=== PATIENT | male | born 2000 | race Two or more races ===

== ENCOUNTER 2024-09-14 17:53 | Emergency (ER) | payer SELFPAY ==
[2024-09-14 18:00] VITALS: BP 152/88; PULSE 99; TEMP 36.9; O2SAT 97; BMI 22.2
[2024-09-14] MEDS: LIDOCAINE HCL 1% 200 MG/20 ML MDV 15 ML INJ (18:18)
--- NOTE | 2024-09-14 18:33 | ED_ITS ---
HPI HPI - General Adult General Chief complaint: Skin/Abscess/Foreign Body Stated complaint: LUMP Time Seen by Provider: 09/14/24 18:01 Source: patient Mode of arrival: walk-in Limitations: no limitations History of Present Illness HPI narrative: 24-year-old male presents here with a chief complaint of a thrombosed external hemorrhoid. He states has had it for approximately 1 week he described it as a bump and difficulty and pain with bowel movements. Patient denies a known history of hemorrhoids. Small thrombosed hemorrhoid noted. No abscess appreciated Related Data Home Medications ?Medication ?Instructions ?Recorded ?Confirmed insulin aspart U-100 100 unit/mL 1 sliding scale dose subcut DAILY 09/14/24 09/14/24 (3 mL) subcutaneous pen Previous Rx's ?Medication ?Instructions ?Recorded docusate sodium 100 mg capsule 100 mg PO DAILY #20 caps 09/14/24 (Colace) hydrocortisone 1 %-pramoxine 1 % 1 applic MT DAILY PRN itching #10 09/14/24 rectal foam (Proctofoam HC) grams Allergies Allergy/AdvReac Type Severity Reaction Status Date / Time No Known Drug Allergies Allergy Verified 09/14/24 18:00 Opioid HPI Opioid Management Most Recent Opioid Data: Last Pain Scale 8 09/14/24 18:19 09/14/24 Review of Systems ROS Narrative All Systems are negative except as noted/marked.All systems reviewed and otherwise negative PFSH PFSH Social History Little interest or pleasure in doing things: not at all Feeling down, depressed, or hopeless: not at all Exam Narrative Exam Narrative: All Systems are negative except as noted/marked.All systems reviewed and otherwise negative Nurses note and vital signs reviewed and patient is not hypoxic. General: The patient appears well and in no apparent distress. Patient is resting comfortably on cart. Skin: Warm, dry, no pallor noted. There is no rash noted. Head: Normocephalic, atraumatic Cardiovascular: Regular Rate and Rhythm Respiratory: Patient is in no distress, no accessory muscle use, lungs are clear to auscultation, no wheezing, rales or rhonchi Back: non-tender, no CVA tenderness bilaterally to percussion. GI: Normal bowel sounds, no tenderness to palpation, no masses appreciated. No rebound, guarding, or rigidity noted. gu: small thrombosed hemorrhoid Musculoskeletal: The patient has no evidence of calf tenderness, no pitting edema, symmetrical pulses noted bilaterally Neurological: A&O x4, normal speech Psychiatric: Cooperative Constitutional Vital Signs, click to edit/add: Last Vital Signs Temp 98.4 F 09/14/24 18:00 Pulse 99 H 09/14/24 18:00 Resp 20 09/14/24 18:00 BP 152/88 H 09/14/24 18:00 Pulse Ox 97 09/14/24 18:00 O2 Del Method Room Air 09/14/24 18:00 Course Vital Signs Vital signs: Vital Signs Temperature 98.4 F 09/14/24 18:00 Pulse Rate 99 H 09/14/24 18:00 Respiratory Rate 20 09/14/24 18:00 Blood Pressure 152/88 H 09/14/24 18:00 Pulse Oximetry 97 09/14/24 18:00 Oxygen Delivery Method Room Air 09/14/24 18:00 Temperature 98.4 F 09/14/24 18:00 Pulse Rate 99 H 09/14/24 18:00 Respiratory Rate 20 09/14/24 18:00 Blood Pressure 152/88 H 09/14/24 18:00 Pulse Oximetry 97 09/14/24 18:00 Oxygen Delivery Method Room Air 09/14/24 18:00 Medical Decision Making MDM Narrative Medical decision making narrative: Patient presented here with a chief complaint of a rectal bump. On examination patient has a small external hemorrhoid. The area was anesthetized 1% lidocaine solution Betadine was used to clean the area. Small incision made with 11 blade. Small clot was expressed from the hemorrhoid. Patient will be discharged home with prescription of Proctofoam and Colace. Patient told to do sitz bath's. He had a history of previous hemorrhoid. Patient tolerated procedure well. Follow-up with his primary care physician. No questions at discharge. Differential Diagnosis Differential Diagnosis: hemoorhoid Medical Records Medical records reviewed: Yes I reviewed the patient's medical records Lab Data Lab results reviewed: Yes I reviewed the patient's lab results Discharge Plan Discharge Chief Complaint: Skin/Abscess/Foreign Body Clinical Impression: Thrombosed external hemorrhoid Patient Disposition: Home, Self-Care Time of Disposition Decision: 18:31 Condition: Good Prescriptions / Home Meds: New docusate sodium [Colace] 100 mg capsule 100 mg PO DAILY Qty: 20 0RF Proctofoam HC 1-1 % foam 1 applic MT DAILY PRN (Reason: itching) Qty: 10 0RF No Action insulin aspart U-100 100 unit/mL (3 mL) insulin pen 1 sliding scale dose SUBCUT DAILY Print Language: Israeli Instructions: Hemorrhoids (ED) Referrals: [facility] [Primary Care Provider] - 1 week
== END 2024-09-14 18:42 | disposition home or self-care (01) ==
PROVIDERS: Emergency Provider Emergency Medicine
DX: K64.5 Perianal venous thrombosis (principal)
CPT/HCPCS: 46083; 99282

== ENCOUNTER 2025-01-22 04:16 | Inpatient (IN) | payer SELFPAY ==
[2025-01-22] VITALS (15 sets, daily range): BP systolic 117–138; BP diastolic 74–89; PULSE 75–92; TEMP 36.4–36.7; O2SAT 97–100; BMI 20.8
--- NOTE | 2025-01-22 04:26 | ECG_ITS ---
[facility] Test Date: 2025-01-22 Pat Name: CLIVE HUDSON Department: Room: - Gender: Male Preparation Department Supervisor: : [id number] Requested By: [id number] Order Number: [id number] Reading MD: BARRIE SWARTZ M.D. Measurements Intervals Berkey Rate: 79 P: 76 DE: 128 QRS: 78 QRSD: 104 T: 42 QT: 376 QTc: 411 Interpretive Statements 1100 Sinus rhythm 5234 Left ventricular hypertrophy with repolarization abnormality 9150 abnormal ECG Compared to ECG 12/07/2021 00:17:39 Left ventricular hypertrophy now present Early repolarization now present ST (T wave) deviation no longer present Possible ischemia no longer present Electronically Signed On 01-23-2025 6:43:33 EDT by BARRIE SWARTZ M.D.
--- OUTSIDE RECORDS SUMMARY | 2025-01-22 04:28 | XMS_ITS | Encounter Summary ---
Author Organization [facility] Address [facility] [id number] [address] [place] [address] Care Team Providers Care Gritting Machine Operator Name Role Phone Services, [facility] Primary Care Provider Encounter Details Date Type Department Care Team (Late st Contact Info) Description 12/07/2021 Orders Only [facility] [place] [address] Transcribe, Orders Support User Pain (Primary Dx) Social History Tobacco Use Types Packs/Day Years Used Date Smoking Tobacco: Never Assessed Overall Financial Resource Strain (CARDIA) Answe r Date Recorded How hard is it for you to pa y for the very basics like food, housing, medical care, and heating? Not hard at all 04/05/2021 PHQ-2 Answer Date Recorded Total Score 0 11/29/2021 PRAPARE - Transportation Answer Date Re corded In the past 12 months, has l ack of transportation kept you from medical appointments or from getting medications? No 10/2020 In the past 12 months, has l ack of transportation kept you from meetings, work, or from getting things needed for daily living? No 04/05/2021 Childcare Answer Date Recorded Do problems getting child ca re make it difficult for you to work or study? No 04/05/2021 Employment Answer Date Recorded Do you need help finding a [employer] career center and/or a training program? No 04/05/2021 Purpose - Life Answer Date Recorded I have a purpose and direction in my life. Stron gly Agree 04/05/2021 Sex and Gender Information Value Date Recorded Sex Assigned at Male 06/05/2022 3:47 AM EST Legal Sex Male 11:57 AM EDT Gender Identity Male 06/05/2022 3:47 AM EST Sexual Orientation Straight 06/05/2022 3: 47 AM EST COVID-19 Exposure Response Date Recorded In the last 10 days, have yo u been in contact with someone who was confirmed or suspected to have Coronavirus/COVID-19? No / Unsure 12/07/2021 5:43 AM EDT documented as of this encounter Plan of Treatment Not on file documented as of this encounter Results * CT brain without contrast (12/07/2021 12:35 AM EDT) us Scanning Provider External IMG CT ORDERABLES Fin al Result documented in this encounter Visit Diagnoses Diagnosis Pain- Primary Generalized pain documented in this encounter Additional Health Concerns Infection Onset Date Last Indicated Resolved Time COVID-19 Rule-Out 07/21/2022 07/21/2022 07/21/2022 9:47 PM EST COVID-19 Rule-Out 05/30/2023 05/30/2023 05/30/2023 10:37 AM EST Assessment Noted Time PHQ-9 Depression Total Score: 0 11/30/19 9:50 AM EDT documented as of this encounter Care Teams Gritting Machine Operator Relationship Specialty Start Date End Date Services, [facility] [address] [place] PCP - General Family Medicine 03/23/24 documented as of this encounter
--- OUTSIDE RECORDS SUMMARY | 2025-01-22 04:28 | XMS_ITS | Encounter Summary ---
Author Organization [email or web address] Address [facility] [id number] [address] [place] [address] Care Team Providers Care Commercial Loan Closer Name Role Phone Services, Primary Care Provider Encounter Details Date Type Department Care Team (Late st Contact Info) Description 06/06/2022 Documentation [facility] [address] [place] [phone] Tay De La Rosa MD [address] [place] [address] [address] [place] [address] Social History Tobacco Use Types Packs/Day Years Used Date Smoking Tobacco: Never Smokeless Tobacco: Never Alcohol Use Standard Drinks/Week Comments No 0 (1 standard drink = 0.6 oz pur e alcohol) Overall Financial Resource Strain (CARDIA) Answe r [...] Recorded Do you need help finding a [employer] career center and/or a training program? No [...] Exposure Response Date Recorded In the last month, have you been in contact with someone who was confirmed or suspected to have Coronavirus / COVID-19? No / Unsure 06/05/2022 3:50 AM EST documented as of this encounter Plan of Treatment Not on file documented as of this encounter Visit Diagnoses Not on filedocumented in this encounter Additional Health Concerns Infection Onset Date Last Indicated Resolved Time COVID-19 Rule-Out 07/21/2022 07/21/2022 07/21/2022 9:47 PM EST COVID-19 Rule-Out 05/30/2023 05/30/2023 05/30/2023 10:37 AM EST Assessment Noted Time PHQ-9 Depression Total Score: 0 11/30/19 9:50 AM EDT documented as of this encounter Care Teams Commercial Loan Closer Relationship Specialty Start Date End Date Services, [facility] [address] [place] PCP - General Family Medicine 03/23/24 documented as of this encounter
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
--- OUTSIDE RECORDS SUMMARY | 2025-01-22 04:29 | XMS_ITS | CCD ---
Author Organization [facility] Informat ion Partnership [facility] Care Team Providers Care Philosophy Instructor Name Role Phone Jinny Sheets Primary Care Provider AL WARD V Admitting Unavailable AL WARD V Attending Unavailable COREY MONTOYA Referring Unavailable JINNY SHEETS Primary Care Unavailable LUCIA FORTE Consulting Unavailable [facility], DR DIAZ Primary Care Unavailable REJI, DR ARTURO Burgos Consulting Unavailable REJI, DR ARTURO Burgos Attending Unavailable REJI, DR ARTURO Burgos Admitting Unavailable Anuj De La Garza Consulting Unavailable AMI SABA Attending Unavailable [facility] Primary Care Unava ilable AMI SABA Attending Unavailable SERVICES, [facility] Primary Care Unava ilable SERVICES, [facility] Care Unava ilable ELLIOT FELIX Attending Unavailable SERVICES, [facility] Care Unava ilable ELIZABETH SHORT Attending Unavailable OBELIZABETH LANTIGUA Attending Unavailable OBELIZABETH LANTIGUA Referring Unavailable SERVICES, [facility] Care Unava ilable ELIZABETH SHORT Attending Unavailable ELIZABETH SHORT Referring Unavailable SERVICES, [facility] Care Unava ilable SERVICES, [facility] Primary Care Unava ilable THIAGO BELLO Attending Unavailable SERVICES, [facility] Unava ilable VINCENZO FRANCO Attending Unavailable VINCENZO FRANCO Admitting Unavailable Medications Current Medications Medication Drug Class(es) Dates Sig (Normalized) Sig (Original) busPIRone hydrochloride 5 mg oral tablet (1 source) Start: 04-07-2019 take 1 tablet by mouth three times daily busPIRone (BUSPAR) 5 MG tablet Take 1 tablet by mouth 3 times daily 90 tablet 0 04/07/2019 Active Start: 04-07-2019 take 1 tablet by alexandrea th three times daily busPIRone (BUSPAR) 5 MG tablet Take 1 tablet by mouth 3 times daily 90 tablet 0 04/07/2019 Active 3 ml insulin glargine 100 unt/ml pen injector (1 source) Insulin Analog Start: 07-09-2014 inject 40 [IU] by subcutaneous injection once daily, then inject 100 [IU] by subcutaneous injection insulin glargine (LANTUS SOLOSTAR) 100 UNIT/ML injection pen TAKE DIRECTED, UP TO 40 UNITS SUBCUTANEOUSLY NIGHTLY 5 Pen 11 07/09/2014 Active insulin lispro 100 unt/ml injectable solution (1 source) Insulin Analog Start: 12-14-2012 HUMALOG 100 UNIT/ML injection Indications: Type I (juvenile type) diabetes mellitus without mention of complication, not stated as uncontrolled USE DIRECTED, UP TO 45 UNITS DAILY 60 mL 11 12/14/2012 Active traZODone hydrochloride 50 mg oral tablet (1 source) Serotonin Reuptake Inhibitor Start: 04-07-2019 take 1 tablet by mouth once daily as needed for sleep traZODone (DESYREL) 50 MG tablet Take 1 tablet by mouth nightly as needed for Sleep 30 tablet 0 04/07/2019 Active Start: 04-07-2019 take 1 tablet by alexandrea th once daily as needed for sleep traZODone (DESYREL) 50 MG tablet Take 1 tablet by mouth nightly as needed for Sleep 30 tablet 0 04/07/2019 Active vortioxetine 10 mg oral tablet (1 source) Start: 04-08-2019 take 1 tablet by mouth once daily VORTIoxetine (TRINTELLIX) 10 MG TABS tablet Take 1 tablet by mouth daily 30 tablet 0 04/08/2019 Active Start: 04-08-2019 take 1 tablet by alexandrea th once daily VORTIoxetine (TRINTELLIX) 10 MG TABS tablet Take 1 tablet by mouth daily 30 tablet 0 04/08/2019 Active Completed/Discontinued Medications Medication Drug Class(es) Dates Sig (Normalized) Sig (Original) cyclobenzaprine hydrochloride 5 mg oral tablet (1 source) Muscle Relaxant Start: 7 End: 9 take 1 tablet by mouth three times daily as needed for muscle spasms and pain cyclobenzaprine (FLEXERIL) 5 MG tablet Indications: Costochondritis Take 1 tablet by mouth 3 times daily as needed for Muscle spasms (and chest wall pain) 30 tablet 0 10/19/2016 04/07/2019 Discontinued (Stop Taking at Discharge) etodolac 400 mg oral tablet (1 source) Nonsteroidal Anti-inflammatory Drug Start: 6 End: 9 take 1 tablet by mouth twice daily etodolac (LODINE) 400 MG tablet Indications: Acute bilateral thoracic back pain , Acute bilateral low back pain without sciatica Take 1 tablet by mouth 2 times daily 60 tablet 3 05/15/2016 04/07/2019 Discontinued (Stop Taking at Discharge) glucagon (rdna) 1 mg injection (1 source) Antihypoglycemic Agent Start: 5 End: 9 glucagon (GLUCAGON EMERGENCY) 1 MG injection Indications: Type 1 diabetes mellitus (HCC) As directed for extreme hypoglycemia 1 kit 2 07/09/2014 04/07/2019 Discontinued (Stop Taking at Discharge) Problems Active Problems Problem Classification Problem Date Documented Date Episodic/Chronic Abdominal pain (1 source) Abdominal pain Onset: 03-13-2024 Episodic Diabetes mellitus with complications (3 sources) Type 1 diabetes mellitus uncontrolled; Translations: [Type 1 diabetes mellitus with hyperglycemia] Onset: 05-15-2016 04-04-2019 Chronic Diabetes mellitus without complication (2 sources) Type 1 diabetes mellitus; Translations: [Type 1 diabetes mellitus without complications] Onset: 10-19-2010 Resolved: 05-15-2016 05-15-2016 Chronic Diabetes mellitus without complication (1 source) Hyperglycemia, unspecified; Translations: [Hyperglycemia, unspecified] Onset: 03-13-2024 Episodic Epilepsy; convulsions (1 source) Epilepsy, unspecified, not intractable, with status epilepticus; Translations: [EPILEPSY UNS NOT INTRACT W/STAT EPI] Onset: 12-08-2021 Chronic Epilepsy; convulsions (3 sources) Unspecified convulsions; Translations: [UNSPECIFIED CONVULSIONS] Onset: 12-07-2021 Episodic Mood disorders (2 sources) Depressive disorder; Translations: [Depression] Onset: 08-10-2011 Resolved: 04-07-2019 08-10-2011 Chronic Noninfectious gastroenteritis (1 source) Noninfective gastroenteritis and colitis, unspecified; Translations: [Noninfective gastroenteritis and colitis, unspecified] Onset: 03-13-2024 Episodic Other aftercare (1 source) [facility] (current) use of insulin; Translations: [HALFWAY CURRENT USE OF INSULIN] Onset: 12-08-2021 Episodic Personality disorders (1 source) Personality disorder; Translations: [Personality disorder] Onset: 08-10-2011 08-10-2011 Chronic Unclassified (1 source) CONTACT W/AND (SUSP) EXPOS COVID-19; Translations: [CONTACT W/AND (SUSP) EXPOS COVID-19] Onset: 12-08-2021 Unclassified (1 source) High Blood Sugar - Symptomatic Onset: 03-23-2024 Unclassified (1 source) High Blood Sugar - No Symptoms Onset: 07-05-2023 Unclassified (1 source) high blood sugar Onset: 07-05-2023 Past or Other Problems Problem Classification Problem Date Documented Da te Episodic/Chronic Suicide and intentional self-inflicted injury (1 source) Suicidal thoughts; Translations: [Suicidal ideations] Onset: 04-22-2014 04-22-2014 Episodic Results Test Name Value Interpretation Reference Range Facility Glucose Glucometer (BldC) [M ass/Vol]on 03-24-2024 Glucose [Mass/Vol] 283 mg/dL High 65-99 [facility] Beta hydroxybutyrate [Moles/ Vol]on 03-23-2024 BetaHydroxybutyrate 1.02 mmol/L High 0.02-0.27 [facility] Comment on above: Performed By: #### C YANIRA, 6873-4, 3040-3, CBCA ####[facility] ([id number])[address] [place] [address] 01040 CBC AND AUTO DIFFon 03-23-20 24 ABSOLUTE BASOPHIL 0.1 X10E9/L Normal 0.0-0.2 [facility] Comment on above: Performed By: #### C YANIRA, 6873-4, 3040-3, CBCA ####[facility] ([id number])[address] [place] [address] 52973 ABSOLUTE NEUTROPHIL 3.3 X10E9/L Normal 1.5-6.6 [facility] Comment on above: Performed By: #### C YANIRA, 6873-4, 3039-3, CBCA ####[facility] ([id number])[address] [place] [address] 76126 Basophils/100 WBC (Bld) 1.3 % Normal [facility] Comment on above: Performed By: #### C YANIRA, 734, 3039-3, CBCA ####[facility] ([id number])[address] [place] [address] 79607 Eosinophils (Bld) [#/Vol] 0.3 10*3/uL Normal 0.0-0.4 [facility] Comment on above: Performed By: #### C YANIRA, 73, 3, CBCA ####[facility] ([id number])[address] [place] [address] 09769 Eosinophils/100 WBC (Bld) 4.3 % Normal [facility] Comment on above: Performed By: #### C YANIRA, 73, 3, CBCA ####[facility] ([id number])[address] [place] [address] 41828 Erythrocyte distribution width (RBC) [Ratio] 13.1 % Normal 11.5-15.0 [facility] Comment on above: Performed By: #### Codey DOYLE, 734, 3, CBCA ####[facility] ([id number])[address] [place] [address] 02311 Hematocrit (Bld) [Volume fraction] 39.2 % Normal 39-49 [facility] Comment on above: Performed By: #### C YANIRA, 734, 3039-3, CBCA ####[facility] ([id number])[address] [place] [address] 77704 Hemoglobin (Bld) [Mass/Vol] 13.2 g/dL Normal 13.0-17.0 [facility] Comment on above: Performed By: #### Codey DOYLE, 6873-4, 3039-3, CBCA ####[facility] ([id number])[address] [place] [address] 37311 Lymphocytes (Bld) [#/Vol] 2.8 10*3/uL Normal 1.0-3.5 [facility] Comment on above: Performed By: #### Codey DOYLE, 734, 3, CBCA ####[facility] ([id number])[address] [place] [address] 42072 Lymphocytes/100 WBC (Bld) 39.6 % Normal [facility] Comment on above: Performed By: #### Codey DOYLE, 734, 3, CBCA ####[facility] ([id number])[address] [place] [address] 89289 MCH (RBC) [Entitic mass] 31.5 pg Normal 27-34 [facility] Comment on above: Performed By: #### Codey DOYLE, 734, 3, CBCA ####[facility] ([id number])[address] [place] [address] 54640 MCHC (RBC) [Mass/Vol] 33.6 g/dL Normal 32-36 [facility] Comment on above: Performed By: #### Codey DOYLE, 734, 3039-3, CBCA ####[facility] ([id number])[address] [place] [address] 06927 MCV (RBC) [Entitic vol] 94 fL Normal 80-100 [facility] Comment on above: Performed By: #### Codey DOYLE, 73-4, 0-3, CBCA ####[facility] ([id number])[address] [place] [address] 97768 Monocytes (Bld) [#/Vol] 0.5 10*3/uL Normal 0-0.9 [facility] Comment on above: Performed By: #### C YANIRA, 6873-4, 3039-3, CBCA ####[facility] ([id number])[address] [place] [address] 37550 Monocytes/100 WBC (Bld) 7.8 % Normal [facility] Comment on above: Performed By: #### Codey DOYLE, 73-4, 3, CBCA ####[facility] ([id number])[address] [place] [address] 25804 Neutrophils/100 WBC (Bld) 47.0 % Normal [facility] Comment on above: Performed By: #### C YANIRA, 73, 3, CBCA ####[facility] ([id number])[address] [place] [address] [place] [address] Platelet mean volume (Bld) [Entitic vol] 7.6 fL Normal 7-12 [facility] Comment on above: Performed By: #### Codey DOYLE, 73, 3039-08, CBCA ####[facility] ([id number])[address] [place] [address] 64447 Platelets (Bld) [#/Vol] 305 10*3/uL Normal 150-450 [facility] Comment on above: Performed By: #### Codey DOYLE, 73, 3, CBCA ####[facility] ([id number])[address] [place] [address] 87655 RBC COUNT 4.18 X10E12/L Normal 4.10-5.70 [facility] Comment on above: Performed By: #### C YANIRA, 73-4, 3039-3, CBCA ####[facility] ([id number])[address] [place] [address] [place] [address] WBC (Bld) [#/Vol] 7.0 10*3/uL Normal 4.0-11.0 [facility] Comment on above: Performed By: #### C YANIRA, 6873-4, 3040-3, CBCA ####[facility] ([id number])[address] [place] [address] 40692 COMPREHENSIVE METABOLIC PANE Mark 03-23-2024 Albumin [Mass/Vol] 3.7 g/dL Normal 3.2-5.3 [facility] Comment on above: Performed By: #### Codey DYOLE, 73-4, 0-3, CBCA ####[facility] ([id number])[address] [place] [address] 13734 ALP [Catalytic activity/Vol] 91 U/L Normal 39-130 [facility] Comment on above: Performed By: #### Codey DOYLE, 73-4, 0-3, CBCA ####[facility] ([id number])[address] [place] [address] 74284 ALT [Catalytic activity/Vol] 17 U/L Normal 0-40 [facility] Comment on above: Performed By: #### Codey DOYLE, 6873-4, 3040-3, CBCA ####[facility] ([id number])[address] [place] [address] 59830 Anion gap [Moles/Vol] 10 mmol/L Normal 5-15 [facility] Comment on above: Performed By: #### Codey DOYLE, 6873-4, 3040-3, CBCA ####[facility] ([id number])[address] [place] [address] 20784 AST [Catalytic activity/Vol] 18 U/L Normal 0-41 [facility] Comment on above: Performed By: #### C YANIRA, 6873-4, 3040-3, CBCA ####[facility] ([id number])[address] [place] [address] 18065 Bilirubin [Mass/Vol] 0.5 mg/dL Normal 0.3-1.2 [facility] Comment on above: Performed By: #### C YANIRA, 73-4, 3039-3, CBCA ####[facility] ([id number])[address] [place] [address] 71992 Calcium [Mass/Vol] 8.9 mg/dL Normal 8.5-10.5 [facility] Comment on above: Performed By: #### C YANIRA, 73-4, 3039-3, CBCA ####[facility] ([id number])[address] [place] [address] 77031 Chloride [Moles/Vol] 96 mmol/L Low 98-109 [facility] Comment on above: Performed By: #### Codey DOYLE, 734, 3, CBCA ####[facility] ([id number])[address] [place] [address] 04852 CO2 [Moles/Vol] 25 mmol/L Normal 22-32 [facility] Comment on above: Performed By: #### Codey DOYLE, 4, 3, CBCA ####[facility] ([id number])[address] [place] [address] 38809 Creatinine [Mass/Vol] 1.06 mg/dL Normal 0.70-1.20 [facility] Comment on above: Result Comment: METH OD TRACEABLE TO IDMS STANDARD Performed By: #### C YANIRA, 73-4, 3039-3, CBCA ####[facility] ([id number])[address] [place] [address] 26066 eGFR (CKD-EPI) NON-RACE DEPENDENT >90 Normal >59 [facility] Comment on above: Result Comment: Reported eGFR is based on the CKD-EPI 2020 equation that does not use a race coefficient. Performed By: #### Codey DOYLE, 73-4, 0-3, CBCA ####[facility] ([id number])[address] [place] [address] 08323 Glucose [Mass/Vol] 671 mg/dL Critically high 65-99 [facility] Comment on above: Performed By: #### Codey DOYLE, 73-4, 0-3, CBCA ####[facility] ([id number])[address] [place] [address] 09492 Potassium [Moles/Vol] 4.4 mmol/L Normal 3.5-5.0 [facility] Comment on above: Performed By: #### Codey DOYLE, 73-4, 0-3, CBCA ####[facility] ([id number])[address] [place] [address] 29131 Protein [Mass/Vol] 7.3 g/dL Normal 6.0-8.0 [facility] Comment on above: Performed By: #### Codey DOYLE, 73-4, 3039-3, CBCA ####[facility] ([id number])[address] [place] [address] 12173 Sodium [Moles/Vol] 131 mmol/L Low 134-146 [facility] Comment on above: Performed By: #### Codey DOYLE, 73-4, 3039-3, CBCA ####[facility] ([id number])[address] [place] [address] 68803 Urea nitrogen [Mass/Vol] 15 mg/dL Normal 5-23 [facility] Comment on above: Performed By: #### Codey DOYLE, 73-4, 0-3, CBCA ####[facility] ([id number])[address] [place] [address] 54729 Glucose Glucometer (BldC) [M ass/Vol]on 03-23-2024 Glucose [Mass/Vol] 495 mg/dL Critically high 65-99 [facility] BEDSIDE GLUCOSE LAB >500 Critically high 65-99 [facility] Comment on above: Result Comment: SEE LAB RESULTS FOR CONFIRMATION LIPASEon 03-23-2024 Lipase [Catalytic activity/Vol] 19 U/L Normal 17-40 [facility] Comment on above: Performed By: #### C MP, 6873-4, 3040-3, CBCA ####[facility] ([id number])[address] [place] [address] 04077 VENOUS BLOOD GASon ROMAN'S TEST Normal [facility] Comment on above: Performed By: #### V BG ####[facility] ([id number])[address] [place] [address] 93782 Base excess Calc (Bld) [Moles/Vol] 0.0 mmol/L Normal 0.0-2.0 [facility] Comment on above: Performed By: #### V BG ####[facility] ([id number])[address] [place] [address] 81453 Body temperature 98.6 [degF] Normal 37.0 [facility] Comment on above: Performed By: #### V BG ####[facility] ([id number])[address] [place] [address] 20264 HCO3 (Bld) [Moles/Vol] 25.6 mmol/L High 20.0-24.0 P [facility] Comment on above: Performed By: #### V BG ####[facility] ([id number])[address] [place] [address] 63559 INSP. O2 CONC. 21 % Normal [facility] Comment on above: Performed By: #### V BG ####[facility] ([id number])[address] [place] [address] 36060 Oxygen saturation in Blood 74.0 % Low >80.0 [facility] Comment on above: Performed By: #### V BG ####[facility] ([id number])[address] [place] [address] 08160 OXYGEN SOURCE [facility] Comment on above: Performed By: #### V BG ####[facility] ([id number])[address] [place] [address] 17805 PCO2, VENOUS 43.5 MMHG Normal 35-50 [facility] Comment on above: Performed By: #### V BG ####[facility] ([id number])[address] [place] [address] 20299 PH, VENOUS 7.378 Normal 7.320-7.420 [facility] Comment on above: Performed By: #### V BG ####[facility] ([id number])[address] [place] [address] 45181 PO2, VENOUS 40 MMHG Normal 30-50 [facility] Comment on above: Performed By: #### V BG ####[facility] ([id number])[address] [place] [address] 43884 SAMPLE SITE N/A Normal [facility] Comment on above: Performed By: #### V BG ####[facility] ([id number])[address] [place] [address] 90649 SAMPLE TYPE VENOUS Normal [facility] Comment on above: Performed By: #### V BG ####[facility] ([id number])[address] [place] [address] 16236 CBC AND AUTO DIFFon 03-13-20 24 ABSOLUTE BASOPHIL 0.0 X10E9/L Normal 0.0-0.2 [facility] Comment on above: Performed By: #### N UM #### [facility] ([id number]) [address] [place] [address] 89518 ABSOLUTE NEUTROPHIL 6.6 X10E9/L Normal 1.5-6.6 [facility] Comment on above: Performed By: #### N UM #### [facility] ([id number]) [address] [place] [address] 74091 Basophils/100 WBC (Bld) 0.4 % Normal [facility] Comment on above: Performed By: #### N UM #### [facility] ([id number]) [address] [place] [address] 09071 Eosinophils (Bld) [#/Vol] 0.1 10*3/uL Normal 0.0-0.4 [facility] Comment on above: Performed By: #### N UM #### [facility] ([id number]) [address] [place] [address] 98796 Eosinophils/100 WBC (Bld) 1.0 % Normal [facility] Comment on above: Performed By: #### N UM #### [facility] ([id number]) [address] [place] [address] 90480 Erythrocyte distribution width (RBC) [Ratio] 12.9 % Normal 11.5-15.0 [facility] Comment on above: Performed By: #### N UM #### [facility] ([id number]) [address] [place] [address] 40385 Hematocrit (Bld) [Volume fraction] 46.0 % Normal 39-49 [facility] Comment on above: Performed By: #### N UM #### [facility] ([id number]) [address] [place] [address] 08717 Hemoglobin (Bld) [Mass/Vol] 15.8 g/dL Normal 13.0-17.0 [facility] Comment on above: Performed By: #### N UM #### [facility] ([id number]) [address] [place] [address] 36808 Lymphocytes (Bld) [#/Vol] 1.3 10*3/uL Normal 1.0-3.5 [facility] Comment on above: Performed By: #### N UM #### [facility] ([id number]) [address] [place] [address] 96798 Lymphocytes/100 WBC (Bld) 14.6 % Normal [facility] Comment on above: Performed By: #### N UM #### [facility] ([id number]) [address] [place] [address] 51820 MCH (RBC) [Entitic mass] 31.8 pg Normal 27-34 [facility] Comment on above: Performed By: #### N UM #### [facility] ([id number]) [address] [place] [address] 97958 MCHC (RBC) [Mass/Vol] 34.3 g/dL Normal 32-36 [facility] Comment on above: Performed By: #### N UM #### [facility] ([id number]) [address] [place] [address] 71189 MCV (RBC) [Entitic vol] 93 fL Normal 80-100 [facility] Comment on above: Performed By: #### N UM #### [facility] ([id number]) [address] [place] [address] 45016 Monocytes (Bld) [#/Vol] 0.7 10*3/uL Normal 0-0.9 [facility] Comment on above: Performed By: #### N UM #### [facility] ([id number]) [address] [place] [address] 82961 Monocytes/100 WBC (Bld) 8.4 % Normal [facility] Comment on above: Performed By: #### N UM #### [facility] ([id number]) [address] [place] [address] 62917 Neutrophils/100 WBC (Bld) 75.6 % Normal [facility] Comment on above: Performed By: #### N UM #### [facility] ([id number]) [address] [place] [address] 88541 Platelet mean volume (Bld) [Entitic vol] 8.3 fL Normal 7-12 [facility] Comment on above: Performed By: #### N UM #### [facility] ([id number]) [address] [place] [address] 28717 Platelets (Bld) [#/Vol] 382 10*3/uL Normal 150-450 [facility] Comment on above: Performed By: #### N UM #### [facility] ([id number]) [address] [place] [address] 46613 RBC COUNT 4.97 X10E12/L Normal 4.10-5.70 [facility] Comment on above: Performed By: #### N UM #### [facility] ([id number]) [address] [place] [address] 55620 WBC (Bld) [#/Vol] 8.8 10*3/uL Normal 4.0-11.0 [facility] Comment on above: Performed By: #### N UM #### [facility] ([id number]) [address] [place] [address] 65965 COMPREHENSIVE METABOLIC PANE Mark 03-13-2024 Albumin [Mass/Vol] 4.2 g/dL Normal 3.2-5.3 [facility] Comment on above: Performed By: #### N UM #### [facility] ([id number]) [address] [place] [address] 15573 ALP [Catalytic activity/Vol] 59 U/L Normal 39-130 [facility] Comment on above: Performed By: #### N UM #### [facility] ([id number]) [address] [place] [address] 49623 ALT [Catalytic activity/Vol] 18 U/L Normal 0-40 [facility] Comment on above: Performed By: #### N UM #### [facility] ([id number]) [address] [place] [address] 52856 Anion gap [Moles/Vol] 7 mmol/L Normal 5-15 [facility] Comment on above: Performed By: #### N UM #### [facility] ([id number]) [address] [place] [address] 65062 AST [Catalytic activity/Vol] 17 U/L Normal 0-41 [facility] Comment on above: Performed By: #### N UM #### [facility] ([id number]) [address] [place] [address] 59166 Bilirubin [Mass/Vol] 1.2 mg/dL Normal 0.3-1.2 [facility] Comment on above: Performed By: #### N UM #### [facility] ([id number]) [address] [place] [address] 70979 Calcium [Mass/Vol] 9.3 mg/dL Normal 8.5-10.5 [facility] Comment on above: Performed By: #### N UM #### [facility] ([id number]) [address] [place] [address] 97843 Chloride [Moles/Vol] 105 mmol/L Normal 98-109 [facility] Comment on above: Performed By: #### N UM #### [facility] ([id number]) [address] [place] [address] 47861 CO2 [Moles/Vol] 24 mmol/L Normal 22-32 [facility] Comment on above: Performed By: #### N UM #### [facility] ([id number]) [address] [place] [address] 53426 Creatinine [Mass/Vol] 0.88 mg/dL Normal 0.70-1.20 [facility] Comment on above: Result Comment: METH OD TRACEABLE TO IDMS STANDARD Performed By: #### N UM #### [facility] ([id number]) [address] [place] [address] 66236 eGFR (CKD-EPI) NON-RACE DEPENDENT >90 Normal >59 [facility] Comment on above: Result Comment: Reported eGFR is based on the CKD-EPI 2020 equation that does not use a race coefficient. Performed By: #### N UM #### [facility] ([id number]) [address] [place] [address] 41358 Glucose [Mass/Vol] 286 mg/dL High 65-99 [facility] Comment on above: Performed By: #### N UM #### [facility] ([id number]) [address] [place] [address] 44566 Potassium [Moles/Vol] 4.0 mmol/L Normal 3.5-5.0 [facility] Comment on above: Performed By: #### N UM #### [facility] ([id number]) [address] [place] [address] 45272 Protein [Mass/Vol] 8.4 g/dL High 6.0-8.0 [facility] Comment on above: Performed By: #### N UM #### [facility] ([id number]) [address] [place] [address] 80915 Sodium [Moles/Vol] 136 mmol/L Normal 134-146 [facility] Comment on above: Performed By: #### N UM #### [facility] ([id number]) [address] [place] [address] 21838 Urea nitrogen [Mass/Vol] 12 mg/dL Normal 5-23 [facility] Comment on above: Performed By: #### N UM #### [facility] ([id number]) [address] [place] [address] ABDOMEN AND PELVIS W CONT on 03-13-2024 CT ABDOMEN AND PELVIS W CONT CT ABDOMEN AND PELVIS W CONT CLINICAL INFORMATION: Epigastric pain TECHNIQUE: CT ABDOMEN AND PELVIS W CONT CT images of the abdomen and pelvis are obtained. Intravenous contrast was administered. Bowel is nondistended without evidence of obstruction. No colonic wall thickening appreciated. Kidneys enhance homogeneously. Images the lung bases show left lower lobe subpleural opacity, unchanged no hepatic or splenic abnormality seen. Gallbladder nondistended without CT evidence of gallstones. Pancreas is unremarkable. Portal and mesenteric vessels appear to enhance normally. Osseous structures are intact. No free intraperitoneal fluid. IMPRESSION: No acute abdominal findings. All CT scans at this facility use dose modulation, iterative reconstruction, and/or weight based dosing when appropriate to reduce radiation dose to as low as reasonably achievable. 6 Finalized by Armando Cooley MD on 03/13/2024 9:26 AM Normal [facility] LIPASEon 03-13-2024 Lipase [Catalytic activity/Vol] 16 U/L Low 17-40 [facility] Comment on above: Performed By: #### N UM #### [facility] ([id number]) [address] [place] [address] 00449 Troponin I.cardiac High sens itivity method [Mass/Vol]on 03-13-2024 1 HOUR TROP I, HIGH SENSITIVITY <2 Normal <21 [facility] Comment on above: Performed By: #### 8 9579-7 ####[facility] ([id number])[address] [place] [address] 48310 TROPONIN I, HIGH SENSITIVITY <2 Normal <21 [facility] Comment on above: Performed By: #### N UM #### [facility] ([id number]) [address] [place] [address] 34039 URN MACROSCOPIC NURon 2023 BILIRUBIN SYDNEY Negative Normal NEG [facility] Comment on above: Performed By: #### N UM ####[facility] ([id number])[address] [place] [address], [place] [address] BLOOD/HGB SYDNEY Negative Normal NEG [facility] Comment on above: Performed By: #### N UM ####[facility] ([id number])[address] [place] [address], [place] [address] GLUCOSE SYDNEY >=1000 Abnormal NEG [facility] Comment on above: Performed By: #### N UM ####[facility] ([id number])[address] [place] [address], [place] [address] KETONES SYDNEY 40 mg/dL Abnormal NEG [facility] Comment on above: Performed By: #### N UM ####[facility] ([id number])[address] [place] [address], [place] [address] LEUKOCYTE ESTERASE SYDNEY Negative Normal NEG [facility] Comment on above: Performed By: #### N UM ####[facility] ([id number])[address] [place] [address], [place] [address] NITRITE SYDNEY Negative Normal NEG [facility] Comment on above: Performed By: #### N UM ####[facility] ([id number])[address] [place] [address], [place] [address] PH SYDNEY 6.0 Normal 5.0-8.5 [facility] Comment on above: Performed By: #### N UM ####[facility] ([id number])[address] [place] [address], [place] [address] PROTEIN SYDNEY Negative Normal NEG [facility] Comment on above: Performed By: #### N UM ####[facility] ([id number])[address] [place] [address], [place] [address] SPECIFIC GRAVITY SYDNEY 1.020 Normal 1.003-1.035 [facility] Comment on above: Performed By: #### N UM ####[facility] ([id number])[address] [place] [address] 28493 UROBILINOGEN SYDNEY 0.2 eu/dL Normal <1.1 [facility] Comment on above: Performed By: #### N UM ####[facility] ([id number])[address] [place] [address] 88319 VENOUS BLOOD GASon 4 ROMAN'S TEST Normal [facility] Comment on above: Performed By: #### N UM #### [facility] ([id number]) [address] [place] [address] 24188 BASE,DEFICIT 1.0 MMOL/L Normal 0.0-2.0 [facility] Comment on above: Performed By: #### N UM #### [facility] ([id number]) [address] [place] [address] 55257 Body temperature 98.6 [degF] Normal 37.0 [facility] Comment on above: Performed By: #### N UM #### [facility] ([id number]) [address] [place] [address] 27416 HCO3 (Bld) [Moles/Vol] 24.4 mmol/L High 20.0-24.0 [facility] Comment on above: Performed By: #### N UM #### [facility] ([id number]) [address] [place] [address] 94850 Oxygen saturation in Blood 93.0 % Normal >80.0 [facility] Comment on above: Performed By: #### N UM #### [facility] ([id number]) [address] [place] [address] 05911 OXYGEN SOURCE RoomAir Normal [facility] Comment on above: Performed By: #### N UM #### [facility] ([id number]) [address] [place] [address] 44145 PCO2, VENOUS 40.6 MMHG Normal 35-50 [facility] Comment on above: Performed By: #### N UM #### [facility] ([id number]) [address] [place] [address] 24615 PH, VENOUS 7.386 Normal 7.320-7.420 [facility] Comment on above: Performed By: #### N UM #### [facility] ([id number]) [address] [place] [address] 24910 PO2, VENOUS 70 MMHG High 30-50 [facility] Comment on above: Performed By: #### N UM #### [facility] ([id number]) [address] [place] [address] 59856 SAMPLE SITE N/A Normal [facility] Comment on above: Performed By: #### N UM #### [facility] ([id number]) [address] [place] [address] 15105 SAMPLE TYPE VENOUS Normal [facility] Comment on above: Performed By: #### N UM #### [facility] ([id number]) [address] [place] [address] 99481 XR CHEST 1 VWon 03-13-2024 XR CHEST 1 VW XR CHEST 1 VW Portable chest: HISTORY: Epigastric abdominal pain and cough. Single view of the chest was obtained. Lungs are clear. There is no vascular congestion or effusion. No pneumothorax seen. Osseous structures appear intact. IMPRESSION: No acute findings. 6 Finalized by Armando Cooley MD on 03/13/2024 9:24 AM Normal [facility] CBC AND AUTO DIFFon 08-03-19 ABSOLUTE BASOPHIL 0.0 X10E9/L Normal 0.0-0.2 [facility] Comment on above: Performed By: #### C BCA, CMP, 24446-4 ####[facility] ([id number])[address] [place] [address] 13415 ABSOLUTE NEUTROPHIL 3.1 X10E9/L Normal 1.5-6.6 [facility] Comment on above: Performed By: #### C CARLOS CANNON, ####[facility] ([id number])[address] [place] [address] 69379 Basophils/100 WBC (Bld) 0.4 % Normal [facility] Comment on above: Performed By: #### Codey CANNON CMP, ####[facility] ([id number])[address] [place] [address] 01871 Eosinophils (Bld) [#/Vol] 0.1 10*3/uL Normal 0.0-0.4 [facility] Comment on above: Performed By: #### Codey CANNON CMP, ####[facility] ([id number])[address] [place] [address] 15948 Eosinophils/100 WBC (Bld) 1.3 % Normal [facility] Comment on above: Performed By: #### Codey CANNON [facility], 73169-7 ####[facility] ([id number])[address] [place] [address] 37799 Erythrocyte distribution width (RBC) [Ratio] 14.3 % Normal 11.5-15.0 [facility] Comment on above: Performed By: #### Codey CANNON CMP, ####[facility] ([id number])[address] [place] [address] 58374 Hematocrit (Bld) [Volume fraction] 33.1 % Low 39-49 [facility] Comment on above: Performed By: #### Codey CANNON CMP, ####[facility] ([id number])[address] [place] [address] 36112 Hemoglobin (Bld) [Mass/Vol] 11.6 g/dL Low 13.0-17.0 [facility] Comment on above: Performed By: #### C KASSANDRA CMP, ####[facility] ([id number])[address] [place] [address] 59277 Lymphocytes (Bld) [#/Vol] 3.0 10*3/uL Normal 1.0-3.5 [facility] Comment on above: Performed By: #### Codey CANNON CMP, ####[facility] ([id number])[address] [place] [address] 07796 Lymphocytes/100 WBC (Bld) 44.9 % Normal [facility] Comment on above: Performed By: #### Codey CANNON CMP, ####[facility] ([id number])[address] [place] [address] 40164 MCH (RBC) [Entitic mass] 31.7 pg Normal 27-34 [facility] Comment on above: Performed By: #### Codey CANNON CMP, ####[facility] ([id number])[address] [place] [address] 66443 MCHC (RBC) [Mass/Vol] 35.0 g/dL Normal 32-36 [facility] Comment on above: Performed By: #### Codey CANNON CMP, ####[facility] ([id number])[address] [place] [address] 12179 MCV (RBC) [Entitic vol] 90 fL Normal 80-100 [facility] Comment on above: Performed By: #### Codey CANNON, CMP, ####[facility] ([id number])[address] [place] [address] 65283 Monocytes (Bld) [#/Vol] 0.5 10*3/uL Normal 0-0.9 [facility] Comment on above: Performed By: #### Codey CANNON CMP, ####[facility] ([id number])[address] [place] [address] 09559 Monocytes/100 WBC (Bld) 7.1 % Normal [facility] Comment on above: Performed By: #### C KASSANDRA, CMP, 05518-0 ####[facility] ([id number])[address] [place] [address] 56482 Neutrophils/100 WBC (Bld) 46.3 % Normal [facility] Comment on above: Performed By: #### C KASSANDRA, CMP, 42937-3 ####[facility] ([id number])[address] [place] [address] 88711 Platelet mean volume (Bld) [Entitic vol] 7.3 fL Normal 7-12 [facility] Comment on above: Performed By: #### Codey CANNON, CMP, 64241-2 ####[facility] ([id number])[address] [place] [address] 51297 Platelets (Bld) [#/Vol] 243 10*3/uL Normal 150-450 [facility] Comment on above: Performed By: #### Codey CANNON, CMP, 16666-4 ####[facility] ([id number])[address] [place] [address] 61376 RBC COUNT 3.66 X10E12/L Low 4.10-5.70 [facility] Comment on above: Performed By: #### C BCA, CMP, ####[facility] ([id number])[address] [place] [address] 43031 WBC (Bld) [#/Vol] 6.8 10*3/uL Normal 4.0-11.0 [facility] Comment on above: Performed By: #### C KASSANDRA, CMP, 92595-8 ####[facility] ([id number])[address] [place] [address] 82167 COMPREHENSIVE METABOLIC PANE Mark 08-03-2023 Albumin [Mass/Vol] 2.6 g/dL Low 3.2-5.3 [facility] Comment on above: Performed By: #### C KASSANDRA, CMP, ####[facility] ([id number])[address] [place] [address], [place] [address] ALP [Catalytic activity/Vol] 51 U/L Normal 39-130 [facility] Comment on above: Performed By: #### C BCA, CMP, ####[facility] ([id number])[address] [place] [address] [place] [address] ALT [Catalytic activity/Vol] 42 U/L High 0-40 [facility] Comment on above: Performed By: #### C BCA, CMP, ####[facility] ([id number])[address] [place] [address] [place] [address] AST [Catalytic activity/Vol] 66 U/L High 0-41 [facility] Comment on above: Performed By: #### C BCA, CMP, ####[facility] ([id number])[address] [place] [address] [place] [address] Bilirubin [Mass/Vol] 0.7 mg/dL Normal 0.3-1.2 [facility] Comment on above: Performed By: #### C BCA, CMP, ####[facility] ([id number])[address] [place] [address] [place] [address] Calcium [Mass/Vol] 7.9 mg/dL Low 8.5-10.5 [facility] Comment on above: Performed By: #### C BCA, CMP, ####[facility] ([id number])[address] [place] [address] [place] [address] Chloride [Moles/Vol] 110 mmol/L High 98-109 [facility] Comment on above: Performed By: #### C KASSANDRA [facility], ####[facility] ([id number])[address] [place] [address] 63679 Creatinine [Mass/Vol] 0.56 mg/dL Low 0.70-1.20 [facility] Comment on above: Result Comment: METH OD TRACEABLE TO IDMS STANDARD Performed By: #### C KASSANDRA [facility], ####[facility] ([id number])[address] [place] [address] 43015 eGFR (CKD-EPI) NON-RACE DEPENDENT >90 Normal >59 [facility] Comment on above: Result Comment: Reported eGFR is based on the CKD-EPI 2020 equation that does not use a race coefficient. Performed By: #### C CARLOS CANNON, ####[facility] ([id number])[address] [place] [address] 61998 Glucose [Mass/Vol] 133 mg/dL High 65-99 [facility] Comment on above: Performed By: #### C KASSANDRA [facility], ####[facility] ([id number])[address] [place] [address] 78235 Potassium [Moles/Vol] 3.4 mmol/L Low 3.5-5.0 [facility] Comment on above: Performed By: #### C KASSANDRA [facility], ####[facility] ([id number])[address] [place] [address] 78481 Protein [Mass/Vol] 5.5 g/dL Low 6.0-8.0 [facility] Comment on above: Performed By: #### C KASSANDRA [facility], ####[facility] ([id number])[address] [place] [address] 79564 Sodium [Moles/Vol] 136 mmol/L Normal 134-146 [facility] Comment on above: Performed By: #### C CARLOS CANNON, 20728-3 ####[facility] ([id number])[address] [place] [address] [place] [address] Urea nitrogen [Mass/Vol] 10 mg/dL Normal 5-23 [facility] Comment on above: Performed By: #### C CARLOS CANNON, 77668-8 ####[facility] ([id number])[address] [place] [address] [place] [address] ELECTROLYTESon 08-03-2023 Chloride [Moles/Vol] 109 mmol/L Normal 98-109 [facility] Comment on above: Performed By: #### N UM #### [facility] ([id number]) [address] [place] [address] 02804 Potassium [Moles/Vol] 3.6 mmol/L Normal 3.5-5.0 [facility] Comment on above: Performed By: #### N UM #### [facility] ([id number]) [address] [place] [address] 01459 Sodium [Moles/Vol] 135 mmol/L Normal 134-146 [facility] Comment on above: Performed By: #### N UM #### [facility] ([id number]) [address] [place] [address] [place] [address] Anion gap [Moles/Vol] 5 mmol/L Normal 5-15 [facility] Comment on above: Performed By: #### N UM #### [facility] ([id number]) [address] [place] [address] [place] [address] Performed By: #### C KASSANDRA CMP, 57476-2 ####[facility] ([id number])[address] [place] [address] [place] [address] CO2 [Moles/Vol] 21 mmol/L Low 22-32 [facility] Comment on above: Performed By: #### N UM #### [facility] ([id number]) [address] [place] [address] 05550 Performed By: #### Codey CANNON CMP, 57953-2 ####[facility] ([id number])[address] [place] [address] 26304 Glucose Glucometer (BldC) [M ass/Vol]on 08-03-2023 Glucose [Mass/Vol] 337 mg/dL High 65-99 [facility] Glucose [Mass/Vol] 226 mg/dL High 65-99 [facility] Glucose [Mass/Vol] 134 mg/dL High 65-99 [facility] Glucose [Mass/Vol] 118 mg/dL High 65-99 [facility] Glucose [Mass/Vol] 127 mg/dL High 65-99 [facility] Glucose [Mass/Vol] 138 mg/dL High 65-99 [facility] Glucose [Mass/Vol] 192 mg/dL High 65-99 [facility] Glucose [Mass/Vol] 214 mg/dL High 65-99 [facility] MAGNESIUMon 08-03-2023 Magnesium [Mass/Vol] 1.6 mg/dL Low 1.8-2.6 [facility] Comment on above: Performed By: #### Codey CANNON [facility], 18665-5 ####[facility] ([id number])[address] [place] [address] 50718 CBC AND AUTO DIFFon 08-02-19 24 ABSOLUTE BASOPHIL 0.2 X10E9/L Normal 0.0-0.2 [facility] Comment on above: Performed By: #### B YANIRA, , 2777-1, CBCA, 6873-4 #### [facility] ([id number]) [address] [place] [address] 46449 ABSOLUTE NEUTROPHIL 6.5 X10E9/L Normal 1.5-6.6 [facility] Comment on above: Performed By: #### Pura DOYLE, , 2776-07, CBCA, 6873-4 #### [facility] ([id number]) [address] [place] [address] 83555 Basophils/100 WBC (Bld) 1.5 % Normal [facility] Comment on above: Performed By: #### B YANIRA, , 2776-07, CBCA, 6873-4 #### [facility] ([id number]) [address] [place] [address] 21390 Eosinophils (Bld) [#/Vol] 0.1 10*3/uL Normal 0.0-0.4 [facility] Comment on above: Performed By: #### B YANIRA, , 2776-07, CBCA, 6873-4 #### [facility] ([id number]) [address] [place] [address] 16930 Eosinophils/100 WBC (Bld) 0.7 % Normal [facility] Comment on above: Performed By: #### B YANIRA, , 2776-07, CBCA, 6873-4 #### [facility] ([id number]) [address] [place] [id number] Erythrocyte distribution width (RBC) [Ratio] 14.2 % Normal 11.5-15.0 [facility] Comment on above: Performed By: #### B YANIRA, , 2776-07, CBCA, 6873-4 #### [facility] ([id number]) [address] [place] [address] [id number] Hematocrit (Bld) [Volume fraction] 37.9 % Low 39-49 [facility] Comment on above: Performed By: #### B YANIRA, , 2776-07, CBCA, 6873-4 #### [facility] ([id number]) [address] [place] [address] 93057 Hemoglobin (Bld) [Mass/Vol] 12.7 g/dL Low 13.0-17.0 [facility] Comment on above: Performed By: #### Pura DOYLE, , 2776-07, CBCA, 6873-4 #### [facility] ([id number]) [address] [place] [address] 50127 Lymphocytes (Bld) [#/Vol] 3.2 10*3/uL Normal 1.0-3.5 [facility] Comment on above: Performed By: #### B YANIRA, , 2776-07, CBCA, 6873-4 #### [facility] ([id number]) [address] [place] [address] Lymphocytes/100 WBC (Bld) 30.1 % Normal [facility] Comment on above: Performed By: #### Pura DOYLE, , 2776-07, CBCA, 6873-4 #### [facility] ([id number]) [address] [place] [address] 51594 MCH (RBC) [Entitic mass] 30.6 pg Normal 27-34 [facility] Comment on above: Performed By: #### Pura DOYLE, , 2776-07, CBCA, 6873-4 #### [facility] ([id number]) [address] [place] [address] 78883 MCHC (RBC) [Mass/Vol] 33.6 g/dL Normal 32-36 [facility] Comment on above: Performed By: #### Pura DOYLE, , 2776-07, CBCA, 6873-4 #### [facility] ([id number]) [address] [place] [address] 28669 MCV (RBC) [Entitic vol] 91 fL Normal 80-100 [facility] Comment on above: Performed By: #### Pura DOYLE, , 2776-07, CBCA, 6873-4 #### [facility] ([id number]) [address] [place] [address] 16261 Monocytes (Bld) [#/Vol] 0.8 10*3/uL Normal 0-0.9 [facility] Comment on above: Performed By: #### B YANIRA, , 2776-, CBCA, 6873-4 #### [facility] ([id number]) [address] [place] [address] 37635 Monocytes/100 WBC (Bld) 7.4 % Normal [facility] Comment on above: Performed By: #### B YANIRA, , 2776-07, CBCA, 6873-4 #### [facility] ([id number]) [address] [place] [address] 37799 Neutrophils/100 WBC (Bld) 60.3 % Normal [facility] Comment on above: Performed By: #### B YANIRA, , 2776-07, CBCA, 6873-4 #### [facility] ([id number]) [address] [place] [address] 99038 Platelet mean volume (Bld) [Entitic vol] 7.3 fL Normal 7-12 [facility] Comment on above: Performed By: #### uPra DOYLE, , 2776-07, CBCA, 6873-4 #### [facility] ([id number]) [address] [place] [address] 54111 Platelets (Bld) [#/Vol] 317 10*3/uL Normal 150-450 [facility] Comment on above: Performed By: #### B YANIRA, , 2776-07, CBCA, 6873-4 #### [facility] ([id number]) [address] [place] [address] 63020 RBC COUNT 4.16 X10E12/L Normal 4.10-5.70 [facility] Comment on above: Performed By: #### B YANIRA, 30866-4, 2776-, CBCA, 6873-4 #### [facility] ([id number]) [address] [place] [address] 78008 WBC (Bld) [#/Vol] 10.7 10*3/uL Normal 4.0-11.0 [facility] Comment on above: Performed By: #### B YANIRA, 80534-0, 2776-, CBCA, 6873-4 #### [facility] ([id number]) [address] [place] [address] 03781 COMPREHENSIVE METABOLIC PANE Mark 08-02-2023 Albumin [Mass/Vol] 3.0 g/dL Low 3.2-5.3 [facility] Comment on above: Performed By: #### B YANIRA, , 2776-07, CBCA, 6873-4 #### [facility] ([id number]) [address] [place] [address] 10646 ALP [Catalytic activity/Vol] 52 U/L Normal 39-130 [facility] Comment on above: Performed By: #### B YANIRA, , 2776-, CBCA, 6873-4 #### [facility] ([id number]) [address] [place] [address] 43430 ALT [Catalytic activity/Vol] 31 U/L Normal 0-40 [facility] Comment on above: Performed By: #### B YANIRA, 02267-1, 2776-, CBCA, 6873-4 #### [facility] ([id number]) [address] [place] [address] 97830 Anion gap [Moles/Vol] 8 mmol/L Normal 5-15 [facility] Comment on above: Performed By: #### B YANIRA, 58938-0, 2776-, CBCA, 6873-4 #### [facility] ([id number]) [address] [place] [address] 95180 AST [Catalytic activity/Vol] 17 U/L Normal 0-41 [facility] Comment on above: Performed By: #### B YANIRA, , 2776-07, CBCA, 6873-4 #### [facility] ([id number]) [address] [place] [address] 66241 Bilirubin [Mass/Vol] 0.9 mg/dL Normal 0.3-1.2 [facility] Comment on above: Performed By: #### B YANIRA, , 2776-07, CBCA, 6873-4 #### [facility] ([id number]) [address] [place] [address] 63982 Calcium [Mass/Vol] 8.0 mg/dL Low 8.5-10.5 [facility] Comment on above: Performed By: #### B YANIRA, , 2776-07, CBCA, 6873-4 #### [facility] ([id number]) [address] [place] [address] 10390 Chloride [Moles/Vol] 115 mmol/L High 98-109 [facility] Comment on above: Performed By: #### B YANIRA, , 2776-07, CBCA, 6873-4 #### [facility] ([id number]) [address] [place] [address] 06902 CO2 [Moles/Vol] 16 mmol/L Low 22-32 [facility] Comment on above: Performed By: #### B YANIRA, , 2776-07, CBCA, 6873-4 #### [facility] ([id number]) [address] [place] [address] 72921 Creatinine [Mass/Vol] 0.88 mg/dL Normal 0.70-1.20 [facility] Comment on above: Result Comment: METH OD TRACEABLE TO IDMS STANDARD Performed By: #### B YANIRA, , 2776-07, CBCA, 6873-4 #### [facility] ([id number]) [address] [place] [address] 99258 eGFR (CKD-EPI) NON-RACE DEPENDENT >90 Normal >59 [facility] Comment on above: Result Comment: Reported eGFR is based on the CKD-EPI 2020 equation that does not use a race coefficient. Performed By: #### B YANIRA, , 2776-07, CBCA, 6873-4 #### [facility] ([id number]) [address] [place] [address] 70882 Glucose [Mass/Vol] 146 mg/dL High 65-99 [facility] Comment on above: Performed By: #### B YANIRA, , 2776-07, CBCA, 6873-4 #### [facility] ([id number]) [address] [place] [address] 12469 Potassium [Moles/Vol] 3.5 mmol/L Normal 3.5-5.0 [facility] Comment on above: Performed By: #### B YANIRA, , 2776-07, CBCA, 6873-4 #### [facility] ([id number]) [address] [place] [address] 74580 Protein [Mass/Vol] 6.3 g/dL Normal 6.0-8.0 [facility] Comment on above: Performed By: #### B YANIRA, , 2776-07, CBCA, 6873-4 #### [facility] ([id number]) [address] [place] [address] 09336 Sodium [Moles/Vol] 139 mmol/L Normal 134-146 [facility] Comment on above: Performed By: #### B YANIRA, , 2776-07, CBCA, 6873-4 #### [facility] ([id number]) [address] [place] [address] [place] [address] Urea nitrogen [Mass/Vol] 17 mg/dL Normal 5-23 [facility] Comment on above: Performed By: #### [place], 636[address]-5, 2777-1, CBCA, 6873-4 #### [facility] ([id number]) [address] [place] [address] [place] [address] ELECTROLYTESon 08-02-2023 Anion gap [Moles/Vol] 6 mmol/L Normal 5-15 [facility] Comment on above: Performed By: #### E LEC ####[facility] ([id number])[address] [place] [address] 92135 Chloride [Moles/Vol] 109 mmol/L Normal 98-109 [facility] Comment on above: Performed By: #### E LEC ####[facility] ([id number])[address] [place] [address] [place] [address] CO2 [Moles/Vol] 18 mmol/L Low 22-32 [facility] Comment on above: Performed By: #### E LEC ####[facility] ([id number])[address] [place] [address] [place] [address] Potassium [Moles/Vol] 3.8 mmol/L Normal 3.5-5.0 [facility] Comment on above: Performed By: #### E LEC ####[facility] ([id number])[address] [place] [address], [place] [address] Sodium [Moles/Vol] 133 mmol/L Low 134-146 [facility] Comment on above: Performed By: #### E LEC ####[facility] ([id number])[address] [place] [address] [place] [address] Anion gap [Moles/Vol] 7 mmol/L Normal 5-15 [facility] Comment on above: Performed By: #### V BG #### [facility] ([id number]) [address] [place] [address], [place] [address] Chloride [Moles/Vol] 110 mmol/L High 98-109 [facility] Comment on above: Performed By: #### V BG #### [facility] ([id number]) [address] [place] [address] [place] [address] CO2 [Moles/Vol] 18 mmol/L Low 22-32 [facility] Comment on above: Performed By: #### V BG #### [facility] ([id number]) [address] [place] [address] 42925 Potassium [Moles/Vol] 3.5 mmol/L Normal 3.5-5.0 [facility] Comment on above: Performed By: #### V BG #### [facility] ([id number]) [address] [place] [address] 43561 Sodium [Moles/Vol] 135 mmol/L Normal 134-146 [facility] Comment on above: Performed By: #### V BG #### [facility] ([id number]) [address] [place] [address] 79679 Anion gap [Moles/Vol] 4 mmol/L Low 5-15 [facility] Comment on above: Performed By: #### V BG #### [facility] ([id number]) [address] [place] [address] [place] [address] Chloride [Moles/Vol] 114 mmol/L High 98-109 [facility] Comment on above: Performed By: #### V BG #### [facility] ([id number]) [address] [place] [address] [place] [address] CO2 [Moles/Vol] 16 mmol/L Low 22-32 [facility] Comment on above: Performed By: #### V BG #### [facility] ([id number]) [address] [place] [address], [place] [address] Potassium [Moles/Vol] 3.4 mmol/L Low 3.5-5.0 [facility] Comment on above: Performed By: #### V BG #### [facility] ([id number]) [address] [place] [address], [place] [address] Sodium [Moles/Vol] 134 mmol/L Normal 134-146 [facility] Comment on above: Performed By: #### V BG #### [facility] ([id number]) [address] [place] [address], [place] [address] Anion gap [Moles/Vol] 5 mmol/L Normal 5-15 [facility] Comment on above: Performed By: #### V BG #### [facility] ([id number]) [address] [place] [address], [place] [address] Chloride [Moles/Vol] 113 mmol/L High 98-109 [facility] Comment on above: Performed By: #### V BG #### [facility] ([id number]) [address] [place] [address], [place] [address] CO2 [Moles/Vol] 15 mmol/L Low 22-32 [facility] Comment on above: Performed By: #### V BG #### [facility] ([id number]) [address] [place] [address], [place] [address] Potassium [Moles/Vol] 3.3 mmol/L Low 3.5-5.0 [facility] Comment on above: Performed By: #### V BG #### [facility] ([id number]) [address] [place] [address], [place] [address] Sodium [Moles/Vol] 133 mmol/L Low 134-146 [facility] Comment on above: Performed By: #### V BG #### [facility] ([id number]) [address] [place] [address], [place] [address] Anion gap [Moles/Vol] 4 mmol/L Low 5-15 [facility] Comment on above: Performed By: #### B YANIRA, , 2776-07, CBCA, 6873-4 #### [facility] ([id number]) [address] [place] [address], [place] [address] Chloride [Moles/Vol] 117 mmol/L High 98-109 [facility] Comment on above: Performed By: #### B YANIRA, , 2776-07, CBCA, 6873-4 #### [facility] ([id number]) [address] [place] [address], [place] [address] CO2 [Moles/Vol] 16 mmol/L Low 22-32 [facility] Comment on above: Performed By: #### Pura DOYLE, , 2776-07, CBCA, 6873-4 #### [facility] ([id number]) [address] [place] [address], [place] [address] Potassium [Moles/Vol] 3.4 mmol/L Low 3.5-5.0 [facility] Comment on above: Performed By: #### Pura DOYLE, , 2776-07, CBCA, 6873-4 #### [facility] ([id number]) [address] [place] [address], [place] [address] Sodium [Moles/Vol] 137 mmol/L Normal 134-146 [facility] Comment on above: Performed By: #### B YANIRA, , 2776-07, CBCA, 6873-4 #### [facility] ([id number]) [address] [place] [address], [place] [address] Anion gap [Moles/Vol] 7 mmol/L Normal 5-15 [facility] Comment on above: Performed By: #### B YANIRA, , 2777-1, CBCA, 6873-4 #### [facility] ([id number]) [address] [place] [address] 39073 Chloride [Moles/Vol] 113 mmol/L High 98-109 [facility] Comment on above: Performed By: #### Pura DOYLE, , 2776-07, CBCA, 6873-4 #### [facility] ([id number]) [address] [place] [address] 10232 CO2 [Moles/Vol] 16 mmol/L Low 22-32 [facility] Comment on above: Performed By: #### Pura DOYLE, , 2776-07, CBCA, 6873-4 #### [facility] ([id number]) [address] [place] [address] 41529 Potassium [Moles/Vol] 3.4 mmol/L Low 3.5-5.0 [facility] Comment on above: Performed By: #### Pura DOYLE, , 2776-07, CBCA, 6873-4 #### [facility] ([id number]) [address] [place] [address] 47888 Sodium [Moles/Vol] 136 mmol/L Normal 134-146 [facility] Comment on above: Performed By: #### Pura DOYLE, , 2776-07, CBCA, 6873-4 #### [facility] ([id number]) [address] [place] [address] 25048 Glucose Glucometer (BldC) [M ass/Vol]on 08-02-2023 Glucose [Mass/Vol] 170 mg/dL High 65-99 [facility] Glucose [Mass/Vol] 83 mg/dL Normal 65-99 [facility] Glucose [Mass/Vol] 104 mg/dL High 65-99 [facility] Glucose [Mass/Vol] 157 mg/dL High 65-99 [facility] Glucose [Mass/Vol] 173 mg/dL High 65-99 [facility] Glucose [Mass/Vol] 215 mg/dL High 65-99 [facility] Glucose [Mass/Vol] 117 mg/dL High 65-99 [facility] Glucose [Mass/Vol] 262 mg/dL High 65-99 [facility] Glucose [Mass/Vol] 222 mg/dL High 65-99 [facility] Glucose [Mass/Vol] 248 mg/dL High 65-99 [facility] Glucose [Mass/Vol] 209 mg/dL High 65-99 [facility] Glucose [Mass/Vol] 141 mg/dL High 65-99 [facility] Glucose [Mass/Vol] 129 mg/dL High 65-99 [facility] Glucose [Mass/Vol] 153 mg/dL High 65-99 [facility] Glucose [Mass/Vol] 132 mg/dL High 65-99 [facility] Glucose [Mass/Vol] 106 mg/dL High 65-99 [facility] Glucose [Mass/Vol] 127 mg/dL High 65-99 [facility] Glucose [Mass/Vol] 163 mg/dL High 65-99 [facility] Glucose [Mass/Vol] 133 mg/dL High 65-99 [facility] Glucose [Mass/Vol] 105 mg/dL High 65-99 [facility] MAGNESIUMon 08-02-2023 Magnesium [Mass/Vol] 1.9 mg/dL Normal 1.8-2.6 [facility] Comment on above: Performed By: #### Pura DOYLE, , 2776-07, CBCA, 6873-4 #### [facility] ([id number]) [address] [place] [address], [place] [address] Beta hydroxybutyrate [Moles/ Vol]on 08-01-2023 BetaHydroxybutyrate 12.62 mmol/L High 0.02-0.27 [facility] Comment on above: Performed By: #### Pura DOYLE, 91290-4, 2776-07, CBCA, 6873-4 #### [facility] ([id number]) [address] [place] [address] 99352 CBC AND AUTO DIFFon 08-01-19 24 Band form neutrophils/100 WBC (Bld) 3.0 % Normal [facility] Comment on above: Performed By: #### B YANIRA, , 2776-07, CBCA, 6873-4 #### [facility] ([id number]) [address] [place] [address] 79115 Erythrocyte distribution width (RBC) [Ratio] 14.6 % Normal 11.5-15.0 [facility] Comment on above: Performed By: #### B YANIRA, , 2776-07, CBCA, 6873-4 #### [facility] ([id number]) [address] [place] [address] 48874 Hematocrit (Bld) [Volume fraction] 49.6 % High 39-49 [facility] Comment on above: Performed By: #### Pura DOYLE, , 2776-07, CBCA, 6873-4 #### [facility] ([id number]) [address] [place] [address] 76480 Hemoglobin (Bld) [Mass/Vol] 15.9 g/dL Normal 13.0-17.0 [facility] Comment on above: Performed By: #### Pura DOYLE, , 2776-07, CBCA, 6873-4 #### [facility] ([id number]) [address] [place] [address] 34417 LYMPHOCYTE, ATYPICAL 4.0 % Normal [facility] Comment on above: Performed By: #### B YANIRA, , 2776-07, CBCA, 6873-4 #### [facility] ([id number]) [address] [place] [address] 26950 Lymphocytes (Bld) [#/Vol] 4.6 10*3/uL High 1.0-3.5 [facility] Comment on above: Performed By: #### Pura DOYLE, , 2776-07, CBCA, 6873-4 #### [facility] ([id number]) [address] [place] [address] 51744 Lymphocytes/100 WBC (Bld) 27.7 % Normal [facility] Comment on above: Performed By: #### Pura DOYLE, , 2776-07, CBCA, 6873-4 #### [facility] ([id number]) [address] [place] [address] 45405 MCH (RBC) [Entitic mass] 30.4 pg Normal 27-34 [facility] Comment on above: Performed By: #### Pura DOYLE, , 2776-07, CBCA, 6873-4 #### [facility] ([id number]) [address] [place] [address] 50639 MCHC (RBC) [Mass/Vol] 32.1 g/dL Normal 32-36 [facility] Comment on above: Performed By: #### Pura DOYLE, , 2776-07, CBCA, 6873-4 #### [facility] ([id number]) [address] [place] [address] 76975 MCV (RBC) [Entitic vol] 95 fL Normal 80-100 [facility] Comment on above: Performed By: #### Pura DOYLE, , 2776-07, CBCA, 6873-4 #### [facility] ([id number]) [address] [place] [address] 35601 Monocytes (Bld) [#/Vol] 0.7 10*3/uL Normal 0-0.9 [facility] Comment on above: Performed By: #### Pura DOYLE, , 2776-07, CBCA, 6873-4 #### [facility] ([id number]) [address] [place] [address] 80958 Monocytes/100 WBC (Bld) 5.0 % Normal [facility] Comment on above: Performed By: #### B YANIRA, , 2776-07, CBCA, 6873-4 #### [facility] ([id number]) [address] [place] [address] 79653 Neutrophils (Bld) [#/Vol] 9.2 10*3/uL High 1.5-6.6 [facility] Comment on above: Performed By: #### B YANIRA, , 2776-07, CBCA, 6873-4 #### [facility] ([id number]) [address] [place] [address] 98327 Platelet mean volume (Bld) [Entitic vol] 7.6 fL Normal 7-12 [facility] Comment on above: Performed By: #### B YANIRA, , 2776-07, CBCA, 6873-4 #### [facility] ([id number]) [address] [place] [address] 49219 Platelets (Bld) [#/Vol] 434 10*3/uL Normal 150-450 [facility] Comment on above: Performed By: #### B YANIRA, , 2776-07, CBCA, 6873-4 #### [facility] ([id number]) [address] [place] [address] 96579 RBC COUNT 5.24 X10E12/L Normal 4.10-5.70 [facility] Comment on above: Performed By: #### B YANIRA, , 2776-07, CBCA, 6873-4 #### [facility] ([id number]) [address] [place] [address] 75509 SEG NEUTROPHIL 60.3 % Normal [facility] Comment on above: Performed By: #### B YANIRA, , 2776-07, CBCA, 6873-4 #### [facility] ([id number]) [address] [place] [address] 21242 WBC (Bld) [#/Vol] 14.6 10*3/uL High 4.0-11.0 [facility] Comment on above: Performed By: #### B YANIRA, , 2776-07, CBCA, 6873-4 #### [facility] ([id number]) [address] [place] [address] 87051 COMPREHENSIVE METABOLIC PANE Mark 08-01-2023 Albumin [Mass/Vol] 4.4 g/dL Normal 3.2-5.3 [facility] Comment on above: Performed By: #### Pura DOYLE, , 2776-07, CBCA, 6873-4 #### [facility] ([id number]) [address] [place] [address] 76356 ALP [Catalytic activity/Vol] 114 U/L Normal 39-130 [facility] Comment on above: Performed By: #### Pura DOYLE, , 2776-07, CBCA, 6873-4 #### [facility] ([id number]) [address] [place] [address] 24793 ALT [Catalytic activity/Vol] 51 U/L High 0-40 [facility] Comment on above: Performed By: #### Pura DOYLE, , 2776-07, CBCA, 6873-4 #### [facility] ([id number]) [address] [place] [address] 57243 Anion gap [Moles/Vol] 28 mmol/L High 5-15 [facility] Comment on above: Performed By: #### B YANIRA, 94408-6, 2776-, CBCA, 6873-4 #### [facility] ([id number]) [address] [place] [address] [place] [address] AST [Catalytic activity/Vol] 29 U/L Normal 0-41 [facility] Comment on above: Performed By: #### B YANIRA, , 2776-07, CBCA, 6873-4 #### [facility] ([id number]) [address] [place] [address] 32496 Bilirubin [Mass/Vol] 1.3 mg/dL High 0.3-1.2 [facility] Comment on above: Performed By: #### B YANIRA, , 2776-07, CBCA, 6873-4 #### [facility] ([id number]) [address] [place] [address] 72342 Calcium [Mass/Vol] 10.1 mg/dL Normal 8.5-10.5 [facility] Comment on above: Performed By: #### Pura DOYLE, , 2776-07, CBCA, 6873-4 #### [facility] ([id number]) [address] [place] [address] 78322 Chloride [Moles/Vol] 96 mmol/L Low 98-109 [facility] Comment on above: Performed By: #### Pura DOYLE, , 2776-07, CBCA, 6873-4 #### [facility] ([id number]) [address] [place] [address] 41618 CO2 [Moles/Vol] 6 mmol/L Critically low 22-32 [facility] Comment on above: Performed By: #### Pura DOYLE, , 2776-07, CBCA, 6873-4 #### [facility] ([id number]) [address] [place] [address] 17982 Creatinine [Mass/Vol] 1.50 mg/dL High 0.70-1.20 [facility] Comment on above: Result Comment: METH OD TRACEABLE TO IDMS STANDARD Performed By: #### B YANIRA, , 2776-07, ADAM, 6873-4 #### [facility] ([id number]) [address] [place] [address] 64095 GFR/1.73 sq M.predicted among non-blacks MDRD (S/P/Bld) [Vol rate/Area] 67 mL/min/{1.73_m2} Normal >59 [facility] Comment on above: Result Comment: Reported eGFR is based on the CKD-EPI 2020 equation that does not use a race coefficient. Performed By: #### B YANIRA, , 2776-07, ADAM, 6873-4 #### [facility] ([id number]) [address] [place] [address] 18088 Glucose [Mass/Vol] 679 mg/dL Critically high 65-99 [facility] Comment on above: Performed By: #### B YANIRA, , 2776-07, ADAM, 6873-4 #### [facility] ([id number]) [address] [place] [address] 08884 Potassium [Moles/Vol] 5.5 mmol/L High 3.5-5.0 [facility] Comment on above: Performed By: #### B YANIRA, , 2776-07, ADAM, 6873-4 #### [facility] ([id number]) [address] [place] [address] 47273 Protein [Mass/Vol] 9.2 g/dL High 6.0-8.0 [facility] Comment on above: Performed By: #### B YANIRA, , 2776-07, CBCDread, 6873-4 #### [facility] ([id number]) [address] [place] [address] 38806 Sodium [Moles/Vol] 130 mmol/L Low 134-146 [facility] Comment on above: Performed By: #### B YANIRA, , 2776-07, CBCA, 6873-4 #### [facility] ([id number]) [address] [place] [address] [place] [address] Urea nitrogen [Mass/Vol] 30 mg/dL High 5-23 [facility] Comment on above: Performed By: #### Pura DOYLE, , 2776-07, CBCA, 6873-4 #### [facility] ([id number]) [address] [place] [address] [place] [address] ELECTROLYTESon 08-01-2023 Anion gap [Moles/Vol] 14 mmol/L Normal 5-15 [facility] Comment on above: Performed By: #### B YANIRA, , 2776-07, CBCA, 6873-4 #### [facility] ([id number]) [address] [place] [address] 28625 Chloride [Moles/Vol] 108 mmol/L Normal 98-109 [facility] Comment on above: Performed By: #### Pura DOYLE, , 2776-07, CBCA, 6873-4 #### [facility] ([id number]) [address] [place] [address] [place] [address] CO2 [Moles/Vol] 10 mmol/L Low 22-32 [facility] Comment on above: Performed By: #### Pura DOYLE, , 2776-07, CBCA, 6873-4 #### [facility] ([id number]) [address] [place] [address], [place] [address] Potassium [Moles/Vol] 5.0 mmol/L Normal 3.5-5.0 [facility] Comment on above: Performed By: #### Pura DOYLE, , 2776-07, CBCA, 6873-4 #### [facility] ([id number]) [address] [place] [address], [place] [address] Sodium [Moles/Vol] 132 mmol/L Low 134-146 [facility] Comment on above: Performed By: #### B YANIRA, , 2776-07, CBCA, 6873-4 #### [facility] ([id number]) [address] [place] [address] 04483 Anion gap [Moles/Vol] 17 mmol/L High 5-15 [facility] Comment on above: Performed By: #### B YANIRA, , 2776-07, CBCA, 6873-4 #### [facility] ([id number]) [address] [place] [address] 13578 Chloride [Moles/Vol] 107 mmol/L Normal 98-109 [facility] Comment on above: Performed By: #### B YANIRA, , 2776-07, CBCA, 6873-4 #### [facility] ([id number]) [address] [place] [address] 35646 CO2 [Moles/Vol] 8 mmol/L Critically low 22-32 [facility] Comment on above: Performed By: #### B YANIRA, , 2776-07, CBCA, 6873-4 #### [facility] ([id number]) [address] [place] [address] 34202 Potassium [Moles/Vol] 5.3 mmol/L High 3.5-5.0 [facility] Comment on above: Performed By: #### B YANIRA, , 2776-07, CBCA, 6873-4 #### [facility] ([id number]) [address] [place] [address] [place] [address] Sodium [Moles/Vol] 132 mmol/L Low 134-146 [facility] Comment on above: Performed By: #### B YANIRA, , 2776-07, CBCA, 6873-4 #### [facility] ([id number]) [address] [place] [address], [place] [address] Anion gap [Moles/Vol] 21 mmol/L High 5-15 [facility] Comment on above: Performed By: #### B YANIRA, , 2776-07, CBCA, 6873-4 #### [facility] ([id number]) [address] [place] [address], [place] [address] Chloride [Moles/Vol] 104 mmol/L Normal 98-109 [facility] Comment on above: Performed By: #### B YANIRA, , 2776-07, CBCA, 6873-4 #### [facility] ([id number]) [address] [place] [address], [place] [address] CO2 [Moles/Vol] 7 mmol/L Critically low 22-32 [facility] Comment on above: Performed By: #### B YANIRA, , 2776-07, CBCA, 6873-4 #### [facility] ([id number]) [address] [place] [address] 96198 Potassium [Moles/Vol] 5.5 mmol/L High 3.5-5.0 [facility] Comment on above: Performed By: #### B YANIRA, , 2776-07, CBCA, 6873-4 #### [facility] ([id number]) [address] [place] [address] [place] [address] Sodium [Moles/Vol] 132 mmol/L Low 134-146 [facility] Comment on above: Performed By: #### B YANIRA, , 2776-07, CBCA, 6873-4 #### [facility] ([id number]) [address] [place] [address] [place] [address] Anion gap [Moles/Vol] 24 mmol/L High 5-15 [facility] Comment on above: Performed By: #### B YANIRA, , 2776-07, CBCA, 6873-4 #### [facility] ([id number]) [address] [place] [address] 79423 Chloride [Moles/Vol] 103 mmol/L Normal 98-109 [facility] Comment on above: Performed By: #### Pura DOYLE, , 2776-07, CBCA, 6873-4 #### [facility] ([id number]) [address] [place] [address] 35318 CO2 [Moles/Vol] 6 mmol/L Critically low 22-32 [facility] Comment on above: Performed By: #### Pura DOYLE, , 2776-07, CBCA, 6873-4 #### [facility] ([id number]) [address] [place] [address] 88898 Potassium [Moles/Vol] 6.0 mmol/L High 3.5-5.0 [facility] Comment on above: Performed By: #### Pura DOYLE, , 2776-07, CBCA, 6873-4 #### [facility] ([id number]) [address] [place] [address] 06528 Sodium [Moles/Vol] 133 mmol/L Low 134-146 [facility] Comment on above: Performed By: #### Pura DOYLE, , 2776-07, CBCA, 6873-4 #### [facility] ([id number]) [address] [place] [address] 40848 Glucose Glucometer (dC) [M ass/Vol]on 08-01-2023 Glucose [Mass/Vol] 175 mg/dL High 65-99 [facility] Glucose [Mass/Vol] 189 mg/dL High 65-99 [facility] Glucose [Mass/Vol] 229 mg/dL High 65-99 [facility] Glucose [Mass/Vol] 225 mg/dL High 65-99 [facility] Glucose [Mass/Vol] 284 mg/dL High 65-99 [facility] Glucose [Mass/Vol] 258 mg/dL High 65-99 [facility] Glucose [Mass/Vol] 233 mg/dL High 65-99 [facility] Glucose [Mass/Vol] 243 mg/dL High 65-99 [facility] Glucose [Mass/Vol] 401 mg/dL Critically high 65-99 [facility] Glucose [Mass/Vol] 297 mg/dL High 65-99 [facility] Glucose [Mass/Vol] 306 mg/dL High 65-99 [facility] Glucose [Mass/Vol] 461 mg/dL Critically high 65-99 [facility] Glucose [Mass/Vol] 490 mg/dL Critically high 65-99 [facility] BEDSIDE GLUCOSE LAB >500 Critically high 65-99 [facility] Comment on above: Result Comment: SEE LAB RESULTS FOR CONFIRMATION LIPASEon 08-01-2023 Lipase [Catalytic activity/Vol] 20 U/L Normal 17-40 [facility] Comment on above: Performed By: #### B YANIRA, , 2776-07, CBCA, 6873-4 #### [facility] ([id number]) [address] [place] [address] 51208 MAGNESIUMon 08-01-2023 Magnesium [Mass/Vol] 2.7 mg/dL High 1.8-2.6 [facility] Comment on above: Performed By: #### B YANIRA, , 2776-07, CBCA, 6873-4 #### [facility] ([id number]) [address] [place] [address] 08687 URINE CULTUREon 08-01-2023 Bacteria identified Cx Nom (U) CULTURE RESULTS NO GROWTH AT <1000 CFU/mL Normal [facility] Comment on above: Performed By: #### B YANIRA, , 2776-, CBCA, 6873-4 #### [facility] ([id number]) [address] [place] [address] 71618 URN MACROSCOPIC NURon 2023 BILIRUBIN SYDNEY Negative Normal NEG [facility] Comment on above: Performed By: #### B YANIRA, , 2776-, CBCA, 6873-4 #### [facility] ([id number]) [address] [place] [address] 93187 BLOOD/HGB SYDNEY Trace Abnormal NEG [facility] Comment on above: Performed By: #### B YANIRA, , 2776-07, CBCA, 6873-4 #### [facility] ([id number]) [address] [place] [address] 13122 GLUCOSE SYDNEY 500 mg/dL Abnormal NEG [facility] Comment on above: Performed By: #### Pura DOYLE, , 2776-07, CBCA, 6873-4 #### [facility] ([id number]) [address] [place] [address] 79890 KETONES SYDNEY >=160 Abnormal NEG [facility] Comment on above: Performed By: #### Pura DOYLE, , 2776-07, CBCA, 6873-4 #### [facility] ([id number]) [address] [place] [address] 09930 LEUKOCYTE ESTERASE SYDNEY Negative Normal NEG [facility] Comment on above: Performed By: #### B YANIRA, , 2776-07, CBCA, 6873-4 #### [facility] ([id number]) [address] [place] [address] 13059 NITRITE SYDNEY Negative Normal NEG [facility] Comment on above: Performed By: #### B YANIRA, , 2776-, CBCA, 6873-4 #### [facility] ([id number]) [address] [place] [address] 11354 PH SYDNEY 5.0 Normal 5.0-8.5 [facility] Comment on above: Performed By: #### B YANIRA, , 2776-07, CBCA, 6873-4 #### [facility] ([id number]) [address] [place] [address] 32732 PROTEIN SYDNEY 30 mg/dL Abnormal NEG [facility] Comment on above: Performed By: #### B YANIRA, , 2776-07, CBCA, 6873-4 #### [facility] ([id number]) [address] [place] [address] 89092 SPECIFIC GRAVITY SYDNEY 1.025 Normal 1.003-1.035 [facility] Comment on above: Performed By: #### B YANIRA, , 2776-07, CBCA, 6873-4 #### [facility] ([id number]) [address] [place] [address] 94385 UROBILINOGEN SYDNEY 0.2 eu/dL Normal <1.1 [facility] Comment on above: Performed By: #### B YANIRA, , 2776-07, CBCA, 6873-4 #### [facility] ([id number]) [address] [place] [address] 49425 VENOUS BLOOD GASon 4 ROMAN'S TEST Normal [facility] Comment on above: Performed By: #### B YANIRA, , 2776-07, CBCA, 6873-4 #### [facility] ([id number]) [address] [place] [address] 09806 BASE,DEFICIT 23.0 MMOL/L High 0.0-2.0 [facility] Comment on above: Performed By: #### B YANIRA, , 2776-07, CBCA, 6873-4 #### [facility] ([id number]) [address] [place] [address] 43481 Body temperature 98.6 [degF] Normal 37.0 [facility] Comment on above: Performed By: #### B YANIRA, , 2776-07, CBCA, 6873-4 #### [facility] ([id number]) [address] [place] [address] 58507 HCO3 (Bld) [Moles/Vol] 5.7 mmol/L Low 20.0-24.0 [facility] Comment on above: Performed By: #### Pura DOYLE, , 2776-07, CBCA, 6873-4 #### [facility] ([id number]) [address] [place] [address] 11687 INSP. O2 CONC. 21 % [facility] Comment on above: Performed By: #### Pura DOYLE, , 2776-07, CBCA, 6873-4 #### [facility] ([id number]) [address] [place] [address] 29749 Oxygen saturation in Blood 69.0 % Low >80.0 [facility] Comment on above: Performed By: #### Pura DOYLE, , 2776-07, CBCA, 6873-4 #### [facility] ([id number]) [address] [place] [address] 79521 OXYGEN SOURCE [employer] [facility] Comment on above: Performed By: #### Pura DOYLE, , 2776-07, CBCA, 6873-4 #### [facility] ([id number]) [address] [place] [address] 39223 PCO2, VENOUS 20.9 MMHG Low 35-50 [facility] Comment on above: Performed By: #### Pura DOYLE, , 2776-07, CBCA, 6873-4 #### [facility] ([id number]) [address] [place] [address] 08018 PH, VENOUS 7.046 Low 7.320-7.420 [facility] Comment on above: Performed By: #### B YANIRA, 52948-0, 2776-, CBCA, 6873-4 #### [facility] ([id number]) [address] [place] [address] 92099 PO2, VENOUS 50 MMHG Normal 30-50 [facility] Comment on above: Performed By: #### B YANIRA, 15984-9, 2776-, CBCA, 6873-4 #### [facility] ([id number]) [address] [place] [address] 08704 SAMPLE SITE N/A Normal [facility] Comment on above: Performed By: #### Pura DOYLE, 49208-1, 2776-, CBCA, 6873-4 #### [facility] ([id number]) [address] [place] [address] 97162 SAMPLE TYPE VENOUS Normal [facility] Comment on above: Performed By: #### B YANIRA, 36236-3, 2776-, CBCA, 6873-4 #### [facility] ([id number]) [address] [place] [address] 60933 CBC AND AUTO DIFFon 07-06-19 Erythrocyte distribution width (RBC) [Ratio] 14.3 % Normal 11.5-15.0 [facility] Comment on above: Performed By: #### B YANIRA, 26621-4, 2776-, CBCA, 6873-4 #### [facility] ([id number]) [address] [place] [address] 42758 Hematocrit (Bld) [Volume fraction] 43.2 % Normal 39-49 [facility] Comment on above: Performed By: #### Pura DOYLE, 25238-2, 2776-, CBCA, 6873-4 #### [facility] ([id number]) [address] [place] [address] 60244 Hemoglobin (Bld) [Mass/Vol] 14.5 g/dL Normal 13.0-17.0 [facility] Comment on above: Performed By: #### B YANIRA, , 2776-07, CBCA, 6873-4 #### [facility] ([id number]) [address] [place] [address] 48646 Lymphocytes (Bld) [#/Vol] 5.0 10*3/uL High 1.0-3.5 [facility] Comment on above: Performed By: #### B YANIRA, , 2776-07, CBCA, 6873-4 #### [facility] ([id number]) [address] [place] [address] 08700 Lymphocytes/100 WBC (Bld) 45.0 % Normal [facility] Comment on above: Performed By: #### B YANIRA, , 2776-07, CBCA, 6873-4 #### [facility] ([id number]) [address] [place] [address] 72646 MCH (RBC) [Entitic mass] 30.6 pg Normal 27-34 [facility] Comment on above: Performed By: #### Pura DOYLE, , 2776-07, CBCA, 6873-4 #### [facility] ([id number]) [address] [place] [address] 47979 MCHC (RBC) [Mass/Vol] 33.6 g/dL Normal 32-36 [facility] Comment on above: Performed By: #### B YANIRA, , 2776-07, CBCA, 6873-4 #### [facility] ([id number]) [address] [place] [address] 01335 MCV (RBC) [Entitic vol] 91 fL Normal 80-100 [facility] Comment on above: Performed By: #### B YANIRA, 10457-4, 2776-07, CBCA, 6873-4 #### [facility] ([id number]) [address] [place] [address] 57051 Monocytes (Bld) [#/Vol] 0.2 10*3/uL Normal 0-0.9 [facility] Comment on above: Performed By: #### Pura DOYLE, , 2776-07, CBCA, 6873-4 #### [facility] ([id number]) [address] [place] [address] 08904 Monocytes/100 WBC (Bld) 2.0 % Normal [facility] Comment on above: Performed By: #### Pura DOYLE, , 2776-07, CBCA, 6873-4 #### [facility] ([id number]) [address] [place] [address] 42233 Neutrophils (Bld) [#/Vol] 6.0 10*3/uL Normal 1.5-6.6 [facility] Comment on above: Performed By: #### Pura DOYLE, , 2776-07, CBCA, 6873-4 #### [facility] ([id number]) [address] [place] [address] 58270 Platelet mean volume (Bld) [Entitic vol] 7.2 fL Normal 7-12 [facility] Comment on above: Performed By: #### B YANIRA, 94933-6, 2776-07, CBCA, 6873-4 #### [facility] ([id number]) [address] [place] [address] 25941 Platelets (Bld) [#/Vol] 432 10*3/uL Normal 150-450 [facility] Comment on above: Performed By: #### Pura DOYLE, , 2776-07, CBCA, 6873-4 #### [facility] ([id number]) [address] [place] [address] 34873 RBC COUNT 4.74 X10E12/L Normal 4.10-5.70 [facility] Comment on above: Performed By: #### B YANIRA, , 2776-07, CBCA, 6873-4 #### [facility] ([id number]) [address] [place] [address] 89062 SEG NEUTROPHIL 53.0 % Normal [facility] Comment on above: Performed By: #### B YANIRA, , 2776-07, CBCA, 6873-4 #### [facility] ([id number]) [address] [place] [address] 38998 WBC (Bld) [#/Vol] 11.2 10*3/uL High 4.0-11.0 [facility] Comment on above: Performed By: #### B YANIRA, , 2776-07, CBCA, 6873-4 #### [facility] ([id number]) [address] [place] [address] 65959 COMPREHENSIVE METABOLIC PANE Mark 07-06-2023 Albumin [Mass/Vol] 3.3 g/dL Normal 3.2-5.3 [facility] Comment on above: Performed By: #### B YANIRA, , 2776-07, CBCA, 6873-4 #### [facility] ([id number]) [address] [place] [address] 25714 ALP [Catalytic activity/Vol] 111 U/L Normal 39-130 [facility] Comment on above: Performed By: #### B YANIRA, , 2776-07, CBCA, 6873-4 #### [facility] ([id number]) [address] [place] [address] 77931 ALT [Catalytic activity/Vol] 31 U/L Normal 0-40 [facility] Comment on above: Performed By: #### B YANIRA, , 2776-07, CBCA, 6873-4 #### [facility] ([id number]) [address] [place] [address] 00903 Anion gap [Moles/Vol] 10 mmol/L Normal 5-15 [facility] Comment on above: Performed By: #### B YANIRA, , 2776-07, CBCA, 6873-4 #### [facility] ([id number]) [address] [place] [address] 69306 AST [Catalytic activity/Vol] 19 U/L Normal 0-41 [facility] Comment on above: Performed By: #### B YANIRA, , 2776-07, CBCA, 6873-4 #### [facility] ([id number]) [address] [place] [address] 27101 Bilirubin [Mass/Vol] 1.0 mg/dL Normal 0.3-1.2 [facility] Comment on above: Performed By: #### Pura DOYLE, , 2776-07, CBCA, 6873-4 #### [facility] ([id number]) [address] [place] [address] 57292 Calcium [Mass/Vol] 8.4 mg/dL Low 8.5-10.5 [facility] Comment on above: Performed By: #### Pura DOYLE, , 2776-07, CBCA, 6873-4 #### [facility] ([id number]) [address] [place] [address] 73305 Chloride [Moles/Vol] 111 mmol/L High 98-109 [facility] Comment on above: Performed By: #### Pura DOYLE, , 2776-07, CBCA, 6873-4 #### [facility] ([id number]) [address] [place] [address] 73211 CO2 [Moles/Vol] 11 mmol/L Low 22-32 [facility] Comment on above: Performed By: #### B YANIRA, , 2776-07, CBCA, 6873-4 #### [facility] ([id number]) [address] [place] [address] 06311 Creatinine [Mass/Vol] 0.87 mg/dL Normal 0.70-1.20 [facility] Comment on above: Result Comment: METH OD TRACEABLE TO IDMS STANDARD Performed By: #### B YANIRA, , 2776-07, CBCA, 6873-4 #### [facility] ([id number]) [address] [place] [address] 72735 eGFR (CKD-EPI) NON-RACE DEPENDENT >90 Normal >59 [facility] Comment on above: Result Comment: Reported eGFR is based on the CKD-EPI 2020 equation that does not use a race coefficient. Performed By: #### B YANIRA, , 2776-07, CBCA, 6873-4 #### [facility] ([id number]) [address] [place] [address] 33973 Glucose [Mass/Vol] 233 mg/dL High 65-99 [facility] Comment on above: Performed By: #### Pura DOYLE, , 2776-07, CBCA, 6873-4 #### [facility] ([id number]) [address] [place] [address] 86285 Potassium [Moles/Vol] 4.6 mmol/L Normal 3.5-5.0 [facility] Comment on above: Performed By: #### B YANIRA, , 2776-07, CBCA, 6873-4 #### [facility] ([id number]) [address] [place] [address] 77619 Protein [Mass/Vol] 7.4 g/dL Normal 6.0-8.0 [facility] Comment on above: Performed By: #### B YANIRA, , 2776-07, CBCA, 6873-4 #### [facility] ([id number]) [address] [place] [address] 12740 Sodium [Moles/Vol] 132 mmol/L Low 134-146 [facility] Comment on above: Performed By: #### B YANIRA, , 2776-07, CBCA, 6873-4 #### [facility] ([id number]) [address] [place] [address] 46702 Urea nitrogen [Mass/Vol] 15 mg/dL Normal 5-23 [facility] Comment on above: Performed By: #### Pura DOYLE, , 2776-07, CBCA, 6873-4 #### [facility] ([id number]) [address] [place] [address] 79066 Glucose Glucometer (BldC) [M ass/Vol]on 07-06-2023 Glucose [Mass/Vol] 187 mg/dL High 65-99 [facility] Glucose [Mass/Vol] 175 mg/dL High 65-99 [facility] Glucose [Mass/Vol] 213 mg/dL High 65-99 [facility] Glucose [Mass/Vol] 226 mg/dL High 65-99 [facility] Glucose [Mass/Vol] 313 mg/dL High 65-99 [facility] Glucose [Mass/Vol] 386 mg/dL High 65-99 [facility] POTASSIUMon 07-06-2023 Potassium [Moles/Vol] 4.6 mmol/L Normal 3.5-5.0 [facility] Comment on above: Performed By: #### B YANIRA, , 2776-07, CBCA, 6873-4 #### [facility] ([id number]) [address] [place] [address]184 URN MACROSCOPIC NURon 2023 BILIRUBIN SYDNEY Negative Normal NEG [facility] Comment on above: Performed By: #### N UM #### [facility] ([id number]) [address] [place] [address] 15532 BLOOD/HGB SYDNEY Negative Normal NEG [facility] Comment on above: Performed By: #### N UM #### [facility] ([id number]) [address] [place] [address] 67811 GLUCOSE SYDNEY 500 mg/dL Abnormal NEG [facility] Comment on above: Performed By: #### N UM #### [facility] ([id number]) [address] [place] [address]1578 KETONES SYDNEY >=160 Abnormal NEG [facility] Comment on above: Performed By: #### N UM #### [facility] ([id number]) [address] [place], [place] [address] 61083 LEUKOCYTE ESTERASE SYDNEY Negative Normal NEG Pr [facility] Comment on above: Performed By: #### N UM #### [facility] ([id number]) [address] [place] [address] 45578 NITRITE SYDNEY Negative Normal NEG [facility] Comment on above: Performed By: #### N UM #### [facility] ([id number]) [address] [place] [address] 46992 PH SYDNEY 5.0 Normal 5.0-8.5 [facility] Comment on above: Performed By: #### N UM #### [facility] ([id number]) [address] [place] [address] 56205 PROTEIN SYDNEY Negative Normal NEG [facility] Comment on above: Performed By: #### N UM #### [facility] ([id number]) [address] [place] [address] 14785 SPECIFIC GRAVITY SYDNEY 1.010 Normal 1.003-1.035 [facility] Comment on above: Performed By: #### N UM #### [facility] ([id number]) [address] [place] [address] 53830 UROBILINOGEN SYDNEY 0.2 eu/dL Normal <1.1 [facility] Comment on above: Performed By: #### N UM #### [facility] ([id number]) [address] [place] [address] 58790 BASIC METABOLIC PANLon 07-05 Anion gap [Moles/Vol] 20 mmol/L High 5-15 [facility] Comment on above: Performed By: #### B YANIRA, , 2776-07, CBCA, 6873-4 #### [facility] ([id number]) [address] [place] [address] 29465 Calcium [Mass/Vol] 9.6 mg/dL Normal 8.5-10.5 [facility] Comment on above: Performed By: #### B YANIRA, , 2776-07, CBCA, 6873-4 #### [facility] ([id number]) [address] [place] [address] 50375 Chloride [Moles/Vol] 97 mmol/L Low 98-109 [facility] Comment on above: Performed By: #### B YANIRA, , 2776-07, CBCA, 6873-4 #### [facility] ([id number]) [address] [place] [address] 28639 CO2 [Moles/Vol] 12 mmol/L Low 22-32 [facility] Comment on above: Performed By: #### B YANIRA, , 2776-07, CBCA, 6873-4 #### [facility] ([id number]) [address] [place] [address] 04726 Creatinine [Mass/Vol] 1.37 mg/dL High 0.70-1.20 [facility] Comment on above: Result Comment: METH OD TRACEABLE TO IDMS STANDARD Performed By: #### B YANIRA, , 2776-07, ADAM, 6873-4 #### [facility] ([id number]) [address] [place] [address] 16047 GFR/1.73 sq M.predicted among non-blacks MDRD (S/P/Bld) [Vol rate/Area] 74 mL/min/{1.73_m2} Normal >59 [facility] Comment on above: Result Comment: Reported eGFR is based on the CKD-EPI 2020 equation that does not use a race coefficient. Performed By: #### B YANIRA, , 2776-07, ADAM, 6873-4 #### [facility] ([id number]) [address] [place] [address] 85755 Glucose [Mass/Vol] 714 mg/dL Critically high 65-99 [facility] Comment on above: Performed By: #### B YANIRA, , 2776-07, ADAM, 6873-4 #### [facility] ([id number]) [address] [place] [address] 70840 Potassium [Moles/Vol] 5.4 mmol/L High 3.5-5.0 [facility] Comment on above: Performed By: #### B YANIRA, , 2776-07, ADAM, 6873-4 #### [facility] ([id number]) [address] [place] [address] 77994 Sodium [Moles/Vol] 129 mmol/L Low 134-146 [facility] Comment on above: Performed By: #### B YANIRA, , 2776-07, ADAM, 6873-4 #### [facility] ([id number]) [address] [place] [address] 81254 Urea nitrogen [Mass/Vol] 22 mg/dL Normal 5-23 [facility] Comment on above: Performed By: #### B YANIRA, , 2776-07, CBCA, 6873-4 #### [facility] ([id number]) [address] [place] [address] 06293 Beta hydroxybutyrate [Moles/ Vol]on 07-05-2023 BetaHydroxybutyrate 8.80 mmol/L High 0.02-0.27 [facility] Comment on above: Performed By: #### B YANIRA, , 2776-07, CBCA, 6873-4 #### [facility] ([id number]) [address] [place] [address] 04347 CBC AND AUTO DIFFon 07-05-19 24 ABSOLUTE BASOPHIL 0.1 X10E9/L Normal 0.0-0.2 [facility] Comment on above: Performed By: #### B YANIRA, , 2776-07, CBCA, 6873-4 #### [facility] ([id number]) [address] [place] [address] 07151 ABSOLUTE NEUTROPHIL 6.0 X10E9/L Normal 1.5-6.6 [facility] Comment on above: Performed By: #### B YANIRA, , 2776-07, CBCA, 6873-4 #### [facility] ([id number]) [address] [place] [address] 25234 Basophils/100 WBC (Bld) 0.8 % Normal [facility] Comment on above: Performed By: #### B YANIRA, , 2776-07, CBCA, 6873-4 #### [facility] ([id number]) [address] [place] [address] 01369 Eosinophils (Bld) [#/Vol] 0.0 10*3/uL Normal 0.0-0.4 [facility] Comment on above: Performed By: #### B YANIRA, , 2776-07, CBCA, 6873-4 #### [facility] ([id number]) [address] [place] [address] 53180 Eosinophils/100 WBC (Bld) 0.2 % Normal [facility] Comment on above: Performed By: #### B YANIRA, , 2776-07, CBCA, 6873-4 #### [facility] ([id number]) [address] [place] [address] 72008 Erythrocyte distribution width (RBC) [Ratio] 14.6 % Normal 11.5-15.0 [facility] Comment on above: Performed By: #### Pura DOYLE, , 2776-07, CBCA, 6873-4 #### [facility] ([id number]) [address] [place] [address] 04657 Hematocrit (Bld) [Volume fraction] 49.3 % High 39-49 [facility] Comment on above: Performed By: #### B YANIRA, , 2776-07, CBCA, 6873-4 #### [facility] ([id number]) [address] [place] [address] 66511 Hemoglobin (Bld) [Mass/Vol] 16.0 g/dL Normal 13.0-17.0 [facility] Comment on above: Performed By: #### B YANIRA, , 2776-07, CBCA, 6873-4 #### [facility] ([id number]) [address] [place] [address] 52077 Lymphocytes (Bld) [#/Vol] 3.3 10*3/uL Normal 1.0-3.5 [facility] Comment on above: Performed By: #### B YANIRA, , 2776-07, CBCA, 6873-4 #### [facility] ([id number]) [address] [place] [address] 60542 Lymphocytes/100 WBC (Bld) 34.1 % Normal [facility] Comment on above: Performed By: #### Pura DOYLE, , 2776-07, CBCA, 6872-4 #### [facility] ([id number]) [address] [place] [address] 96189 MCH (RBC) [Entitic mass] 30.8 pg Normal 27-34 [facility] Comment on above: Performed By: #### Pura DOYLE, , 2776-07, CBCA, 6872-4 #### [facility] ([id number]) [address] [place] [address] 05071 MCHC (RBC) [Mass/Vol] 32.5 g/dL Normal 32-36 [facility] Comment on above: Performed By: #### Puar DOYLE, , 2776-07, CBCA, 6872- #### [facility] ([id number]) [address] [place] [address] 28171 MCV (RBC) [Entitic vol] 95 fL Normal 80-100 [facility] Comment on above: Performed By: #### Pura DOYLE, , 2776-07, CBCA, 73-4 #### [facility] ([id number]) [address] [place] [address] 42964 Monocytes (Bld) [#/Vol] 0.3 10*3/uL Normal 0-0.9 [facility] Comment on above: Performed By: #### Pura DOYLE, , 2776-07, CBCA, 73- #### [facility] ([id number]) [address] [place] [address] 10861 Monocytes/100 WBC (Bld) 3.6 % Normal [facility] Comment on above: Performed By: #### Pura DOYLE, , 2776-07, CBCA, 6872- #### [facility] ([id number]) [address] [place] [address] 07155 Neutrophils/100 WBC (Bld) 61.3 % Normal [facility] Comment on above: Performed By: #### B YANIRA, , 2776-07, CBCA, 6873-4 #### [facility] ([id number]) [address] [place] [address] 06587 Platelet mean volume (Bld) [Entitic vol] 8.0 fL Normal 7-12 [facility] Comment on above: Performed By: #### Pura DOYLE, , 2776-07, CBCA, 6873-4 #### [facility] ([id number]) [address] [place] [address] 87378 Platelets (Bld) [#/Vol] 446 10*3/uL Normal 150-450 [facility] Comment on above: Performed By: #### Pura DOYLE, , 2776-07, CBCA, 6873-4 #### [facility] ([id number]) [address] [place] [address] 88632 RBC COUNT 5.21 X10E12/L Normal 4.10-5.70 [facility] Comment on above: Performed By: #### Pura DOYLE, , 2776-07, CBCA, 6873-4 #### [facility] ([id number]) [address] [place] [address] 72823 WBC (Bld) [#/Vol] 9.7 10*3/uL Normal 4.0-11.0 [facility] Comment on above: Performed By: #### Pura DOYLE, , 2776-07, CBCA, 6873-4 #### [facility] ([id number]) [address] [place] [address] 00665 Glucose Glucometer (BldC) [M ass/Vol]on 07-05-2023 BEDSIDE GLUCOSE LAB >500 Critically high 65-99 [facility] Comment on above: Result Comment: SEE LAB RESULTS FOR CONFIRMATION MAGNESIUMon 07-05-2023 Magnesium [Mass/Vol] 2.5 mg/dL Normal 1.8-2.6 [facility] Comment on above: Performed By: #### B YANIRA, 89163-7, 2777-1, CBCA, 6873-4 #### [facility] ([id number]) [address] [place] [address] 70075 PHOSPHORUSon 07-05-2023 Phosphate [Mass/Vol] 5.0 mg/dL High 2.4-4.9 [facility] Comment on above: Performed By: #### B YANIRA, 92813-7, 2777-1, CBCA, 6873-4 #### [facility] ([id number]) [address] [place] [address] 29298 VENOUS BLOOD GASon 4 ROMAN'S TEST Normal [facility] Comment on above: Performed By: #### V BG #### [facility] ([id number]) [address] [place] [address] 71935 BASE,DEFICIT 19.0 MMOL/L High 0.0-2.0 [facility] Comment on above: Performed By: #### V BG #### [facility] ([id number]) [address] [place] [address] [place] [address] Body temperature 98.6 [degF] Normal 37.0 [facility] Comment on above: Performed By: #### V BG #### [facility] ([id number]) [address] [place] [address] 00102 HCO3 (Bld) [Moles/Vol] 9.3 mmol/L Low 20.0-24.0 [facility] Comment on above: Performed By: #### V BG #### [facility] ([id number]) [address] [place] [address] [place] [address] INSP. O2 CONC. 21 % Normal [facility] Comment on above: Performed By: #### V BG #### [facility] ([id number]) [address] [place] [address], [place] [address] Oxygen saturation in Blood 64.0 % Low >80.0 [facility] Comment on above: Performed By: #### V BG #### [facility] ([id number]) [address] [place] [address] [place] [address] OXYGEN SOURCE [employer]Air Normal [facility] Comment on above: Performed By: #### V BG #### [facility] ([id number]) [address] [place] [address] [place] [address] PCO2, VENOUS 28.3 MMHG Low 35-50 [facility] Comment on above: Performed By: #### V BG #### [facility] ([id number]) [address] [place] [address] [place] [address] PH, VENOUS 7.126 Low 7.320-7.420 [facility] Comment on above: Performed By: #### V BG #### [facility] ([id number]) [address] [place] [address] [place] [address] PO2, VENOUS 43 MMHG Normal 30-50 [facility] Comment on above: Performed By: #### V BG #### [facility] ([id number]) [address] [place] [address], [place] [address] SAMPLE SITE N/A Normal [facility] Comment on above: Performed By: #### V BG #### [facility] ([id number]) [address] [place] [address] [place] [address] SAMPLE TYPE VENOUS Normal [facility] Comment on above: Performed By: #### V BG #### [facility] ([id number]) [address] [place] [address], [place] [address] CT HEAD WO CONon 12-12-2021 CT HEAD WO CON Begin Addendum #1 First sentence of impression #1 should read: 1. No acute intracranial abnormality. Original Report INDICATION: 21 years old; Male. Seizure. Postsurgical drowsiness. TECHNIQUE: CT Head (ax/cor/sag reformats). Ionizing radiation dose reduced via iterative reconstruction/FBP blend and body size kV/mA adjustment. Comparison: None FINDINGS: POSTOPERATIVE CHANGES: None. BRAIN PARENCHYMA: No hemorrhage, mass or acute infarct. Normal millan/white differentiation. VENTRICLES/EXTRA-AX IAL SPACES: Normal for patient's age. SINUSES/MASTOIDS: Visualized sinuses are clear. Mastoid air cells are clear. MSK: No skull fractures. OTHER: No hyperdense intraluminal thrombus is seen. IMPRESSION: 1. No acute intracranial abdomen body. No hemorrhage or mass effect. Further evaluation with seizure protocol MRI would be recommended. Normal [facility] ACETAMINOPHENon 12-07-2021 Acetaminophen [Mass/Vol] ug/mL Critically low 10.0-30 .0 [facility] Comment on above: Performed By: #### A CET #### [facility] [address] [place] [address] Dr. Miguel Ferrara CBC AUTO DIFFon 12-07-2021 BASO # 0.1 103/ul Normal 0.0-0.1 [facility] Comment on above: Performed By: #### C BC #### [facility] [address] [place] [address] Dr. Miguel Ferrara Basophils/100 WBC (Bld) 0.8 % Normal 0.2-2.0 [facility] Comment on above: Performed By: #### C BC #### [facility] [address] [place] [address] Dr. Miguel Ferrara EO # 0.1 103/ul Normal 0.0-0.7 [facility] Comment on above: Performed By: #### C BC #### [facility] [address] [place] [address] Dr. Miguel Ferrara Eosinophils/100 WBC (Bld) 1.2 % Normal 0.9-7.0 [facility] Comment on above: Performed By: #### C BC #### [facility] [address] [place] [address] Dr. Miguel Ferrara Erythrocyte distribution width (RBC) [Ratio] 12.8 % Normal 11.0-15.0 [facility] Comment on above: Performed By: #### C BC #### [facility] [address] [place] [address] Dr. Miguel Ferrara Hematocrit (Bld) [Volume fraction] 39.8 % Critically low 42.0-54.0 [facility] Comment on above: Performed By: #### C BC #### [facility] [address] [place] [address] Dr. Miguel Ferrara Hemoglobin (Bld) [Mass/Vol] 13.2 g/dL Critically low 14.0-18.0 [facility] Comment on above: Performed By: #### C BC #### [facility] [address] [place] [address] Dr. Miguel Ferrara IG # 0.02 10e3/ul Normal 0.00-0.03 [facility] Comment on above: Performed By: #### C BC #### [facility] [address] [place] [address] Dr. Miguel Ferrara IG % 0.3 % Normal 0.0-0.5 [facility] Comment on above: Performed By: #### C BC #### [facility] [address] [place] [address] Dr. Miguel Ferrara LYMPH # 2.9 103/ul Normal 1.2-3.8 [facility] Comment on above: Performed By: #### C BC #### [facility] [address] [place] [address] Dr. Miguel Ferrara Lymphocytes/100 WBC (Bld) 39.0 % Normal 20.5-60.0 [facility] Comment on above: Performed By: #### C BC #### [facility] [address] [place] [address] Dr. Miguel Ferrara MANUAL DIFF REQ NO Normal [facility] Comment on above: Performed By: #### C BC #### [facility] [address] [address] [address] Miguel Ferrara MCH (RBC) [Entitic mass] 31.1 pg Normal 25.9-34.0 [facility] Comment on above: Performed By: #### C BC #### [facility] [address] [place] [address] Dr. Miguel Ferrara MCHC (RBC) [Mass/Vol] 33.2 g/dL Normal 29.9-35.2 [facility] Comment on above: Performed By: #### C BC #### [facility] [address] [place] [address] Dr. Miguel Ferrara MCV (RBC) [Entitic vol] 93.6 fL Normal 80.0-94.0 [facility] Comment on above: Performed By: #### C BC #### [facility] [address] [place] [address] Dr. Miguel Ferrara MONO # 0.6 103/ul Normal 0.3-0.8 [facility] Comment on above: Performed By: #### C BC #### [facility] [address] [place] [address] Dr. Miguel Ferrara Monocytes/100 WBC (Bld) 8.4 % Normal 1.7-12.0 [facility] Comment on above: Performed By: #### C BC #### [facility] [address] [place] [address] Dr. Miguel Ferrara NEUT # 3.7 103/ul Normal 1.4-6.5 [facility] Comment on above: Performed By: #### C BC #### [facility] [address] [place] [address] Dr. Miguel Ferrara Neutrophils/100 WBC (Bld) 50.3 % Normal 43.0-75.0 [facility] Comment on above: Performed By: #### C BC #### [facility] [address] [place] [address] Dr. Miguel Ferrara Platelet mean volume (Bld) [Entitic vol] 8.6 fL Critically low 9.5-13.5 [facility] Comment on above: Performed By: #### C BC #### [facility] [address] [address] [address] Miguel Ferrara PLT 358 103/ul Normal 150-450 [facility] Comment on above: Performed By: #### C BC #### [facility] [address] [address] [address] Miguel Ferrara RBC 4.25 106/ul Critically low 4.70-6.10 [facility] Comment on above: Performed By: #### C BC #### [facility] [address] [address] [address] Miguel Ferrara WBC 7.3 103/ul Normal 4.0-11.0 [facility] Comment on above: Performed By: #### C BC #### [facility] [address] [place] [address] Dr. Miguel Ferrara Covid-19 PCR (CVDTBH)on SARS-CoV-2 (COVID-19) RNA NESSA+probe Ql (Unsp spec) Not detected Normal NOT DETECTED [facility] Comment on above: Result Comment: When diagnostic testing is negative, the possibility of a false negative should be considered in the context of a patient's recent exposures and the presence of clinical signs and symptoms consistent with SARS-CoV-2. This test is not yet approved or cleared by the [place] FDA. When there are no FDA-approved or cleared tests available, and other criteria are met, FDA can make tests available under an emergency access mechanism called an Emergency Use Authorization (EUA). The EUA for this test is supported by the [employer] of Health and Human Service's declaration that circumstances exist to justify the emergency use of in vitro diagnostics for the detection and/or diagnosis of the virus that causes COVID-19. This EUA will remain in effect for the duration of the COVID-19 declaration justifying emergency of IVDs, unless it is terminated or revoked by the FDA (after which the test may no longer be used). Performed By: #### C VDTBH #### [facility] [address] [place] [address] Dr. Miguel Ferrara ETHANOL (BLD ALC)on 12-08-19 22 ALC NOTE NOTE: 80 mg/dl is the legal limit for a blood alcohol level Normal [facility] Comment on above: Performed By: #### E TH #### [facility] [address] [place] [address] Dr. Miguel Ferrara Ethanol [Mass/Vol] mg/dL Normal [facility] Comment on above: Performed By: #### E TH #### [facility] [address] [place] [address] Dr. Miguel Ferrara POINT OF CARE GLUCOSEon 06 Glucose [Mass/Vol] 311 mg/dL Critically high 74-106 [facility] Comment on above: Performed By: #### P OCGLUC #### [facility] [address] [place] [address] Dr. Miguel Ferrara PROF 14(COMP METB)on 022 Albumin [Mass/Vol] 3.5 g/dL Normal 3.4-5.0 [facility] Comment on above: Performed By: #### C MP #### [facility] [address] [place] [address] Dr. Miguel Ferrara Albumin/Globulin [Mass ratio] 0.9 {ratio} Normal [facility] Comment on above: Performed By: #### C MP #### [facility] [address] [place] [address] Dr. Miguel Ferrara ALP [Catalytic activity/Vol] 82 U/L Normal 46-116 [facility] Comment on above: Performed By: #### C MP #### [facility] [address] [place] [address] Dr. Miguel Ferrara ALT [Catalytic activity/Vol] 24 U/L Normal 16-63 [facility] Comment on above: Performed By: #### C MP #### [facility] [address] [place] [address] Dr. Miguel Ferrara Anion gap [Moles/Vol] 11.2 mmol/L Normal [facility] Comment on above: Performed By: #### C MP #### [facility] [address] [place] [address] Dr. Miguel Ferrara AST [Catalytic activity/Vol] 17 U/L Normal 15-37 [facility] Comment on above: Performed By: #### C MP #### [facility] [address] [address] [address] Miguel Ferrara Bilirubin [Mass/Vol] 0.6 mg/dL Normal 0.2-1.0 [facility] Comment on above: Performed By: #### C MP #### [facility] [address] [address] [address] Miguel Ferrara Calcium [Mass/Vol] 8.9 mg/dL Normal 8.5-10.1 [facility] Comment on above: Performed By: #### C MP #### [facility] [address] [place] [address] Dr. Miguel Ferrara Chloride [Moles/Vol] 100 mmol/L Normal 98-107 [facility] Comment on above: Performed By: #### C MP #### [facility] [address] [address] [address] Miguel Ferrara CO2 [Moles/Vol] 28.4 mmol/L Normal 21.0-32.0 [facility] Comment on above: Performed By: #### C MP #### [facility] [address] [place] [address] Dr. Miguel Ferrara Creatinine [Mass/Vol] 1.30 mg/dL Normal 0.70-1.30 [facility] [facility] Comment on above: Performed By: #### C MP #### [facility] [address] [place] [address] Dr. Miguel Ferrara EGFR-AF PALAUAN >60 Normal >=60 [facility] Comment on above: Performed By: #### C MP #### [facility] [address] [place] [address] Dr. Miguel Ferrara EGFR-NON AF PALAUAN >60 Normal >=60 [facility] Comment on above: Performed By: #### C MP #### [facility] [address] [place] [address] Dr. Miguel Ferrara Globulin (S) [Mass/Vol] 4.0 g/dL Normal T [facility] Comment on above: Performed By: #### C MP #### [facility] [address] [address] [address] Miguel Ferrara Glucose [Mass/Vol] 339 mg/dL Critically high 74-106 [facility] Comment on above: Performed By: #### C MP #### [facility] [address] [address] [address] Miguel Ferrara Potassium [Moles/Vol] 3.6 mmol/L Normal 3.5-5.1 [facility] Comment on above: Performed By: #### C MP #### [facility] [address] [address] [address] Miguel Ferrara Protein [Mass/Vol] 7.5 g/dL Normal 6.4-8.2 [facility] Comment on above: Performed By: #### C MP #### [facility] [address] [address] [address] Miguel Ferrara Sodium [Moles/Vol] 136 mmol/L Normal 136-145 [facility] Comment on above: Performed By: #### C MP #### [facility] [address] [address] [address] Miguel Ferrara Urea nitrogen [Mass/Vol] 15.0 mg/dL Normal 7.0-18.0 [facility] Comment on above: Performed By: #### C MP #### [facility] [address] [address] [address] Miguel Ferrara Urea nitrogen/Creatinine [Mass ratio] 11.5 mg/mg Normal [facility] Comment on above: Performed By: #### C MP #### [facility] [address] [address] [address] Miguel Ferrara SALICYLATEon 12-07-2021 SALICYLATE <2.8 Normal <=19.9 [facility] Comment on above: Performed By: #### S ALYC #### [facility] [address] [address] [address] Miguel Ferrara FREE T4on 03-23-2020 Free T4 [Mass/Vol] 0.73 ng/dL Normal 0.61-1.60 [facility] Comment on above: Result Comment: Perf ormed at [facility] [address] [facility] [address] [facility] [address] [place] [address] CLIA No. [id number] CAP Accreditation No. [id number] Wet Finisher: Jacob Coribn M.D. Performed By: #### 1 6203, 01875, 222 #### [facility] Unless Otherwise Noted [address] [address] / COLA #4724/CLIA # [id number] LIPID PANEL WITH REFLEX TO D IRECT LDLon 03-23-2020 Cholesterol [Mass/Vol] 168 mg/dL Normal 150-200 [facility] Comment on above: Performed By: #### 1 2393, 25156, 222 #### [facility] Unless Otherwise Noted [address] [address] / COLA #8024/CLIA # [id number] Cholesterol in LDL/Cholesterol in HDL [Mass ratio] 1.4 Normal <3.5 [facility] Comment on above: Performed By: #### 1 3303, 53779, 222 #### [facility] Unless Otherwise Noted [address] [address] / COLA #1224/CLIA # [id number] Cholesterol.total/Choles terol in HDL [Mass ratio] 2.8 {ratio} Normal 1.0-5.0 [facility] Comment on above: Result Comment: Test performed at [facility] [address] [facility] [place] [address] CLIA Number [id number] -------- Performed By: #### 1 0842, 74459, 222 #### [facility] Unless Otherwise Noted [address] [address] / COLA #4724/CLIA # [id number] HDL-CHOL 59 mg/dL Normal >39 [facility] Comment on above: Result Comment: HDL <40 mg/dL - High Risk HDL > or = 40mg/dL- Desirable HDL >60 mg/dL - Negative Risk Performed By: #### 1 3153, 11804, 222 #### [facility] Unless Otherwise Noted [address] [address] / COLA #8088/CLIA # [id number] LDL-CHOL, CALCULATED 81 mg/dL Normal <130 [facility] Comment on above: Result Comment: LDL <100 mg/dL - Desirable LDL >160 mg/dL - High Risk Performed By: #### 1 1928, 89582, 222 #### [facility] Unless Otherwise Noted [address] [facility] [address] [place] [address] / COLA #3331/CLIA # [id number] Triglyceride [Mass/Vol] 141 mg/dL Normal 27-150 [facility] Diabetes [facility] Comment on above: Performed By: #### 1 9283, 50804, 222 #### [facility] Unless Otherwise Noted [address] [facility] [address] [place] [address] / COLA #4724/CLIA # [id number] VLDL-CHOL, CALCULATED 28 mg/dL Normal 0-30 [facility] Comment on above: Performed By: #### 1 6203, 52915, 222 #### [facility] Unless Otherwise Noted [address] [facility] [address] [place] [address] / COLA #4724/CLIA # [id number] TSHon 03-23-2020 TSH Qn 1.51 uIU/mL Normal 0.49-4.67 [facility] Comment on above: Result Comment: Perf ormed at [facility] [address] [facility] [address] Performed By: #### 1 6993, 55812, 222 #### [facility] Unless Otherwise Noted [address] [facility] [address] [place] [address] / COLA #4724/CLIA # [id number] POC Glucose Fingerstickon Glucose [Mass/Vol] 192 mg/dL High 75 - 110 mg/dL [place] Interpretation and review of laboratory results Abnormal [place] CBC auto differentialon Basophils (Bld) [#/Vol] 0.00 10*3/uL [place] Basophils/100 WBC (Bld) 1 % 0 - 2 % [place] Differential Type NOT REPORTED [place] Eosinophils (Bld) [#/Vol] 0.10 10*3/uL [place] Eosinophils/100 WBC (Bld) 3 % 0 - 4 % [place] Erythrocyte distribution width (RBC) [Ratio] 13.8 % 11.5 - 14.9 % [place] Hematocrit (Bld) [Volume fraction] 42.9 % 41 - 53 % [place] Hemoglobin (Bld) [Mass/Vol] 14.5 g/dL 13.5 - 17.5 g/dL [place] Lymphocytes (Bld) [#/Vol] 1.80 10*3/uL [place] Lymphocytes/100 WBC (Bld) 38 % 25 - 45 % [place] MCH (RBC) [Entitic mass] 32.1 pg 25 - 35 pg [place] MCHC (RBC) [Mass/Vol] 33.9 g/dL 31 - 37 g/dL [place] MCV (RBC) [Entitic vol] 94.6 fL 78 - 102 fL [place] Monocytes (Bld) [#/Vol] 0.30 10*3/uL [place] Monocytes/100 WBC (Bld) 7 % 2 - 8 % [place] Platelet mean volume (Bld) [Entitic vol] 7.0 fL 6 - 12 fL [place] Platelets (Bld) [#/Vol] NOT REPORTED [place] Platelets (Bld) [#/Vol] 292 10*3/uL [place] RBC (Bld) [#/Vol] 4.54 10*6/uL 4.5 - 5.9 m/uL [place] RBC morphology finding Nom (Bld) NOT REPORTED [place] Segmented neutrophils/100 WBC (Bld) 51 % 34 - 64 % [place] Segs Absolute 2.50 [place] WBC (Bld) [#/Vol] NOT REPORTED per 100 WBC [place] WBC (Bld) [#/Vol] 4.8 10*3/uL [place] WBC Morphology NOT REPORTED [place] CBC with Diffon 04-04-2019 Abs. Basophil 0.00 k/uL Normal 0.0-0.[address] [facility] Comment on above: Performed By: #### C DP, CMPX, FT4, LIPR, TSH #### [facility] [address] [place] [address] Gaggerman: French Martínez DO #### GLYHGB #### [address] [address] Gaggerman: Archie Erickson MD Abs.Neutrophil (Seg) 2.50 k/uL Normal 1.3-9.1 [facility] Comment on above: Performed By: #### C DP, CMPX, FT4, LIPR, TSH #### [facility] [address] [place] [address] Gaggerman: French Martínez DO #### GLYHGB #### [address] [address] Gaggerman: Archie Erickson MD Basophils/100 WBC (Bld) 1 % Normal 0-2 [facility] Comment on above: Performed By: #### C DP, CMPX, FT4, LIPR, TSH #### [facility] [place] [address] Gaggerman: French Martínez DO #### GLYHGB #### [address] [address] Gaggerman: Archie Erickson MD Eosinophils (Bld) [#/Vol] 0.10 10*3/uL Normal 0.0-0.[address] [facility] Comment on above: Performed By: #### C DP, CMPX, FT4, LIPR, TSH #### [facility] [address] [place] [address] Gaggerman: French Martínez DO #### GLYHGB #### [address] [address] Gaggerman: Archie Erickson MD Eosinophils/100 WBC (Bld) 3 % Normal 0-[address] [facility] Comment on above: Performed By: #### C DP, CMPX, FT4, LIPR, TSH #### [facility] [place] [address] Gaggerman: French Martínez DO #### GLYHGB #### [address] [address] Gaggerman: Archie Erickson MD Erythrocyte distribution width (RBC) [Ratio] 13.8 % Normal 11.5-14.[address] [facility] Comment on above: Performed By: #### C DP, CMPX, FT4, LIPR, TSH #### [facility] [address] [place] [address] Gaggerman: French Martínez DO #### GLYHGB #### [address] [address] Gaggerman: Archie Erickson MD Hematocrit (Bld) [Volume fraction] 42.9 % Normal 41-[address] [facility] Comment on above: Performed By: #### C DP, CMPX, FT4, LIPR, TSH #### [facility] [address] [place] [address] Gaggerman: French Martínez DO #### GLYHGB #### [address] [address] Gaggerman: Archie Erickson MD Hemoglobin (Bld) [Mass/Vol] 14.5 g/dL Normal 13.5-17.[address] [facility] Comment on above: Performed By: #### C DP, CMPX, FT4, LIPR, TSH #### [facility] [address] [place] [address] Gaggerman: French Martínez DO #### GLYHGB #### [address] [address] Gaggerman: Archie Erickson MD Lymphocytes (Bld) [#/Vol] 1.80 10*3/uL Normal 1.2-5.[address] [facility] Comment on above: Performed By: #### C DP, CMPX, FT4, LIPR, TSH #### [facility] [address] [place] [address] Gaggerman: French Martínez DO #### GLYHGB #### [address] [address] Gaggerman: Archie Erickson MD Lymphocytes/100 WBC (Bld) 38 % Normal 25-[address] [facility] Comment on above: Performed By: #### C DP, CMPX, FT4, LIPR, TSH #### [facility] [address] [place] [address] Gaggerman: French Martínez DO #### GLYHGB #### [address] [address] Gaggerman: Archie Erickson MD MCH (RBC) [Entitic mass] 32.1 pg Normal 25-[address] [facility] Comment on above: Performed By: #### C DP, CMPX, FT4, LIPR, TSH #### [facility] [place] [address] Gaggerman: French Martínez DO #### GLYHGB #### [address] [address] Gaggerman: Archie Erickson MD MCHC (RBC) [Mass/Vol] 33.9 g/dL Normal 31-37 [facility] Comment on above: Performed By: #### C DP, CMPX, FT4, LIPR, TSH #### [facility] [place] [address] Gaggerman: French Martínez DO #### GLYHGB #### [address] [address] Gaggerman: Archie Erickson MD MCV (RBC) [Entitic vol] 94.6 fL Normal 78-102 M [facility] Comment on above: Performed By: #### C DP, CMPX, FT4, LIPR, TSH #### [facility] [address] [place] [address] Gaggerman: French Martínez DO #### GLYHGB #### [address] [address] Gaggerman: Archie Erickson MD Monocytes (Bld) [#/Vol] 0.30 10*3/uL Normal 0.1-1.[address] [facility] Comment on above: Performed By: #### C DP, CMPX, FT4, LIPR, TSH #### [facility] [address] [place] [address] Gaggerman: French Martínez DO #### GLYHGB #### [address] [address] Gaggerman: Archie Erickson MD Monocytes/100 WBC (Bld) 7 % Normal 2-8 M [facility] Comment on above: Performed By: #### C DP, CMPX, FT4, LIPR, TSH #### [facility] [address] [place] [address] Gaggerman: French Martíenz DO #### GLYHGB #### [address] [address] Gaggerman: Archie Erickson MD Neutrophil (Seg) 51 % Normal 34-64 [facility] Comment on above: Performed By: #### C DP, CMPX, FT4, LIPR, TSH #### [facility] [address] [place] [address] Gaggerman: French Martínez DO #### GLYHGB #### [address] [address] Gaggerman: Archie Erickson MD Platelet mean volume (Bld) [Entitic vol] 7.0 fL Normal 6.0-12.[address] [facility] Comment on above: Performed By: #### C DP, CMPX, FT4, LIPR, TSH #### [facility] [address] [place] [address] Gaggerman: French Martínez DO #### GLYHGB #### [address] [address] Gaggerman: Archie Erickson MD Platelets (Bld) [#/Vol] 292 10*3/uL Normal 150-[address] [facility] Comment on above: Performed By: #### C DP, CMPX, FT4, LIPR, TSH #### [facility] [place] [address] Gaggerman: French Martínez DO #### GLYHGB #### [address] [address] Gaggerman: Archie Erickson MD RBC (Bld) [#/Vol] 4.54 10*6/uL Normal 4.5-5.[address] [facility] Comment on above: Performed By: #### C DP, CMPX, FT4, LIPR, TSH #### [facility] [address] [place] [address] Gaggerman: French Martínez DO #### GLYHGB #### [address] [address] Gaggerman: Archie Erickson MD WBC (Bld) [#/Vol] 4.8 10*3/uL Normal 4.5-13.[address] [facility] Comment on above: Performed By: #### C DP, CMPX, FT4, LIPR, TSH #### [facility] [address] [place] [address] Gaggerman: French Martínez DO #### GLYHGB #### [address] [address] Gaggerman: Archie Erickson MD Abs.Imm.Granulocyte NOT REPORTED Normal 0.00-0.30 [facility] Comment on above: Performed By: #### C DP, CMPX, FT4, LIPR, TSH #### [facility] [address] [place] [address] Gaggerman: French Martínez DO #### GLYHGB #### [address] [address] Gaggerman: Archie Erickson MD Auto Diff Performed NOT REPORTED Normal [facility] Comment on above: Performed By: #### C DP, CMPX, FT4, LIPR, TSH #### [facility] [address] [place] [address] Gaggerman: French Martínez DO #### GLYHGB #### [address] [address] Gaggerman: Archie Erickson MD Immature granulocytes (Bld) [#/Vol] NOT REPORTED Normal [address] [facility] Comment on above: Performed By: #### C DP, CMPX, FT4, LIPR, TSH #### [facility] [address] [place] [address] Gaggerman: French Martínez DO #### GLYHGB #### [address] [address] Gaggerman: Archie Erickson MD NRBC Automated NOT REPORTED Normal [facility] Comment on above: Performed By: #### C DP, CMPX, FT4, LIPR, TSH #### [facility] [address] [place] [address] Gaggerman: French Martínez DO #### GLYHGB #### [address] [address] Gaggerman: Archie Erickson MD Platelets (Bld) [#/Vol] NOT REPORTED Normal [facility] Comment on above: Performed By: #### C DP, CMPX, FT4, LIPR, TSH #### [facility] [address] [place] [address] Gaggerman: French Martínez DO #### GLYHGB #### [address] [address] Gaggerman: Archie Erickson MD RBC morphology finding Nom (Bld) NOT REPORTED Normal [facility] Comment on above: Performed By: #### C DP, CMPX, FT4, LIPR, TSH #### [facility] [address] [place] [address] Gaggerman: French Martínez DO #### GLYHGB #### [address] [address] Gaggerman: Archie Erickson MD WBC Morphology NOT REPORTED Normal [facility] Comment on above: Performed By: #### C DP, CMPX, FT4, LIPR, TSH #### [facility] [address] [place] [address] Gaggerman: French Martínez DO #### GLYHGB #### [address] [address] Gaggerman: Archie Erickson MD Comp Metabolic Pr/rfx MGon 1 (cont.) Normal [facility] Comment on above: Result Comment: Aver age GFR for <20 years old not available. Chronic Kidney Disease: <60 mL/min/1.73sq m Kidney failure: <15 mL/min/1.73sq m eGFR calculated using average adult body mass. Additional eGFR calculator available at: http://www.LifeBook/multiple_crcl_2012.htm Performed By: #### C DP, CMPX, FT4, LIPR, TSH #### [facility] [address] [place] [address] Gaggerman: French Martínez DO #### GLYHGB #### [address] [address] Gaggerman: Archie Erickson MD Albumin [Mass/Vol] 3.6 g/dL Normal 3.5-5.[address] [facility] Comment on above: Performed By: #### C DP, CMPX, FT4, LIPR, TSH #### [facility] [place] [address] Gaggerman: French Martínez DO #### GLYHGB #### [address] [address] Gaggerman: Archie Erickson MD Alkaline Phos 72 U/L Normal 40-[address] [facility] Comment on above: Performed By: #### C DP, CMPX, FT4, LIPR, TSH #### [facility] [place] [address] Gaggerman: French Martínez DO #### GLYHGB #### [address] [address] Gaggerman: Archie Erickson MD ALT [Catalytic activity/Vol] 18 U/L Normal 5-[address] [facility] Comment on above: Performed By: #### C DP, CMPX, FT4, LIPR, TSH #### [facility] [address] [place] [address] Gaggerman: French Martínez DO #### GLYHGB #### [address] [address] Gaggerman: Archie Erickson MD Anion gap [Moles/Vol] 12 mmol/L Normal 9-17 [facility] Comment on above: Performed By: #### C DP, CMPX, FT4, LIPR, TSH #### [facility] [address] [place] [address] Gaggerman: French Martínez DO #### GLYHGB #### [address] [address] Gaggerman: Archie Erickson MD AST [Catalytic activity/Vol] 19 U/L Normal <[address] [facility] Comment on above: Performed By: #### C DP, CMPX, FT4, LIPR, TSH #### [facility] [address] [place] [address] Gaggerman: French Martínez DO #### GLYHGB #### [address] [address] Gaggerman: Archie Erickson MD Bilirubin Ql (U) 0.64 mg/dL Normal 0.3-1.2 [facility] Comment on above: Performed By: #### C DP, CMPX, FT4, LIPR, TSH #### [facility] [address] [place] [address] Gaggerman: French Martínez DO #### GLYHGB #### [address] [address] Gaggerman: Archie Erickson MD Calcium [Mass/Vol] 9.0 mg/dL Normal 8.6-10.[address] [facility] Comment on above: Performed By: #### C DP, CMPX, FT4, LIPR, TSH #### [facility] [address] [place] [address] Gaggerman: French Martínez DO #### GLYHGB #### [address] [address] Gaggerman: Archie Erickson MD Chloride [Moles/Vol] 101 mmol/L Normal 98-107 [facility] Comment on above: Performed By: #### C DP, CMPX, FT4, LIPR, TSH #### [facility] [address] [place] [address] Gaggerman: French Martínez DO #### GLYHGB #### [address] [address] Gaggerman: Archie Erickson MD CO2 [Moles/Vol] 23 mmol/L Normal 20-[address] [facility] Comment on above: Performed By: #### C DP, CMPX, FT4, LIPR, TSH #### [facility] [address] [place] [address] Gaggerman: French Martínez DO #### GLYHGB #### [address] [address] Gaggerman: Archie Erickson MD Creatinine [Mass/Vol] 0.80 mg/dL Normal 0.70-1.20 [facility] Comment on above: Performed By: #### C DP, CMPX, FT4, LIPR, TSH #### [facility] [address] [place] [address] Gaggerman: French Martínez DO #### GLYHGB #### [address] [address] Gaggerman: Archie Erickson MD GFR,non Amer Pediatric GFR requires additional information. Refer to NKDEP website for Normal >[address] [facility] Comment on above: Result Comment: calc ulator. Performed By: #### C DP, CMPX, FT4, LIPR, TSH #### [facility] [address] [place] [address] Gaggerman: French Martínez DO #### GLYHGB #### [address] [address] Gaggerman: Archie Erickson MD Glucose [Mass/Vol] 367 mg/dL High 70-[address] [facility] Comment on above: Performed By: #### C DP, CMPX, FT4, LIPR, TSH #### [facility] [address] [place] [address] Gaggerman: French Martínez DO #### GLYHGB #### [address] [address] Gaggerman: Archie Erickson MD Potassium [Moles/Vol] 4.3 mmol/L Normal 3.7-5.3 [facility] Comment on above: Performed By: #### C DP, CMPX, FT4, LIPR, TSH #### [facility] [address] [place] [address] Gaggerman: French Martínez DO #### GLYHGB #### [address] [address] Gaggerman: Archie Erickson MD Protein [Mass/Vol] 6.7 g/dL Normal 6.4-8.[address] [facility] Comment on above: Performed By: #### C DP, CMPX, FT4, LIPR, TSH #### [facility] [address] [place] [address] Gaggerman: French Martínez DO #### GLYHGB #### [address] [address] Gaggerman: Archie Erickson MD Sodium [Moles/Vol] 136 mmol/L Normal 135-[address] [facility] Comment on above: Performed By: #### C DP, CMPX, FT4, LIPR, TSH #### [facility] [address] [place] [address] Gaggerman: French Martínez DO #### GLYHGB #### [address] [address] Gaggerman: Archie Erickson MD Urea nitrogen [Mass/Vol] 12 mg/dL Normal 6-[address] [facility] Comment on above: Performed By: #### C DP, CMPX, FT4, LIPR, TSH #### [facility] [address] [place] [address] Gaggerman: French Martínez DO #### GLYHGB #### [address] [address] Gaggerman: Archie Erickson MD Albumin/Globulin [Mass ratio] NOT REPORTED Normal 1.0-2.[address] [facility] Comment on above: Performed By: #### C DP, CMPX, FT4, LIPR, TSH #### [facility] [address] [place] [address] Gaggerman: French Martínez DO #### GLYHGB #### [address] [address] Gaggerman: Archie Erickson MD BUN/CRE Ratio NOT REPORTED Normal 9-[address] [facility] Comment on above: Performed By: #### C DP, CMPX, FT4, LIPR, TSH #### [facility] [address] [place] [address] Gaggerman: French Martínez DO #### GLYHGB #### [facility] [address] [place] [address] Gaggerman: Archie Erickson MD GFR, Amer NOT REPORTED Normal >[address] [facility] Comment on above: Performed By: #### C DP, CMPX, FT4, LIPR, TSH #### [facility] [address] [place] [address] Gaggerman: French Martínez DO #### GLYHGB #### [id number] [place], [place] [id number] Gaggerman: Archie Erickson MD Staging: NOT REPORTED Normal [facility] Comment on above: Performed By: #### C DP, CMPX, FT4, LIPR, TSH #### [facility] [address] [place] [address] Gaggerman: French Martínez DO #### GLYHGB #### [id number] [place] [address] Gaggerman: Archie Erickson MD Comprehensive Metabolic Pane l w/ Reflex to MGon 04-04-2019 Albumin [Mass/Vol] 3.6 g/dL 3.5 - 5.2 g/dL [place] Albumin/Globulin [Mass ratio] NOT REPORTED [place] ALP [Catalytic activity/Vol] 72 U/L 40 - 129 U/L [place] ALT [Catalytic activity/Vol] 18 U/L 5 - 41 U/L [place] Anion gap [Moles/Vol] 12 mmol/L 9 - 17 mmol/L [place] AST [Catalytic activity/Vol] 19 U/L <40 [place] Bilirubin Ql (U) 0.64 mg/dL 0.3 - 1.2 mg/dL [place] Bun/Cre Ratio NOT REPORTED [facility] [place] Calcium [Mass/Vol] 9.0 mg/dL 8.6 - 10. 4 mg/dL [place] Chloride [Moles/Vol] 101 mmol/L 98 - 10 7 mmol/L [place] CO2 [Moles/Vol] 23 mmol/L 20 - 31 mmol/L [place] Creatinine [Mass/Vol] 0.8 mg/dL 0.7 - 1.2 mg/dL [place] GFR NOT REPORTED >60 mL/min [place] GFR Non- Pediatric GFR requires additional information. Refer to NKDEP website for calculator. >60 mL/min [place] GFR/1.73 sq M predicted among non-blacks MDRD (S/P/Bld) [Vol rate/Area] NOT REPORTED [place] GFR/1.73 sq M predicted among non-blacks MDRD (S/P/Bld) [Vol rate/Area] [place] Comment on above: Average GFR for <20 years old not available. Chronic Kidney Disease: <60 mL/min/1.73sq m Kidney failure: <15 mL/min/1.73sq m eGFR calculated using average adult body mass. Additional eGFR calculator available at: http://www.LifeBook/multiple_crcl_2011.htm Glucose [Mass/Vol] 367 mg/dL High 70 - 99 mg/dL [place], [place] Potassium [Moles/Vol] 4.3 mmol/L 3.7 - 5.3 mmol/L [place] Protein [Mass/Vol] 6.7 g/dL 6.4 - 8.3 g/dL [place] Sodium [Moles/Vol] 136 mmol/L 135 - 144 mmol/L [place] Urea nitrogen [Mass/Vol] 12 mg/dL 6 - 20 mg/d L [place] Hemoglobin A1Con 04-04-2019 HbA1c (Bld) [Mass fraction] 11.6 % High 4.0-6.[address] [facility] Comment on above: Performed By: #### C DP, CMPX, FT4, LIPR, TSH #### [facility] [address] [place] [address] Gaggerman: French Martínez DO #### GLYHGB #### [address] [id number] Gaggerman: Archie Erickson MD HbA1c (Bld) [Mass fraction] 286 mg/dL Normal [facility] Comment on above: Result Comment: The ADA and AACC recommend providing the estimated average glucose result to permit better patient understanding of their HBA1c result. Performed By: #### C DP, CMPX, FT4, LIPR, TSH #### [facility] [address] [place] [address] Gaggerman: French Martínez DO #### GLYHGB #### [address] [address] Gaggerman: Archie Erickson MD Hemoglobin A1con 04-04-2019 Glucose [Mass/Vol] 286 mg/dL [place] Comment on above: The ADA and AACC rec ommend providing the estimated average glucose result to permit better patient understanding of their HBA1c result. HbA1c (Bld) [Mass fraction] 11.6 % High 4 - 6 % [place] Interpretation and review of laboratory results Abnormal [place] Lipid Profileon 04-04-2019 Cholesterol [Mass/Vol] 178 mg/dL Normal <200 [facility] Comment on above: Result Comment: Cholesterol Guidelines: <200 Desirable 200-240 Borderline >240 Undesirable Performed By: #### C DP, CMPX, FT4, LIPR, TSH #### [facility] [address] [place] [address] Gaggerman: French Martínez DO #### GLYHGB #### [id number] [place] [address] Gaggerman: Archie Erickson MD Cholesterol in HDL [Mass/Vol] 42 mg/dL Normal >[address] [facility] Comment on above: Result Comment: HDL Guidelines: <40 Undesirable 40-59 Borderline >59 Desirable Performed By: #### C DP, CMPX, FT4, LIPR, TSH #### [facility] [address] [place] [address] Gaggerman: French Martínez DO #### GLYHGB #### [address] [address] Gaggerman: Archie Erickson MD Cholesterol in LDL [Mass/Vol] 85 mg/dL Normal 0-[address] [facility] Comment on above: Result Comment: LDL Guidelines: <100 Desirable 100-129 Near to/above Desirable 130-159 Borderline >159 Undesirable Direct (measured) LDL and calculated LDL are not interchangeable tests. Performed By: #### C DP, CMPX, FT4, LIPR, TSH #### [facility] [address] [place] [address] Gaggerman: French Martínez DO #### GLYHGB #### [address] [address] Gaggerman: Archie Erickson MD Cholesterol.total/Choles terol in HDL [Mass ratio] 4.2 {ratio} Normal <[address] [facility] Comment on above: Performed By: #### C DP, CMPX, FT4, LIPR, TSH #### [facility] [address] [place] [address] Gaggerman: French Martínez DO #### GLYHGB #### [address] [address] Gaggerman: Archie Erickson MD Triglyceride [Mass/Vol] 254 mg/dL High <150 [facility] Comment on above: Result Comment: Triglyceride Guidelines: <150 Desirable 150-199 Borderline 200-499 High >499 Very high Based on AHA Guidelines for fasting triglyceride, April 2012. Performed By: #### C DP, CMPX, FT4, LIPR, TSH #### [facility] [address] [facility] [place] [address] Gaggerman: French Martínez DO #### GLYHGB #### [facility] [address] [place] [address] Gaggerman: Archie Erickson MD Cholesterol in VLDL [Mass/Vol] NOT REPORTED Normal 1-[address] [facility] Comment on above: Performed By: #### C DP, CMPX, FT4, LIPR, TSH #### [facility] [address] [place] [address] Gaggerman: French Martínez DO #### GLYHGB #### [facility] [address] [place] [address] Gaggerman: Archie Erickson MD Lipid panel - fastingon Cholesterol [Mass/Vol] 178 mg/dL <200 [place] Comment on above: Cholesterol Guidelines: <200 Desirable 200-240 Borderline >240 Undesirable Cholesterol in HDL [Mass/Vol] 42 mg/dL >40 [place] Comment on above: HDL Guidelines: <40 Undesirable 40-59 Borderline >59 Desirable Cholesterol in LDL [Mass/Vol] 85 mg/dL 0 - 130 mg/dL [place] Comment on above: LDL Guidelines: <100 Desirable 100-129 Near to/above Desirable 130-159 Borderline >159 Undesirable Direct (measured) LDL and calculated LDL are not interchangeable tests. Cholesterol in VLDL [Mass/Vol] NOT REPORTED High 1 - 30 mg/dL [place] Cholesterol.total/Choles terol in HDL [Mass ratio] 4.2 {ratio} <5 [place] Triglyceride [Mass/Vol] 254 mg/dL High <150 M [place], [place] Comment on above: Triglyceride Guidelines: <150 Desirable 150-199 Borderline 200-499 High >499 Very high Based on AHA Guidelines for fasting triglyceride, April 2012. Otheron 04-04-2019 Interpretation and review of laboratory results Abnormal [place] Immature granulocytes (Bld) [#/Vol] NOT REPORTED 0 % [place] T4, freeon 04-04-2019 Thyroxine, Free 1.00 ng/dL 0.93 - 1.7 ng/dL [place] TSH without Reflexon 019 TSH Qn 0.99 m[IU]/L [place], [place] Thyroid Stim. Horm.on 2018 TSH Qn 0.99 m[IU]/L Normal 0.30-5.[address] [facility] Comment on above: Performed By: #### C DP, CMPX, FT4, LIPR, TSH #### [facility] [address] [place] [address] Gaggerman: French Martínez DO #### GLYHGB #### [facility] [address] [place] [address] [id number] Gaggerman: Archie Erickson MD Thyroxine, Freeon 04-04-2019 Thyroxine, Free 1.00 ng/dL Normal 0.93-1.[address] [facility] Comment on above: Performed By: #### C DP, CMPX, FT4, LIPR, TSH #### [facility] [address] [place] [address] Gaggerman: French Martínez DO #### GLYHGB #### [address] [id number] Gaggerman: Archie Erickson MD Vital Signs Date Time Vital Sign Value Performing Clinician Guillermina robles 04-07-2019 07:30-0400 Body Temperature 97.59 [degF] [facility], [place] 04-07-2019 07:30-0400 BP Diastolic 88 mm[Hg] [place] 04-07-2019 07:30-0400 BP Systolic 135 mm[facility]Hg[facility] [place] 04-07-2019 07:30-0400 Pulse (Heart Rate) 61 /min Jinny Sheets [facility], [place] 04-07-2019 07:30-0400 Pulse Oximetry 100 % Jinny Sheets [facility] , [place] 04-07-2019 07:30-0400 Respiratory Rate 14 /min [facility] 04-03-2019 21:30-0400 BMI (Body Mass Index) 20.92 kg/m2 [facility], [place] 04-03-2019 21:30-0400 Body weight 68.04 kg [facility] , [place] 04-03-2019 21:30-0400 Height 180.3 cm [facility] , [place] Encounters Encounter Date Encounter Type Care Provider Facility Start: 03-23-2024 End: 03-24-2024 Emergency department patient visit [facility] Start: 03-13-2024 End: 03-14-2024 [facility] Start: 03-13-2024 End: 03-13-2024 Emergency department patient visit [facility] Start: 11-20-2023 End: 11-20-[address] [facility] Start: 10-09-2023 End: 10-09-[address] [facility] Start: 08-01-2023 End: 08-03-2023 Evaluation and management of inpatient [facility] Start: 07-05-2023 End: 07-06-2023 Evaluation and management of inpatient [facility] Start: 12-07-2021 End: 12-07-[address] DOCTOR FONTENOT Facility: Start: 04-03-2019 End: 04-07-2019 Evaluation and management of inpatient [facility] Start: 04-03-2019 Patient encounter procedure Jinny DELUNA Admitting Comment on above: N/A Procedures Date Procedure Procedure Detail Performing Clinician Start: 10-09-2023 Follow-up visit Follow-up AMI WALTERS Start: 04-07-2019 Gluc bld gluc mntr d ev cleared fda spec home use AL INDURTI Start: 04-07-2019 DISCHARGE PATIENT SREEK ANTH INDURTI Start: 04-07-2019 Gluc bld gluc mntr d ev cleared fda spec home use AL INDURTI Start: 04-07-2019 Glucose blood reagen t strip AL INDURTI Start: 04-07-2019 End: 04-07-2019 Glucose blood reagent strip Al Indurti Work Phone: Start: 04-07-2019 Gluc bld gluc mntr d ev cleared fda spec home use AL INDURTI Start: 04-06-2019 Glucose blood reagen t strip AL INDURTI Start: 04-06-2019 Gluc bld gluc mntr d ev cleared fda spec home use AL INDURTI Start: 04-06-2019 Glucose blood reagen t strip Al Indurti Work Phone: Start: 04-06-2019 Glucose blood reagen t strip AL INDURTI Start: 04-06-2019 Glucose blood reagen t strip Al Indurti Work Phone: Start: 04-06-2019 Gluc bld gluc mntr d ev cleared fda spec home use AL INDURTI Start: 04-06-2019 Glucose blood reagen t strip AL INDURTI Start: 04-06-2019 Glucose blood reagen t strip Al Indurti Work Phone: Start: 04-06-2019 Gluc bld gluc mntr d ev cleared fda spec home use AL INDURTI Start: 04-06-2019 Glucose blood reagen t strip AL INDURTI Start: 04-06-2019 Glucose blood reagen t strip Al Indurti Work Phone: Start: 04-06-2019 Gluc bld gluc mntr d ev cleared fda spec home use AL INDURTI Start: 04-05-2019 Glucose blood reagen t strip AL INDURTI Start: 04-05-2019 Gluc bld gluc mntr d ev cleared fda spec home use AL INDURTI Start: 04-05-2019 Glucose blood reagen t strip Al Indurti Work Phone: Start: 04-05-2019 Glucose blood reagen t strip AL INDURTI Start: 04-05-2019 Glucose blood reagen t strip Al Indurti Work Phone: Start: 04-05-2019 Gluc bld gluc mntr d ev cleared fda spec home use AL INDURTI Start: 04-05-2019 Glucose blood reagen t strip AL INDURTI Start: 04-05-2019 Glucose blood reagen t strip Al Indurti Work Phone: Start: 04-05-2019 Gluc bld gluc mntr d ev cleared fda spec home use AL INDURTI Start: 04-05-2019 Glucose blood reagen t strip AL INDURTI Start: 04-05-2019 Glucose blood reagen t strip Al Indurti Work Phone: Start: 04-05-2019 Gluc bld gluc mntr d ev cleared fda spec home use AL INDURTI Start: 04-05-2019 Glucose blood reagen t strip AL INDURTI Start: 04-04-2019 Glucose blood reagen t strip Al Indurti Work Phone: Start: 04-04-2019 Gluc bld gluc mntr d ev cleared fda spec home use AL INDURTI Start: 04-04-2019 Glucose blood reagen t strip AL INDURTI Start: 04-04-2019 Glucose blood reagen t strip Al Indurti Work Phone: Start: 04-04-2019 Gluc bld gluc mntr d ev cleared fda spec home use AL INDURTI Start: 04-04-2019 Glucose blood reagen t strip AL INDURTI Start: 04-04-2019 Glucose blood reagen t strip Al Indurti Work Phone: Start: 04-04-2019 Glucose blood reagen t strip AL INDURTI Start: 04-04-2019 Assay of free thyroxine AL INDURTI Start: 04-04-2019 Assay of thyroid stimulating hormone tsh AL INDURTI Start: 04-04-2019 Blood count complete auto&auto difrntl wbc AL INDURTI Start: 04-04-2019 Hemoglobin glycosyla leigh ann a1c AL INDURTI Start: 04-04-2019 Lipid panel AL INDURTI Start: 04-04-2019 Glucose blood reagen t strip Al Indurti Work Phone: Start: 04-04-2019 Assay of free thyroxine Kati Siddiqui Work Phone: Start: 04-04-2019 Assay of thyroid stimulating hormone tsh Kati R Siddiqui Work Phone: Start: 04-04-2019 Blood count complete auto&auto difrntl wbc Kati Siddiqui Work Phone: Start: 04-04-2019 Hemoglobin glycosyla leigh ann a1c Kati Loretta Siddiqui Work Phone: Start: 04-04-2019 Lipid panel Kati Loretta Arthur ight Work Phone: Start: 04-04-2019 IP CONSULT TO POSTAL SUPERVISOR AL MEDICINE AL INDURTI Start: 04-04-2019 DIET GENERAL AL INDURTI Start: 04-04-2019 Drug screen class list a AL INDURTI Start: 04-04-2019 FULL CODE LA INDURTI Start: 04-04-2019 IP CONSULT TO HOSPITALIST AL INDURTI Start: 04-04-2019 MONITOR AL INDURTI Start: 04-04-2019 PATIENT STATUS (DIRECT) AL INDURTI Start: 04-04-2019 TOBACCO CESSATION EDUCATION AL INDURTI Start: 04-04-2019 VITAL SIGNS AL INDURTI Plan of Treatment Date Care Activity Detail Author Start: 01-30-2024 DTaP/Tdap/Td vaccine (7 - Td) DTaP/Tdap/Td vaccine (7 - Td) [place] Start: 04-04-2020 Lipid screen Lipid [place] Start: 07-05-2019 A1C test (Diabetic or Prediabetic) A1C test (Diabetic or Prediabetic) [place] Start: 03-02-2019 Influenza vaccination Flu vaccine (#1) [place] Start: 2018 Diabetic microalbuminuria test Diabetic microalbuminuria test [place] Start: 05-15-2017 [object Object] Diabetic foot exam [place] Start: 2016 Meningococcal (ACWY) Vaccine (2 - 2-dose series) Meningococcal (ACWY) Vaccine (2 - 2-dose series) [place] Start: 2015 HIV screen HIV screen [place] Start: 08-01-2014 HPV vaccine (3 - Male 2-dose series) HPV vaccine (3 - Male 2-dose series) [place] Start: 2010 Diabetic retinal exam Diabetic retinal exam [place] Immunizations Immunization Date Immunization Notes Care Provider Eda bragg 04-30-2014 human papilloma viru s vaccine, quadrivalent [place], [place] 01-29-2014 human papilloma viru s vaccine, quadrivalent [place] 01-29-2014 meningococcal polysaccharide (groups A, C, Y and W-135) diphtheria toxoid conjugate vaccine (MCV4P) [place] 01-29-2014 tetanus toxoid, redu margo diphtheria toxoid, and acellular pertussis vaccine, adsorbed [place] 01-29-2014 meningococcal vaccin e of unknown formulation and unknown serogroups [place] 12-21-2009 hepatitis A vaccine, unspecified formulation [place], [place] 04-13-2008 hepatitis A vaccine, unspecified formulation [place] 04-13-2008 varicella virus vaccine [place] 02-20-2006 diphtheria, tetanus toxoids and acellular pertussis vaccine [place] 02-20-2006 measles, mumps and r ubella virus vaccine [place] 02-20-2006 poliovirus vaccine, inactivated [place] 12-11-2001 diphtheria, tetanus toxoids and acellular pertussis vaccine [facility], [place] 12-11-2001 haemophilus influenz ae type b vaccine, PRP-OMP conjugate [facility], [place] 12-11-2001 measles, mumps and r ubella virus vaccine [facility], [place] 12-11-2001 varicella virus vaccine [facility], [place] 01-10-2001 diphtheria, tetanus toxoids and acellular pertussis vaccine [facility], [place] 01-10-2001 haemophilus influenz ae type b vaccine, PRP-OMP conjugate [facility], [place] 01-10-2001 hepatitis B vaccine, unspecified formulation [facility] , [place] 01-10-2001 poliovirus vaccine, inactivated [facility], [place] 2000 diphtheria, tetanus toxoids and acellular pertussis vaccine [facility], [place] 2000 haemophilus influenz ae type b vaccine, PRP-OMP conjugate [facility], [place] 2000 poliovirus vaccine, inactivated [facility], [place] 2000 diphtheria, tetanus toxoids and acellular pertussis vaccine [facility], [place] 2000 haemophilus influenz ae type b vaccine, PRP-OMP conjugate [facility], [place] 2000 hepatitis B vaccine, unspecified formulation [facility] , [place] 2000 poliovirus vaccine, inactivated [facility], [place] 2000 hepatitis B vaccine, unspecified formulation [facility] , [place] Payers Date Payer Category Payer Unknown [id number] 2019 Unknown [id number] 2016 Unknown [facility] xxxxxxxxxxxx 2016-Present [phone] [place] [address] xxxxxxxxxxxx [id number] 2000 Unknown [id number] 2000 Unknown [id number] 2000 Unknown [id number] 2000 Unknown [id number] 2000 Unknown [id number] 1999 Medicaid 1959 Unknown [id number] Social History Date Type Detail Facility Start: 04-05-2019 Tobacco smoking status NHIS Never sm [place]ker [place] Start: 04-05-2019 Alcohol intake No [place] Sex Assigned At Not on file [place] Medical Equipment Procedure Code Equipment Code Equipment Origin al Text Equipment Identifier Dates Test daily prn f or ketones [id number] Start: 07-09-2014 For blood glucos e testing 6-8 x/day [id number] Start: 07-09-2014 Disp: #200 For 4 -5 inejctions/day [id number] Start: 09-02-2014 Use tid [id number] Start: 07-09-2014 Family History No Family History Records Found Medical History Relation Name Comments Bipolar Disorder Father Schizophrenia Father Heart Attack Mother Heart Disease Mother Diabetes Paternal Grandmother Relation Name Status Comments Father Mother Paternal Grandmother Advance Directives No Advanced Directives Records FoundDocuments on File Type Date Recorded Patient Clean Room Technician Expl anation Advance Directives and Living Will Power of Asbestos Remover Latest Code Status on File Code Status Date Activated Date Inactivated Comments Full Code 04/03/2019 10:14 PM Summary Purpose Additional Source Comments (unrecognized sect ion and content) No Status Records FoundNo Status Records FoundNo Status Records FoundNo Status Records FoundNo Status Records Found INFORMATION SOURCE (unrecogn ized section and content) DATE CREATED AUTHOR 04/07/2019 [facility] DATE CREATED AUTHOR AUTHOR'S ORGANIZ ATION [facility] DATE CREATED AUTHOR AUTHOR'S ORGANIZ ATION 12/11/2021 [facility] DATE CREATED AUTHOR AUTHOR'S ORGANIZ ATION [facility] DATE CREATED AUTHOR AUTHOR'S ORGANIZ ATION 03/25/2024 [facility] FOR RECORDS PERTAINING TO PATIENTS WHO ARE OR HAVE BEEN ENROLLED IN A CHEMICAL DEPENDENCY/SUBSTANCEABUSE PROGRAM, SOME INFORMATION MAY BE OMITTED. This clinical summary was aggregated from multiple sources. Caution should be exercised in using it in the provision of clinical care. This summary normalizes information from multiple sources, and as a consequence, information in this document may materially change the coding, format and clinical context of patient data. In addition, data may be omitted in some cases. CLINICAL DECISIONS SHOULD BE BASED ON THE PRIMARY CLINICAL RECORDS. [facility] Only-apartments [facility]. provides no warranty or guarantee of the accuracy or completeness of information in this document.
--- OUTSIDE RECORDS SUMMARY | 2025-01-22 04:29 | XMS_ITS | Encounter Summary ---
Author Organization [id number] [address] [place] [address] Care Team Providers Care Cake Inspector Name Role Phone Services, [facility] Primary Care Provider Reason for Visit * Reason Comments Med Refill Encounter Details Date Type Department Care Team (Late st Contact Info) Description 09/23/2023 Refill [facility] [address] [facility] [address] [place] [phone] Mohini Villalobos APRN-ALBARO [address] [place] [address] Social History Tobacco Use Types Packs/Day Years Used Date Smoking Tobacco: Never Smokeless Tobacco: Never Alcohol Use Standard Drinks/Week Comments No 0 (1 standard drink = 0.6 oz pur e alcohol) [facility] Utilities Answer Date Recorded In the past 12 months has e electric, gas, oil, or water company [...] Recorded Do you need help finding a [facility] career center and/or a training program? No 04/05/2021 Hunger Screening Answer Date Recorded Within the past 12 months we worried whether our food would run out before we got money to buy more. Never True 08/03/2023 Within the past 12 months th e food we bought just didn't last and we didn't have money to get more. Never True 08/03/2023 Purpose - Life Answer Date Recorded I have a purpose and direction in my life. Stron gly Agree 04/05/2021 Sex and Gender Information Value Date Recorded Sex Assigned at Male 06/05/2022 3:47 AM EST Legal Sex Male 11:57 AM EDT Gender Identity Male 06/05/2022 3:47 AM EST Sexual Orientation Straight 06/05/2022 3: 47 AM EST documented as of this encounter Plan of Treatment Not on file documented as of this encounter Goals Goal Patient Goal Type Associated Problems Recent Progress Patient-Stated? Author home General Yes Yomaira [place] LSW Note: Evaluation of progress towards goal: eating, feeling better documented as of this encounter Visit Diagnoses Not on filedocumented in this encounter Additional Health Concerns Assessment Noted Time PHQ-9 Depression Total Score: 0 11/30/19 22 9:50 AM EDT documented as of this encounter Care Teams Cake Inspector Relationship Specialty Start Date End Date Services, [facility] [address], [place] PCP - General Family Medicine 03/23/24 documented as of this encounter
--- OUTSIDE RECORDS SUMMARY | 2025-01-22 04:29 | XMS_ITS | Patient Health Record ---
Author Organization [facility] v[facility] Address [address] [place], [place] [id number] Care Team Providers Care Musical String Maker Name Role Phone Dimitry Castillo Unavailable [phone] Allergies No Known Allergies Reason For Referral No Information Medications Medication SIG (Take, Route, Frequency, Duration) Notes Start Date End Date Status Ketoconazole 2 % APPLY TWICE WEEKLY F OR 8 WEEKS for 30 Active Naproxen 500 MG 1 tablet with food o r milk as needed Orally every 12 hrs for 30 days 05/11/2022 Active NovoLOG FlexPen 100 UNIT/ML INJECT 1 UNI T PER 10 GRAMS CHO+ 1U PER 50MG/DL>150. UP TO 100UNITS Subcutaneous for 30 Days Active Cyclobenzaprine HCl 10 MG 1 tablet as ne eded Orally Twice a day for 15 days 05/11/2022 Active Social History Tobacco Use: Social History Observation Description Date Details (start date - stop date) Never Smoker NA - NA Tobacco Use/Smoking Question Answer Notes Tobacco use: nonsmoker Problems Problem Type SNOMED Code ICD Code Onset Dates Problem Status W/U Status Risk Notes Problem Exercises teaching, guidance, and counseling (707361539) Exercise counseling (Z71.82) Active confirmed Description:COU N SELING, EXERCISE Problem Depression screening (886336432) Screening for depression (Z13.31) Active confirmed Description:Dep r ession screen Problem Gastroesophageal reflux disease (653463890) GERD (gastroesopha geal reflux disease) (530.81) (530.81) Active confirmed Comment:Diet modifications d/w Mother : limited pop, caffeine, sandra, spice intake Restrict eating right before bedtime Trial of Prilosec x 1 month f/u in 1 month for shots and GERD, Problem 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 Sahu; d/t poorly controlled type I diabetes and frequent DKA; feel too dangerous to tx with systemic steroids -Will treat with high potency steroid for 10 days b.i.d.; discussed safe usage; wash hands thoroughly after application and avoid use on face and groin; pt and father understood -Will start on cetirizine for itchings; can also u calamine lotion, pt verified understanding -F/u in 2 weeks, Problem Scoliosis NEC (737.39) (737.39) Active confirmed Comment:XRAY ordered will call with results, Problem Acute pharyngitis (337050361) Pharyngeal inflammation (J02.9) Active confirmed Comment:RSS in clinic negative. Sores in mouth and throat pain : most likely viral /herpengina. Patient also has left AOM. Since he is type 1 Diabetic, his mother is very concerned about him getting sick and ending up in the ER. Prescription of Amox given, but d/w to try symptomatic treatment first : honey/steam inhalation/gargl es for sore throat. Oragel/ maalox for ulcers. Ensure he is eating/drinking well. Check BG and ketones frequently. If symptoms do not improve with these, then can start Amox. Worsening s/s d/w Mother : take him to ER,Description:P haryngitis Problem Well child visit (085260650) MALE ADOLESCENT WELL VISIT (V20.2) (V20.2) Active confirmed Comment:Here for WCC. Was seen yesterday for pharyngitis, now has a fever. Vaccines not given today. Has a Hx of allergies : Mom requesting Zyrtec Has been complaining of b/l hip/knee pain x few months, and has mild scoliosis : Mom is very worried about it. Refer to Ortho for further evaluation/manag ement. Age approp guidance and counseling per AAP Sees Dr. Hyatt for DM 1., Problem Dietary management surveillance (884063013) DIETARY SURVEILLANCE/ COUNSELING (V65.3) (V65.3) Active confirmed Problem History and physical examination, administrative (07815007) Sports physical (V70.3) (V70.3) Active confirmed Comment:normal exam except positive scoliosis screen ,will clear for sports if cleared by peds vacuum repairer , Dr. Hyatt , see form. anticipatory guidance provided per AAP guidelines for age. needs shots today, addy Tdap , offered , Mom would like to reschedule later this month, noted on form, Mom[biological aunt] verbalized understanding, Problem Normal body mass index (17893590) BMI (body mass index), pediatric, 5% to less than 85% for age (Z68.52) Active confirmed Description:BMI , PEDIATRIC, 5TH TO < 85TH PERCENTILE Problem Seborrheic dermatitis of scalp (200100005) Seborrheic dermatitis of scalp (L21.9) Active confirmed Comment:-pt has mild redness and some flaking in scalp -sounds like it is worse at other times -will call it seborrheic dermatitis -ketoconazole shampoo twice weekly -f/u as needed if not getting better, Problem Scoliosis (653917261) Scoliosis (M41.9) Active confirmed Comment:Per Ortho request : Scoliosis Xrays to be performed prior to visit in October. Order will be faxed over to [facility] Problem Exercise-induced asthma (83530949) Exercise-yojana margo asthma (J45.990) Active confirmed Problem Electrocardiogram abnormal (573086280) EKG, abnormal (R94.31) Active confirmed Comment:Has uncontrolled type 1 DM : regular f/u with Endocrinology Will repeat EKG and order ECHO today will call mother once results are received., Problem Acute pharyngitis (410792621) Acute pharyngitis (J02.9) 2009 Active confirmed Problem Acute tonsillitis (82332343) Acute infective tonsillitis (J03.90) 2009 Active confirmed Story:ASSESSMENT : resolving,Descri ption:Acute tonsillitis Problem Well child visit (663379826) Routine infant or child health check (V20.2) (V20.2) Active confirmed Comment:vision and Hb normal, Problem Outbursts of anger (331888105) Outbursts of anger (R45.4) Active confirmed Comment:-pt reports that he has had issues with anger in the past -will have outbursts of anger and have led to domestic violence charges -he is currently following with [facility] counseling - one on one and group sessions -he also recently got a dog that has been helpful to calm him down when getting angry -he asks for a note stating emotional support animal - will write at this time -f/u with me as needed, Plan Of Treatment No Information Insurance Providers Payer Name Payer Address Payer Phone Subscriber Number Group Number Insured Name Patient Relationship to Insured Coverage Start Date Coverage End Date [place] [facility] [address] [place] [address] [id number] Primo Chadwick Self - patient is the insured 8 [employer] [facility] [address] [address] [place] [address] [id number] Primo Chadwick Self - patient is the insured 3 3 Medicaid [employer] after [place] [address] [place] [address] [id number] Primo Chadwick Self - patient is the insured 8 D[employer]icaid C[employer] after [employer] [address] [place], [place] [id number] Primo Chadwick Self - patient is the insured 3 3 [employer] [facility] [address] [place] [address] [phone] [id number] Primo Chadwick Self - patient is the insured 8 Medical (General) History Medical History History ICD Code Attention Deficit Hyperactivity Disorder Diabetes Mellitus, Type I Surgical History Surgery Date(Month/Year) No previous surgeries, ProblemStatus: Flo brambila,
--- NOTE | 2025-01-22 04:32 | ED_ITS ---
HPI HPI - General Adult General Chief complaint: Nausea/Vomiting/Diarrhea Stated complaint: HIGH BLOOD SUGAR Time Seen by Provider: 01/22/25 04:25 Source: patient Mode of arrival: walk-in Limitations: no limitations History of Present Illness HPI narrative: This 24-year-old male with a history of type 1 diabetes since the age of 8 who has been working out of town and ran out of his Minimally invasive devices insulin yesterday presents for evaluation of hyperglycemia with nausea, fatigue and dry heaves. He states he is short of breath. He does not have any chest pain. He has not had a fever. The patient states that he works doing [employer] and has been in [place] working. He took the rest of his short acting insulin yesterday but it was not a full dose. He has not eating for the past several days. He does have polyuria and polydipsia and states that every time he tries to drink something it hurts his stomach. He does have a history of pancreatitis. He denies alcohol or tobacco use. Related Data Home Medications ?Medication ?Instructions ?Recorded ?Confirmed insulin aspart U-100 100 unit/mL 1 sliding scale dose subcut DAILY 09/14/24 09/14/24 (3 mL) subcutaneous pen Previous Rx's ?Medication ?Instructions ?Recorded docusate sodium 100 mg capsule 100 mg PO DAILY #20 cap s 09/14/24 (Colace) hydrocortisone 1 %-pramoxine 1 % 1 applic [place] DAILY PRN itching #10 09/14/24 rectal foam (Proctofoam HC) grams Allergies Allergy/AdvReac Type Severity Reaction Status Date / Time No Known Drug Allergies Allergy Verified 01/22/25 04:25 Opioid HPI Opioid Management Most Recent Opioid Data: Last Pain Scale 8 09/14/24, 18:19 Review of Systems ROS Status of ROS 10 or more systems reviewed and unremark able except as noted in history and below PFSH PFSH Social History Little interest or pleasure in doing things: not at all Feeling down, depressed, or hopeless: not at all Exam Narrative Exam Narrative: Vital signs and Nursing Notes reviewed: Patient is afebrile. Pulse is elevated to 92, blood pressure is stable at 122/83, he is not hypoxic with pulse ox of 98% on room air General: Awake, alert, oriented, thin, uncomfortable appearing adult male, no respiratory distress, no active vomiting HEENT: Normocephalic atraumatic, mucous membranes are pink and dry, no swelling of the tongue, uvula or pharyngeal soft tissues Neck: Supple, no meningeal signs, no anterior or posterior cervical lymphadenopathy Chest: Lungs are clear to auscultation with good air entry, there is no wheezing rhonchi or rales appreciated no accessory muscle use, patient is speaking in complete sentences-no chest wall tenderness to palpation CVS: Regular rate and rhythm S1-S2, no murmurs rubs or gallops, pulses are brisk and equal bilaterally ABD: Soft, flat, nondistended, nontender, no rebound guarding or rigidity, bowel sounds are normal, no pulsatile masses appreciated Extremities: Moving all extremities, no lower extremity tenderness or swelling noted, negative Homans' sign, pulses are brisk and equal bilaterally Skin: Normal in appearance without rash,pallor, petechiae or purpura Neuro: No focal deficits; speech is clear, there is no facial droop, he is ambulatory with a steady gait Constitutional Vital Signs, click to edit/add: Last Vital Signs Temp 97.6 F 01/22/25 04:20 Pulse 92 H 01/22/25 04:20 Resp 18 01/22/25 04:20 BP 122/83 01/22/25 04:20 Pulse Ox 98 01/22/25 04:20 O2 Del Method Room Air 01/22/25 04:20 Course Vital Signs Vital signs: Vital Signs Temperature 97.6 F 01/22/25 04:20 Pulse Rate 92 H 01/22/25 04:20 Respiratory Rate 18 01/22/25 04:20 Blood Pressure 122/83 01/22/25 04:20 Pulse Oximetry 98 01/22/25 04:20 Oxygen Delivery Method Room Air 01/22/25 04:20 Temperature 97.6 F 01/22/25 04:20 Pulse Rate 92 H 01/22/25 04:20 Respiratory Rate 18 01/22/25 04:20 Blood Pressure 122/83 01/22/25 04:20 Pulse Oximetry 98 01/22/25 04:20 Oxygen Delivery Method Room Air 01/22/25 04:20 Medical Decision Making MDM Narrative Medical decision making narrative: This 24-year-old male with a history of type 1 diabetes since the age of 8 who recently ran out of his insulin while working in [facility] and drove back home with hyperglycemia presents for evaluation. He feels that he is in DKA. Accu-Chek done upon arrival was greater than 600. He states he has been nauseated with polyuria and polydipsia. He states anytime he tries to drink something he feels it coming up. He has not actually been vomiting but it has been burning in his stomach. He denies any chest pain or shortness of breath. He denies any alcohol or tobacco use. An EKG was done upon arrival which is a sinus rhythm at 79 bpm with LVH. An IV was placed and he was medicated with a liter of normal saline, insulin drip was started at 4 units/h. He was additionally given Pepcid and Zofran. He was placed on the school bus monitor upon arrival. Routine labs are reviewed. He has a normal white count of 9.9 and concentrated hemoglobin of 16.4. Lactic acid is elevated at 2.6. Venous pH is 7.256 with a PCO2 of 24.5. His sodium is 128, when corrected for the hyperglycemia it is 138-143. BUN and creatinine are elevated at 22 and 1.51. Anion gap is elevated at 33. CO2 on the chemistry panel was 11.6 and chloride is 88. He has a normal troponin. Liver function tests are normal with a lipase of 13. He will require close monitoring for DKA. The case was discussed with the hospitalist and he is excepted for admission to the stepdown unit. Lab Data Lab results reviewed: Yes I reviewed the patient's lab results Labs: Lab Results 01/22/25 Range/Units 04:27 WBC 9.9 (4.0-11.0) 10^3/uL RBC 5.28 (4.70-6.10) 10^6/uL Hgb 16.4 (14.0-18.0) g/dL Hct 46.7 (42.0-54.0) % MCV 88.4 (80.0-94.0) fL MCH 31.1 (25.9-34.0) pg MCHC 35.1 (29.9-35.2) g/dL RDW 12.3 (11.0-15.0) % Plt Count 429 (150-450) 10^3/uL MPV 9.3 L (9.5-13.5) fL Neut % (Auto) 64.5 (43.0-75.0) % Lymph % (Auto) 27.9 (20.5-60.0) % [place] % (Auto) 6.2 (1.7-12.0) % Eos % (Auto) 0.3 L (0.9-7.0) % Baso % (Auto) 0.6 (0.2-2.0) % Neut # (Auto) 6.4 (1.4-6.5) 10^3/uL Lymph # (Auto) 2.8 (1.2-3.8) 10^3/uL [place] # (Auto) 0.6 (0.3-0.8) 10^3/uL Eos # (Auto) 0.0 (0.0-0.7) 10^3/uL Baso # (Auto) 0.1 (0.0-0.1) 10^3/uL Abs Immat Gran (auto) 0.05 H (0.00-0.03) 10^3/uL Imm/Tot Granulo (auto) 0.5 (0.0-0.5) % VBG pH 7.256 L (7.330-7.430) VBG pCO2 24.5 L (40.0-52.0) mmHg Sodium 128 L (136-145) mmol/L Potassium 5.1 (3.5-5.1) mmol/L Chloride 88 L (98-107) mmol/L Carbon Dioxide 11.6 L (21.0-32.0) mmol/L Anion Gap 33.5 BUN 22.0 H (7.0-18.0) mg/dL Creatinine 1.51 H (0.70-1.30) mg/dL Est GFR ( Amer) >60 (>=60 mL/min/1.73m^2) Est GFR (Non-Af Amer) 57 L (>=60 mL/min/1.73m^2) BUN/Creatinine Ratio 14.6 Glucose 741 H* (74-106) mg/dL Lactate 2.6 H* (0.4-2.0) mmol/L Calcium 10.4 H (8.5-10.1) mg/dL Total Bilirubin 0.9 (0.2-1.0) mg/dL AST 10 L (15-37) U/L ALT 24 (16-63) U/L Alkaline Phosphatase 121 H (46-116) U/L Troponin I High Sens 4.0 (4.0-76.1) pg/mL Total Protein 9.1 H (6.4-8.2) g/dL Albumin 4.1 (3.4-5.0) g/dL Globulin 5.0 g/dL Albumin/Globulin Ratio 0.8 Lipase 13.0 L (16.0-77.0) U/L Acetone, Qual Small A (NEGATIVE) ECG Data Attestation: I personally reviewed and interpreted this ECG as follows: (Sinus rhythm at 79 bpm, LVH with repolarization abnormality, normal axis, no acute ST segment elevation or T wave inversion) Critical Care Time Critical Care Time Critical Care Time: Yes Total Critical Care Time: 35 Attestation: Due to this patient's presentation with history of type 1 diabetes and hyperglycemia consistent with DKA and the high probability of sudden and clinically significant deterioration in his condition he required the highest level of my preparedness to intervene urgently. I provided critical care time including documentation time medication orders and management reevaluation vital sign assessment, ordering and interpretation of lab test, admission orders, echo critical care time is 35 minutes including time which I was engaged in work directly related to his care and did not include time spent treating other patient simultaneously. Discharge Plan Discharge Chief Complaint: Nausea/Vomiting/Diarrhea Clinical Impression: DKA (diabetic ketoacidosis) Patient Disposition: Admitted As Inpatient Time of Disposition Decision: 05:38 Condition: Serious
[2025-01-22 04:34] LABS: Hematocrit 46.7 % (42.0-54.0); Hemoglobin 16.4 g/dL (14.0-18.0); Immature Granulocytes Abs Auto 0.05 10^3/uL (0.00-0.03); Immature Granulocytes Pct Auto 0.5 % (0.0-0.5); Lymphocytes Absolute Auto 2.8 10^3/uL (1.2-3.8); Mean Corpuscular HGB Conc 35.1 g/dL (29.9-35.2); Mean Corpuscular Hemoglobin 31.1 pg (25.9-34.0); Mean Corpuscular Volume 88.4 fL (80.0-94.0); Platelet Count 429 10^3/uL (150-450); Red Blood Count 5.28 10^6/uL (4.70-6.10); White Blood Count 9.9 10^3/uL (4.0-11.0)
[2025-01-22 04:35] LABS: PCO2 VBG 24.5 mmHg (40.0-52.0); pH VBG 7.256 (7.330-7.430)
[2025-01-22] MEDS: 0.9 % SODIUM CHLORIDE 1,000 ML 1000 ML IV (04:35)
[2025-01-22] MEDS: INSULIN REGULAR IN 0.9 % NACL 100 UNIT/100 ML PLAST..BAG IV (05:00)
[2025-01-22 05:01] LABS: Alanine Aminotransferase 24 U/L (16-63); Albumin Globulin Ratio 0.8; Albumin Level 4.1 g/dL (3.4-5.0); Alkaline Phosphatase 121 U/L (46-116); Anion Gap 33.5; Aspartate Amino Transferase 10 U/L (15-37); Blood Urea Nitrogen 22.0 mg/dL (7.0-18.0); Calcium 10.4 mg/dL (8.5-10.1); Carbon Dioxide 11.6 mmol/L (21.0-32.0); Chloride 88 mmol/L (98-107); Estimated GFR (African America >60 (>=60 mL/min/1.73m^2); Estimated GFR (Non-African Ame 57 (>=60 mL/min/1.73m^2); Globulin 5.0 g/dL; Potassium 5.1 mmol/L (3.5-5.1); Sodium 128 mmol/L (136-145); Total Protein 9.1 g/dL (6.4-8.2)
[2025-01-22 05:02] LABS: Glucose 741 mg/dL (74-106); Lactate/Lactic Acid 2.6 mmol/L (0.4-2.0)
[2025-01-22 05:03] LABS: Lipase 13.0 U/L (16.0-77.0)
[2025-01-22] MEDS: FAMOTIDINE/PF 20 MG/2 ML VIAL IV (05:31)
--- OUTSIDE RECORDS SUMMARY | 2025-01-22 05:52 | XMS_ITS | CCD ---
Author Organization [facility] Informat ion Partnership [facility] Care Team Providers Care Entry Level Manufacturing Engineer Name Role Phone Jinny Sheets Primary Care Provider AL WARD V Admitting Unavailable AL WARD V Attending Unavailable COREY MONTOYA Referring Unavailable JINNY SHEETS Primary Care Unavailable LUCIA FORTE Consulting Unavailable [facility], DR DIAZ Primary Care Unavailable REJI, DR ARTURO Burgos Consulting Unavailable REJI, DR ARTURO Burgos Attending Unavailable REJI, DR ARTURO Burgos Admitting Unavailable Anuj De La Garza Consulting Unavailable AMI SABA Attending Unavailable SERVICES, [facility] Primary Care Unava ilable AMI SABA Attending Unavailable SERVICES, [facility] Primary Care Unava ilable SERVICES, [facility] Care Unava ilable ELLIOT FELIX Attending Unavailable SERVICES, [facility] Care Unava ilable ELIZABETH SHORT Attending Unavailable OBELIZABETH LANTIGUA Attending Unavailable OBELIZABETH LANTIGUA Referring Unavailable SERVICES, [facility] Care Unava ilable ELIZABETH SHORT Attending Unavailable ELIZABETH SHORT Referring Unavailable SERVICES, [facility] Care Unava ilable SERVICES, [facility] Primary Care Unava ilable THIAGO BELLO Attending Unavailable SERVICES, [facility] Unava ilable VINCENZO FRANCO Attending Unavailable VINCENZO [...] Onset: 03-13-2024 Episodic Other aftercare (1 source) half-way (current) use of insulin; Translations: [RETIREMENT CURRENT USE OF INSULIN] Onset: 12-08-2021 Episodic [...] 03-24-2024 Glucose [Mass/Vol] 283 mg/dL High 65-99 [facility] Beta hydroxybutyrate [Moles/ Vol]on 03-23-2024 BetaHydroxybutyrate 1.02 mmol/L High 0.02-0.27 [facility] Comment on above: Performed By: #### C YANIRA, 6873-4, 3040-3, CBCA ####[facility] ([id number])[address] [place] [address] 47802 CBC AND AUTO DIFFon 03-23-20 24 ABSOLUTE BASOPHIL 0.1 X10E9/L Normal 0.0-0.2 [facility] Comment on above: Performed By: #### C YANIRA, 6873-4, 3040-3, CBCA ####[facility] ([id number])[address] [place] [address] 96409 ABSOLUTE NEUTROPHIL 3.3 X10E9/L Normal 1.5-6.6 [facility] Comment on above: Performed By: #### C YANIRA, 6873-4, 3039-3, CBCA ####[facility] ([id number])[address] [place] [address] 51724 Basophils/100 WBC (Bld) 1.3 % Normal [facility] Comment on above: Performed By: #### C YANIRA, 734, 3039-3, CBCA ####[facility] ([id number])[address] [place] [address] 79136 Eosinophils (Bld) [#/Vol] 0.3 10*3/uL Normal 0.0-0.4 [facility] Comment on above: Performed By: #### C YANIRA, 73, 3, CBCA ####[facility] ([id number])[address] [place] [address] 74798 Eosinophils/100 WBC (Bld) 4.3 % Normal [facility] Comment on above: Performed By: #### C YANIRA, 73, 3, CBCA ####[facility] ([id number])[address] [place] [address] 05673 Erythrocyte distribution width (RBC) [Ratio] 13.1 % Normal 11.5-15.0 [facility] Comment on above: Performed By: #### Codey DOYLE, 734, 3, CBCA ####[facility] ([id number])[address] [place] [address] 00823 Hematocrit (Bld) [Volume fraction] 39.2 % Normal 39-49 [facility] Comment on above: Performed By: #### C YANIRA, 734, 3039-3, CBCA ####[facility] ([id number])[address] [place] [address] 62681 Hemoglobin (Bld) [Mass/Vol] 13.2 g/dL Normal 13.0-17.0 [facility] Comment on above: Performed By: #### Codey DOYLE, 6873-4, 3039-3, CBCA ####[facility] ([id number])[address] [place] [address] 59874 Lymphocytes (Bld) [#/Vol] 2.8 10*3/uL Normal 1.0-3.5 [facility] Comment on above: Performed By: #### Codey DOYLE, 734, 3, CBCA ####[facility] ([id number])[address] [place] [address] 64428 Lymphocytes/100 WBC (Bld) 39.6 % Normal [facility] Comment on above: Performed By: #### Codey DOYLE, 734, 3, CBCA ####[facility] ([id number])[address] [place] [address] 28566 MCH (RBC) [Entitic mass] 31.5 pg Normal 27-34 [facility] Comment on above: Performed By: #### Codey DOYLE, 734, 3, CBCA ####[facility] ([id number])[address] [place] [address] 33751 MCHC (RBC) [Mass/Vol] 33.6 g/dL Normal 32-36 [facility] Comment on above: Performed By: #### Codey DOYLE, 734, 3039-3, CBCA ####[facility] ([id number])[address] [place] [address] 22317 MCV (RBC) [Entitic vol] 94 fL Normal 80-100 [facility] Comment on above: Performed By: #### Codey DOYLE, 73-4, 0-3, CBCA ####[facility] ([id number])[address] [place] [address] 18917 Monocytes (Bld) [#/Vol] 0.5 10*3/uL Normal 0-0.9 [facility] Comment on above: Performed By: #### C YANIRA, 6873-4, 3039-3, CBCA ####[facility] ([id number])[address] [place] [address] 42766 Monocytes/100 WBC (Bld) 7.8 % Normal [facility] Comment on above: Performed By: #### Codey DOYLE, 73-4, 3, CBCA ####[facility] ([id number])[address] [place] [address] 97570 Neutrophils/100 WBC (Bld) 47.0 % Normal [facility] Comment on above: Performed By: #### C YANIRA, 73, 3, CBCA ####[facility] ([id number])[address] [place] [address] [place] [address] Platelet mean volume (Bld) [Entitic vol] 7.6 fL Normal 7-12 [facility] Comment on above: Performed By: #### Codey DOYLE, 73, 3039-08, CBCA ####[facility] ([id number])[address] [place] [address] 03785 Platelets (Bld) [#/Vol] 305 10*3/uL Normal 150-450 [facility] Comment on above: Performed By: #### Codey DOYLE, 73, 3, CBCA ####[facility] ([id number])[address] [place] [address] 02709 RBC COUNT 4.18 X10E12/L Normal 4.10-5.70 [facility] Comment on above: Performed By: #### C YANIRA, 73-4, 3039-3, CBCA ####[facility] ([id number])[address] [place] [address] [place] [address] WBC (Bld) [#/Vol] 7.0 10*3/uL Normal 4.0-11.0 [facility] Comment on above: Performed By: #### C YANIRA, 6873-4, 3040-3, CBCA ####[facility] ([id number])[address] [place] [address] 46585 COMPREHENSIVE METABOLIC PANE Mark 03-23-2024 Albumin [Mass/Vol] 3.7 g/dL Normal 3.2-5.3 [facility] Comment on above: Performed By: #### Codey DOYLE, 73-4, 0-3, CBCA ####[facility] ([id number])[address] [place] [address] 08322 ALP [Catalytic activity/Vol] 91 U/L Normal 39-130 [facility] Comment on above: Performed By: #### Codey DOYLE, 73-4, 0-3, CBCA ####[facility] ([id number])[address] [place] [address] 70436 ALT [Catalytic activity/Vol] 17 U/L Normal 0-40 [facility] Comment on above: Performed By: #### Codey DOYLE, 6873-4, 3040-3, CBCA ####[facility] ([id number])[address] [place] [address] 67994 Anion gap [Moles/Vol] 10 mmol/L Normal 5-15 [facility] Comment on above: Performed By: #### Codey DOYLE, 6873-4, 3040-3, CBCA ####[facility] ([id number])[address] [place] [address] 44922 AST [Catalytic activity/Vol] 18 U/L Normal 0-41 [facility] Comment on above: Performed By: #### C YANIRA, 6873-4, 3040-3, CBCA ####[facility] ([id number])[address] [place] [address] 81914 Bilirubin [Mass/Vol] 0.5 mg/dL Normal 0.3-1.2 [facility] Comment on above: Performed By: #### C YANIRA, 73-4, 3039-3, CBCA ####[facility] ([id number])[address] [place] [address] 69097 Calcium [Mass/Vol] 8.9 mg/dL Normal 8.5-10.5 [facility] Comment on above: Performed By: #### C YANIRA, 73-4, 3039-3, CBCA ####[facility] ([id number])[address] [place] [address] 54586 Chloride [Moles/Vol] 96 mmol/L Low 98-109 [facility] Comment on above: Performed By: #### Codey DOYLE, 734, 3, CBCA ####[facility] ([id number])[address] [place] [address] 92632 CO2 [Moles/Vol] 25 mmol/L Normal 22-32 [facility] Comment on above: Performed By: #### Codey DOYLE, 4, 3, CBCA ####[facility] ([id number])[address] [place] [address] 52454 Creatinine [Mass/Vol] 1.06 mg/dL Normal 0.70-1.20 [facility] Comment on above: Result Comment: METH OD TRACEABLE TO IDMS STANDARD Performed By: #### C YANIRA, 73-4, 3039-3, CBCA ####[facility] ([id number])[address] [place] [address] 82984 eGFR (CKD-EPI) NON-RACE DEPENDENT >90 Normal >59 [facility] Comment on above: Result Comment: Reported eGFR is based on the CKD-EPI 2020 equation that does not use a race coefficient. Performed By: #### Codey DYOLE, 73-4, 0-3, CBCA ####[facility] ([id number])[address] [place] [address] 55545 Glucose [Mass/Vol] 671 mg/dL Critically high 65-99 [facility] Comment on above: Performed By: #### Codey DOYLE, 73-4, 0-3, CBCA ####[facility] ([id number])[address] [place] [address] 52862 Potassium [Moles/Vol] 4.4 mmol/L Normal 3.5-5.0 [facility] Comment on above: Performed By: #### Codey DOYLE, 73-4, 0-3, CBCA ####[facility] ([id number])[address] [place] [address] 78068 Protein [Mass/Vol] 7.3 g/dL Normal 6.0-8.0 [facility] Comment on above: Performed By: #### Codey DOYLE, 73-4, 3039-3, CBCA ####[facility] ([id number])[address] [place] [address] 00048 Sodium [Moles/Vol] 131 mmol/L Low 134-146 [facility] Comment on above: Performed By: #### Codey DOYLE, 73-4, 3039-3, CBCA ####[facility] ([id number])[address] [place] [address] 71933 Urea nitrogen [Mass/Vol] 15 mg/dL Normal 5-23 [facility] Comment on above: Performed By: #### Codey DOYLE, 73-4, 0-3, CBCA ####[facility] ([id number])[address] [place] [address] 24815 Glucose Glucometer (BldC) [M ass/Vol]on 03-23-2024 Glucose [Mass/Vol] 495 mg/dL Critically high 65-99 [facility] BEDSIDE GLUCOSE LAB >500 Critically high 65-99 [facility] Comment on above: Result Comment: SEE LAB RESULTS FOR CONFIRMATION LIPASEon 03-23-2024 Lipase [Catalytic activity/Vol] 19 U/L Normal 17-40 [facility] Comment on above: Performed By: #### C MP, 6873-4, 3040-3, CBCA ####[facility] ([id number])[address] [place] [address] 45858 VENOUS BLOOD GASon ROMAN'S TEST Normal [facility] Comment on above: Performed By: #### V BG ####[facility] ([id number])[address] [place] [address] 74109 Base excess Calc (Bld) [Moles/Vol] 0.0 mmol/L Normal 0.0-2.0 [facility] Comment on above: Performed By: #### V BG ####[facility] ([id number])[address] [place] [address] 46337 Body temperature 98.6 [degF] Normal 37.0 [facility] Comment on above: Performed By: #### V BG ####[facility] ([id number])[address] [place] [address] 19315 HCO3 (Bld) [Moles/Vol] 25.6 mmol/L High 20.0-24.0 [facility] Comment on above: Performed By: #### V BG ####[facility] ([id number])[address] [place] [address] 99275 INSP. O2 CONC. 21 % Normal [facility] Comment on above: Performed By: #### V BG ####[facility] ([id number])[address] [place] [address] 33955 Oxygen saturation in Blood 74.0 % Low >80.0 [facility] Comment on above: Performed By: #### V BG ####[facility] ([id number])[address] [place] [address] 98488 OXYGEN SOURCE [facility] Comment on above: Performed By: #### V BG ####[facility] ([id number])[address] [place] [address] 81753 PCO2, VENOUS 43.5 MMHG Normal 35-50 [facility] Comment on above: Performed By: #### V BG ####[facility] ([id number])[address] [place] [address] 68571 PH, VENOUS 7.378 Normal 7.320-7.420 [facility] Comment on above: Performed By: #### V BG ####[facility] ([id number])[address] [place] [address] 94452 PO2, VENOUS 40 MMHG Normal 30-50 [facility] Comment on above: Performed By: #### V BG ####[facility] ([id number])[address] [place] [address] 67308 SAMPLE SITE N/A Normal [facility] Comment on above: Performed By: #### V BG ####[facility] ([id number])[address] [place] [address] 47783 SAMPLE TYPE VENOUS Normal [facility] Comment on above: Performed By: #### V BG ####[facility] ([id number])[address] [place] [address] 87705 CBC AND AUTO DIFFon 03-13-20 24 ABSOLUTE BASOPHIL 0.0 X10E9/L Normal 0.0-0.2 [facility] Comment on above: Performed By: #### N UM #### [facility] ([id number]) [address] [place] [address] 30594 ABSOLUTE NEUTROPHIL 6.6 X10E9/L Normal 1.5-6.6 [facility] Comment on above: Performed By: #### N UM #### [facility] ([id number]) [address] [place] [address] 20042 Basophils/100 WBC (Bld) 0.4 % Normal [facility] Comment on above: Performed By: #### N UM #### [facility] ([id number]) [address] [place] [address] 42538 Eosinophils (Bld) [#/Vol] 0.1 10*3/uL Normal 0.0-0.4 [facility] Comment on above: Performed By: #### N UM #### [facility] ([id number]) [address] [place] [address] 36566 Eosinophils/100 WBC (Bld) 1.0 % Normal [facility] Comment on above: Performed By: #### N UM #### [facility] ([id number]) [address] [place] [address] 11492 Erythrocyte distribution width (RBC) [Ratio] 12.9 % Normal 11.5-15.0 [facility] Comment on above: Performed By: #### N UM #### [facility] ([id number]) [address] [place] [address] 63100 Hematocrit (Bld) [Volume fraction] 46.0 % Normal 39-49 [facility] Comment on above: Performed By: #### N UM #### [facility] ([id number]) [address] [place] [address] 05066 Hemoglobin (Bld) [Mass/Vol] 15.8 g/dL Normal 13.0-17.0 [facility] Comment on above: Performed By: #### N UM #### [facility] ([id number]) [address] [place] [address] 15929 Lymphocytes (Bld) [#/Vol] 1.3 10*3/uL Normal 1.0-3.5 [facility] Comment on above: Performed By: #### N UM #### [facility] ([id number]) [address] [place] [address] 30327 Lymphocytes/100 WBC (Bld) 14.6 % Normal [facility] Comment on above: Performed By: #### N UM #### [facility] ([id number]) [address] [place] [address] 32587 MCH (RBC) [Entitic mass] 31.8 pg Normal 27-34 [facility] Comment on above: Performed By: #### N UM #### [facility] ([id number]) [address] [place] [address] 55134 MCHC (RBC) [Mass/Vol] 34.3 g/dL Normal 32-36 [facility] Comment on above: Performed By: #### N UM #### [facility] ([id number]) [address] [place] [address] 73225 MCV (RBC) [Entitic vol] 93 fL Normal 80-100 [facility] Comment on above: Performed By: #### N UM #### [facility] ([id number]) [address] [place] [address] 27882 Monocytes (Bld) [#/Vol] 0.7 10*3/uL Normal 0-0.9 [facility] Comment on above: Performed By: #### N UM #### [facility] ([id number]) [address] [place] [address] 19416 Monocytes/100 WBC (Bld) 8.4 % Normal [facility] Comment on above: Performed By: #### N UM #### [facility] ([id number]) [address] [place] [address] 18818 Neutrophils/100 WBC (Bld) 75.6 % Normal [facility] Comment on above: Performed By: #### N UM #### [facility] ([id number]) [address] [place] [address] 84131 Platelet mean volume (Bld) [Entitic vol] 8.3 fL Normal 7-12 [facility] Comment on above: Performed By: #### N UM #### [facility] ([id number]) [address] [place] [address] 42235 Platelets (Bld) [#/Vol] 382 10*3/uL Normal 150-450 [facility] Comment on above: Performed By: #### N UM #### [facility] ([id number]) [address] [place] [address] 04725 RBC COUNT 4.97 X10E12/L Normal 4.10-5.70 [facility] Comment on above: Performed By: #### N UM #### [facility] ([id number]) [address] [place] [address] 04950 WBC (Bld) [#/Vol] 8.8 10*3/uL Normal 4.0-11.0 [facility] Comment on above: Performed By: #### N UM #### [facility] ([id number]) [address] [place] [address] 04803 COMPREHENSIVE METABOLIC PANE Mark 03-13-2024 Albumin [Mass/Vol] 4.2 g/dL Normal 3.2-5.3 [facility] Comment on above: Performed By: #### N UM #### [facility] ([id number]) [address] [place] [address] 86039 ALP [Catalytic activity/Vol] 59 U/L Normal 39-130 [facility] Comment on above: Performed By: #### N UM #### [facility] ([id number]) [address] [place] [address] 17774 ALT [Catalytic activity/Vol] 18 U/L Normal 0-40 [facility] Comment on above: Performed By: #### N UM #### [facility] ([id number]) [address] [place] [address] 95527 Anion gap [Moles/Vol] 7 mmol/L Normal 5-15 [facility] Comment on above: Performed By: #### N UM #### [facility] ([id number]) [address] [place] [address] 13063 AST [Catalytic activity/Vol] 17 U/L Normal 0-41 [facility] Comment on above: Performed By: #### N UM #### [facility] ([id number]) [address] [place] [address] 12227 Bilirubin [Mass/Vol] 1.2 mg/dL Normal 0.3-1.2 [facility] Comment on above: Performed By: #### N UM #### [facility] ([id number]) [address] [place] [address] 39231 Calcium [Mass/Vol] 9.3 mg/dL Normal 8.5-10.5 [facility] Comment on above: Performed By: #### N UM #### [facility] ([id number]) [address] [place] [address] 96509 Chloride [Moles/Vol] 105 mmol/L Normal 98-109 [facility] Comment on above: Performed By: #### N UM #### [facility] ([id number]) [address] [place] [address] 79990 CO2 [Moles/Vol] 24 mmol/L Normal 22-32 [facility] Comment on above: Performed By: #### N UM #### [facility] ([id number]) [address] [place] [address] 95913 Creatinine [Mass/Vol] 0.88 mg/dL Normal 0.70-1.20 [facility] Comment on above: Result Comment: METH OD TRACEABLE TO IDMS STANDARD Performed By: #### N UM #### [facility] ([id number]) [address] [place] [address] 11935 eGFR (CKD-EPI) NON-RACE DEPENDENT >90 Normal >59 [facility] Comment on above: Result Comment: Reported eGFR is based on the CKD-EPI 2020 equation that does not use a race coefficient. Performed By: #### N UM #### [facility] ([id number]) [address] [place] [address] 88057 Glucose [Mass/Vol] 286 mg/dL High 65-99 [facility] Comment on above: Performed By: #### N UM #### [facility] ([id number]) [address] [place] [address] 12120 Potassium [Moles/Vol] 4.0 mmol/L Normal 3.5-5.0 [facility] Comment on above: Performed By: #### N UM #### [facility] ([id number]) [address] [place] [address] 54759 Protein [Mass/Vol] 8.4 g/dL High 6.0-8.0 [facility] Comment on above: Performed By: #### N UM #### [facility] ([id number]) [address] [place] [address] 59342 Sodium [Moles/Vol] 136 mmol/L Normal 134-146 [facility] Comment on above: Performed By: #### N UM #### [facility] ([id number]) [address] [place] [address] 59818 Urea nitrogen [Mass/Vol] 12 mg/dL Normal 5-23 [facility] Comment on above: Performed By: #### N UM #### [facility] ([id number]) [address] [place] [address] ABDOMEN AND PELVIS W CONT on [...] Cooley MD on 03/13/2024 9:26 AM Normal [facility] LIPASEon 03-13-2024 Lipase [Catalytic activity/Vol] 16 U/L Low 17-40 [facility] Comment on above: Performed By: #### N UM #### [facility] ([id number]) [address] [place] [address] 38736 Troponin I.cardiac High sens itivity method [Mass/Vol]on 03-13-2024 1 HOUR TROP I, HIGH SENSITIVITY <2 Normal <21 [facility] Comment on above: Performed By: #### 8 9579-7 ####[facility] ([id number])[address] [place] [address] 12349 TROPONIN I, HIGH SENSITIVITY <2 Normal <21 [facility] Comment on above: Performed By: #### N UM #### [facility] ([id number]) [address] [place] [address] 32985 URN MACROSCOPIC NURon 2023 BILIRUBIN SYDNEY Negative Normal NEG [facility] Comment on above: Performed By: #### N UM ####[facility] ([id number])[address] [place] [address], [place] [address] BLOOD/HGB SYDNEY Negative Normal NEG [facility] Comment on above: Performed By: #### N UM ####[facility] ([id number])[address] [place] [address], [place] [address] GLUCOSE SYDNEY >=1000 Abnormal NEG [facility] Comment on above: Performed By: #### N UM ####[facility] ([id number])[address] [place] [address], [place] [address] KETONES SYDNEY 40 mg/dL Abnormal NEG [facility] Comment on above: Performed By: #### N UM ####[facility] ([id number])[address] [place] [address], [place] [address] LEUKOCYTE ESTERASE SYDNEY Negative Normal NEG [facility] Comment on above: Performed By: #### N UM ####[facility] ([id number])[address] [place] [address], [place] [address] NITRITE SYDNEY Negative Normal NEG [facility] Comment on above: Performed By: #### N UM ####[facility] ([id number])[address] [place] [address], [place] [address] PH SYDNEY 6.0 Normal 5.0-8.5 [facility] Comment on above: Performed By: #### N UM ####[facility] ([id number])[address] [place] [address], [place] [address] PROTEIN SYDNEY Negative Normal NEG [facility] Comment on above: Performed By: #### N UM ####[facility] ([id number])[address] [place] [address], [place] [address] SPECIFIC GRAVITY SYDNEY 1.020 Normal 1.003-1.035 [facility] [facility] Comment on above: Performed By: #### N UM ####[facility] ([id number])[address] [place] [address] 47990 UROBILINOGEN SYDNEY 0.2 eu/dL Normal <1.1 [facility] Comment on above: Performed By: #### N UM ####[facility] ([id number])[address] [place] [address] 42201 VENOUS BLOOD GASon 4 ROMAN'S TEST Normal [facility] Comment on above: Performed By: #### N UM #### [facility] ([id number]) [address] [place] [address] 24597 BASE,DEFICIT 1.0 MMOL/L Normal 0.0-2.0 [facility] Comment on above: Performed By: #### N UM #### [facility] ([id number]) [address] [place] [address] 63041 Body temperature 98.6 [degF] Normal 37.0 [facility] Comment on above: Performed By: #### N UM #### [facility] ([id number]) [address] [place] [address] 95923 HCO3 (Bld) [Moles/Vol] 24.4 mmol/L High 20.0-24.0 [facility] Comment on above: Performed By: #### N UM #### [facility] ([id number]) [address] [place] [address] 05332 Oxygen saturation in Blood 93.0 % Normal >80.0 [facility] Comment on above: Performed By: #### N UM #### [facility] ([id number]) [address] [place] [address] 10425 OXYGEN SOURCE RoomAir Normal [facility] Comment on above: Performed By: #### N UM #### [facility] ([id number]) [address] [place] [address] 02494 PCO2, VENOUS 40.6 MMHG Normal 35-50 [facility] Comment on above: Performed By: #### N UM #### [facility] ([id number]) [address] [place] [address] 22470 PH, VENOUS 7.386 Normal 7.320-7.420 [facility] Comment on above: Performed By: #### N UM #### [facility] ([id number]) [address] [place] [address] 86882 PO2, VENOUS 70 MMHG High 30-50 [facility] Comment on above: Performed By: #### N UM #### [facility] ([id number]) [address] [place] [address] 39436 SAMPLE SITE N/A Normal [facility] Comment on above: Performed By: #### N UM #### [facility] ([id number]) [address] [place] [address] 73403 SAMPLE TYPE VENOUS Normal [facility] Comment on above: Performed By: #### N UM #### [facility] ([id number]) [address] [place] [address] 65145 XR CHEST 1 VWon 03-13-2024 XR CHEST 1 VW XR CHEST 1 VW Portable chest: HISTORY: Epigastric abdominal pain and cough. Single view of the chest was obtained. Lungs are clear. There is no vascular congestion or effusion. No pneumothorax seen. Osseous structures appear intact. IMPRESSION: No acute findings. 6 Finalized by Armando Cooley MD on 03/13/2024 9:24 AM Normal [facility] CBC AND AUTO DIFFon 08-03-19 ABSOLUTE BASOPHIL 0.0 X10E9/L Normal 0.0-0.2 [facility] Comment on above: Performed By: #### C BCA, CMP, 79377-5 ####[facility] ([id number])[address] [place] [address] 56147 ABSOLUTE NEUTROPHIL 3.1 X10E9/L Normal 1.5-6.6 [facility] Comment on above: Performed By: #### C CARLOS CANNON, ####[facility] ([id number])[address] [place] [address] 48625 Basophils/100 WBC (Bld) 0.4 % Normal [facility] Comment on above: Performed By: #### Codey CANNON CMP, ####[facility] ([id number])[address] [place] [address] 83473 Eosinophils (Bld) [#/Vol] 0.1 10*3/uL Normal 0.0-0.4 [facility] Comment on above: Performed By: #### Codey CANNON CMP, ####[facility] ([id number])[address] [place] [address] 68844 Eosinophils/100 WBC (Bld) 1.3 % Normal [facility] Comment on above: Performed By: #### Codey CANNON [facility], 88293-0 ####[facility] ([id number])[address] [place] [address] 55454 Erythrocyte distribution width (RBC) [Ratio] 14.3 % Normal 11.5-15.0 [facility] Comment on above: Performed By: #### Codey CANNON CMP, ####[facility] ([id number])[address] [place] [address] 01931 Hematocrit (Bld) [Volume fraction] 33.1 % Low 39-49 [facility] Comment on above: Performed By: #### Codey CANNON CMP, ####[facility] ([id number])[address] [place] [address] 24693 Hemoglobin (Bld) [Mass/Vol] 11.6 g/dL Low 13.0-17.0 [facility] Comment on above: Performed By: #### C KASSANDRA CMP, ####[facility] ([id number])[address] [place] [address] 20874 Lymphocytes (Bld) [#/Vol] 3.0 10*3/uL Normal 1.0-3.5 [facility] Comment on above: Performed By: #### Codey CANNON CMP, ####[facility] ([id number])[address] [place] [address] 49006 Lymphocytes/100 WBC (Bld) 44.9 % Normal [facility] Comment on above: Performed By: #### Codey CANNON CMP, ####[facility] ([id number])[address] [place] [address] 31337 MCH (RBC) [Entitic mass] 31.7 pg Normal 27-34 [facility] Comment on above: Performed By: #### Codey CANNON CMP, ####[facility] ([id number])[address] [place] [address] 93030 MCHC (RBC) [Mass/Vol] 35.0 g/dL Normal 32-36 [facility] Comment on above: Performed By: #### Codey CANNON CMP, ####[facility] ([id number])[address] [place] [address] 42394 MCV (RBC) [Entitic vol] 90 fL Normal 80-100 [facility] Comment on above: Performed By: #### Codey CANNON, CMP, ####[facility] ([id number])[address] [place] [address] 54254 Monocytes (Bld) [#/Vol] 0.5 10*3/uL Normal 0-0.9 [facility] Comment on above: Performed By: #### Codey CANNON CMP, ####[facility] ([id number])[address] [place] [address] 02641 Monocytes/100 WBC (Bld) 7.1 % Normal [facility] Comment on above: Performed By: #### C KASSANDRA, CMP, 82594-2 ####[facility] ([id number])[address] [place] [address] 99082 Neutrophils/100 WBC (Bld) 46.3 % Normal [facility] Comment on above: Performed By: #### C KASSANDRA, CMP, 43180-3 ####[facility] ([id number])[address] [place] [address] 83393 Platelet mean volume (Bld) [Entitic vol] 7.3 fL Normal 7-12 [facility] Comment on above: Performed By: #### Codey CANNON, CMP, 28728-5 ####[facility] ([id number])[address] [place] [address] 06668 Platelets (Bld) [#/Vol] 243 10*3/uL Normal 150-450 [facility] Comment on above: Performed By: #### Codey CANNON, CMP, 56382-4 ####[facility] ([id number])[address] [place] [address] 81384 RBC COUNT 3.66 X10E12/L Low 4.10-5.70 [facility] Comment on above: Performed By: #### C BCA, CMP, ####[facility] ([id number])[address] [place] [address] 42996 WBC (Bld) [#/Vol] 6.8 10*3/uL Normal 4.0-11.0 [facility] Comment on above: Performed By: #### C KASSANDRA, CMP, 59878-1 ####[facility] ([id number])[address] [place] [address] 68434 COMPREHENSIVE METABOLIC PANE Mark 08-03-2023 Albumin [Mass/Vol] 2.6 g/dL Low 3.2-5.3 [facility] Comment on above: Performed By: #### C KASSANDRA, CMP, ####[facility] ([id number])[address] [place] [address], [place] [address] ALP [Catalytic activity/Vol] 51 U/L Normal 39-130 [facility] Comment on above: Performed By: #### C BCA, CMP, ####[facility] ([id number])[address] [place] [address] [place] [address] ALT [Catalytic activity/Vol] 42 U/L High 0-40 [facility] Comment on above: Performed By: #### C BCA, CMP, ####[facility] ([id number])[address] [place] [address] [place] [address] AST [Catalytic activity/Vol] 66 U/L High 0-41 [facility] Comment on above: Performed By: #### C BCA, CMP, ####[facility] ([id number])[address] [place] [address] [place] [address] Bilirubin [Mass/Vol] 0.7 mg/dL Normal 0.3-1.2 [facility] Comment on above: Performed By: #### C BCA, CMP, ####[facility] ([id number])[address] [place] [address] [place] [address] Calcium [Mass/Vol] 7.9 mg/dL Low 8.5-10.5 [facility] Comment on above: Performed By: #### C BCA, CMP, ####[facility] ([id number])[address] [place] [address] [place] [address] Chloride [Moles/Vol] 110 mmol/L High 98-109 [facility] Comment on above: Performed By: #### C KASSANDRA [facility], ####[facility] ([id number])[address] [place] [address] 45641 Creatinine [Mass/Vol] 0.56 mg/dL Low 0.70-1.20 [facility] Comment on above: Result Comment: METH OD TRACEABLE TO IDMS STANDARD Performed By: #### C KASSANDRA [facility], ####[facility] ([id number])[address] [place] [address] 03485 eGFR (CKD-EPI) NON-RACE DEPENDENT >90 Normal >59 [facility] Comment on above: Result Comment: Reported eGFR is based on the CKD-EPI 2020 equation that does not use a race coefficient. Performed By: #### C CARLOS CANNON, ####[facility] ([id number])[address] [place] [address] 84300 Glucose [Mass/Vol] 133 mg/dL High 65-99 [facility] Comment on above: Performed By: #### C KASSANDRA [facility], ####[facility] ([id number])[address] [place] [address] 73306 Potassium [Moles/Vol] 3.4 mmol/L Low 3.5-5.0 [facility] Comment on above: Performed By: #### C KASSANDRA [facility], ####[facility] ([id number])[address] [place] [address] 49520 Protein [Mass/Vol] 5.5 g/dL Low 6.0-8.0 [facility] Comment on above: Performed By: #### C KASSANDRA [facility], ####[facility] ([id number])[address] [place] [address] 42651 Sodium [Moles/Vol] 136 mmol/L Normal 134-146 [facility] Comment on above: Performed By: #### C CARLOS CANNON, 88262-2 ####[facility] ([id number])[address] [place] [address] [place] [address] Urea nitrogen [Mass/Vol] 10 mg/dL Normal 5-23 [facility] Comment on above: Performed By: #### C CARLOS CANNON, 35097-0 ####[facility] ([id number])[address] [place] [address] [place] [address] ELECTROLYTESon 08-03-2023 Chloride [Moles/Vol] 109 mmol/L Normal 98-109 [facility] Comment on above: Performed By: #### N UM #### [facility] ([id number]) [address] [place] [address] 26747 Potassium [Moles/Vol] 3.6 mmol/L Normal 3.5-5.0 [facility] Comment on above: Performed By: #### N UM #### [facility] ([id number]) [address] [place] [address] 68672 Sodium [Moles/Vol] 135 mmol/L Normal 134-146 [facility] Comment on above: Performed By: #### N UM #### [facility] ([id number]) [address] [place] [address] [place] [address] Anion gap [Moles/Vol] 5 mmol/L Normal 5-15 [facility] Comment on above: Performed By: #### N UM #### [facility] ([id number]) [address] [place] [address] [place] [address] Performed By: #### C KASSANDRA CMP, 91471-7 ####[facility] ([id number])[address] [place] [address] [place] [address] CO2 [Moles/Vol] 21 mmol/L Low 22-32 [facility] Comment on above: Performed By: #### N UM #### [facility] ([id number]) [address] [place] [address] 38784 Performed By: #### Codey CANNON CMP, 34835-6 ####[facility] ([id number])[address] [place] [address] 99795 Glucose Glucometer (BldC) [M ass/Vol]on 08-03-2023 Glucose [Mass/Vol] 337 mg/dL High 65-99 [facility] Glucose [Mass/Vol] 226 mg/dL High 65-99 [facility] Glucose [Mass/Vol] 134 mg/dL High 65-99 [facility] Glucose [Mass/Vol] 118 mg/dL High 65-99 [facility] Glucose [Mass/Vol] 127 mg/dL High 65-99 [facility] Glucose [Mass/Vol] 138 mg/dL High 65-99 [facility] Glucose [Mass/Vol] 192 mg/dL High 65-99 [facility] Glucose [Mass/Vol] 214 mg/dL High 65-99 [facility] MAGNESIUMon 08-03-2023 Magnesium [Mass/Vol] 1.6 mg/dL Low 1.8-2.6 [facility] Comment on above: Performed By: #### Codey CANNON [facility], 95459-5 ####[facility] ([id number])[address] [place] [address] 01649 CBC AND AUTO DIFFon 08-02-19 24 ABSOLUTE BASOPHIL 0.2 X10E9/L Normal 0.0-0.2 [facility] Comment on above: Performed By: #### B YANIRA, , 2777-1, CBCA, 6873-4 #### [facility] ([id number]) [address] [place] [address] 90987 ABSOLUTE NEUTROPHIL 6.5 X10E9/L Normal 1.5-6.6 [facility] Comment on above: Performed By: #### Pura DOYLE, , 2776-07, CBCA, 6873-4 #### [facility] ([id number]) [address] [place] [address] 26875 Basophils/100 WBC (Bld) 1.5 % Normal [facility] Comment on above: Performed By: #### B YANIRA, , 2776-07, CBCA, 6873-4 #### [facility] ([id number]) [address] [place] [address] 32053 Eosinophils (Bld) [#/Vol] 0.1 10*3/uL Normal 0.0-0.4 [facility] Comment on above: Performed By: #### B YANIRA, , 2776-07, CBCA, 6873-4 #### [facility] ([id number]) [address] [place] [address] 10270 Eosinophils/100 WBC (Bld) 0.7 % Normal [facility] Comment on above: Performed By: #### B YANIRA, , 2776-07, CBCA, 6873-4 #### [facility] ([id number]) [address] [place] [address] 31739 Erythrocyte distribution width (RBC) [Ratio] 14.2 % Normal 11.5-15.0 [facility] Comment on above: Performed By: #### B YANIRA, , 2776-07, CBCA, 6873-4 #### [facility] ([id number]) [address] [place] [address] 44474 Hematocrit (Bld) [Volume fraction] 37.9 % Low 39-49 [facility] Comment on above: Performed By: #### B YANIRA, , 2776-07, CBCA, 6873-4 #### [facility] ([id number]) [address] [place] [address] 03095 Hemoglobin (Bld) [Mass/Vol] 12.7 g/dL Low 13.0-17.0 [facility] Comment on above: Performed By: #### Pura DOYLE, , 2776-07, CBCA, 6873-4 #### [facility] ([id number]) [address] [place] [address] 52077 Lymphocytes (Bld) [#/Vol] 3.2 10*3/uL Normal 1.0-3.5 [facility] Comment on above: Performed By: #### B YANIRA, , 2776-07, CBCA, 6873-4 #### [facility] ([id number]) [address] [place] [address] 70530 Lymphocytes/100 WBC (Bld) 30.1 % Normal [facility] Comment on above: Performed By: #### Pura DOYLE, , 2776-07, CBCA, 6873-4 #### [facility] ([id number]) [address] [place] [address] 75737 MCH (RBC) [Entitic mass] 30.6 pg Normal 27-34 [facility] Comment on above: Performed By: #### Pura DOYLE, , 2776-07, CBCA, 6873-4 #### [facility] ([id number]) [address] [place] [address] 04632 MCHC (RBC) [Mass/Vol] 33.6 g/dL Normal 32-36 [facility] Comment on above: Performed By: #### Pura DOYLE, , 2776-07, CBCA, 6873-4 #### [facility] ([id number]) [address] [place] [address] 52696 MCV (RBC) [Entitic vol] 91 fL Normal 80-100 [facility] Comment on above: Performed By: #### Pura DOYLE, , 2776-07, CBCA, 6873-4 #### [facility] ([id number]) [address] [place] [address] 06643 Monocytes (Bld) [#/Vol] 0.8 10*3/uL Normal 0-0.9 [facility] Comment on above: Performed By: #### B YANIRA, , 2776-, CBCA, 6873-4 #### [facility] ([id number]) [address] [place] [address] 97024 Monocytes/100 WBC (Bld) 7.4 % Normal [facility] Comment on above: Performed By: #### B YANIRA, , 2776-07, CBCA, 6873-4 #### [facility] ([id number]) [address] [place] [address] 01110 Neutrophils/100 WBC (Bld) 60.3 % Normal [facility] Comment on above: Performed By: #### B YANIRA, , 2776-07, CBCA, 6873-4 #### [facility] ([id number]) [address] [place] [address] 87056 Platelet mean volume (Bld) [Entitic vol] 7.3 fL Normal 7-12 [facility] Comment on above: Performed By: #### Pura DOYLE, , 2776-07, CBCA, 6873-4 #### [facility] ([id number]) [address] [place] [address] 27999 Platelets (Bld) [#/Vol] 317 10*3/uL Normal 150-450 [facility] Comment on above: Performed By: #### B YANIRA, , 2776-07, CBCA, 6873-4 #### [facility] ([id number]) [address] [place] [address] 78022 RBC COUNT 4.16 X10E12/L Normal 4.10-5.70 [facility] Comment on above: Performed By: #### B YANIRA, 89707-0, 2776-, CBCA, 6873-4 #### [facility] ([id number]) [address] [place] [address] 83118 WBC (Bld) [#/Vol] 10.7 10*3/uL Normal 4.0-11.0 [facility] Comment on above: Performed By: #### B YANIRA, 05541-8, 2776-, CBCA, 6873-4 #### [facility] ([id number]) [address] [place] [address] 60232 COMPREHENSIVE METABOLIC PANE Mark 08-02-2023 Albumin [Mass/Vol] 3.0 g/dL Low 3.2-5.3 [facility] Comment on above: Performed By: #### B YANIRA, , 2776-07, CBCA, 6873-4 #### [facility] ([id number]) [address] [place] [address] 95527 ALP [Catalytic activity/Vol] 52 U/L Normal 39-130 [facility] Comment on above: Performed By: #### B YANIRA, , 2776-, CBCA, 6873-4 #### [facility] ([id number]) [address] [place] [address] 30928 ALT [Catalytic activity/Vol] 31 U/L Normal 0-40 [facility] Comment on above: Performed By: #### B YANIRA, 62049-1, 2776-, CBCA, 6873-4 #### [facility] ([id number]) [address] [place] [address] 62181 Anion gap [Moles/Vol] 8 mmol/L Normal 5-15 [facility] Comment on above: Performed By: #### B YANIRA, 25548-7, 2776-, CBCA, 6873-4 #### [facility] ([id number]) [address] [place] [address] 87273 AST [Catalytic activity/Vol] 17 U/L Normal 0-41 [facility] Comment on above: Performed By: #### B YANIRA, , 2776-07, CBCA, 6873-4 #### [facility] ([id number]) [address] [place] [address] 90024 Bilirubin [Mass/Vol] 0.9 mg/dL Normal 0.3-1.2 [facility] Comment on above: Performed By: #### B YANIRA, , 2776-07, CBCA, 6873-4 #### [facility] ([id number]) [address] [place] [address] 01182 Calcium [Mass/Vol] 8.0 mg/dL Low 8.5-10.5 [facility] Comment on above: Performed By: #### B YANIRA, , 2776-07, CBCA, 6873-4 #### [facility] ([id number]) [address] [place] [address] 66990 Chloride [Moles/Vol] 115 mmol/L High 98-109 [facility] Comment on above: Performed By: #### B YANIRA, , 2776-07, CBCA, 6873-4 #### [facility] ([id number]) [address] [place] [address] 83375 CO2 [Moles/Vol] 16 mmol/L Low 22-32 [facility] Comment on above: Performed By: #### B YANIRA, , 2776-07, CBCA, 6873-4 #### [facility] ([id number]) [address] [place] [address] 11306 Creatinine [Mass/Vol] 0.88 mg/dL Normal 0.70-1.20 [facility] Comment on above: Result Comment: METH OD TRACEABLE TO IDMS STANDARD Performed By: #### B YANIRA, , 2776-07, CBCA, 6873-4 #### [facility] ([id number]) [address] [place] [address] 28290 eGFR (CKD-EPI) NON-RACE DEPENDENT >90 Normal >59 [facility] Comment on above: Result Comment: Reported eGFR is based on the CKD-EPI 2020 equation that does not use a race coefficient. Performed By: #### B YANIRA, , 2776-07, CBCA, 6873-4 #### [facility] ([id number]) [address] [place] [address] 57310 Glucose [Mass/Vol] 146 mg/dL High 65-99 [facility] Comment on above: Performed By: #### B YANIRA, , 2776-07, CBCA, 6873-4 #### [facility] ([id number]) [address] [place] [address] 76050 Potassium [Moles/Vol] 3.5 mmol/L Normal 3.5-5.0 [facility] Comment on above: Performed By: #### B YANIRA, , 2776-07, CBCA, 6873-4 #### [facility] ([id number]) [address] [place] [address] 79113 Protein [Mass/Vol] 6.3 g/dL Normal 6.0-8.0 [facility] Comment on above: Performed By: #### B YANIRA, , 2776-07, CBCA, 6873-4 #### [facility] ([id number]) [address] [place] [address] 33697 Sodium [Moles/Vol] 139 mmol/L Normal 134-146 [facility] Comment on above: Performed By: #### B YANIRA, , 2776-07, CBCA, 6873-4 #### [facility] ([id number]) [address] [place] [address] [place] [address] Urea nitrogen [Mass/Vol] 17 mg/dL Normal 5-23 [facility] Comment on above: Performed By: #### [place], [address]-1, 2777-1, CBCA, 6873-4 #### [facility] ([id number]) [address] [place] [address] [place] [address] ELECTROLYTESon 08-02-2023 Anion gap [Moles/Vol] 6 mmol/L Normal 5-15 [facility] Comment on above: Performed By: #### E LEC ####[facility] ([id number])[address] [place] [address] 20810 Chloride [Moles/Vol] 109 mmol/L Normal 98-109 [facility] Comment on above: Performed By: #### E LEC ####[facility] ([id number])[address] [place] [address] [place] [address] CO2 [Moles/Vol] 18 mmol/L Low 22-32 [facility] Comment on above: Performed By: #### E LEC ####[facility] ([id number])[address] [place] [address] [place] [address] Potassium [Moles/Vol] 3.8 mmol/L Normal 3.5-5.0 [facility] Comment on above: Performed By: #### E LEC ####[facility] ([id number])[address] [place] [address], [place] [address] Sodium [Moles/Vol] 133 mmol/L Low 134-146 [facility] Comment on above: Performed By: #### E LEC ####[facility] ([id number])[address] [place] [address] [place] [address] Anion gap [Moles/Vol] 7 mmol/L Normal 5-15 [facility] Comment on above: Performed By: #### V BG #### [facility] ([id number]) [address] [place] [address], [place] [address] Chloride [Moles/Vol] 110 mmol/L High 98-109 [facility] Comment on above: Performed By: #### V BG #### [facility] ([id number]) [address] [place] [address] [place] [address] CO2 [Moles/Vol] 18 mmol/L Low 22-32 [facility] Comment on above: Performed By: #### V BG #### [facility] ([id number]) [address] [place] [address] Potassium [Moles/Vol] 3.5 mmol/L Normal 3.5-5.0 [facility] Comment on above: Performed By: #### V BG #### [facility] ([id number]) [address] [place] [address] Sodium [Moles/Vol] 135 mmol/L Normal 134-146 [facility] Comment on above: Performed By: #### V BG #### [facility] ([id number]) [address] [place] [address] Anion gap [Moles/Vol] 4 mmol/L Low 5-15 [facility] Comment on above: Performed By: #### V BG #### [facility] ([id number]) 26 [place] [address] [place] [address] Chloride [Moles/Vol] 114 mmol/L High 98-109 [facility] Comment on above: Performed By: #### V BG #### [facility] ([id number]) [address] [place] [address] [place] [address] CO2 [Moles/Vol] 16 mmol/L Low 22-32 [facility] Comment on above: Performed By: #### V BG #### [facility] ([id number]) [address] [place] [address], [place] [address] Potassium [Moles/Vol] 3.4 mmol/L Low 3.5-5.0 [facility] Comment on above: Performed By: #### V BG #### [facility] ([id number]) [address] [place] [address], [place] [address] Sodium [Moles/Vol] 134 mmol/L Normal 134-146 [facility] Comment on above: Performed By: #### V BG #### [facility] ([id number]) [address] [place] [address], [place] [address] Anion gap [Moles/Vol] 5 mmol/L Normal 5-15 [facility] Comment on above: Performed By: #### V BG #### [facility] ([id number]) [address] [place] [address], [place] [address] Chloride [Moles/Vol] 113 mmol/L High 98-109 [facility] Comment on above: Performed By: #### V BG #### [facility] ([id number]) [address] [place] [address], [place] [address] CO2 [Moles/Vol] 15 mmol/L Low 22-32 [facility] Comment on above: Performed By: #### V BG #### [facility] ([id number]) [address] [place] [address], [place] [address] Potassium [Moles/Vol] 3.3 mmol/L Low 3.5-5.0 [facility] Comment on above: Performed By: #### V BG #### [facility] ([id number]) [address] [place] [address], [place] [address] Sodium [Moles/Vol] 133 mmol/L Low 134-146 [facility] Comment on above: Performed By: #### V BG #### [facility] ([id number]) [address] [place] [address], [place] [address] Anion gap [Moles/Vol] 4 mmol/L Low 5-15 [facility] Comment on above: Performed By: #### B YANIRA, , 2776-07, CBCA, 6873-4 #### [facility] ([id number]) [address] [place] [address], [place] [address] Chloride [Moles/Vol] 117 mmol/L High 98-109 [facility] Comment on above: Performed By: #### B YANIRA, , 2776-07, CBCA, 6873-4 #### [facility] ([id number]) [address] [place] [address], [place] [address] CO2 [Moles/Vol] 16 mmol/L Low 22-32 [facility] Comment on above: Performed By: #### Pura DOYLE, , 2776-07, CBCA, 6873-4 #### [facility] ([id number]) [address] [place] [address], [place] [address] Potassium [Moles/Vol] 3.4 mmol/L Low 3.5-5.0 [facility] Comment on above: Performed By: #### Pura DOYLE, , 2776-07, CBCA, 6873-4 #### [facility] ([id number]) [address] [place] [address], [place] [address] Sodium [Moles/Vol] 137 mmol/L Normal 134-146 [facility] Comment on above: Performed By: #### B YANIRA, , 2776-07, CBCA, 6873-4 #### [facility] ([id number]) [address] [place] [address], [place] [address] Anion gap [Moles/Vol] 7 mmol/L Normal 5-15 [facility] Comment on above: Performed By: #### B YANIRA, , 2777-1, CBCA, 6873-4 #### [facility] ([id number]) [address] [place] [address] Chloride [Moles/Vol] 113 mmol/L High 98-109 [facility] Comment on above: Performed By: #### Pura DOYLE, , 2776-07, CBCA, 6873-4 #### [facility] ([id number]) [address] [place] [address] CO2 [Moles/Vol] 16 mmol/L Low 22-32 [facility] Comment on above: Performed By: #### Pura DOYLE, , 2776-07, CBCA, 6873-4 #### [facility] ([id number]) [address] [place] [address] Potassium [Moles/Vol] 3.4 mmol/L Low 3.5-5.0 [facility] Comment on above: Performed By: #### Pura DOYLE, , 2776-07, CBCA, 6873-4 #### [facility] ([id number]) [address] [place] [address] Sodium [Moles/Vol] 136 mmol/L Normal 134-146 [facility] Comment on above: Performed By: #### Pura DOYLE, , 2776-07, CBCA, 6873-4 #### [facility] ([id number]) [address] [place] [address] Glucose Glucometer (BldC) [M ass/Vol]on 08-02-2023 Glucose [Mass/Vol] 170 mg/dL High 65-99 [facility] Glucose [Mass/Vol] 83 mg/dL Normal 65-99 [facility] Glucose [Mass/Vol] 104 mg/dL High 65-99 [facility] Glucose [Mass/Vol] 157 mg/dL High 65-99 [facility] Glucose [Mass/Vol] 173 mg/dL High 65-99 [facility] Glucose [Mass/Vol] 215 mg/dL High 65-99 [facility] Glucose [Mass/Vol] 117 mg/dL High 65-99 [facility] Glucose [Mass/Vol] 262 mg/dL High 65-99 [facility] Glucose [Mass/Vol] 222 mg/dL High 65-99 [facility] Glucose [Mass/Vol] 248 mg/dL High 65-99 [facility] Glucose [Mass/Vol] 209 mg/dL High 65-99 [facility] Glucose [Mass/Vol] 141 mg/dL High 65-99 [facility] Glucose [Mass/Vol] 129 mg/dL High 65-99 [facility] Glucose [Mass/Vol] 153 mg/dL High 65-99 [facility] Glucose [Mass/Vol] 132 mg/dL High 65-99 [facility] Glucose [Mass/Vol] 106 mg/dL High 65-99 [facility] Glucose [Mass/Vol] 127 mg/dL High 65-99 [facility] Glucose [Mass/Vol] 163 mg/dL High 65-99 [facility] Glucose [Mass/Vol] 133 mg/dL High 65-99 [facility] Glucose [Mass/Vol] 105 mg/dL High 65-99 [facility] MAGNESIUMon 08-02-2023 Magnesium [Mass/Vol] 1.9 mg/dL Normal 1.8-2.6 [facility] Comment on above: Performed By: #### Pura DOYLE, , 2776-07, CBCA, 6873-4 #### [facility] ([id number]) [address] [place] [address], [place] [address] Beta hydroxybutyrate [Moles/ Vol]on 08-01-2023 BetaHydroxybutyrate 12.62 mmol/L High 0.02-0.27 [facility] Comment on above: Performed By: #### Pura DOYLE, 55221-0, 2776-07, CBCA, 6873-4 #### [facility] ([id number]) [address] [place] [address] CBC AND AUTO DIFFon 08-01-19 24 Band form neutrophils/100 WBC (Bld) 3.0 % Normal [facility] Comment on above: Performed By: #### B YANIRA, , 2776-07, CBCA, 6873-4 #### [facility] ([id number]) [address] [place] [address] Erythrocyte distribution width (RBC) [Ratio] 14.6 % Normal 11.5-15.0 [facility] Comment on above: Performed By: #### B YANIRA, , 2776-07, CBCA, 6873-4 #### [facility] ([id number]) [address] [place] [address] Hematocrit (Bld) [Volume fraction] 49.6 % High 39-49 [facility] Comment on above: Performed By: #### Pura DOYLE, , 2776-07, CBCA, 6873-4 #### [facility] ([id number]) [address] [place] [address] 20100 Hemoglobin (Bld) [Mass/Vol] 15.9 g/dL Normal 13.0-17.0 [facility] Comment on above: Performed By: #### Pura DOYLE, , 2776-07, CBCA, 6873-4 #### [facility] ([id number]) [address] [place] [address] LYMPHOCYTE, ATYPICAL 4.0 % Normal [facility] Comment on above: Performed By: #### B YANIRA, , 2776-07, CBCA, 6873-4 #### [facility] ([id number]) [address] [place] [address] Lymphocytes (Bld) [#/Vol] 4.6 10*3/uL High 1.0-3.5 [facility] Comment on above: Performed By: #### Pura DOYLE, , 2776-07, CBCA, 6873-4 #### [facility] ([id number]) [address] [place] [address] 23301 Lymphocytes/100 WBC (Bld) 27.7 % Normal [facility] Comment on above: Performed By: #### Pura DOYLE, , 2776-07, CBCA, 6873-4 #### [facility] ([id number]) [address] [place] [address] 03953 MCH (RBC) [Entitic mass] 30.4 pg Normal 27-34 [facility] Comment on above: Performed By: #### Pura DOYLE, , 2776-07, CBCA, 6873-4 #### [facility] ([id number]) [address] [place] [address] 44087 MCHC (RBC) [Mass/Vol] 32.1 g/dL Normal 32-36 [facility] Comment on above: Performed By: #### Pura DOYLE, , 2776-07, CBCA, 6873-4 #### [facility] ([id number]) [address] [place] [address] 46568 MCV (RBC) [Entitic vol] 95 fL Normal 80-100 [facility] Comment on above: Performed By: #### Pura DOYLE, , 2776-07, CBCA, 6873-4 #### [facility] ([id number]) [address] [place] [address] 80722 Monocytes (Bld) [#/Vol] 0.7 10*3/uL Normal 0-0.9 [facility] Comment on above: Performed By: #### Pura DOYLE, , 2776-07, CBCA, 6873-4 #### [facility] ([id number]) [address] [place] [address] 67452 Monocytes/100 WBC (Bld) 5.0 % Normal [facility] Comment on above: Performed By: #### B YANIRA, , 2776-07, CBCA, 6873-4 #### [facility] ([id number]) [address] [place] [address] 73388 Neutrophils (Bld) [#/Vol] 9.2 10*3/uL High 1.5-6.6 [facility] Comment on above: Performed By: #### B YANIRA, , 2776-07, CBCA, 6873-4 #### [facility] ([id number]) [address] [place] [address] 83107 Platelet mean volume (Bld) [Entitic vol] 7.6 fL Normal 7-12 [facility] Comment on above: Performed By: #### B YANIRA, , 2776-07, CBCA, 6873-4 #### [facility] ([id number]) [address] [place] [address] 73804 Platelets (Bld) [#/Vol] 434 10*3/uL Normal 150-450 [facility] Comment on above: Performed By: #### B YANIRA, , 2776-07, CBCA, 6873-4 #### [facility] ([id number]) [address] [place] [address] 13863 RBC COUNT 5.24 X10E12/L Normal 4.10-5.70 [facility] Comment on above: Performed By: #### B YANIRA, , 2776-07, CBCA, 6873-4 #### [facility] ([id number]) [address] [place] [address] 30239 SEG NEUTROPHIL 60.3 % Normal [facility] Comment on above: Performed By: #### B YANIRA, , 2776-07, CBCA, 6873-4 #### [facility] ([id number]) [address] [place] [address] 53152 WBC (Bld) [#/Vol] 14.6 10*3/uL High 4.0-11.0 [facility] Comment on above: Performed By: #### B YANIRA, , 2776-07, CBCA, 6873-4 #### [facility] ([id number]) [address] [place] [address]295 COMPREHENSIVE METABOLIC PANE Mark 08-01-2023 Albumin [Mass/Vol] 4.4 g/dL Normal 3.2-5.3 [facility] Comment on above: Performed By: #### Pura DOYLE, , 2776-07, CBCA, 6873-4 #### [facility] ([id number]) [address] [place] [address] 15944 ALP [Catalytic activity/Vol] 114 U/L Normal 39-130 [facility] Comment on above: Performed By: #### Pura DOYLE, , 2776-07, CBCA, 6873-4 #### [facility] ([id number]) [address] [place] [address] 78319 ALT [Catalytic activity/Vol] 51 U/L High 0-40 [facility] Comment on above: Performed By: #### Pura DOYLE, , 2776-07, CBCA, 6873-4 #### [facility] ([id number]) [address] [place] [address] 97660 Anion gap [Moles/Vol] 28 mmol/L High 5-15 [facility] Comment on above: Performed By: #### B YANIRA, 24118-6, 2776-, CBCA, 6873-4 #### [facility] ([id number]) [address] [place] [address] [place] [address] AST [Catalytic activity/Vol] 29 U/L Normal 0-41 [facility] Comment on above: Performed By: #### B YANIRA, , 2776-07, CBCA, 6873-4 #### [facility] ([id number]) [address] [place] [address] 23440 Bilirubin [Mass/Vol] 1.3 mg/dL High 0.3-1.2 [facility] Comment on above: Performed By: #### B YANIRA, , 2776-07, CBCA, 6873-4 #### [facility] ([id number]) [address] [place] [address] 93904 Calcium [Mass/Vol] 10.1 mg/dL Normal 8.5-10.5 [facility] Comment on above: Performed By: #### Pura DOYLE, , 2776-07, CBCA, 6873-4 #### [facility] ([id number]) [address] [place] [address] 60628 Chloride [Moles/Vol] 96 mmol/L Low 98-109 [facility] Comment on above: Performed By: #### Pura DOYLE, , 2776-07, CBCA, 6873-4 #### [facility] ([id number]) [address] [place] [address] 52174 CO2 [Moles/Vol] 6 mmol/L Critically low 22-32 [facility] Comment on above: Performed By: #### Pura DOYLE, , 2776-07, CBCA, 6873-4 #### [facility] ([id number]) [address] [place] [address] 65169 Creatinine [Mass/Vol] 1.50 mg/dL High 0.70-1.20 [facility] Comment on above: Result Comment: METH OD TRACEABLE TO IDMS STANDARD Performed By: #### B YANIRA, , 2776-07, ADAM, 6873-4 #### [facility] ([id number]) [address] [place] [address] 14562 GFR/1.73 sq M.predicted among non-blacks MDRD (S/P/Bld) [Vol rate/Area] 67 mL/min/{1.73_m2} Normal >59 [facility] Comment on above: Result Comment: Reported eGFR is based on the CKD-EPI 2020 equation that does not use a race coefficient. Performed By: #### B YANIRA, , 2776-07, ADAM, 6873-4 #### [facility] ([id number]) [address] [place] [address] 04244 Glucose [Mass/Vol] 679 mg/dL Critically high 65-99 [facility] Comment on above: Performed By: #### B YANIRA, , 2776-07, ADAM, 6873-4 #### [facility] ([id number]) [address] [place] [address] 94723 Potassium [Moles/Vol] 5.5 mmol/L High 3.5-5.0 [facility] Comment on above: Performed By: #### B YANIRA, , 2776-07, ADAM, 6873-4 #### [facility] ([id number]) [address] [place] [address] 94544 Protein [Mass/Vol] 9.2 g/dL High 6.0-8.0 [facility] Comment on above: Performed By: #### B YANIRA, , 2776-07, CBCDread, 6873-4 #### [facility] ([id number]) [address] [place] [address] 08460 Sodium [Moles/Vol] 130 mmol/L Low 134-146 [facility] Comment on above: Performed By: #### B YANIRA, , 2776-07, CBCA, 6873-4 #### [facility] ([id number]) [address] [place] [address] [place] [address] Urea nitrogen [Mass/Vol] 30 mg/dL High 5-23 [facility] Comment on above: Performed By: #### Pura DOYLE, , 2776-07, CBCA, 6873-4 #### [facility] ([id number]) [address] [place] [address] [place] [address] ELECTROLYTESon 08-01-2023 Anion gap [Moles/Vol] 14 mmol/L Normal 5-15 [facility] Comment on above: Performed By: #### B YANIRA, , 2776-07, CBCA, 6873-4 #### [facility] ([id number]) [address] [place] [address] 44052 Chloride [Moles/Vol] 108 mmol/L Normal 98-109 [facility] Comment on above: Performed By: #### Pura DOYLE, , 2776-07, CBCA, 6873-4 #### [facility] ([id number]) [address] [place] [address] [place] [address] CO2 [Moles/Vol] 10 mmol/L Low 22-32 [facility] Comment on above: Performed By: #### Pura DOYLE, , 2776-07, CBCA, 6873-4 #### [facility] ([id number]) [address] [place] [address], [place] [address] Potassium [Moles/Vol] 5.0 mmol/L Normal 3.5-5.0 [facility] Comment on above: Performed By: #### Pura DOYLE, , 2776-07, CBCA, 6873-4 #### [facility] ([id number]) [address] [place] [address], [place] [address] Sodium [Moles/Vol] 132 mmol/L Low 134-146 [facility] Comment on above: Performed By: #### B YANIRA, , 2776-07, CBCA, 6873-4 #### [facility] ([id number]) [address] [place] [address] 94204 Anion gap [Moles/Vol] 17 mmol/L High 5-15 [facility] Comment on above: Performed By: #### B YANIRA, , 2776-07, CBCA, 6873-4 #### [facility] ([id number]) [address] [place] [address] 56095 Chloride [Moles/Vol] 107 mmol/L Normal 98-109 [facility] Comment on above: Performed By: #### B YANIRA, , 2776-07, CBCA, 6873-4 #### [facility] ([id number]) [address] [place] [address] 90223 CO2 [Moles/Vol] 8 mmol/L Critically low 22-32 [facility] Comment on above: Performed By: #### B YANIRA, , 2776-07, CBCA, 6873-4 #### [facility] ([id number]) [address] [place] [address] 94675 Potassium [Moles/Vol] 5.3 mmol/L High 3.5-5.0 [facility] Comment on above: Performed By: #### B YANIRA, , 2776-07, CBCA, 6873-4 #### [facility] ([id number]) [address] [place] [address] [place] [address] Sodium [Moles/Vol] 132 mmol/L Low 134-146 [facility] Comment on above: Performed By: #### B YANIRA, , 2776-07, CBCA, 6873-4 #### [facility] ([id number]) [address] [place] [address], [place] [address] Anion gap [Moles/Vol] 21 mmol/L High 5-15 [facility] Comment on above: Performed By: #### B YANIRA, , 2776-07, CBCA, 6873-4 #### [facility] ([id number]) [address] [place] [address], [place] [address] Chloride [Moles/Vol] 104 mmol/L Normal 98-109 [facility] Comment on above: Performed By: #### B YANIRA, , 2776-07, CBCA, 6873-4 #### [facility] ([id number]) [address] [place] [address], [place] [address] CO2 [Moles/Vol] 7 mmol/L Critically low 22-32 [facility] Comment on above: Performed By: #### B YANIRA, , 2776-07, CBCA, 6873-4 #### [facility] ([id number]) [address] [place] [address] 03761 Potassium [Moles/Vol] 5.5 mmol/L High 3.5-5.0 [facility] Comment on above: Performed By: #### B YANIRA, , 2776-07, CBCA, 6873-4 #### [facility] ([id number]) [address] [place] [address] [place] [address] Sodium [Moles/Vol] 132 mmol/L Low 134-146 [facility] Comment on above: Performed By: #### B YANIRA, , 2776-07, CBCA, 6873-4 #### [facility] ([id number]) [address] [place] [address] [place] [address] Anion gap [Moles/Vol] 24 mmol/L High 5-15 [facility] Comment on above: Performed By: #### B YANIRA, , 2776-07, CBCA, 6873-4 #### [facility] ([id number]) [address] [place] [address] 59625 Chloride [Moles/Vol] 103 mmol/L Normal 98-109 [facility] Comment on above: Performed By: #### Pura DOYLE, , 2776-07, CBCA, 6873-4 #### [facility] ([id number]) [address] [place] [address] 89217 CO2 [Moles/Vol] 6 mmol/L Critically low 22-32 [facility] Comment on above: Performed By: #### Pura DOYLE, , 2776-07, CBCA, 6873-4 #### [facility] ([id number]) [address] [place] [address] 49119 Potassium [Moles/Vol] 6.0 mmol/L High 3.5-5.0 [facility] Comment on above: Performed By: #### Pura DOYLE, , 2776-07, CBCA, 6873-4 #### [facility] ([id number]) [address] [place] [address] 89428 Sodium [Moles/Vol] 133 mmol/L Low 134-146 [facility] Comment on above: Performed By: #### Pura DOYLE, , 2776-07, CBCA, 6873-4 #### [facility] ([id number]) [address] [place] [address] 71205 Glucose Glucometer (dC) [M ass/Vol]on 08-01-2023 Glucose [Mass/Vol] 175 mg/dL High 65-99 [facility] Glucose [Mass/Vol] 189 mg/dL High 65-99 [facility] Glucose [Mass/Vol] 229 mg/dL High 65-99 [facility] Glucose [Mass/Vol] 225 mg/dL High 65-99 [facility] Glucose [Mass/Vol] 284 mg/dL High 65-99 [facility] Glucose [Mass/Vol] 258 mg/dL High 65-99 [facility] Glucose [Mass/Vol] 233 mg/dL High 65-99 [facility] Glucose [Mass/Vol] 243 mg/dL High 65-99 [facility] Glucose [Mass/Vol] 401 mg/dL Critically high 65-99 [facility] Glucose [Mass/Vol] 297 mg/dL High 65-99 [facility] Glucose [Mass/Vol] 306 mg/dL High 65-99 [facility] Glucose [Mass/Vol] 461 mg/dL Critically high 65-99 [facility] Glucose [Mass/Vol] 490 mg/dL Critically high 65-99 [facility] BEDSIDE GLUCOSE LAB >500 Critically high 65-99 [facility] Comment on above: Result Comment: SEE LAB RESULTS FOR CONFIRMATION LIPASEon 08-01-2023 Lipase [Catalytic activity/Vol] 20 U/L Normal 17-40 [facility] Comment on above: Performed By: #### B YANIRA, , 2776-07, CBCA, 6873-4 #### [facility] ([id number]) [address] [place] [address] 19524 MAGNESIUMon 08-01-2023 Magnesium [Mass/Vol] 2.7 mg/dL High 1.8-2.6 [facility] Comment on above: Performed By: #### B YANIRA, , 2776-07, CBCA, 6873-4 #### [facility] ([id number]) [address] [place] [address] 68011 URINE CULTUREon 08-01-2023 Bacteria identified Cx Nom (U) CULTURE RESULTS NO GROWTH AT <1000 CFU/mL Normal [facility] Comment on above: Performed By: #### B YANIRA, , 2776-, CBCA, 6873-4 #### [facility] ([id number]) [address] [place] [address] 66135 URN MACROSCOPIC NURon 2023 BILIRUBIN SYDNEY Negative Normal NEG [facility] Comment on above: Performed By: #### B YANIRA, , 2776-, CBCA, 6873-4 #### [facility] ([id number]) [address] [place] [address] 89166 BLOOD/HGB SYDNEY Trace Abnormal NEG [facility] Comment on above: Performed By: #### B YANIRA, , 2776-07, CBCA, 6873-4 #### [facility] ([id number]) [address] [place] [address] 20625 GLUCOSE SYDNEY 500 mg/dL Abnormal NEG [facility] Comment on above: Performed By: #### Pura DOYLE, , 2776-07, CBCA, 6873-4 #### [facility] ([id number]) [address] [place] [address] 94518 KETONES SYDNEY >=160 Abnormal NEG [facility] Comment on above: Performed By: #### Pura DOYLE, , 2776-07, CBCA, 6873-4 #### [facility] ([id number]) [address] [place] [address] 94186 LEUKOCYTE ESTERASE SYDNEY Negative Normal NEG [facility] Comment on above: Performed By: #### B YANIRA, , 2776-07, CBCA, 6873-4 #### [facility] ([id number]) [address] [place] [address] 09048 NITRITE SYDNEY Negative Normal NEG [facility] Comment on above: Performed By: #### B YANIRA, , 2776-, CBCA, 6873-4 #### [facility] ([id number]) [address] [place] [address] 64889 PH SYDNEY 5.0 Normal 5.0-8.5 [facility] Comment on above: Performed By: #### B YANIRA, , 2776-07, CBCA, 6873-4 #### [facility] ([id number]) [address] [place] [address] [id number] PROTEIN SYDNEY 30 mg/dL Abnormal NEG [facility] Comment on above: Performed By: #### B YANIRA, , 2776-07, CBCA, 6873-4 #### [facility] ([id number]) [address] [place] [address] 71334 SPECIFIC GRAVITY SYDNEY 1.025 Normal 1.003-1.035 [facility] Comment on above: Performed By: #### B YANIRA, , 2776-07, CBCA, 6873-4 #### [facility] ([id number]) [address] [place] [address] 77426 UROBILINOGEN SYDNEY 0.2 eu/dL Normal <1.1 [facility] Comment on above: Performed By: #### B YANIRA, , 2776-07, CBCA, 6873-4 #### [facility] ([id number]) [address] [place] [address] 64483 VENOUS BLOOD GASon 4 ROMAN'S TEST Normal [facility] Comment on above: Performed By: #### B YANIRA, , 2776-07, CBCA, 6873-4 #### [facility] ([id number]) [address] [place] [address] 61172 BASE,DEFICIT 23.0 MMOL/L High 0.0-2.0 [facility] Comment on above: Performed By: #### B YANIRA, , 2776-07, CBCA, 6873-4 #### [facility] ([id number]) [address] [place] [address] 86919 Body temperature 98.6 [degF] Normal 37.0 [facility] Comment on above: Performed By: #### B YANIRA, , 2776-07, CBCA, 6873-4 #### [facility] ([id number]) [address] [place] [address] 01012 HCO3 (Bld) [Moles/Vol] 5.7 mmol/L Low 20.0-24.0 [facility] Comment on above: Performed By: #### Pura DOYLE, , 2776-07, CBCA, 6873-4 #### [facility] ([id number]) [address] [place] [address] 94629 INSP. O2 CONC. 21 % [facility] Comment on above: Performed By: #### Pura DOYLE, , 2776-07, CBCA, 6873-4 #### [facility] ([id number]) [address] [place] [address] 42970 Oxygen saturation in Blood 69.0 % Low >80.0 [facility] Comment on above: Performed By: #### Pura DOYLE, , 2776-07, CBCA, 6873-4 #### [facility] ([id number]) [address] [place] [address] 91986 OXYGEN SOURCE [employer]Air [facility] Comment on above: Performed By: #### Pura DOYLE, , 2776-07, CBCA, 6873-4 #### [facility] ([id number]) [address] [place] [address] 26393 PCO2, VENOUS 20.9 MMHG Low 35-50 [facility] Comment on above: Performed By: #### Pura DOYLE, , 2776-07, CBCA, 6873-4 #### [facility] ([id number]) [address] [place] [address] 71572 PH, VENOUS 7.046 Low 7.320-7.420 [facility] Comment on above: Performed By: #### B YANIRA, 51273-4, 2776-, CBCA, 6873-4 #### [facility] ([id number]) [address] [place] [address] 53293 PO2, VENOUS 50 MMHG Normal 30-50 [facility] Comment on above: Performed By: #### B YANIRA, 18527-3, 2776-, CBCA, 6873-4 #### [facility] ([id number]) [address] [place] [address] 29288 SAMPLE SITE N/A Normal [facility] Comment on above: Performed By: #### Pura DOYLE, 05211-8, 2776-, CBCA, 6873-4 #### [facility] ([id number]) [address] [place] [address] 87129 SAMPLE TYPE VENOUS Normal [facility] Comment on above: Performed By: #### B YANIRA, 45671-3, 2776-, CBCA, 6873-4 #### [facility] ([id number]) [address] [place] [address] 05763 CBC AND AUTO DIFFon 07-06-19 Erythrocyte distribution width (RBC) [Ratio] 14.3 % Normal 11.5-15.0 [facility] Comment on above: Performed By: #### B YANIRA, 46303-8, 2776-, CBCA, 6873-4 #### [facility] ([id number]) [address] [place] [address] 11465 Hematocrit (Bld) [Volume fraction] 43.2 % Normal 39-49 [facility] Comment on above: Performed By: #### Pura DOYLE, 14449-3, 2776-, CBCA, 6873-4 #### [facility] ([id number]) [address] [place] [address] 53608 Hemoglobin (Bld) [Mass/Vol] 14.5 g/dL Normal 13.0-17.0 [facility] Comment on above: Performed By: #### B YANIRA, , 2776-07, CBCA, 6873-4 #### [facility] ([id number]) [address] [place] [address] 34582 Lymphocytes (Bld) [#/Vol] 5.0 10*3/uL High 1.0-3.5 [facility] Comment on above: Performed By: #### B YANIRA, , 2776-07, CBCA, 6873-4 #### [facility] ([id number]) [address] [place] [address] 62544 Lymphocytes/100 WBC (Bld) 45.0 % Normal [facility] Comment on above: Performed By: #### B YANIRA, , 2776-07, CBCA, 6873-4 #### [facility] ([id number]) [address] [place] [address] 35209 MCH (RBC) [Entitic mass] 30.6 pg Normal 27-34 [facility] Comment on above: Performed By: #### Pura DOYLE, , 2776-07, CBCA, 6873-4 #### [facility] ([id number]) [address] [place] [address] 37120 MCHC (RBC) [Mass/Vol] 33.6 g/dL Normal 32-36 [facility] Comment on above: Performed By: #### B YANIRA, , 2776-07, CBCA, 6873-4 #### [facility] ([id number]) [address] [place] [address] 82664 MCV (RBC) [Entitic vol] 91 fL Normal 80-100 [facility] Comment on above: Performed By: #### B YANIRA, 84704-8, 2776-07, CBCA, 6873-4 #### [facility] ([id number]) [address] [place] [address] 06265 Monocytes (Bld) [#/Vol] 0.2 10*3/uL Normal 0-0.9 [facility] Comment on above: Performed By: #### Pura DOYLE, , 2776-07, CBCA, 6873-4 #### [facility] ([id number]) [address] [place] [address] 71990 Monocytes/100 WBC (Bld) 2.0 % Normal [facility] Comment on above: Performed By: #### Pura DOYLE, , 2776-07, CBCA, 6873-4 #### [facility] ([id number]) [address] [place] [address] 02503 Neutrophils (Bld) [#/Vol] 6.0 10*3/uL Normal 1.5-6.6 [facility] Comment on above: Performed By: #### Pura DOYLE, , 2776-07, CBCA, 6873-4 #### [facility] ([id number]) [address] [place] [address] 75928 Platelet mean volume (Bld) [Entitic vol] 7.2 fL Normal 7-12 [facility] Comment on above: Performed By: #### B YANIRA, 94957-2, 2776-07, CBCA, 6873-4 #### [facility] ([id number]) [address] [place] [address] 35907 Platelets (Bld) [#/Vol] 432 10*3/uL Normal 150-450 [facility] Comment on above: Performed By: #### Pura DOYLE, , 2776-07, CBCA, 6873-4 #### [facility] ([id number]) [address] [place] [address] 44990 RBC COUNT 4.74 X10E12/L Normal 4.10-5.70 [facility] Comment on above: Performed By: #### B YANIRA, , 2776-07, CBCA, 6873-4 #### [facility] ([id number]) [address] [place] [address] 83750 SEG NEUTROPHIL 53.0 % Normal [facility] Comment on above: Performed By: #### B YANIRA, , 2776-07, CBCA, 6873-4 #### [facility] ([id number]) [address] [place] [address] 68912 WBC (Bld) [#/Vol] 11.2 10*3/uL High 4.0-11.0 [facility] Comment on above: Performed By: #### B YANIRA, , 2776-07, CBCA, 6873-4 #### [facility] ([id number]) [address] [place] [address] 12469 COMPREHENSIVE METABOLIC PANE Mark 07-06-2023 Albumin [Mass/Vol] 3.3 g/dL Normal 3.2-5.3 [facility] Comment on above: Performed By: #### B YANIRA, , 2776-07, CBCA, 6873-4 #### [facility] ([id number]) [address] [place] [address] 70231 ALP [Catalytic activity/Vol] 111 U/L Normal 39-130 [facility] Comment on above: Performed By: #### B YANIRA, , 2776-07, CBCA, 6873-4 #### [facility] ([id number]) [address] [place] [address] 00996 ALT [Catalytic activity/Vol] 31 U/L Normal 0-40 [facility] Comment on above: Performed By: #### B YANIRA, , 2776-07, CBCA, 6873-4 #### [facility] ([id number]) [address] [place] [address] 71433 Anion gap [Moles/Vol] 10 mmol/L Normal 5-15 [facility] Comment on above: Performed By: #### B YANIRA, , 2776-07, CBCA, 6873-4 #### [facility] ([id number]) [address] [place] [address] 39214 AST [Catalytic activity/Vol] 19 U/L Normal 0-41 [facility] Comment on above: Performed By: #### B YANIRA, , 2776-07, CBCA, 6873-4 #### [facility] ([id number]) [address] [place] [address] 13766 Bilirubin [Mass/Vol] 1.0 mg/dL Normal 0.3-1.2 [facility] Comment on above: Performed By: #### Pura DOYLE, , 2776-07, CBCA, 6873-4 #### [facility] ([id number]) [address] [place] [address] 21045 Calcium [Mass/Vol] 8.4 mg/dL Low 8.5-10.5 [facility] Comment on above: Performed By: #### Pura DOYLE, , 2776-07, CBCA, 6873-4 #### [facility] ([id number]) [address] [place] [address] 86303 Chloride [Moles/Vol] 111 mmol/L High 98-109 [facility] Comment on above: Performed By: #### Pura DOYLE, , 2776-07, CBCA, 6873-4 #### [facility] ([id number]) [address] [place] [address] 24157 CO2 [Moles/Vol] 11 mmol/L Low 22-32 [facility] Comment on above: Performed By: #### B YANIRA, , 2776-07, CBCA, 6873-4 #### [facility] ([id number]) [address] [place] [address] 92594 Creatinine [Mass/Vol] 0.87 mg/dL Normal 0.70-1.20 [facility] Comment on above: Result Comment: METH OD TRACEABLE TO IDMS STANDARD Performed By: #### B YANIRA, , 2776-07, CBCA, 6873-4 #### [facility] ([id number]) [address] [place] [address] 56887 eGFR (CKD-EPI) NON-RACE DEPENDENT >90 Normal >59 [facility] Comment on above: Result Comment: Reported eGFR is based on the CKD-EPI 2020 equation that does not use a race coefficient. Performed By: #### B YANIRA, , 2776-07, CBCA, 6873-4 #### [facility] ([id number]) [address] [place] [address] 34486 Glucose [Mass/Vol] 233 mg/dL High 65-99 [facility] Comment on above: Performed By: #### Pura DOYLE, , 2776-07, CBCA, 6873-4 #### [facility] ([id number]) [address] [place] [address] 67754 Potassium [Moles/Vol] 4.6 mmol/L Normal 3.5-5.0 [facility] Comment on above: Performed By: #### B YANIRA, , 2776-07, CBCA, 6873-4 #### [facility] ([id number]) [address] [place] [address] 78386 Protein [Mass/Vol] 7.4 g/dL Normal 6.0-8.0 [facility] Comment on above: Performed By: #### B YANIRA, , 2776-07, CBCA, 6873-4 #### [facility] ([id number]) [address] [place] [address] 36561 Sodium [Moles/Vol] 132 mmol/L Low 134-146 [facility] Comment on above: Performed By: #### B YANIRA, , 2776-07, CBCA, 6873-4 #### [facility] ([id number]) [address] [place] [address] 59925 Urea nitrogen [Mass/Vol] 15 mg/dL Normal 5-23 [facility] Comment on above: Performed By: #### Pura DOYLE, , 2776-07, CBCA, 6873-4 #### [facility] ([id number]) [address] [place] [address] 68364 Glucose Glucometer (BldC) [M ass/Vol]on 07-06-2023 Glucose [Mass/Vol] 187 mg/dL High 65-99 [facility] Glucose [Mass/Vol] 175 mg/dL High 65-99 [facility] Glucose [Mass/Vol] 213 mg/dL High 65-99 [facility] Glucose [Mass/Vol] 226 mg/dL High 65-99 [facility] Glucose [Mass/Vol] 313 mg/dL High 65-99 [facility] Glucose [Mass/Vol] 386 mg/dL High 65-99 [facility] POTASSIUMon 07-06-2023 Potassium [Moles/Vol] 4.6 mmol/L Normal 3.5-5.0 [facility] Comment on above: Performed By: #### B YANIRA, , 2776-07, CBCA, 6873-4 #### [facility] ([id number]) [address] [place] [address] 09413 URN MACROSCOPIC NURon 2023 BILIRUBIN SYDNEY Negative Normal NEG [facility] Comment on above: Performed By: #### N UM #### [facility] ([id number]) [address] [place] [address] 96637 BLOOD/HGB SYDNEY Negative Normal NEG [facility] Comment on above: Performed By: #### N UM #### [facility] ([id number]) [address] [place] [address] 72917 GLUCOSE SYDNEY 500 mg/dL Abnormal NEG [facility] Comment on above: Performed By: #### N UM #### [facility] ([id number]) [address] [place] [address] 76875 KETONES SYDNEY >=160 Abnormal NEG [facility] Comment on above: Performed By: #### N UM #### [facility] ([id number]) [address] [place] [address] 20038 LEUKOCYTE ESTERASE SYDNEY Negative Normal NEG [facility] Comment on above: Performed By: #### N UM #### [facility] ([id number]) [address] [place] [address] 74662 NITRITE SYDNEY Negative Normal NEG [facility] Comment on above: Performed By: #### N UM #### [facility] ([id number]) [address] [place] [address] 67650 PH SYDNEY 5.0 Normal 5.0-8.5 [facility] Comment on above: Performed By: #### N UM #### [facility] ([id number]) [address] [place] [address] 78937 PROTEIN SYDNEY Negative Normal NEG [facility] Comment on above: Performed By: #### N UM #### [facility] ([id number]) [address] [place] [address] 81746 SPECIFIC GRAVITY SYDNEY 1.010 Normal 1.003-1.035 [facility] Comment on above: Performed By: #### N UM #### [facility] ([id number]) [address] [place] [address] 14142 UROBILINOGEN SYDNEY 0.2 eu/dL Normal <1.1 [facility] Comment on above: Performed By: #### N UM #### [facility] ([id number]) [address] [place] [address] 03288 BASIC METABOLIC PANLon 07-05 Anion gap [Moles/Vol] 20 mmol/L High 5-15 [facility] Comment on above: Performed By: #### B YANIRA, , 2776-07, CBCA, 6873-4 #### [facility] ([id number]) [address] [place] [address] 59290 Calcium [Mass/Vol] 9.6 mg/dL Normal 8.5-10.5 [facility] Comment on above: Performed By: #### B YANIRA, , 2776-07, CBCA, 6873-4 #### [facility] ([id number]) [address] [place] [address] 57147 Chloride [Moles/Vol] 97 mmol/L Low 98-109 [facility] Comment on above: Performed By: #### B YANIRA, , 2776-07, CBCA, 6873-4 #### [facility] ([id number]) [address] [place] [address] 26490 CO2 [Moles/Vol] 12 mmol/L Low 22-32 [facility] Comment on above: Performed By: #### B YANIRA, , 2776-07, CBCA, 6873-4 #### [facility] ([id number]) [address] [place] [address] 66879 Creatinine [Mass/Vol] 1.37 mg/dL High 0.70-1.20 [facility] Comment on above: Result Comment: METH OD TRACEABLE TO IDMS STANDARD Performed By: #### B YANIRA, , 2776-07, ADAM, 6873-4 #### [facility] ([id number]) [address] [place] [address] 94704 GFR/1.73 sq M.predicted among non-blacks MDRD (S/P/Bld) [Vol rate/Area] 74 mL/min/{1.73_m2} Normal >59 [facility] Comment on above: Result Comment: Reported eGFR is based on the CKD-EPI 2020 equation that does not use a race coefficient. Performed By: #### B YANIRA, , 2776-07, ADAM, 6873-4 #### [facility] ([id number]) [address] [place] [address] 18158 Glucose [Mass/Vol] 714 mg/dL Critically high 65-99 [facility] Comment on above: Performed By: #### B YANIRA, , 2776-07, ADAM, 6873-4 #### [facility] ([id number]) [address] [place] [address] 13005 Potassium [Moles/Vol] 5.4 mmol/L High 3.5-5.0 [facility] Comment on above: Performed By: #### B YANIRA, , 2776-07, ADAM, 6873-4 #### [facility] ([id number]) [address] [place] [address] 16598 Sodium [Moles/Vol] 129 mmol/L Low 134-146 [facility] Comment on above: Performed By: #### B YANIRA, , 2776-07, ADAM, 6873-4 #### [facility] ([id number]) [address] [place] [address] 30957 Urea nitrogen [Mass/Vol] 22 mg/dL Normal 5-23 [facility] Comment on above: Performed By: #### B YANIRA, , 2776-07, CBCA, 6873-4 #### [facility] ([id number]) [address] [place] [address] 32375 Beta hydroxybutyrate [Moles/ Vol]on 07-05-2023 BetaHydroxybutyrate 8.80 mmol/L High 0.02-0.27 [facility] Comment on above: Performed By: #### B YANIRA, , 2776-07, CBCA, 6873-4 #### [facility] ([id number]) [address] [place] [address] 82272 CBC AND AUTO DIFFon 07-05-19 24 ABSOLUTE BASOPHIL 0.1 X10E9/L Normal 0.0-0.2 [facility] Comment on above: Performed By: #### B YANIRA, , 2776-07, CBCA, 6873-4 #### [facility] ([id number]) [address] [place] [address] 06353 ABSOLUTE NEUTROPHIL 6.0 X10E9/L Normal 1.5-6.6 [facility] Comment on above: Performed By: #### B YANIRA, , 2776-07, CBCA, 6873-4 #### [facility] ([id number]) [address] [place] [address] 70832 Basophils/100 WBC (Bld) 0.8 % Normal [facility] Comment on above: Performed By: #### B YANIRA, , 2776-07, CBCA, 6873-4 #### [facility] ([id number]) [address] [place] [address] 33983 Eosinophils (Bld) [#/Vol] 0.0 10*3/uL Normal 0.0-0.4 [facility] Comment on above: Performed By: #### B YANIRA, , 2776-07, CBCA, 6873-4 #### [facility] ([id number]) [address] [place] [address] 66217 Eosinophils/100 WBC (Bld) 0.2 % Normal [facility] Comment on above: Performed By: #### B YANIRA, , 2776-07, CBCA, 6873-4 #### [facility] ([id number]) [address] [place] [address] 92735 Erythrocyte distribution width (RBC) [Ratio] 14.6 % Normal 11.5-15.0 [facility] Comment on above: Performed By: #### Pura DOYLE, , 2776-07, CBCA, 6873-4 #### [facility] ([id number]) [address] [place] [address] 79096 Hematocrit (Bld) [Volume fraction] 49.3 % High 39-49 [facility] Comment on above: Performed By: #### B YANIRA, , 2776-07, CBCA, 6873-4 #### [facility] ([id number]) [address] [place] [address] 50257 Hemoglobin (Bld) [Mass/Vol] 16.0 g/dL Normal 13.0-17.0 [facility] Comment on above: Performed By: #### B YANIRA, , 2776-07, CBCA, 6873-4 #### [facility] ([id number]) [address] [place] [address] 65089 Lymphocytes (Bld) [#/Vol] 3.3 10*3/uL Normal 1.0-3.5 [facility] Comment on above: Performed By: #### B YANIRA, , 2776-07, CBCA, 6873-4 #### [facility] ([id number]) [address] [place] [address] 63592 Lymphocytes/100 WBC (Bld) 34.1 % Normal [facility] Comment on above: Performed By: #### Pura DOYLE, , 2776-07, CBCA, 6872-4 #### [facility] ([id number]) [address] [place] [address] 75815 MCH (RBC) [Entitic mass] 30.8 pg Normal 27-34 [facility] Comment on above: Performed By: #### Pura DOYLE, , 2776-07, CBCA, 6872-4 #### [facility] ([id number]) [address] [place] [address] 38198 MCHC (RBC) [Mass/Vol] 32.5 g/dL Normal 32-36 [facility] Comment on above: Performed By: #### Pura DOYLE, , 2776-07, CBCA, 6872- #### [facility] ([id number]) [address] [place] [address] 06270 MCV (RBC) [Entitic vol] 95 fL Normal 80-100 [facility] Comment on above: Performed By: #### Pura DOYLE, , 2776-07, CBCA, 73-4 #### [facility] ([id number]) [address] [place] [address] 75328 Monocytes (Bld) [#/Vol] 0.3 10*3/uL Normal 0-0.9 [facility] Comment on above: Performed By: #### Pura DOYLE, , 2776-07, CBCA, 73- #### [facility] ([id number]) [address] [place] [address] 16712 Monocytes/100 WBC (Bld) 3.6 % Normal [facility] Comment on above: Performed By: #### Pura DOYLE, , 2776-07, CBCA, 6872- #### [facility] ([id number]) [address] [place] [address] 82680 Neutrophils/100 WBC (Bld) 61.3 % Normal [facility] Comment on above: Performed By: #### B YANIRA, , 2776-07, CBCA, 6873-4 #### [facility] ([id number]) [address] [place] [address] 98588 Platelet mean volume (Bld) [Entitic vol] 8.0 fL Normal 7-12 [facility] Comment on above: Performed By: #### Pura DOYLE, , 2776-07, CBCA, 6873-4 #### [facility] ([id number]) [address] [place] [address] 16533 Platelets (Bld) [#/Vol] 446 10*3/uL Normal 150-450 [facility] Comment on above: Performed By: #### Pura DOYLE, , 2776-07, CBCA, 6873-4 #### [facility] ([id number]) [address] [place] [address] 10566 RBC COUNT 5.21 X10E12/L Normal 4.10-5.70 [facility] Comment on above: Performed By: #### Pura DOYLE, , 2776-07, CBCA, 6873-4 #### [facility] ([id number]) [address] [place] [address] 08407 WBC (Bld) [#/Vol] 9.7 10*3/uL Normal 4.0-11.0 [facility] Comment on above: Performed By: #### Pura DOYLE, , 2776-07, CBCA, 6873-4 #### [facility] ([id number]) [address] [place] [address] 08493 Glucose Glucometer (BldC) [M ass/Vol]on 07-05-2023 BEDSIDE GLUCOSE LAB >500 Critically high 65-99 [facility] Comment on above: Result Comment: SEE LAB RESULTS FOR CONFIRMATION MAGNESIUMon 07-05-2023 Magnesium [Mass/Vol] 2.5 mg/dL Normal 1.8-2.6 [facility] Comment on above: Performed By: #### B YANIRA, 45260-1, 2777-1, CBCA, 6873-4 #### [facility] ([id number]) [address] [place] [address] 92724 PHOSPHORUSon 07-05-2023 Phosphate [Mass/Vol] 5.0 mg/dL High 2.4-4.9 [facility] Comment on above: Performed By: #### B YANIRA, 68495-8, 2777-1, CBCA, 6873-4 #### [facility] ([id number]) [address] [place] [address] 09912 VENOUS BLOOD GASon 4 ROMAN'S TEST Normal [facility] Comment on above: Performed By: #### V BG #### [facility] ([id number]) [address] [place] [address] 10207 BASE,DEFICIT 19.0 MMOL/L High 0.0-2.0 [facility] Comment on above: Performed By: #### V BG #### [facility] ([id number]) [address] [place] [address] [place] [address] Body temperature 98.6 [degF] Normal 37.0 [facility] Comment on above: Performed By: #### V BG #### [facility] ([id number]) [address] [place] [address] 19770 HCO3 (Bld) [Moles/Vol] 9.3 mmol/L Low 20.0-24.0 [facility] Comment on above: Performed By: #### V BG #### [facility] ([id number]) [address] [place] [address] [place] [address] INSP. O2 CONC. 21 % Normal [facility] Comment on above: Performed By: #### V BG #### [facility] ([id number]) [address] [place] [address], [place] [address] Oxygen saturation in Blood 64.0 % Low >80.0 [facility] Comment on above: Performed By: #### V BG #### [facility] ([id number]) [address] [place] [address] [place] [address] OXYGEN SOURCE [employer]Air Normal [facility] Comment on above: Performed By: #### V BG #### [facility] ([id number]) [address] [place] [address] [place] [address] PCO2, VENOUS 28.3 MMHG Low 35-50 [facility] Comment on above: Performed By: #### V BG #### [facility] ([id number]) [address] [place] [address] [place] [address] PH, VENOUS 7.126 Low 7.320-7.420 [facility] Comment on above: Performed By: #### V BG #### [facility] ([id number]) [address] [place] [address] [place] [address] PO2, VENOUS 43 MMHG Normal 30-50 [facility] Comment on above: Performed By: #### V BG #### [facility] ([id number]) [address] [place] [address], [place] [address] SAMPLE SITE N/A Normal [facility] Comment on above: Performed By: #### V BG #### [facility] ([id number]) [address] [place] [address] [place] [address] SAMPLE TYPE VENOUS Normal [facility] Comment on above: Performed By: #### V BG #### [facility] ([id number]) [address] [place] [address], [place] [address] CT HEAD WO CONon 12-12-2021 CT HEAD [...] protocol MRI would be recommended. Normal [facility] ACETAMINOPHENon 12-07-2021 Acetaminophen [Mass/Vol] ug/mL Critically low 10.0-30 .0 [facility] Comment on above: Performed By: #### A CET #### [facility] [address] [place] [address] Dr. Miguel Ferrara CBC AUTO DIFFon 12-07-2021 BASO # 0.1 103/ul Normal 0.0-0.1 [facility] Comment on above: Performed By: #### C BC #### [facility] [address] [place] [address] Dr. Miguel Ferrara Basophils/100 WBC (Bld) 0.8 % Normal 0.2-2.0 [facility] [place] Comment on above: Performed By: #### C BC #### [facility] [address] [place] [address] Dr. Miguel Ferrara EO # 0.1 103/ul Normal 0.0-0.7 [facility] Comment on above: Performed By: #### C BC #### [facility] [address] [place] [address] Dr. Miguel Ferrara Eosinophils/100 WBC (Bld) 1.2 % Normal 0.9-7.0 [facility] Comment on above: Performed By: #### C BC #### [facility] [address] [place] [address] Dr. Miguel Ferrara Erythrocyte distribution width (RBC) [Ratio] 12.8 % Normal 11.0-15.0 [facility] Comment on above: Performed By: #### C BC #### [facility] [address] [place] [address] Dr. Miguel Ferrara Hematocrit (Bld) [Volume fraction] 39.8 % Critically low 42.0-54.0 [facility] Comment on above: Performed By: #### C BC #### [facility] [address] [place] [address] Dr. Miguel Ferrara Hemoglobin (Bld) [Mass/Vol] 13.2 g/dL Critically low 14.0-18.0 [facility] Comment on above: Performed By: #### C BC #### [facility] [address] [place] [address] Dr. Miguel Ferrara IG # 0.02 10e3/ul Normal 0.00-0.03 [facility] Comment on above: Performed By: #### C BC #### [facility] [address] [place] [address] Dr. Miguel Ferrara IG % 0.3 % Normal 0.0-0.5 [facility] Comment on above: Performed By: #### C BC #### [facility] [address] [place] [address] Dr. Miguel Ferrara LYMPH # 2.9 103/ul Normal 1.2-3.8 [facility] Comment on above: Performed By: #### C BC #### [facility] [address] [place] [address] Dr. Miguel Ferrara Lymphocytes/100 WBC (Bld) 39.0 % Normal 20.5-60.0 [facility] Comment on above: Performed By: #### C BC #### [facility] [address] [place] [address] Dr. Miguel Ferrara MANUAL DIFF REQ NO Normal [facility] Comment on above: Performed By: #### C BC #### [facility] [address] [address] [address] Miguel Ferrara MCH (RBC) [Entitic mass] 31.1 pg Normal 25.9-34.0 [facility] Comment on above: Performed By: #### C BC #### [facility] [address] [place] [address] Dr. Miguel Ferrara MCHC (RBC) [Mass/Vol] 33.2 g/dL Normal 29.9-35.2 [facility] Comment on above: Performed By: #### C BC #### [facility] [address] [place] [address] Dr. Miguel Ferrara MCV (RBC) [Entitic vol] 93.6 fL Normal 80.0-94.0 [facility] [place] Comment on above: Performed By: #### C BC #### [facility] [address] [place] [address] Dr. Miguel Ferrara MONO # 0.6 103/ul Normal 0.3-0.8 [facility] Comment on above: Performed By: #### C BC #### [facility] [address] [place] [address] Dr. Miguel Ferrara Monocytes/100 WBC (Bld) 8.4 % Normal 1.7-12.0 [facility] [place] Comment on above: Performed By: #### C BC #### [facility] [address] [place] [address] Dr. Miguel Ferrara NEUT # 3.7 103/ul Normal 1.4-6.5 [facility] Comment on above: Performed By: #### C BC #### [facility] [address] [place] [address] Dr. Miguel Ferrara Neutrophils/100 WBC (Bld) 50.3 % Normal 43.0-75.0 [facility] Comment on above: Performed By: #### C BC #### [facility] [address] [place] [address] Dr. Miguel Ferrara Platelet mean volume (Bld) [Entitic vol] 8.6 fL Critically low 9.5-13.5 [facility] Comment on above: Performed By: #### C BC #### [facility] [address] [address] [address] Miguel Ferrara PLT 358 103/ul Normal 150-450 [facility] Comment on above: Performed By: #### C BC #### [facility] [address] [address] [address] Miguel Ferrara RBC 4.25 106/ul Critically low 4.70-6.10 [facility] Comment on above: Performed By: #### C BC #### [facility] [address] [address] [address] Miguel Ferrara WBC 7.3 103/ul Normal 4.0-11.0 [facility] Comment on above: Performed By: #### C BC #### [facility] [address] [place] [address] Dr. Miguel Ferrara Covid-19 PCR (CVDTBH)on SARS-CoV-2 (COVID-19) RNA NESSA+probe Ql (Unsp spec) Not detected Normal NOT DETECTED [facility] Comment on above: Result Comment: When diagnostic [...] for this test is supported by the [employer] of Health and Human Service's declaration that [...] used). Performed By: #### C VDTBH #### [facility] [address] [place] [address] Dr. Miguel Ferrara ETHANOL (BLD ALC)on 12-08-19 22 ALC NOTE NOTE: 80 mg/dl is the legal limit for a blood alcohol level Normal [facility] Comment on above: Performed By: #### E TH #### [facility] [address] [place] [address] Dr. Miguel Ferrara Ethanol [Mass/Vol] mg/dL Normal [facility] [place] Comment on above: Performed By: #### E TH #### [facility] [address] [place] [address] Dr. Miguel Ferrara POINT OF CARE GLUCOSEon 06 Glucose [Mass/Vol] 311 mg/dL Critically high 74-106 [facility] [place] Comment on above: Performed By: #### P OCGLUC #### [facility] [address] [place] [address] Dr. Miguel Ferrara PROF 14(COMP METB)on 022 Albumin [Mass/Vol] 3.5 g/dL Normal 3.4-5.0 [facility] [place] Comment on above: Performed By: #### C MP #### [facility] [address] [place] [address] Dr. Miguel Ferrara Albumin/Globulin [Mass ratio] 0.9 {ratio} Normal [facility] Comment on above: Performed By: #### C MP #### [facility] [address] [place] [address] Dr. Miguel Ferrara ALP [Catalytic activity/Vol] 82 U/L Normal 46-116 [facility] Comment on above: Performed By: #### C MP #### [facility] [address] [place] [address] Dr. Miguel Ferrara ALT [Catalytic activity/Vol] 24 U/L Normal 16-63 [facility] Comment on above: Performed By: #### C MP #### [facility] [address] [place] [address] Dr. Miguel Ferrara Anion gap [Moles/Vol] 11.2 mmol/L Normal [facility] Comment on above: Performed By: #### C MP #### [facility] [address] [place] [address] Dr. Miguel Ferrara AST [Catalytic activity/Vol] 17 U/L Normal 15-37 [facility] Comment on above: Performed By: #### C MP #### [facility] [address] [address] [address] Miguel Ferrara Bilirubin [Mass/Vol] 0.6 mg/dL Normal 0.2-1.0 [facility] Comment on above: Performed By: #### C MP #### [facility] [address] [address] [address] Miguel Ferrara Calcium [Mass/Vol] 8.9 mg/dL Normal 8.5-10.1 [facility] [place] Comment on above: Performed By: #### C MP #### [facility] [address] [place] [address] Dr. Miguel Ferrara Chloride [Moles/Vol] 100 mmol/L Normal 98-107 [facility] Comment on above: Performed By: #### C MP #### [facility] [address] [address] [address] Miguel Ferrara CO2 [Moles/Vol] 28.4 mmol/L Normal 21.0-32.0 [facility] Comment on above: Performed By: #### C MP #### [facility] [address] [place] [address] Dr. Miguel Ferrara Creatinine [Mass/Vol] 1.30 mg/dL Normal 0.70-1.30 [facility] Comment on above: Performed By: #### C MP #### [facility] [address] [place] [address] Dr. Miguel Ferrara EGFR-AF CITIZEN [place] >60 Normal >=60 [facility] Comment on above: Performed By: #### C MP #### [facility] [address] [place] [address] Dr. Miguel Ferrara EGFR-NON AF CITIZEN OF [place] >60 Normal >=60 [facility] Comment on above: Performed By: #### C MP #### [facility] [address] [place] [address] Dr. Miguel Ferrara Globulin (S) [Mass/Vol] 4.0 g/dL Normal [facility] Comment on above: Performed By: #### C MP #### [facility] [address] [address] [address] Miguel Ferrara Glucose [Mass/Vol] 339 mg/dL Critically high 74-106 [facility] [place] Comment on above: Performed By: #### C MP #### [facility] [address] [address] [address] Migeul Ferrara Potassium [Moles/Vol] 3.6 mmol/L Normal 3.5-5.1 [facility] Comment on above: Performed By: #### C MP #### [facility] [address] [address] [address] Miguel Ferrara Protein [Mass/Vol] 7.5 g/dL Normal 6.4-8.2 [facility] [place] Comment on above: Performed By: #### C MP #### [facility] [address] [address] [address] Miguel Ferrara Sodium [Moles/Vol] 136 mmol/L Normal 136-145 [facility] [place] Comment on above: Performed By: #### C MP #### [facility] [address] [address] [address] Miguel Ferrara Urea nitrogen [Mass/Vol] 15.0 mg/dL Normal 7.0-18.0 [facility] Comment on above: Performed By: #### C MP #### [facility] [address] [address] [address] Miguel Ferrara Urea nitrogen/Creatinine [Mass ratio] 11.5 mg/mg Normal [facility] Comment on above: Performed By: #### C MP #### [facility] [address] [address] [address] Miguel Ferrara SALICYLATEon 12-07-2021 SALICYLATE <2.8 Normal <=19.9 [facility] Comment on above: Performed By: #### S ALYC #### [facility] [address] [address] [address] Miguel Ferrara FREE T4on 03-23-2020 Free T4 [Mass/Vol] 0.73 ng/dL Normal 0.61-1.[address] [facility] Diabetes [facility] Comment on above: Result Comment: Perf ormed at [facility] [address] [facility] [address] [facility] [address] [place] [address] CLIA No. [id number] CAP Accreditation No. [id number] Email Marketing Manager: Jacob Corbin M.D. Performed By: #### 1 6203, 43808, 222 #### [facility] Unless Otherwise Noted [address] [address] / COLA #4724/CLIA # [id number] LIPID PANEL WITH REFLEX TO D IRECT LDLon 03-23-2020 Cholesterol [Mass/Vol] 168 mg/dL Normal 150-200 [facility] Comment on above: Performed By: #### 1 0813, 60848, 222 #### [facility] Unless Otherwise Noted [address] [address] / COLA #7424/CLIA # [id number] Cholesterol in LDL/Cholesterol in HDL [Mass ratio] 1.4 Normal <3.5 [facility] Comment on above: Performed By: #### 1 7373, 45777, 222 #### [facility] Unless Otherwise Noted [address] [address] / [facility]A #8024/CLIA # [id number] Cholesterol.total/Choles terol in HDL [Mass ratio] 2.8 {ratio} Normal 1.0-5.0 [facility] Comment on above: Result Comment: Test performed at [facility] [address] [facility] [place] [address] CLIA Number [id number] -------- Performed By: #### 1 2884, 30483, 222 #### [facility] Unless Otherwise Noted [address] [address] / COLA #4724/CLIA # [id number] HDL-CHOL 59 mg/dL Normal >39 [facility] Comment on above: Result Comment: HDL <40 mg/dL - High Risk HDL > or = 40mg/dL- Desirable HDL >60 mg/dL - Negative Risk Performed By: #### 1 6130, 34279, 222 #### [facility] Unless Otherwise Noted [address] [address] / COLA #4233/CLIA # [id number] LDL-CHOL, CALCULATED 81 mg/dL Normal <130 [facility] Comment on above: Result Comment: LDL <100 mg/dL - Desirable LDL >160 mg/dL - High Risk Performed By: #### 1 6122, 37435, 222 #### [facility] Unless Otherwise Noted [address] [facility] [address] [place] [address] / COLA #3812/CLIA # [id number] Triglyceride [Mass/Vol] 141 mg/dL Normal 27-150 E [facility] Diabetes [facility] Comment on above: Performed By: #### 1 5249, 11483, 222 #### [facility] Unless Otherwise Noted [address] [facility] [address] [place] [address] / COLA #4724/CLIA # [id number] VLDL-CHOL, CALCULATED 28 mg/dL Normal 0-30 End [facility] Diabetes [facility] Comment on above: Performed By: #### 1 6203, 26767, 222 #### [facility] Unless Otherwise Noted [address] [facility] [address] [place] [address] / COLA #4724/CLIA # [id number] TSHon 03-23-2020 TSH Qn 1.51 uIU/mL Normal 0.49-4.67 [facility] Comment on above: Result Comment: Perf ormed at [facility] [address] [facility] [address] Performed By: #### 1 0523, 90717, 222 #### [facility] Unless Otherwise Noted [address] [facility] [address] [place] [address] / COLA #4724/CLIA # [id number] POC Glucose Fingerstickon Glucose [Mass/Vol] 192 mg/dL High 75 - 110 mg/dL [place] Interpretation and review of laboratory results Abnormal [place] CBC auto differentialon Basophils (Bld) [#/Vol] 0.00 10*3/uL [place] Basophils/100 WBC (Bld) 1 % 0 - 2 % M [place], [place] Differential Type NOT REPORTED [place] Eosinophils (Bld) [#/Vol] 0.10 10*3/uL [place] Eosinophils/100 WBC (Bld) 3 % 0 - 4 % [place] Erythrocyte distribution width (RBC) [Ratio] 13.8 % 11.5 - 14.9 % [place], [place] Hematocrit (Bld) [Volume fraction] 42.9 % 41 - 53 % [place] Hemoglobin (Bld) [Mass/Vol] 14.5 g/dL 13.5 - 17.5 g/dL [place] Lymphocytes (Bld) [#/Vol] 1.80 10*3/uL [place] Lymphocytes/100 WBC (Bld) 38 % 25 - 45 % [place] MCH (RBC) [Entitic mass] 32.1 pg 25 - 35 pg [place] MCHC (RBC) [Mass/Vol] 33.9 g/dL 31 - 37 g/dL [place] MCV (RBC) [Entitic vol] 94.6 fL 78 - 102 fL [place] Monocytes (Bld) [#/Vol] 0.30 10*3/uL [place] Monocytes/100 WBC (Bld) 7 % 2 - 8 % [place], [place] Platelet mean volume (Bld) [Entitic vol] 7.0 fL 6 - 12 fL [place], [place] Platelets (Bld) [#/Vol] NOT REPORTED [place] Platelets (Bld) [#/Vol] 292 10*3/uL [place] RBC (Bld) [#/Vol] 4.54 10*6/uL 4.5 - 5.9 m/uL [place] RBC morphology finding Nom (Bld) NOT REPORTED [place] Segmented neutrophils/100 WBC (Bld) 51 % 34 - 64 % [place] Segs Absolute 2.50 [place], [place] WBC (Bld) [#/Vol] NOT REPORTED per 100 WBC [place] WBC (Bld) [#/Vol] 4.8 10*3/uL [place] WBC Morphology NOT REPORTED [place], [place] CBC with Diffon 04-04-2019 Abs. Basophil 0.00 k/uL Normal 0.0-0.2 [facility] Comment on above: Performed By: #### C DP, CMPX, FT4, LIPR, TSH #### [facility] [address] [place] [address] Food Manager: French Martínez DO #### GLYHGB #### [address] [address] Food Manager: Archie Erickson MD Abs.Neutrophil (Seg) 2.50 k/uL Normal 1.3-9.1 [facility] Comment on above: Performed By: #### C DP, CMPX, FT4, LIPR, TSH #### [facility] [address] [place] [address] Food Manager: French Martínez DO #### GLYHGB #### [address] [address] Food Manager: Archie Erickson MD Basophils/100 WBC (Bld) 1 % Normal 0-2 [facility] Comment on above: Performed By: #### C DP, CMPX, FT4, LIPR, TSH #### [facility] [place] [address] Food Manager: French Martínez DO #### GLYHGB #### [address] [address] Food Manager: Archie Erickson MD Eosinophils (Bld) [#/Vol] 0.10 10*3/uL Normal 0.0-0.4 [facility] Comment on above: Performed By: #### C DP, CMPX, FT4, LIPR, TSH #### [facility] [address] [place] [address] Food Manager: French Martínez DO #### GLYHGB #### [address] [address] Food Manager: Archie Erickson MD Eosinophils/100 WBC (Bld) 3 % Normal 0-4 [facility] Comment on above: Performed By: #### C DP, CMPX, FT4, LIPR, TSH #### [facility] [place] [address] Food Manager: French Martínez DO #### GLYHGB #### [address] [address] Food Manager: Archie Erickson MD Erythrocyte distribution width (RBC) [Ratio] 13.8 % Normal 11.5-14.9 [facility] Comment on above: Performed By: #### C DP, CMPX, FT4, LIPR, TSH #### [facility] [address] [place] [address] Food Manager: French Martínez DO #### GLYHGB #### [address] [address] Food Manager: Archie Erickson MD Hematocrit (Bld) [Volume fraction] 42.9 % Normal 41-53 [facility] Comment on above: Performed By: #### C DP, CMPX, FT4, LIPR, TSH #### [facility] [address] [place] [address] Food Manager: French Martínez DO #### GLYHGB #### [address] [address] Food Manager: Archie Erickson MD Hemoglobin (Bld) [Mass/Vol] 14.5 g/dL Normal 13.5-17.5 [facility] Comment on above: Performed By: #### C DP, CMPX, FT4, LIPR, TSH #### [facility] [address] [place] [address] Food Manager: French Martínez DO #### GLYHGB #### [address] [address] Food Manager: Archie Erickson MD Lymphocytes (Bld) [#/Vol] 1.80 10*3/uL Normal 1.2-5.2 [facility] Comment on above: Performed By: #### C DP, CMPX, FT4, LIPR, TSH #### [facility] [address] [place] [address] Food Manager: French Martínez DO #### GLYHGB #### [address] [address] Food Manager: Archie Erickson MD Lymphocytes/100 WBC (Bld) 38 % Normal 25-45 [facility] Comment on above: Performed By: #### C DP, CMPX, FT4, LIPR, TSH #### [facility] [address] [place] [address] Food Manager: French Martínez DO #### GLYHGB #### [address] [address] Food Manager: Archie Erickson MD MCH (RBC) [Entitic mass] 32.1 pg Normal 25-35 [facility] Comment on above: Performed By: #### C DP, CMPX, FT4, LIPR, TSH #### [facility] [place] [address] Food Manager: French Martínez DO #### GLYHGB #### [address] [address] Food Manager: Archie Erickson MD MCHC (RBC) [Mass/Vol] 33.9 g/dL Normal 31-37 [facility] Comment on above: Performed By: #### C DP, CMPX, FT4, LIPR, TSH #### [facility] [place] [address] Food Manager: French Martínez DO #### GLYHGB #### [address] [address] Food Manager: Archie Erickson MD MCV (RBC) [Entitic vol] 94.6 fL Normal 78-102 M [facility] Comment on above: Performed By: #### C DP, CMPX, FT4, LIPR, TSH #### [facility] [address] [place] [address] Food Manager: French Martínez DO #### GLYHGB #### [address] [address] Food Manager: Archie Erickson MD Monocytes (Bld) [#/Vol] 0.30 10*3/uL Normal 0.1-1.3 [facility] Comment on above: Performed By: #### C DP, CMPX, FT4, LIPR, TSH #### [facility] [address] [place] [address] Food Manager: French Martínez DO #### GLYHGB #### [address] [address] Food Manager: Archie Erickson MD Monocytes/100 WBC (Bld) 7 % Normal 2-8 [facility] Comment on above: Performed By: #### C DP, CMPX, FT4, LIPR, TSH #### [facility] [address] [place] [address] Food Manager: French Martínez DO #### GLYHGB #### [address] [address] Food Manager: Archie Erickson MD Neutrophil (Seg) 51 % Normal 34-64 [facility] Comment on above: Performed By: #### C DP, CMPX, FT4, LIPR, TSH #### [facility] [address] [place] [address] Food Manager: French Martínez DO #### GLYHGB #### [address] [address] Food Manager: Archie Erickson MD Platelet mean volume (Bld) [Entitic vol] 7.0 fL Normal 6.0-12.0 [facility] Comment on above: Performed By: #### C DP, CMPX, FT4, LIPR, TSH #### [facility] [address] [place] [address] Food Manager: French Martínez DO #### GLYHGB #### [address] [address] Food Manager: Archie Erickson MD Platelets (Bld) [#/Vol] 292 10*3/uL Normal 150-450 [facility] Comment on above: Performed By: #### C DP, CMPX, FT4, LIPR, TSH #### [facility] [place] [address] Food Manager: French Martínez DO #### GLYHGB #### [address] [address] Food Manager: Archie Erickson MD RBC (Bld) [#/Vol] 4.54 10*6/uL Normal 4.5-5.9 [facility] Comment on above: Performed By: #### C DP, CMPX, FT4, LIPR, TSH #### [facility] [address] [place] [address] Food Manager: French Martínez DO #### GLYHGB #### [address] [address] Food Manager: Archie Erickson MD WBC (Bld) [#/Vol] 4.8 10*3/uL Normal 4.5-13.5 [facility] Comment on above: Performed By: #### C DP, CMPX, FT4, LIPR, TSH #### [facility] [address] [place] [address] Food Manager: French Martínez DO #### GLYHGB #### [address] [address] Food Manager: Archie Erickson MD Abs.Imm.Granulocyte NOT REPORTED Normal 0.00-0.30 [facility] Comment on above: Performed By: #### C DP, CMPX, FT4, LIPR, TSH #### [facility] [address] [place] [address] Food Manager: French Martínez DO #### GLYHGB #### [address] [address] Food Manager: Archie Erickson MD Auto Diff Performed NOT REPORTED Normal [facility] Comment on above: Performed By: #### C DP, CMPX, FT4, LIPR, TSH #### [facility] [address] [place] [address] Food Manager: French Martínez DO #### GLYHGB #### [address] [address] Food Manager: Archie Erickson MD Immature granulocytes (Bld) [#/Vol] NOT REPORTED Normal 0 [facility] Comment on above: Performed By: #### C DP, CMPX, FT4, LIPR, TSH #### [facility] [address] [place] [address] Food Manager: French Martínez DO #### GLYHGB #### [address] [address] Food Manager: Archie Erickson MD NRBC Automated NOT REPORTED Normal [facility] Comment on above: Performed By: #### C DP, CMPX, FT4, LIPR, TSH #### [facility] [address] [place] [address] Food Manager: Frecnh Martínez DO #### GLYHGB #### [address] [address] Food Manager: Archie Erickson MD Platelets (Bld) [#/Vol] NOT REPORTED Normal [facility] Comment on above: Performed By: #### C DP, CMPX, FT4, LIPR, TSH #### [facility] [address] [place] [address] Food Manager: French Martínez DO #### GLYHGB #### [address] [address] Food Manager: Archie Erickson MD RBC morphology finding Nom (Bld) NOT REPORTED Normal [facility] Comment on above: Performed By: #### C DP, CMPX, FT4, LIPR, TSH #### [facility] [address] [place] [address] Food Manager: French Martínez DO #### GLYHGB #### [address] [address] Food Manager: Archie Erickson MD WBC Morphology NOT REPORTED Normal [facility] Comment on above: Performed By: #### C DP, CMPX, FT4, LIPR, TSH #### [facility] [address] [place] [address] Food Manager: French Martínez DO #### GLYHGB #### [address] [address] Food Manager: Archie Erickson MD Comp Metabolic Pr/rfx MGon 1 (cont.) Normal [facility] Comment on above: Result Comment: Aver age GFR for <20 years old not available. Chronic Kidney Disease: <60 mL/min/1.73sq m Kidney failure: <15 mL/min/1.73sq m eGFR calculated using average adult body mass. Additional eGFR calculator available at: http://www.[employer]/multiple_crcl_2012.htm Performed By: #### C DP, CMPX, FT4, LIPR, TSH #### [facility] [address] [place] [address] Food Manager: French Martínez DO #### GLYHGB #### [address] [address] Food Manager: Archie Erickson MD Albumin [Mass/Vol] 3.6 g/dL Normal 3.5-5.2 [facility] Comment on above: Performed By: #### C DP, CMPX, FT4, LIPR, TSH #### [facility] [place] [address] Food Manager: French Martínez DO #### GLYHGB #### [address] [address] Food Manager: Archie Erickson MD Alkaline Phos 72 U/L Normal 40-129 [facility] Comment on above: Performed By: #### C DP, CMPX, FT4, LIPR, TSH #### [facility] [place] [address] Food Manager: French Martínez DO #### GLYHGB #### [address] [address] Food Manager: Archie Erickson MD ALT [Catalytic activity/Vol] 18 U/L Normal 5-41 [facility] Comment on above: Performed By: #### C DP, CMPX, FT4, LIPR, TSH #### [facility] [address] [place] [address] Food Manager: French Martínez DO #### GLYHGB #### [address] [address] Food Manager: Arhcie Erickson MD Anion gap [Moles/Vol] 12 mmol/L Normal 9-17 [facility] Comment on above: Performed By: #### C DP, CMPX, FT4, LIPR, TSH #### [facility] [address] [place] [address] Food Manager: French Martínez DO #### GLYHGB #### [address] [address] Food Manager: Archie Erickson MD AST [Catalytic activity/Vol] 19 U/L Normal <40 [facility] Comment on above: Performed By: #### C DP, CMPX, FT4, LIPR, TSH #### [facility] [address] [place] [address] Food Manager: French Martínez DO #### GLYHGB #### [address] [address] Food Manager: Archie Erickson MD Bilirubin Ql (U) 0.64 mg/dL Normal 0.3-1.2 [facility] Comment on above: Performed By: #### C DP, CMPX, FT4, LIPR, TSH #### [facility] [address] [place] [address] Food Manager: French Martínez DO #### GLYHGB #### [address] [address] Food Manager: Archie Ericskon MD Calcium [Mass/Vol] 9.0 mg/dL Normal 8.6-10.4 [facility] Comment on above: Performed By: #### C DP, CMPX, FT4, LIPR, TSH #### [facility] [address] [place] [address] Food Manager: French Martínez DO #### GLYHGB #### [address] [address] Food Manager: Archie Erickson MD Chloride [Moles/Vol] 101 mmol/L Normal 98-107 [facility] Comment on above: Performed By: #### C DP, CMPX, FT4, LIPR, TSH #### [facility] [address] [place] [address] Food Manager: French Martínez DO #### GLYHGB #### [address] [address] Food Manager: Archie Erickson MD CO2 [Moles/Vol] 23 mmol/L Normal 20-31 [facility] Comment on above: Performed By: #### C DP, CMPX, FT4, LIPR, TSH #### [facility] [address] [place] [address] Food Manager: French Martínez DO #### GLYHGB #### [address] [address] Food Manager: Archie Erickson MD Creatinine [Mass/Vol] 0.80 mg/dL Normal 0.70-1.20 [facility] Comment on above: Performed By: #### C DP, CMPX, FT4, LIPR, TSH #### [facility] [address] [place] [address] Food Manager: French Martínez DO #### GLYHGB #### [address] [address] Food Manager: Archie Erickson MD GFR,non Amer Pediatric GFR requires additional information. Refer to NKDEP website for Normal >60 [facility] Comment on above: Result Comment: calc ulator. Performed By: #### C DP, CMPX, FT4, LIPR, TSH #### [facility] [address] [place] [address] Food Manager: French Martínez DO #### GLYHGB #### [address] [address] Food Manager: Archie Erickson MD Glucose [Mass/Vol] 367 mg/dL High 70-99 [facility] Comment on above: Performed By: #### C DP, CMPX, FT4, LIPR, TSH #### [facility] [address] [place] [address] Food Manager: French Martínez DO #### GLYHGB #### [address] [address] Food Manager: Archie Erickson MD Potassium [Moles/Vol] 4.3 mmol/L Normal 3.7-5.3 [facility] Comment on above: Performed By: #### C DP, CMPX, FT4, LIPR, TSH #### [facility] [address] [place] [address] Food Manager: French Martínez DO #### GLYHGB #### [address] [address] Food Manager: Archie Erickson MD Protein [Mass/Vol] 6.7 g/dL Normal 6.4-8.3 [facility] Comment on above: Performed By: #### C DP, CMPX, FT4, LIPR, TSH #### [facility] [address] [place] [address] Food Manager: French Martínez DO #### GLYHGB #### [address] [address] Food Manager: Archie Erickson MD Sodium [Moles/Vol] 136 mmol/L Normal 135-144 [facility] Comment on above: Performed By: #### C DP, CMPX, FT4, LIPR, TSH #### [facility] [address] [place] [address] Food Manager: French Martínez DO #### GLYHGB #### [address] [address] Food Manager: Archie Erickson MD Urea nitrogen [Mass/Vol] 12 mg/dL Normal 6-20 [facility] Comment on above: Performed By: #### C DP, CMPX, FT4, LIPR, TSH #### [facility] [address] [place] [address] Food Manager: French Martínez DO #### GLYHGB #### [address] [address] Food Manager: Archie Erickson MD Albumin/Globulin [Mass ratio] NOT REPORTED Normal 1.0-2.5 [facility] Comment on above: Performed By: #### C DP, CMPX, FT4, LIPR, TSH #### [facility] [address] [place] [address] Food Manager: French Martínez DO #### GLYHGB #### [address] [address] Food Manager: Archie Erickson MD BUN/CRE Ratio NOT REPORTED Normal 9-20 [facility] Comment on above: Performed By: #### C DP, CMPX, FT4, LIPR, TSH #### [facility] [address] [place] [address] Food Manager: French Martínez DO #### GLYHGB #### [facility] [address] [place] [address] Food Manager: Archie Erickson MD GFR, Amer NOT REPORTED Normal >60 [facility] Comment on above: Performed By: #### C DP, CMPX, FT4, LIPR, TSH #### [facility] [address] [place] [address] Food Manager: French Martínez DO #### GLYHGB #### [address] [place], [place] [id number] Food Manager: Archie Erickson MD Staging: NOT REPORTED Normal [facility] Comment on above: Performed By: #### C DP, CMPX, FT4, LIPR, TSH #### [facility] [address] [place] [address] Food Manager: French Martínez DO #### GLYHGB #### [address] [place] [address] Food Manager: Archie Erickson MD Comprehensive Metabolic Pane l w/ Reflex to MGon 04-04-2019 Albumin [Mass/Vol] 3.6 g/dL 3.5 - 5.2 g/dL [place] Albumin/Globulin [Mass ratio] NOT REPORTED [place] ALP [Catalytic activity/Vol] 72 U/L 40 - 129 U/L [place] ALT [Catalytic activity/Vol] 18 U/L 5 - 41 U/L [place] Anion gap [Moles/Vol] 12 mmol/L 9 - 17 mmol/L [place] AST [Catalytic activity/Vol] 19 U/L <40 [place] Bilirubin Ql (U) 0.64 mg/dL 0.3 - 1.2 mg/dL [place] Bun/Cre Ratio NOT REPORTED [facility] [place] Calcium [Mass/Vol] 9.0 mg/dL 8.6 - 10. 4 mg/dL [place] Chloride [Moles/Vol] 101 mmol/L 98 - 10 7 mmol/L [place] CO2 [Moles/Vol] 23 mmol/L 20 - 31 mmol/L [place] Creatinine [Mass/Vol] 0.8 mg/dL 0.7 - 1.2 mg/dL [place] GFR NOT REPORTED >60 mL/min [place] GFR Non- Pediatric GFR requires additional information. Refer to NKDEP website for calculator. >60 mL/min [place] GFR/1.73 sq M predicted among non-blacks MDRD (S/P/Bld) [Vol rate/Area] NOT REPORTED [place] GFR/1.73 sq M predicted among non-blacks MDRD (S/P/Bld) [Vol rate/Area] [place] Comment on above: Average GFR for <20 years old not available. Chronic Kidney Disease: <60 mL/min/1.73sq m Kidney failure: <15 mL/min/1.73sq m eGFR calculated using average adult body mass. Additional eGFR calculator available at: http://www.[employer]/multiple_crcl_2011.htm Glucose [Mass/Vol] 367 mg/dL High 70 - 99 mg/dL [place], [place] Potassium [Moles/Vol] 4.3 mmol/L 3.7 - 5.3 mmol/L [place] Protein [Mass/Vol] 6.7 g/dL 6.4 - 8.3 g/dL [place] Sodium [Moles/Vol] 136 mmol/L 135 - 144 mmol/L [place] Urea nitrogen [Mass/Vol] 12 mg/dL 6 - 20 mg/d L [place] Hemoglobin A1Con 04-04-2019 HbA1c (Bld) [Mass fraction] 11.6 % High 4.0-6.0 [facility] Comment on above: Performed By: #### C DP, CMPX, FT4, LIPR, TSH #### [facility] [address] [place] [address] Food Manager: French Martínez DO #### GLYHGB #### [address] [id number] Food Manager: Archie Erickson MD HbA1c (Bld) [Mass fraction] 286 mg/dL Normal [facility] Comment on above: Result Comment: The ADA and AACC recommend providing the estimated average glucose result to permit better patient understanding of their HBA1c result. Performed By: #### C DP, CMPX, FT4, LIPR, TSH #### [facility] [address] [place] [address] Food Manager: French Martínez DO #### GLYHGB #### [address] [address] Food Manager: Archie Erickson MD Hemoglobin A1con 04-04-2019 Glucose [Mass/Vol] 286 mg/dL [place] Comment on above: The ADA and AACC rec ommend providing the estimated average glucose result to permit better patient understanding of their HBA1c result. HbA1c (Bld) [Mass fraction] 11.6 % High 4 - 6 % [place] Interpretation and review of laboratory results Abnormal [place] Lipid Profileon 04-04-2019 Cholesterol [Mass/Vol] 178 mg/dL Normal <200 [facility] Comment on above: Result Comment: Cholesterol Guidelines: <200 Desirable 200-240 Borderline >240 Undesirable Performed By: #### C DP, CMPX, FT4, LIPR, TSH #### [facility] [address] [place] [address] Food Manager: French Martínez DO #### GLYHGB #### [address] [place] [address] Food Manager: Archie Erickson MD Cholesterol in HDL [Mass/Vol] 42 mg/dL Normal >40 [facility] Comment on above: Result Comment: HDL Guidelines: <40 Undesirable 40-59 Borderline >59 Desirable Performed By: #### C DP, CMPX, FT4, LIPR, TSH #### [facility] [address] [place] [address] Food Manager: French Martínez DO #### GLYHGB #### [address] [address] Food Manager: Archie Erickson MD Cholesterol in LDL [Mass/Vol] 85 mg/dL Normal 0-130 [facility] Comment on above: Result Comment: LDL Guidelines: <100 Desirable 100-129 Near to/above Desirable 130-159 Borderline >159 Undesirable Direct (measured) LDL and calculated LDL are not interchangeable tests. Performed By: #### C DP, CMPX, FT4, LIPR, TSH #### [facility] [address] [place] [address] Food Manager: French Martínez DO #### GLYHGB #### [address] [address] Food Manager: Archie Erickson MD Cholesterol.total/Choles terol in HDL [Mass ratio] 4.2 {ratio} Normal <5 [facility] Comment on above: Performed By: #### C DP, CMPX, FT4, LIPR, TSH #### [facility] [address] [place] [address] Food Manager: French Martínez DO #### GLYHGB #### [address] [address] Food Manager: Archie Erickson MD Triglyceride [Mass/Vol] 254 mg/dL High <150 [facility] Comment on above: Result Comment: Triglyceride Guidelines: <150 Desirable 150-199 Borderline 200-499 High >499 Very high Based on AHA Guidelines for fasting triglyceride, April 2012. Performed By: #### C DP, CMPX, FT4, LIPR, TSH #### [facility] [address] [facility] [place] [address] Food Manager: French Martínez DO #### GLYHGB #### [facility] [address] [place] [address] Food Manager: Archie Erickson MD Cholesterol in VLDL [Mass/Vol] NOT REPORTED Normal 1-30 [facility] Comment on above: Performed By: #### C DP, CMPX, FT4, LIPR, TSH #### [facility] [address] [place] [address] Food Manager: French Martínez DO #### GLYHGB #### [facility] [address] [place] [address] Food Manager: Archie Erickson MD Lipid panel - fastingon Cholesterol [Mass/Vol] 178 mg/dL <200 [place] Comment on above: Cholesterol Guidelines: <200 Desirable 200-240 Borderline >240 Undesirable Cholesterol in HDL [Mass/Vol] 42 mg/dL >40 [place] Comment on above: HDL Guidelines: <40 Undesirable 40-59 Borderline >59 Desirable Cholesterol in LDL [Mass/Vol] 85 mg/dL 0 - 130 mg/dL [place] Comment on above: LDL Guidelines: <100 Desirable 100-129 Near to/above Desirable 130-159 Borderline >159 Undesirable Direct (measured) LDL and calculated LDL are not interchangeable tests. Cholesterol in VLDL [Mass/Vol] NOT REPORTED High 1 - 30 mg/dL [place] Cholesterol.total/Choles terol in HDL [Mass ratio] 4.2 {ratio} <5 [place] Triglyceride [Mass/Vol] 254 mg/dL High <150 M [place] Comment on above: Triglyceride Guidelines: <150 Desirable 150-199 Borderline 200-499 High >499 Very high Based on AHA Guidelines for fasting triglyceride, April 2012. Otheron 04-04-2019 Interpretation and review of laboratory results Abnormal [place] Immature granulocytes (Bld) [#/Vol] NOT REPORTED 0 % [place] T4, freeon 04-04-2019 Thyroxine, Free 1.00 ng/dL 0.93 - 1.7 ng/dL [place] TSH without Reflexon 019 TSH Qn 0.99 m[IU]/L [place], [place] Thyroid Stim. Horm.on 2018 TSH Qn 0.99 m[IU]/L Normal 0.30-5.00 [facility] Comment on above: Performed By: #### C DP, CMPX, FT4, LIPR, TSH #### [facility] [address] [place] [address] Food Manager: French Martínez DO #### GLYHGB #### [facility] [address] [place] [id number] Food Manager: Archie Erickson MD Thyroxine, Freeon 04-04-2019 Thyroxine, Free 1.00 ng/dL Normal 0.93-1.70 [facility] Comment on above: Performed By: #### C DP, CMPX, FT4, LIPR, TSH #### [facility] [address] [place] [address] Food Manager: French Martínez DO #### GLYHGB #### [address] [id number] Food Manager: Archie Erickson MD Vital Signs Date Time Vital Sign Value Performing Clinician Guillermina robles 04-07-2019 07:30-0400 Body Temperature 97.59 [degF] [facility] 04-07-2019 07:30-0400 BP Diastolic 88 mm[Hg] [place] 04-07-2019 07:30-0400 BP Systolic 135 mm[facility]Hg] [facility] [place] 04-07-2019 07:30-0400 Pulse (Heart Rate) 61 /min Jinny Sheets [facility] 04-07-2019 07:30-0400 Pulse Oximetry 100 % Jinny Sheets [facility] [place] 04-07-2019 07:30-0400 Respiratory Rate 14 /min [facility] 04-03-2019 21:30-0400 BMI (Body Mass Index) 20.92 kg/m2 [facility]arie [facility] 04-03-2019 21:30-0400 Body weight 68.04 kg [facility] [place] 04-03-2019 21:30-0400 Height 180.3 cm [facility] [place] Encounters Encounter Date Encounter Type Care Provider Facility Start: 03-23-2024 End: 03-24-2024 Emergency department patient visit [facility] Start: 03-13-2024 End: 03-14-2024 [facility] Start: 03-13-2024 End: 03-13-2024 Emergency department patient visit [facility] Start: 11-20-2023 End: 11-20-[address] [facility] Start: 10-09-2023 End: 10-09-[address] [facility] Start: 08-01-2023 End: 08-03-2023 Evaluation and management of inpatient [facility] Start: 07-05-2023 End: 07-06-2023 Evaluation and management of inpatient [facility] Start: 12-07-2021 End: 12-07-[address] DOCTOR FONTENOT Facility: Start: 04-03-2019 End: 04-07-2019 Evaluation and management of inpatient [facility] Start: 04-03-2019 Patient encounter procedure Jinny DELUNA [...] Start: 04-05-2019 Glucose blood reagen t strip [place] [facility] Work Phone: Start: 04-05-2019 Gluc bld [...] Work Phone: Start: 04-04-2019 IP CONSULT TO REGULATORY AFFAIRS ASSOCIATE [facility] Start: 04-04-2019 DIET GENERAL [facility] Start: 04-04-2019 Drug screen class list a [facility] Start: 04-04-2019 FULL CODE [facility] Start: 04-04-2019 IP CONSULT TO HOSPITALIST [facility] Start: 04-04-2019 MONITOR [facility] Start: 04-04-2019 PATIENT STATUS (DIRECT) [facility] Start: 04-04-2019 TOBACCO CESSATION EDUCATION [facility] Start: 04-04-2019 VITAL SIGNS [facility] Plan of Treatment Date Care Activity Detail Author Start: 01-30-2024 DTaP/Tdap/Td vaccine (7 - Td) DTaP/Tdap/Td vaccine (7 - Td) [place] Start: 04-04-2020 Lipid screen Lipid screen [place] Start: 07-05-2019 A1C test (Diabetic or Prediabetic) A1C test (Diabetic or Prediabetic) [place] Start: 03-02-2019 Influenza vaccination Flu vaccine (#1) [place] Start: 2018 Diabetic microalbuminuria test Diabetic microalbuminuria test [place] Start: 05-15-2017 [object Object] Diabetic foot exam [place] Start: 2016 Meningococcal (ACWY) Vaccine (2 - 2-dose series) Meningococcal (ACWY) Vaccine (2 - 2-dose series) [place] Start: 2015 HIV screen HIV screen [place] Start: 08-01-2014 HPV vaccine (3 - Male 2-dose series) HPV vaccine (3 - Male 2-dose series) [place] Start: 2010 Diabetic retinal exam Diabetic retinal exam [place] Immunizations Immunization Date Immunization Notes Care Provider Eda bragg 04-30-2014 human papilloma viru s vaccine, quadrivalent [place] 01-29-2014 human papilloma viru s vaccine, quadrivalent [place] 01-29-2014 meningococcal polysaccharide (groups A, C, Y and W-135) diphtheria toxoid conjugate vaccine (MCV4P) [place] 01-29-2014 tetanus toxoid, redu margo diphtheria toxoid, and acellular pertussis vaccine, adsorbed [place] 01-29-2014 meningococcal vaccin e of unknown formulation and unknown serogroups [place] 12-21-2009 hepatitis A vaccine, unspecified formulation [place] 04-13-2008 hepatitis A vaccine, unspecified formulation [place] 04-13-2008 varicella virus vaccine [place] 02-20-2006 diphtheria, tetanus toxoids and acellular pertussis vaccine [place] 02-20-2006 measles, mumps and r ubella virus vaccine [place] 02-20-2006 poliovirus vaccine, inactivated [place] 12-11-2001 diphtheria, tetanus toxoids and acellular pertussis vaccine [facility] 12-11-2001 haemophilus influenz ae type b vaccine, PRP-OMP conjugate [facility] 12-11-2001 measles, mumps and r ubella virus vaccine [facility] 12-11-2001 varicella virus vaccine [facility] 01-10-2001 diphtheria, tetanus toxoids and acellular pertussis vaccine [facility] 01-10-2001 haemophilus influenz ae type b vaccine, PRP-OMP conjugate [facility] 01-10-2001 hepatitis B vaccine, unspecified formulation [facility] [place] 01-10-2001 poliovirus vaccine, inactivated [facility] 2000 diphtheria, tetanus toxoids and acellular pertussis vaccine [facility] 2000 haemophilus influenz ae type b vaccine, PRP-OMP conjugate [facility] 2000 poliovirus vaccine, inactivated [facility] 2000 diphtheria, tetanus toxoids and acellular pertussis vaccine [facility] 2000 haemophilus influenz ae type b vaccine, PRP-OMP conjugate [facility] 2000 hepatitis B vaccine, unspecified formulation [facility] [place] 2000 poliovirus vaccine, inactivated [facility] 2000 hepatitis B vaccine, unspecified formulation [facility] [place] Payers Date Payer Category Payer Unknown [id number] 2019 Unknown [id number] 2016 Unknown [facility] xxxxxxxxxxxx 2016-Present [phone] [place] [address] xxxxxxxxxxxx [id number] 2000 Unknown [id number] 2000 Unknown [id number] 2000 Unknown [id number] 6 2000 Unknown [id number] 6 2000 Unknown [id number] 6 1999 Medicaid 1959 Unknown [id number] Social History Date Type Detail Facility Start: 04-05-2019 Tobacco smoking status NHIS Never sm oker [place] Start: 04-05-2019 Alcohol intake No [place] Sex Assigned At Not on file [place] Medical Equipment Procedure Code Equipment Code Equipment Origin al Text Equipment Identifier Dates Test daily prn f or ketones [id number] Start: 07-09-2014 For blood glucos e testing 6-8 x/day [id number] Start: 07-09-2014 Disp: #200 For 4 -5 inejctions/day [id number] Start: 09-02-2014 Use tid [id number] Start: 07-09-2014 Family History No Family History Records Found Medical History Relation Name Comments Bipolar Disorder Father Schizophrenia Father Heart Attack Mother Heart Disease Mother Diabetes Paternal Grandmother Relation Name Status Comments Father Mother Paternal Grandmother Advance Directives No Advanced Directives Records FoundDocuments on File Type Date Recorded 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 Latest Code Status on File Code Status Date Activated Date Inactivated Comments Full Code 04/03/2019 10:14 PM Summary Purpose Additional Source Comments (unrecognized sect ion and content) No Status Records FoundNo Status Records FoundNo Status Records FoundNo Status Records FoundNo Status Records Found INFORMATION SOURCE (unrecogn ized section and content) DATE CREATED AUTHOR 04/07/2019 [facility] DATE CREATED AUTHOR AUTHOR'S ORGANIZ ATION [facility] DATE CREATED AUTHOR AUTHOR'S ORGANIZ ATION 12/11/2021 [facility] DATE CREATED AUTHOR AUTHOR'S ORGANIZ ATION [facility] DATE CREATED AUTHOR AUTHOR'S ORGANIZ ATION 03/25/2024 [facility] FOR RECORDS PERTAINING TO PATIENTS WHO ARE [...] PRIMARY CLINICAL RECORDS. [facility]. provides no warranty or guarantee of the accuracy or completeness of information in this document.
[2025-01-22 05:58] LABS: Glucose Urine UA >=1000 mg/dL (NEGATIVE)
[2025-01-22 06:04] LABS: Cast Seen? NONE SEEN #/LPF (NONE SEEN); Crystals Seen? None Seen #/HPF (None Seen); Urine Culture Indicated NO
[2025-01-22 06:10] LABS: Cannabinoid Screen Urine NEGATIVE (NEGATIVE); Methamphetamines Screen Urine NEGATIVE (NEGATIVE); Tricyclic Antidepressant Urine NEGATIVE (NEGATIVE)
[2025-01-22] MEDS: 0.9 % SODIUM CHLORIDE 1,000 ML 150 ML IV (06:32)
[2025-01-22] MEDS: POTASSIUM CHLORIDE 10 MEQ ER TABLET 20 MEQ PO (06:35)
[2025-01-22 07:43] LABS: Lactate/Lactic Acid 1.5 mmol/L (0.4-2.0)
[2025-01-22 09:49] LABS: Magnesium 2.3 mg/dL (1.8-2.4)
--- NOTE | 2025-01-22 09:52 | CM.NOTE ---
Rounds made with Dr. Gracia. Dr. Gracia reviews symptoms prompting trip to ER with Primo. Dr. Gracia reviews labs and treatment plan with Primo. Understanding verbalized.
--- NOTE | 2025-01-22 10:04 | P.IMHP_ITS ---
Internal Medicine - H&P: HPI History of Present Illness Chief complaint: DKA Narrative: Please be aware that I am seeing this patient for the first time today. He was accepted by the night team hospitalist. This is a 24-year-old male with past medical history of uncontrolled type 1 diabetes mellitus since he was 8 years old, here with symptoms compatible with DKA. Symptoms started yesterday when the patient was out of his insulin since he had a [employer] job 3 hours away out of home, he was out of insulin for a day or 2 and then started yesterday having abdominal pain with nausea and dry heaves with no vomiting. He also complained of being cold and he was very thirsty with dry mouth. He knew that he was in DKA as he had the similar symptoms before and he had multiple hospitalized with DKA as he mentions to me. Patient takes insulin but does not watch his diet. The last time he checked with the business relationship manager he has been delayed was a year ago never had an A1c since then. Patient does not smoke or drink alcohol or use drugs. He works in a [employer] job. No recent travel outside the country, no allergies to medications. In the ED, his labs were compatible with DKA. Patient was started on insulin drip before I saw him. He was sleeping in bed when I saw him. His vitals were stable. Patient admitted under hospitalist service to stepdown unit for DKA management. Review of Systems ROS Status of ROS 10 or more systems reviewed and unremark able except as noted in history and below [facility] Medical History (Updated 01/22/25 @ 10:09 by Chauncey Gracia MD) Pancreatitis ?K85.90 - Acute pancreatitis without necrosis or infection, unspecified (ICD- 10) Diabetes mellitus type 1 ?E10.9 - Type 1 diabetes mellitus without complications (ICD-10) Family History (Updated 01/22/25 @ 06:09 by Andree Call RN) Other Patient denies significant medical history Social History (Updated 01/22/25 @ 06:09 by Andree Call RN) Within the past year, how often did you have a drink containing alcohol: never Within the past year, how many standard drinks containing alcohol did you have on a typical day: 1 or 2 Within the past year, how often did you have six or more drinks on one occasion: never Total score: 0 Score interpretation: A score less than 4 is consistent with normal alcohol consumption. Smoking status: Never smoker Second hand tobacco smoke exposure: No Non-prescribed substance use: denies use Known occupational exposures/hazards: No Highest level of school completed/degree received: high school graduate Are you now , , , , never or living with a partner: never Little interest or pleasure in doing things: not at all Feeling down, depressed, or hopeless: not at all Feel stressed/tense/nervous/anxious/difficulty sleeping: only a little Due to disability, difficulty making decisions: No Meds Home Medications and Allergies Home Medications ?Medication ?Instructions ?Recorded ?Confirmed ?Type insulin aspart U-100 100 unit/mL 1 sliding scale dose subcut 01/22/25 01/22/25 History subcutaneous solution (Novolog USEASDIRECTD U-100 Insulin aspart) insulin glargine 100 unit/mL (3 40 unit subcut DAILY 0 01/22/25 01/22/25 History mL) subcutaneous pen (Lantus Solostar U-100 Insulin) Allergies Allergy/AdvReac Type Severity Reaction Status Date / Time No Known Drug Allergies Allergy Verified 01/22/25 04:25 Exam Narrative Exam Narrative: General: Awake, alert, oriented, no respiratory distress, lying in bed upon my encounter HEENT: Normocephalic atraumatic, mucous membranes are pink and dry, no swelling of the tongue, uvula or pharyngeal soft tissues Neck: Supple, no meningeal signs, no anterior or posterior cervical lymphadenopathy Chest: Lungs are clear to auscultation with good air entry, there is no wheezing rhonchi or rales appreciated no accessory muscle use, patient is speaking in complete sentences-no chest wall tenderness to palpation CVS: Regular rate and rhythm S1-S2, no murmurs rubs or gallops, pulses are brisk and equal bilaterally ABD: Soft, flat, nondistended, nontender, no rebound guarding or rigidity, bowel sounds are normal, no pulsatile masses appreciated Extremities: Moving all extremities, no lower extremity tenderness or swelling noted, negative Homans' sign, pulses are brisk and equal bilaterally Skin: Normal in appearance without rash,pallor, petechiae or purpura Neuro: No focal deficits; speech is clear, there is no facial droop Constitutional Vital Signs, click to edit/add: Last Vital Signs Temp 97.6 F 01/22/25 05:52 Pulse 86 01/22/25 10:00 Resp 16 01/22/25 08:00 BP 117/74 01/22/25 08:00 Pulse Ox 98 01/22/25 08:00 O2 Del Method Room Air 01/22/25 08:00 Internal Medicine - H&P: Reslt Labs Labs: Short CBC 01/22/25 Range/Units 04:27 WBC 9.9 (4.0-11.0) 10^3/uL Hgb 16.4 (14.0-18.0) g/dL Hct 46.7 (42.0-54.0) % Plt Count 429 (150-450) 10^3/uL BMP 01/22/25 04:27 Sodium 128 L Potassium 5.1 Chloride 88 L Carbon Dioxide 11.6 L BUN 22.0 H Creatinine 1.51 H Glucose 741 H* Calcium 10.4 H Liver Function 01/22/25 Range/Units 04:27 Total Bilirubin 0.9 (0.2-1.0) mg/dL AST 10 L (15-37) U/L ALT 24 (16-63) U/L Alkaline Phosphatase 121 H (46-116) U/L Albumin 4.1 (3.4-5.0) g/dL Urine 01/22/25 Range/Units 05:37 Urine Color Lt. 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 will set him up with that -Monitoring renal function -POCT glucose q1 hour -Full code -Ambulate as tolerated
[2025-01-22] MEDS: DEXTROSE 5 %-0.45 % SOD CHLORD 1,000 ML 125 ML IV (10:25)
[2025-01-22 11:04] LABS: Anion Gap 20.9; Blood Urea Nitrogen 19.0 mg/dL (7.0-18.0); Calcium 9.7 mg/dL (8.5-10.1); Carbon Dioxide 19.6 mmol/L (21.0-32.0); Chloride 102 mmol/L (98-107); Estimated GFR (African America >60 (>=60 mL/min/1.73m^2); Estimated GFR (Non-African Ame >60 (>=60 mL/min/1.73m^2); Glucose 309 mg/dL (74-106); Potassium 4.5 mmol/L (3.5-5.1); Sodium 138 mmol/L (136-145)
--- NOTE | 2025-01-22 12:44 | SWNOTE1 ---
SW and I stopped in pt's room to see who the PCP is. Pt voiced he has been to [facility] in the past as needed. SW also asked pt if he knew who the weight loss consultant is he has seen. Pt was unsure but voiced they are out of [place]. Called [facility] and pt has not been seen there in almost 3 years. They voiced the provider he last saw is no longer there. I did ask if we would still be able to call at d/c to set up follow up appt due to this and they voiced yes. SW to follow as needed.
--- NOTE | 2025-01-22 12:52 | SWNOTE1 ---
Correction for last note. [place] [facility] [place].
[2025-01-22 12:54] LABS: Anion Gap 16.2; Blood Urea Nitrogen 17.0 mg/dL (7.0-18.0); Calcium 9.5 mg/dL (8.5-10.1); Carbon Dioxide 25.7 mmol/L (21.0-32.0); Chloride 104 mmol/L (98-107); Estimated GFR (African America >60 (>=60 mL/min/1.73m^2); Estimated GFR (Non-African Ame >60 (>=60 mL/min/1.73m^2); Glucose 132 mg/dL (74-106); Potassium 3.9 mmol/L (3.5-5.1); Sodium 142 mmol/L (136-145)
--- NOTE | 2025-01-22 13:04 | SWNOTE1 ---
SW stopped back in to speak with pt in regards to Endocronologist. SW searched Endocronolgist in [place], and they were 30+. SW let pt know. SW asked if any family or hsi girlfriend would know the name. He voiced she would not, but she is bringing his clipper counters and he may have the name/number in his phone. SW advised pt to let SW or nurse know once he has that, as he will to a follow up scheduled with them at discharge. SW also let him know patient financial services will be up to speak with him as well. He did voice he made too much for Medicaid. He voiced he has been at his job for 90 days, just has to do paperwork for insurance? ALPHONSO advised [facility] will discuss in more detail with him.
[2025-01-22] MEDS: POTASSIUM CHLORIDE 10 MEQ ER TABLET PO (13:42)
[2025-01-22] MEDS: INSULIN GLARGINE 300 UNIT/3 ML INSULN.PEN 40 UNIT SQ (13:42)
[2025-01-22 16:32] LABS: Anion Gap 15.9; Blood Urea Nitrogen 17.0 mg/dL (7.0-18.0); Calcium 8.5 mg/dL (8.5-10.1); Carbon Dioxide 22.4 mmol/L (21.0-32.0); Chloride 101 mmol/L (98-107); Estimated GFR (African America >60 (>=60 mL/min/1.73m^2); Estimated GFR (Non-African Ame >60 (>=60 mL/min/1.73m^2); Glucose 438 mg/dL (74-106); Potassium 4.3 mmol/L (3.5-5.1); Sodium 135 mmol/L (136-145)
--- NOTE | 2025-01-22 16:52 | PC.NURSE ---
Per dr. Gracia, stop d5, continue insulin drip for 2 hours, repeat bmp at 2000 and give 500 saline over 5 hours
[2025-01-22] MEDS: 0.9 % SODIUM CHLORIDE 500 ML 100 ML IV (17:03)
[2025-01-22 20:13] LABS: Anion Gap 11.5; Blood Urea Nitrogen 15.0 mg/dL (7.0-18.0); Calcium 8.5 mg/dL (8.5-10.1); Carbon Dioxide 25.6 mmol/L (21.0-32.0); Chloride 100 mmol/L (98-107); Estimated GFR (African America >60 (>=60 mL/min/1.73m^2); Estimated GFR (Non-African Ame >60 (>=60 mL/min/1.73m^2); Glucose 411 mg/dL (74-106); Potassium 4.1 mmol/L (3.5-5.1); Sodium 133 mmol/L (136-145)
[2025-01-22 20:17] LABS: Magnesium 1.6 mg/dL (1.8-2.4)
[2025-01-22] MEDS: INSULIN ASPART 300 UNIT/3 ML PEN SUBQ (21:19)
[2025-01-23] VITALS (9 sets, daily range): BP systolic 96; BP diastolic 63; PULSE 65–84; TEMP 36.2–36.7; O2SAT 98–99
[2025-01-23 05:17] LABS: Hematocrit 39.1 % (42.0-54.0); Hemoglobin 13.7 g/dL (14.0-18.0); Immature Granulocytes Abs Auto 0.02 10^3/uL (0.00-0.03); Immature Granulocytes Pct Auto 0.2 % (0.0-0.5); Lymphocytes Absolute Auto 3.9 10^3/uL (1.2-3.8); Mean Corpuscular HGB Conc 35.0 g/dL (29.9-35.2); Mean Corpuscular Hemoglobin 31.1 pg (25.9-34.0); Mean Corpuscular Volume 88.9 fL (80.0-94.0); Platelet Count 303 10^3/uL (150-450); Red Blood Count 4.40 10^6/uL (4.70-6.10); White Blood Count 8.4 10^3/uL (4.0-11.0)
[2025-01-23 05:38] LABS: Alanine Aminotransferase 18 U/L (16-63); Albumin Globulin Ratio 0.7; Albumin Level 2.8 g/dL (3.4-5.0); Alkaline Phosphatase 86 U/L (46-116); Aspartate Amino Transferase 9 U/L (15-37); Globulin 3.9 g/dL; Total Protein 6.7 g/dL (6.4-8.2)
[2025-01-23] MEDS: INSULIN ASPART 300 UNIT/3 ML PEN SUBQ (07:26)
[2025-01-23] MEDS: INSULIN GLARGINE 300 UNIT/3 ML INSULN.PEN 40 UNIT SQ (08:59)
[2025-01-23 09:17] LABS: Alanine Aminotransferase 17 U/L (16-63); Albumin Globulin Ratio 0.8; Albumin Level 2.9 g/dL (3.4-5.0); Alkaline Phosphatase 80 U/L (46-116); Anion Gap 15.1; Aspartate Amino Transferase 12 U/L (15-37); Blood Urea Nitrogen 15.0 mg/dL (7.0-18.0); Calcium 8.2 mg/dL (8.5-10.1); Carbon Dioxide 23.1 mmol/L (21.0-32.0); Chloride 102 mmol/L (98-107); Estimated GFR (African America >60 (>=60 mL/min/1.73m^2); Estimated GFR (Non-African Ame >60 (>=60 mL/min/1.73m^2); Globulin 3.7 g/dL; Glucose 423 mg/dL (74-106); Potassium 4.2 mmol/L (3.5-5.1); Sodium 136 mmol/L (136-145); Total Protein 6.6 g/dL (6.4-8.2)
--- NOTE | 2025-01-23 09:20 | CM.NOTE ---
Rounds made with Dr. Gracia, discussed with pt about underlying diagnosis and BS continuing to be elevated. Dr. Gracia discussed with pt importance of f/u with agriculture science teacher and taking insulin as ordered. Pt states he will be getting insurance soon, pt states he is just waiting on his card. Pt verbalizes he is unsure who insurance will be through or Company name. Pt voices he would like to discharge today d/t need of picking up his vehicle. Dr. Gracia verbalized again to pt dangers of high BS and increased risk for readmission. Pt not ready for discharge at this time.
[2025-01-23] MEDS: INSULIN GLARGINE 300 UNIT/3 ML INSULN.PEN SQ (10:18)
--- NOTE | 2025-01-23 11:46 | PC.NURSE ---
1020- All discharge paperwork complete. Patient states he has to go. Cannot wait for discharge order. Has an appointment in [place] he cannot miss. Discharge paperwork given.
--- NOTE | 2025-01-23 12:11 | CM.NOTE ---
Dr. Gracia reached out, pt did sign out AMA. Reached out to pharmacy for cost on medications. Called pt and discussed medications that Dr. Gracia called into [facility], importance of compliance with insulin. Pt provided information regarding f/u appointment with federal court of appeals law clerk. 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 Pt verbalizes he does have a monitor and lancets at home to check his BS.
--- NOTE | 2025-01-23 12:39 | P.DS_ITS ---
DS: Providers Provider Date of admission: 01/22/25 05:45 Primary care physician: [facility] Consults: 01/22/25 05:40 Consult to Electric Operator Routine Reason for consultation: Diabetic Education Consult to Dietitian Routine Reason for consultation: Provide recommendations for diabetic diet 01/22/25 10:20 Consult to Dietitian Routine Reason for consultation: Non compliance with diabetes, here for DKA Discharging clinician: Chauncey Gracia Anticipated date of discharge: 01/23/25 DS: Diagnosis Discharge Diagnosis (1) DKA (diabetic ketoacidosis): (2) Diabetes mellitus type 1: (3) Noncompliance: DS: Summary Hospital Course Hospital Course: Please be aware that I am seeing this patient for the first time today. He was accepted by the night team hospitalist. This is a 24-year-old male with past medical history of uncontrolled type 1 diabetes mellitus since he was 8 years old, here with symptoms compatible with DKA. Symptoms started yesterday when the patient was out of his insulin since he had a [employer] job 3 hours away out of home, he was out of insulin for a day or 2 and then started yesterday having abdominal pain with nausea and dry heaves with no vomiting. He also complained of being cold and he was very thirsty with dry mouth. He knew that he was in DKA as he had the similar symptoms before and he had multiple hospitalized with DKA as he mentions to me. Patient takes insulin but does not watch his diet. The last time he checked with the net architect he has been delayed was a year ago never had an A1c since then. Patient does not smoke or drink alcohol or use drugs. He works in a [employer] job. No recent travel outside the country, no allergies to medications. In the ED, his labs were compatible with DKA. Patient was started on insulin drip before I saw him. He was sleeping in bed when I saw him. His vitals were stable. Patient admitted under hospitalist service to stepdown unit for DKA management. 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 will set him up with that -Monitoring renal function -POCT glucose q1 hour -Full code -Ambulate as tolerated 01/23/2025 patient and gap closed. His blood glucose is still in the 400s. Patient was reported to have [facility] last night. Discussed with him in detail the importance of dietary compliance. 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 in [place]. He said that he has to be there by 12 PM explained to him that his code is not well-controlle d yet and even though he is not in DKA but he still needs some adjustment to his insulin. Patient did not see his provider network mgr for at least 1 year now. States that he did not have insurance and is trying to get back on track with insurance. His A1c is 12.9. Explained to him that I am not comfortable discharging today however he is leaving today patient left AMA but I still sent I went up from 40-45 Lantus. I hope patient gets more compliant and follows with his net architect well. Patient left AMA Status at Discharge Overall status at discharge: patient is not back to baseline Time Spent with Patient Time attestation: Total time spent providing and/or coordinating discharge services: Exam Constitutional Vital Signs, click to edit/add: Last Vital Signs Temp 98.0 F 01/23/25 07:02 Pulse 79 01/23/25 08:00 Resp 17 01/23/25 07:44 BP 96/63 01/23/25 04:00 Pulse Ox 98 01/23/25 07:02 O2 Del Method Room Air 01/23/25 04:00 DS: Data Data Completed and Pending Labs on day of discharge: Labs from last 24 hours 01/23/25 01/23/25 01/23/25 07:24 05:06 05:06 WBC RBC Hgb Hct MCV MCH MCHC RDW Plt Count MPV Neut % (Auto) Lymph % (Auto) [place] % (Auto) Eos % (Auto) Baso % (Auto) Neut # (Auto) Lymph # (Auto) [place] # (Auto) Eos # (Auto) Baso # (Auto) Abs Immat Gran (auto) Imm/Tot Granulo (auto) Sodium Potassium Chloride Carbon Dioxide Anion Gap BUN Creatinine Est GFR ( Amer) Est GFR (Non-Af Amer) BUN/Creatinine Ratio Glucose Calcium Phosphorus Magnesium Total Bilirubin Direct Bilirubin AST ALT Alkaline Phosphatase Total Protein Albumin Globulin 3.7 Albumin/Globulin Ratio 0.8 0.7 POC Glucose 452 H 01/23/25 01/23/25 01/23/25 05:06 05:06 05:06 WBC RBC Hgb Hct MCV MCH MCHC RDW Plt Count MPV Neut % (Auto) Lymph % (Auto) [place] % (Auto) Eos % (Auto) Baso % (Auto) Neut # (Auto) Lymph # (Auto) [place] # (Auto) Eos # (Auto) Baso # (Auto) Abs Immat Gran (auto) Imm/Tot Granulo (auto) Sodium Potassium Chloride Carbon Dioxide Anion Gap BUN Creatinine Est GFR ( Amer) Est GFR (Non-Af Amer) BUN/Creatinine Ratio Glucose Calcium Phosphorus Magnesium Total Bilirubin Direct Bilirubin AST ALT Alkaline Phosphatase 80 Total Protein 6.6 6.7 Albumin 2.9 L 2.8 L Globulin 3.9 Albumin/Globulin Ratio POC Glucose 01/23/25 01/23/25 01/23/25 05:06 05:06 05:06 WBC RBC Hgb Hct MCV MCH MCHC RDW Plt Count MPV Neut % (Auto) Lymph % (Auto) [place] % (Auto) Eos % (Auto) Baso % (Auto) Neut # (Auto) Lymph # (Auto) [place] # (Auto) Eos # (Auto) Baso # (Auto) Abs Immat Gran (auto) Imm/Tot Granulo (auto) Sodium Potassium Chloride Carbon Dioxide Anion Gap BUN Creatinine Est GFR ( Amer) Est GFR (Non-Af Amer) BUN/Creatinine Ratio Glucose Calcium Phosphorus Magnesium Total Bilirubin 0.2 Direct Bilirubin 0.1 AST 12 L 9 L ALT 17 18 Alkaline Phosphatase 86 Total Protein Albumin Globulin Albumin/Globulin Ratio POC Glucose 01/23/25 01/22/25 01/22/25 05:06 21:18 19:48 WBC 8.4 RBC 4.40 L Hgb 13.7 L Hct 39.1 L MCV 88.9 MCH 31.1 MCHC 35.0 RDW 12.6 Plt Count 303 MPV 9.0 L Neut % (Auto) 43.0 Lymph % (Auto) 46.5 [place] % (Auto) 7.5 Eos % (Auto) 2.2 Baso % (Auto) 0.6 Neut # (Auto) 3.6 Lymph # (Auto) 3.9 H [place] # (Auto) 0.6 Eos # (Auto) 0.2 Baso # (Auto) 0.1 Abs Immat Gran (auto) 0.02 Imm/Tot Granulo (auto) 0.2 Sodium 136 133 L Potassium 4.2 4.1 Chloride 102 100 Carbon Dioxide 23.1 25.6 Anion Gap 15.1 11.5 BUN 15.0 15.0 Creatinine 1.06 1.35 H Est GFR ( Amer) >60 >60 Est GFR (Non-Af Amer) >60 >60 BUN/Creatinine Ratio 14.2 11.1 Glucose 423 H 411 H Calcium 8.2 L 8.5 Phosphorus 3.3 Magnesium 1.6 L Total Bilirubin 0.3 Direct Bilirubin AST ALT Alkaline Phosphatase Total Protein Albumin Globulin Albumin/Globulin Ratio POC Glucose 363 H 01/22/25 01/22/25 01/22/25 17:11 16:07 15:18 WBC RBC Hgb Hct MCV MCH MCHC RDW Plt Count MPV Neut % (Auto) Lymph % (Auto) [place] % (Auto) Eos % (Auto) Baso % (Auto) Neut # (Auto) Lymph # (Auto) [place] # (Auto) Eos # (Auto) Baso # (Auto) Abs Immat Gran (auto) Imm/Tot Granulo (auto) Sodium 135 L Potassium 4.3 Chloride 101 Carbon Dioxide 22.4 Anion Gap 15.9 BUN 17.0 Creatinine 1.20 Est GFR ( Amer) >60 Est GFR (Non-Af Amer) >60 BUN/Creatinine Ratio 14.2 Glucose 438 H Calcium 8.5 Phosphorus Magnesium Total Bilirubin Direct Bilirubin AST ALT Alkaline Phosphatase Total Protein Albumin Globulin Albumin/Globulin Ratio POC Glucose 353 H 402 H 01/22/25 12:25 WBC RBC Hgb Hct MCV MCH MCHC RDW Plt Count MPV Neut % (Auto) Lymph % (Auto) [place] % (Auto) Eos % (Auto) Baso % (Auto) Neut # (Auto) Lymph # (Auto) [place] # (Auto) Eos # (Auto) Baso # (Auto) Abs Immat Gran (auto) Imm/Tot Granulo (auto) Sodium 142 Potassium 3.9 Chloride 104 Carbon Dioxide 25.7 Anion Gap 16.2 BUN 17.0 Creatinine 1.26 Est GFR ( Amer) >60 Est GFR (Non-Af Amer) >60 BUN/Creatinine Ratio 13.5 Glucose 132 H Calcium 9.5 Phosphorus Magnesium Total Bilirubin Direct Bilirubin AST ALT Alkaline Phosphatase Total Protein Albumin Globulin Albumin/Globulin Ratio POC Glucose Discharge Plan Discharge Disposition: Left Against Medical Advice Condition: Good Discharge Date/Time: 01/23/25 10:25
== END 2025-01-23 10:25 | disposition left against medical advice (07) | DRG 638 ==
LOC: ER 05:38 → MS 05:50
PROVIDERS: Internal Medicine; Admitting Provider Student in an Organized Health Care Education/Training Program; Emergency Provider Emergency Medicine; Visit Provider Student in an Organized Health Care Education/Training Program
DX: E10.10 Type 1 diabetes mellitus with ketoacidosis without coma (principal); N17.9 Acute kidney failure, unspecified; Z53.29 Procedure and treatment not carried out because of patient's decision for other reasons; Z79.4 Long term (current) use of insulin; Z91.199 Patient's noncompliance with other medical treatment and regimen due to unspecified reason; E86.0 Dehydration; E10.40 Type 1 diabetes mellitus with diabetic neuropathy, unspecified
CPT/HCPCS: 36415; 80048; 80053; 80076; 80307; 81001; 82009; 82800; 82947; 82948; 83036; 83605; 83690; 83735; 84100; 84484; 85025; 93005; 96374; 96375; 99285; J2405; J3490

== ENCOUNTER 2025-03-07 00:36 | Emergency (ER) | payer SELFPAY ==
[2025-03-07 00:38] VITALS: BP 129/87; PULSE 94; TEMP 36.8; O2SAT 99; BMI 21.5
--- NOTE | 2025-03-07 00:43 | PC.NURSE ---
Brought in by PD as patient complained of high blood sugar . Awake and alert. FSBS with result of 539.
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
--- OUTSIDE RECORDS SUMMARY | 2025-03-07 00:56 | XMS_ITS | CCD ---
Author Organization [facility] Care Team Providers Care [employer] Supervisor Name Role Phone Jinny Sheets Primary Care Provider [phone] AL WARD V Admitting Unavailable AL WARD V Attending Unavailable COREY MONTOYA Referring Unavailable JINNY SHEETS Primary Care Unavailable LUCIA FORTE Consulting Unavailable [facility]IAZ Primary Care Unavailable REJI, DR ARTURO Burgos Consulting Unavailable REJI, DR ARTURO Burgos Attending Unavailable REJI, DR ARTURO Burgos Admitting Unavailable Anuj De La Garza Consulting Unavailable AMI SABA Attending Unavailable SERVICES, [facility] Unava ilable AMI SABA Attending Unavailable SERVICES, [facility] Primary Care Unava ilable SERVICES, [facility] Care Unava ilable ELIZABETH SHORT Attending Unavailable ELIZABETH SHORT Attending Unavailable ELIZABETH SHORT Referring Unavailable SERVICES, [facility] Unava ilable ELIZABETH SHORT Attending Unavailable ELIZABETH SHORT Referring Unavailable SERVICES, [facility] Care Unava ilable SERVICES, [facility] Care Unava ilable THIAGO BELLO Attending Unavailable SERVICES, [facility] Unava ilable Medications Current Medications Medication Drug Class(es) Dates [...] Active Problems Problem Classification Problem Date Documented Da te Episodic/Chronic Diabetes mellitus with complications (2 sources) Type 1 diabetes mellitus uncontrolled; Translations: [Type 1 diabetes mellitus with hyperglycemia] Onset: 05-15-2016 04-04-2019 Chronic Diabetes mellitus without complication (2 sources) Type 1 diabetes mellitus; Translations: [Type 1 diabetes mellitus without complications] Onset: 10-19-2010 Resolved: 05-15-2016 05-15-2016 Chronic E Codes: Fall (1 source) Unspecified fall, initial encounter; Translations: [Unspecified fall, initial encounter] Onset: 02-02-2025 Episodic Epilepsy; convulsions (1 source) Epilepsy, unspecified, not intractable, with status epilepticus; Translations: [EPILEPSY UNS NOT INTRACT W/STAT EPI] Onset: 12-08-2021 Chronic Epilepsy; convulsions (3 sources) Unspecified convulsions; Translations: [UNSPECIFIED CONVULSIONS] Onset: 12-07-2021 Episodic Mood disorders (2 sources) Depressive disorder; Translations: [Depression] Onset: 08-10-2011 Resolved: 04-07-2019 08-10-2011 Chronic Other aftercare (1 source) 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; 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] Onset: 12-08-2021 Episodic Other connective tissue disease (1 source) Hand pain Onset: 02-02-2025 Episodic Personality disorders (1 source) Personality disorder; Translations: [Personality disorder] Onset: 08-10-2011 08-10-2011 Chronic Superficial injury; contusion (1 source) Contusion of right hand, initial encounter; Translations: [Contusion of right hand, initial encounter] Onset: 02-02-2025 Episodic Unclassified (1 source) CONTACT W/AND (SUSP) EXPOS COVID-19; Translations: [CONTACT W/AND (SUSP) EXPOS COVID-19] Onset: 12-08-2021 Unclassified (1 source) High Blood Sugar - Symptomatic Onset: 03-23-2024 Unclassified (1 source) Abdominal Pain, Diarrhea Onset: 03-13-2024 Past or Other Problems Problem Classification Problem Date Documented Date Episodic/Chronic Abdominal pain (1 source) Abdominal pain Onset: 03-13-2024 Episodic Diabetes mellitus without complication (1 source) Hyperglycemia, unspecified; Translations: [Hyperglycemia, unspecified] Onset: 03-13-2024 Episodic Noninfectious gastroenteritis (1 source) Noninfective gastroenteritis and colitis, unspecified; Translations: [Noninfective gastroenteritis and colitis, unspecified] Onset: 03-13-2024 Episodic Suicide and intentional self-inflicted injury (1 source) Suicidal thoughts; Translations: [Suicidal ideations] Onset: 04-22-2014 04-22-2014 Episodic Results Test Name Value Interpretation Reference Range Facility XR HAND RT MIN 3 VWSon 02-02 XR HAND RT MIN 3 VWS XR HAND RT MIN 3 VWS Clinical history: Fall. Hand pain Right hand: 02/02/2025 COMPARISON: None FINDINGS: 3 views the hand were obtained. No focal osseous abnormalities present. Bone density is within normal limits. Articular surfaces are intact. IMPRESSION: No acute osseous abnormality evident radiographically. 7 Finalized by Randolph Stanton MD on 02/02/2025 12:00 PM Normal [facility] XR WRIST RT MIN 3 VWSon 08-0 XR WRIST RT MIN 3 VWS XR WRIST RT MIN 3 VWS Clinical history: Fall off ladder. Wrist pain Right wrist: 02/02/2025 COMPARISON: None FINDINGS: 4 views of the wrist were obtained. No fracture or focal osseous abnormalities evident. Bone mineralization is within normal limits. Articular surfaces are intact. Soft tissue swelling is present around the wrist. IMPRESSION: No acute osseous abnormality evident radiographically. Follow-up radiographs are recommended in 7 to 10 days if the patient has persistent pain in the anatomical snuffbox. 7 Finalized by Randolph Stanton MD on 02/02/2025 11:58 AM Normal [facility] Glucose Glucometer (BldC) [M ass/Vol]on 03-24-2024 Glucose [Mass/Vol] 283 mg/dL High 65-99 [facility] Beta hydroxybutyrate [Moles/ Vol]on 03-23-2024 BetaHydroxybutyrate 1.02 mmol/L High 0.02-0.27 [facility] Comment on above: Performed By: #### C MP, CBCA, 02589-2, 3040-3 #### [facility] ([id number]) [address] [place] [address] 27529 CBC AND AUTO DIFFon 03-23-20 24 ABSOLUTE BASOPHIL 0.1 X10E9/L Normal 0.0-0.2 [facility] Comment on above: Performed By: #### C MP, CBCA, 59943-8, 3040-3 #### [facility] ([id number]) [address] [place] [address] 71844 ABSOLUTE NEUTROPHIL 3.3 X10E9/L Normal 1.5-6.6 [facility] Comment on above: Performed By: #### C MP, CBCA, 21274-0, 3040-3 #### [facility] ([id number]) [address] [place] [address] 14723 Basophils/100 WBC (Bld) 1.3 % Normal [facility] Comment on above: Performed By: #### C MP, CBCA, 34852-7, 3040-3 #### [facility] ([id number]) [address] [place] [address] 40535 Eosinophils (Bld) [#/Vol] 0.3 10*3/uL Normal 0.0-0.4 [facility] Comment on above: Performed By: #### C MP, CBCA, 20456-5, 3039-3 #### [facility] ([id number]) [address] [place] [address] 41343 Eosinophils/100 WBC (Bld) 4.3 % Normal [facility] Comment on above: Performed By: #### C MP, CBCA, 66628-9, 3039-3 #### [facility] ([id number]) [address] [place] [address] 61710 Erythrocyte distribution width (RBC) [Ratio] 13.1 % Normal 11.5-15.0 [facility] Comment on above: Performed By: #### C MP, CBCA, 71976-8, 3 #### [facility] ([id number]) [address] [place] [address] 30511 Hematocrit (Bld) [Volume fraction] 39.2 % Normal 39-49 [facility] Comment on above: Performed By: #### C MP, CBCA, 84077-5, 3 #### [facility] ([id number]) [address] [place] [address] 17313 Hemoglobin (Bld) [Mass/Vol] 13.2 g/dL Normal 13.0-17.0 [facility] Comment on above: Performed By: #### C MP, CBCA, 74270-0, 3 #### [facility] ([id number]) [address] [place] [address] 72027 Lymphocytes (Bld) [#/Vol] 2.8 10*3/uL Normal 1.0-3.5 [facility] Comment on above: Performed By: #### C MP, CBCA, 68885-0, 0-3 #### [facility] ([id number]) [address] [place] [address] 59212 Lymphocytes/100 WBC (Bld) 39.6 % Normal [facility] Comment on above: Performed By: #### C YANIRA, CBCA, 98041-2, 3040-3 #### [facility] ([id number]) [address] [place] [address] 11033 MCH (RBC) [Entitic mass] 31.5 pg Normal 27-34 [facility] Comment on above: Performed By: #### C YANIRA, CBCA, 00100-2, 0-3 #### [facility] ([id number]) [address] [place] [address] 17323 MCHC (RBC) [Mass/Vol] 33.6 g/dL Normal 32-[address] [facility] Comment on above: Performed By: #### C YANIRA, CBCA, 76617-0, 0-3 #### [facility] ([id number]) [address] [place] [address] 59910 MCV (RBC) [Entitic vol] 94 fL Normal 80-100 [facility] Comment on above: Performed By: #### C YANIRA, CBCA, 04578-8, 0-3 #### [facility] ([id number]) [address] [place] [address] 87862 Monocytes (Bld) [#/Vol] 0.5 10*3/uL Normal 0-0.9 [facility] Comment on above: Performed By: #### C YANIRA, CBCA, 32146-3, 3039-3 #### [facility] ([id number]) [address] [place] [address] 38901 Monocytes/100 WBC (Bld) 7.8 % Normal [facility] Comment on above: Performed By: #### C YANIRA, CBCA, 69837-6, 0-3 #### [facility] ([id number]) [address] [place] [address] 38459 Neutrophils/100 WBC (Bld) 47.0 % Normal [facility] Comment on above: Performed By: #### C MP, CBCA, 73175-8, 3040-3 #### [facility] ([id number]) [address] [place] [address] 56082 Platelet mean volume (Bld) [Entitic vol] 7.6 fL Normal 7-12 [facility] Comment on above: Performed By: #### C MP, CBCA, 51126-4, 0-3 #### [facility] ([id number]) [address] [place] [address] 24367 Platelets (Bld) [#/Vol] 305 10*3/uL Normal 150-450 [facility] Comment on above: Performed By: #### C MP, CBCA, 41511-6, 3040-3 #### [facility] ([id number]) [address] [place] [address] 10019 RBC COUNT 4.18 X10E12/L Normal 4.10-5.70 [facility] Comment on above: Performed By: #### C YANIRA, CBCA, 59226-9, 3040-3 #### [facility] ([id number]) [address] [place] [address] 70343 WBC (Bld) [#/Vol] 7.0 10*3/uL Normal 4.0-11.0 [facility] Comment on above: Performed By: #### C MP, CBCA, 53224-9, 3040-3 #### [facility] ([id number]) [address] [place] [address] 66010 COMPREHENSIVE METABOLIC PANE Mark 03-23-2024 Albumin [Mass/Vol] 3.7 g/dL Normal 3.2-5.3 [facility] Comment on above: Performed By: #### C MP, CBCA, 63789-9, 3040-3 #### [facility] ([id number]) [address] [place] [address] 49088 ALP [Catalytic activity/Vol] 91 U/L Normal 39-130 [facility] Comment on above: Performed By: #### C ADAM DOYLE, 73808-4, 3040-3 #### [facility] ([id number]) [address] [place] [address] 06592 ALT [Catalytic activity/Vol] 17 U/L Normal 0-40 [facility] Comment on above: Performed By: #### C ADAM DOYLE, 84763-0, 3040-3 #### [facility] ([id number]) [address] [place] [address] 58499 Anion gap [Moles/Vol] 10 mmol/L Normal 5-[address] [facility] Comment on above: Performed By: #### C ADAM DOYLE, 50878-1, 3040-3 #### [facility] ([id number]) [address] [place] [address] 92987 AST [Catalytic activity/Vol] 18 U/L Normal 0-41 [facility] Comment on above: Performed By: #### C ADAM DOYLE, 14010-8, 3040-3 #### [facility] ([id number]) [address] [place] [address] 88287 Bilirubin [Mass/Vol] 0.5 mg/dL Normal 0.3-1.2 [facility] Comment on above: Performed By: #### C ADAM DOYLE, 70507-8, 3040-3 #### [facility] ([id number]) [address] [place] [address] 84206 Calcium [Mass/Vol] 8.9 mg/dL Normal 8.5-10.5 [facility] Comment on above: Performed By: #### C ADAM DOYLE, 68001-6, 3040-3 #### [facility] ([id number]) [address] [place] [address] 56583 Chloride [Moles/Vol] 96 mmol/L Low 98-109 [facility] Comment on above: Performed By: #### C ADAM DOYLE, 28956-8, 3040-3 #### [facility] ([id number]) [address] [place] [address] 80244 CO2 [Moles/Vol] 25 mmol/L Normal 22-32 [facility] Comment on above: Performed By: #### C ADAM DOYLE, 97694-6, 3040-3 #### [facility] ([id number]) [address] [place] [address] 71200 Creatinine [Mass/Vol] 1.06 mg/dL Normal 0.70-1.[address] [facility] Comment on above: Result Comment: METH OD TRACEABLE TO IDMS STANDARD Performed By: #### C ADAM DOYLE, 05025-2, 3040-3 #### [facility] ([id number]) [address] [place] [address] 52988 eGFR (CKD-EPI) NON-RACE DEPENDENT >90 Normal >59 [facility] Comment on above: Result Comment: Reported eGFR is based on the CKD-EPI 2021 equation that does not use a race coefficient. Performed By: #### C ADAM DOYLE, 51676-0, 3040-3 #### [facility] ([id number]) [address] [place] [address] 98513 Glucose [Mass/Vol] 671 mg/dL Critically high 65-99 [facility] Comment on above: Performed By: #### C ADAM DOYLE, 14593-3, 3040-3 #### [facility] ([id number]) [address] [place] [address] 86843 Potassium [Moles/Vol] 4.4 mmol/L Normal 3.5-5.[address] [facility] Comment on above: Performed By: #### C ADAM DOYLE, 01512-3, 3040-3 #### [facility] ([id number]) [address] [place] [address] 30052 Protein [Mass/Vol] 7.3 g/dL Normal 6.0-8.0 [facility] Comment on above: Performed By: #### C ADAM DOYLE, 36888-4, 3040-3 #### [facility] ([id number]) [address] [place] [address] 61637 Sodium [Moles/Vol] 131 mmol/L Low 134-146 [facility] Comment on above: Performed By: #### C ADAM DOYLE, 22875-0, 3040-3 #### [facility] ([id number]) [address] [place] [address] 57297 Urea nitrogen [Mass/Vol] 15 mg/dL Normal 5-23 [facility] Comment on above: Performed By: #### C ADAM DOYLE, 76714-8, 3040-3 #### [facility] ([id number]) [address] [place] [address] 52666 Glucose Glucometer (BldC) [M ass/Vol]on 03-23-2024 Glucose [Mass/Vol] 495 mg/dL Critically high 65-99 [facility] BEDSIDE GLUCOSE LAB >500 Critically high 65-99 [facility] Comment on above: Result Comment: SEE LAB RESULTS FOR CONFIRMATION LIPASEon 03-23-2024 Lipase [Catalytic activity/Vol] 19 U/L Normal 17-40 [facility] Comment on above: Performed By: #### C ADAM DOYLE, 56105-7, 3040-3 #### [facility] ([id number]) [address] [place] [address] 39250 VENOUS BLOOD GASon ROMAN'S TEST Normal [facility] Comment on above: Performed By: #### C ADAM DOYLE, 71588-3, 3040-3 #### [facility] ([id number]) [address] [place] [address] 63761 Base excess Calc (Bld) [Moles/Vol] 0.0 mmol/L Normal 0.0-2.0 [facility] Comment on above: Performed By: #### C ADAM DOYLE, 27399-0, 3039-3 #### [facility] ([id number]) [address] [place] [address] 53601 Body temperature 98.6 [degF] Normal 37.0 [facility] Comment on above: Performed By: #### C ADAM DOYLE, 32216-9, 304-3 #### [facility] ([id number]) [address] [place] [address] 69484 HCO3 (Bld) [Moles/Vol] 25.6 mmol/L High 20.0-24.0 [facility] Comment on above: Performed By: #### C ADAM DOYLE, 36226-0, 3040- #### [facility] ([id number]) [address] [place] [address] 13496 INSP. O2 CONC. 21 % [facility] Comment on above: Performed By: #### C ADAM DOYLE, 74481-0, 3040-3 #### [facility] ([id number]) [address] [place] [address] 37992 Oxygen saturation in Blood 74.0 % Low >80.0 [facility] Comment on above: Performed By: #### C ADAM DOYLE, 95035-9, 3040-3 #### [facility] ([id number]) [address] [place] [address] 31340 OXYGEN SOURCE [employer] [facility] Comment on above: Performed By: #### C YANIRA CBCA, 13179-2, 3040-3 #### [facility] ([id number]) [address] [place] [address] 84504 PCO2, VENOUS 43.5 MMHG Normal 35-50 [facility] Comment on above: Performed By: #### C MP, CBCA, 20278-2, 3040-3 #### [facility] ([id number]) [address] [place] [address] [place] [address] PH, VENOUS 7.378 Normal 7.320-7.420 [facility] Comment on above: Performed By: #### C MP, CBCA, 60820-7, 3040-3 #### [facility] ([id number]) [address] [place] [address] 86629 PO2, VENOUS 40 MMHG Normal 30-50 [facility] Comment on above: Performed By: #### C MP, CBCA, 67132-4, 3040-3 #### [facility] ([id number]) [address] [place] [address] 50225 SAMPLE SITE N/A Normal [facility] Comment on above: Performed By: #### C MP, CBCA, 15915-5, 3040-3 #### [facility] ([id number]) [address] [place] [address] 86162 SAMPLE TYPE VENOUS Normal [facility] Comment on above: Performed By: #### C MP, CBCA, 99949-9, 3040-3 #### [facility] ([id number]) [address] [place] [address] 34268 CBC AND AUTO DIFFon 03-13-20 24 ABSOLUTE BASOPHIL 0.0 X10E9/L Normal 0.0-0.2 [facility] Comment on above: Performed By: #### C MP, CBCA, 11050-8, 3040-3 #### [facility] ([id number]) [address] [place] [address] 79386 ABSOLUTE NEUTROPHIL 6.6 X10E9/L Normal 1.5-6.6 [facility] Comment on above: Performed By: #### C MP, CBCA, 79867-0, 3039-3 #### [facility] ([id number]) [address] [place] [address] 60936 Basophils/100 WBC (Bld) 0.4 % Normal [facility] Comment on above: Performed By: #### C MP, CBCA, 27139-4, 3039-3 #### [facility] ([id number]) [address] [place] [address] 44343 Eosinophils (Bld) [#/Vol] 0.1 10*3/uL Normal 0.0-0.4 [facility] Comment on above: Performed By: #### C MP, CBCA, 91147-6, 3039-3 #### [facility] ([id number]) [address] [place] [address] 46045 Eosinophils/100 WBC (Bld) 1.0 % Normal [facility] Comment on above: Performed By: #### C MP, CBCA, 21884-1, 3039-3 #### [facility] ([id number]) [address] [place] [address] 04946 Erythrocyte distribution width (RBC) [Ratio] 12.9 % Normal 11.5-15.0 [facility] Comment on above: Performed By: #### C MP, CBCA, 93472-8, 304-3 #### [facility] ([id number]) [address] [place] [address] 50223 Hematocrit (Bld) [Volume fraction] 46.0 % Normal 39-49 [facility] Comment on above: Performed By: #### C MP, CBCA, 81543-8, 0-3 #### [facility] ([id number]) [address] [place] [address] 62498 Hemoglobin (Bld) [Mass/Vol] 15.8 g/dL Normal 13.0-17.0 [facility] Comment on above: Performed By: #### C MP, CBCA, 14218-3, 3039-3 #### [facility] ([id number]) [address] [place] [address] 94481 Lymphocytes (Bld) [#/Vol] 1.3 10*3/uL Normal 1.0-3.5 [facility] Comment on above: Performed By: #### C YANIRA, CBCA, 66456-5, 3 #### [facility] ([id number]) [address] [place] [address] 15068 Lymphocytes/100 WBC (Bld) 14.6 % Normal [facility] Comment on above: Performed By: #### C YANIRA, CBCA, 93835-2, 3039-08 #### [facility] ([id number]) [address] [place] [address] 26244 MCH (RBC) [Entitic mass] 31.8 pg Normal 27-34 [facility] Comment on above: Performed By: #### C YANIRA, CBCA, 71758-8, 3 #### [facility] ([id number]) [address] [place] [address] 08991 MCHC (RBC) [Mass/Vol] 34.3 g/dL Normal 32-36 [facility] Comment on above: Performed By: #### C MP, CBCA, 29147-3, 3 #### [facility] ([id number]) [address] [place] [address] 24620 MCV (RBC) [Entitic vol] 93 fL Normal 80-100 P [facility] Comment on above: Performed By: #### C MP, CBCA, 83261-4, 3040-3 #### [facility] ([id number]) [address] [place] [address] 38248 Monocytes (Bld) [#/Vol] 0.7 10*3/uL Normal 0-0.9 [facility] Comment on above: Performed By: #### C MP, CBCA, 32028-4, 0-3 #### [facility] ([id number]) [address] [place] [address] 82150 Monocytes/100 WBC (Bld) 8.4 % Normal [facility] Comment on above: Performed By: #### C MP, CBCA, 65767-3, 3040-3 #### [facility] ([id number]) [address] [place] [address] 00976 Neutrophils/100 WBC (Bld) 75.6 % Normal [facility] Comment on above: Performed By: #### C MP, CBCA, 13229-2, 3040-3 #### [facility] ([id number]) [address] [place] [address] 54939 Platelet mean volume (Bld) [Entitic vol] 8.3 fL Normal 7-12 [facility] Comment on above: Performed By: #### C MP, CBCA, 46595-1, 0-3 #### [facility] ([id number]) [address] [place] [address] 20210 Platelets (Bld) [#/Vol] 382 10*3/uL Normal 150-450 [facility] Comment on above: Performed By: #### C MP, CBCA, 19904-6, 3040-3 #### [facility] ([id number]) [address] [place] [address] 80991 RBC COUNT 4.97 X10E12/L Normal 4.10-5.70 [facility] Comment on above: Performed By: #### C YANIRA, CBCA, 96168-7, 3040-3 #### [facility] ([id number]) [address] [place] [address] 86125 WBC (Bld) [#/Vol] 8.8 10*3/uL Normal 4.0-11.0 [facility] Comment on above: Performed By: #### C YANIRA, CBCA, 94320-1, 3040-3 #### [facility] ([id number]) [address] [place] [id number] COMPREHENSIVE METABOLIC PANE Mark 03-13-2024 Albumin [Mass/Vol] 4.2 g/dL Normal 3.2-5.3 [facility] Comment on above: Performed By: #### C YANIRA, CBCLisa, 14960-3, 3040-3 #### [facility] ([id number]) [address] [place] [address] [id number] ALP [Catalytic activity/Vol] 59 U/L Normal 39-130 [facility] Comment on above: Performed By: #### C YANIRA, CBCA, 13153-5, 3040-3 #### [facility] ([id number]) [address] [place] [address] 95321 ALT [Catalytic activity/Vol] 18 U/L Normal 0-40 [facility] Comment on above: Performed By: #### C YANIRA, CBCA, 32753-4, 3040-3 #### [facility] ([id number]) [address] [place] [address] 46427 Anion gap [Moles/Vol] 7 mmol/L Normal 5-[address] [facility] Comment on above: Performed By: #### C YANIRA CBCA, 35150-6, 3040-3 #### [facility] ([id number]) [address] [place] [address] 30504 AST [Catalytic activity/Vol] 17 U/L Normal 0-41 [facility] Comment on above: Performed By: #### C ADAM DOYLE, 15892-4, 3040-3 #### [facility] ([id number]) [address] [place] [address] 43897 Bilirubin [Mass/Vol] 1.2 mg/dL Normal 0.3-1.2 [facility] Comment on above: Performed By: #### C ADAM DOYLE, 46736-2, 3039- #### [facility] ([id number]) [address] [place] [address] 67174 Calcium [Mass/Vol] 9.3 mg/dL Normal 8.5-10.5 [facility] Comment on above: Performed By: #### C ADAM DOYLE, 26718-6, 3039-08 #### [facility] ([id number]) [address] [place] [address] 74308 Chloride [Moles/Vol] 105 mmol/L Normal 98-109 [facility] Comment on above: Performed By: #### C ADAM DOYLE, 41818-6, 304-3 #### [facility] ([id number]) [address] [place] [address] 62781 CO2 [Moles/Vol] 24 mmol/L Normal 22-32 [facility] Comment on above: Performed By: #### C ADAM DOYLE, 29992-9, 3040-3 #### [facility] ([id number]) [address] [place] [address] 47385 Creatinine [Mass/Vol] 0.88 mg/dL Normal 0.70-1.[address] [facility] Comment on above: Result Comment: METH OD TRACEABLE TO IDMS STANDARD Performed By: #### C ADAM DOYLE, 48562-9, 0- #### [facility] ([id number]) [address] [place] [address] 27140 eGFR (CKD-EPI) NON-RACE DEPENDENT >90 Normal >59 [facility] Comment on above: Result Comment: Reported eGFR is based on the CKD-EPI 2020 equation that does not use a race coefficient. Performed By: #### C ADAM DOYLE, 28095-8, 3040-3 #### [facility] ([id number]) [address] [place] [address] 59477 Glucose [Mass/Vol] 286 mg/dL High 65-99 [facility] Comment on above: Performed By: #### C ADAM DOYLE, 14006-2, 3040-3 #### [facility] ([id number]) [address] [place] [address] 63105 Potassium [Moles/Vol] 4.0 mmol/L Normal 3.5-5.[address] [facility] Comment on above: Performed By: #### C ADAM DOYLE, 98795-0, 3040-3 #### [facility] ([id number]) [address] [place] [address] 33474 Protein [Mass/Vol] 8.4 g/dL High 6.0-8.0 [facility] Comment on above: Performed By: #### C ADAM DOYLE, 10103-1, 3040-3 #### [facility] ([id number]) [address] [place] [address] 73386 Sodium [Moles/Vol] 136 mmol/L Normal 134-146 [facility] Comment on above: Performed By: #### C ADAM DOYLE, 98265-3, 3040-3 #### [facility] ([id number]) [address] [place] [address] 02176 Urea nitrogen [Mass/Vol] 12 mg/dL Normal 5-23 [facility] Comment on above: Performed By: #### C UGO DOYLEA, 36125-0, 3040-3 #### [facility] ([id number]) [address] [place] [address] ABDOMEN AND PELVIS W CONT on [...] Cooley MD on 03/13/2024 9:26 AM Normal [facility] LIPASEon 03-13-2024 Lipase [Catalytic activity/Vol] 16 U/L Low 17-40 [facility] Comment on above: Performed By: #### C YANIRA ADAM, 55919-4, 3040-3 #### [facility] ([id number]) [address] [place] [address] 97324 Troponin I.cardiac High sens itivity method [Mass/Vol]on 03-13-2024 1 HOUR TROP I, HIGH SENSITIVITY <2 Normal <21 [facility] Comment on above: Performed By: #### 8 9579-7 #### [facility] ([id number]) [address] [place] [address] 79824 TROPONIN I, HIGH SENSITIVITY <2 Normal <21 [facility] Comment on above: Performed By: #### C YANIRA CBCA, 87441-2, 3040-3 #### [facility] ([id number]) [address] [place] [address] 95833 URN MACROSCOPIC NURon 2023 BILIRUBIN SYDNEY Negative Normal NEG [facility] Comment on above: Performed By: #### N UM #### [facility] ([id number]) [address] [place] [address] 13098 BLOOD/HGB SYDNEY Negative Normal NEG [facility] Comment on above: Performed By: #### N UM #### [facility] ([id number]) [address] [place] [address] 63766 GLUCOSE SYDNEY >=1000 Abnormal NEG [facility] Comment on above: Performed By: #### N UM #### [facility] ([id number]) [address] [place] [address] 71216 KETONES SYDNEY 40 mg/dL Abnormal NEG [facility] Comment on above: Performed By: #### N UM #### [facility] ([id number]) [address] [place] [address] 21075 LEUKOCYTE ESTERASE SYDNEY Negative Normal NEG Pr [facility] Comment on above: Performed By: #### N UM #### [facility] ([id number]) [address] [place] [address] 01042 NITRITE SYDNEY Negative Normal NEG [facility] Comment on above: Performed By: #### N UM #### [facility] ([id number]) [address] [place] [address] 38661 PH SYDNEY 6.0 Normal 5.0-8.5 [facility] Comment on above: Performed By: #### N UM #### [facility] ([id number]) [address] [place] [address] 39995 PROTEIN SYDNEY Negative Normal NEG [facility] Comment on above: Performed By: #### N UM #### [facility] ([id number]) [address] [place] [address] 02407 SPECIFIC GRAVITY SYDNEY 1.020 Normal 1.003-1.[address] [facility] Comment on above: Performed By: #### N UM #### [facility] ([id number]) [address] [place] [address] 40515 UROBILINOGEN SYDNEY 0.2 eu/dL Normal <1.1 [facility] Comment on above: Performed By: #### N UM #### [facility] ([id number]) [address] [place] [address] 77524 VENOUS BLOOD GASon 4 ROMAN'S TEST Normal [facility] Comment on above: Performed By: #### V BG #### [facility] ([id number]) [address] [place] [address] 42597 BASE,DEFICIT 1.0 MMOL/L Normal 0.0-2.0 [facility] Comment on above: Performed By: #### V BG #### [facility] ([id number]) [address] [place] [address] 85264 Body temperature 98.6 [degF] Normal 37.0 [facility] Comment on above: Performed By: #### V BG #### [facility] ([id number]) [address] [place] [address] 66212 HCO3 (Bld) [Moles/Vol] 24.4 mmol/L High 20.0-24.0 [facility] Comment on above: Performed By: #### V BG #### [facility] ([id number]) [address] [place] [address] 61207 Oxygen saturation in Blood 93.0 % Normal >80.0 [facility] Comment on above: Performed By: #### V BG #### [facility] ([id number]) [address] [place] [address] 45564 OXYGEN SOURCE RoomAir Normal [facility] Comment on above: Performed By: #### V BG #### [facility] ([id number]) [address] [place] [address] 85003 PCO2, VENOUS 40.6 MMHG Normal 35-50 [facility] Comment on above: Performed By: #### V BG #### [facility] ([id number]) [address] [place] [address] 72612 PH, VENOUS 7.386 Normal 7.320-7.420 [facility] Comment on above: Performed By: #### V BG #### [facility] ([id number]) [address] [place] [address] 20146 PO2, VENOUS 70 MMHG High 30-50 [facility] Comment on above: Performed By: #### V BG #### [facility] ([id number]) [address] [place] [address] 24153 SAMPLE SITE N/A Normal [facility] Comment on above: Performed By: #### V BG #### [facility] ([id number]) [address] [place] [address] 49857 SAMPLE TYPE VENOUS Normal [facility] Comment on above: Performed By: #### V BG #### [facility] ([id number]) [address] [place] [address] 08629 XR CHEST 1 VWon 03-13-2024 XR CHEST 1 VW XR CHEST 1 VW Portable chest: HISTORY: Epigastric abdominal pain and cough. Single view of the chest was obtained. Lungs are clear. There is no vascular congestion or effusion. No pneumothorax seen. Osseous structures appear intact. IMPRESSION: No acute findings. 6 Finalized by Armando Cooley MD on 03/13/2024 9:24 AM Normal [facility] CT HEAD WO CONon 12-12-2021 CT HEAD [...] protocol MRI would be recommended. Normal [facility] ACETAMINOPHENon 12-07-2021 Acetaminophen [Mass/Vol] ug/mL Critically low 10.0-30 .0 [facility] Comment on above: Performed By: #### A CET #### [facility] [address] [place] [address] Dr. Miguel Ferrara CBC AUTO DIFFon 12-07-2021 BASO # 0.1 103/ul Normal 0.0-0.1 [facility] Comment on above: Performed By: #### C BC #### [facility] [address] [place] [address] Dr. Miguel Ferrara Basophils/100 WBC (Bld) 0.8 % Normal 0.2-2.0 [facility] Comment on above: Performed By: #### C BC #### [facility] [address] [place] [address] Dr. Miguel Ferrara EO # 0.1 103/ul Normal 0.0-0.7 [facility] Comment on above: Performed By: #### C BC #### [facility] [address] [place] [address] Dr. Miguel Ferrara Eosinophils/100 WBC (Bld) 1.2 % Normal 0.9-7.0 [facility] Comment on above: Performed By: #### C BC #### [facility] [address] [place] [address] Dr. Miguel Ferrara Erythrocyte distribution width (RBC) [Ratio] 12.8 % Normal 11.0-15.0 [facility] Comment on above: Performed By: #### C BC #### [facility] [address] [place] [address] Dr. Miguel Ferrara Hematocrit (Bld) [Volume fraction] 39.8 % Critically low 42.0-54.0 [facility] Comment on above: Performed By: #### C BC #### [facility] [address] [place] [address] Dr. Miguel Ferrara Hemoglobin (Bld) [Mass/Vol] 13.2 g/dL Critically low 14.0-18.0 [facility] Comment on above: Performed By: #### C BC #### [facility] [address] [place] [address] Dr. Miguel Ferrara IG # 0.02 10e3/ul Normal 0.00-0.03 [facility] Comment on above: Performed By: #### C BC #### [facility] [address] [place] [address] Dr. Miguel Ferrara IG % 0.3 % Normal 0.0-0.5 [facility] Comment on above: Performed By: #### C BC #### [facility] [address] [place] [address] Dr. Miguel Ferrara LYMPH # 2.9 103/ul Normal 1.2-3.8 [facility] Comment on above: Performed By: #### C BC #### [facility] [address] [place] [address] Dr. Miguel Ferrara Lymphocytes/100 WBC (Bld) 39.0 % Normal 20.5-60.0 [facility] Comment on above: Performed By: #### C BC #### [facility] [address] [place] [address] Dr. Miguel Ferrara MANUAL DIFF REQ NO Normal [facility] Comment on above: Performed By: #### C BC #### [facility] [address] [place] [address] Dr. Miguel Ferrara MCH (RBC) [Entitic mass] 31.1 pg Normal 25.9-34.0 [facility] Comment on above: Performed By: #### C BC #### [facility] [address] [address] [address] Miguel Ferrara MCHC (RBC) [Mass/Vol] 33.2 g/dL Normal 29.9-35.2 [facility] Comment on above: Performed By: #### C BC #### [facility] [address] [address] [address] Miguel Ferrara MCV (RBC) [Entitic vol] 93.6 fL Normal 80.0-94.0 [facility] Comment on above: Performed By: #### C BC #### [facility] [address] [place] [address] Dr. Miguel Ferrara MONO # 0.6 103/ul Normal 0.3-0.8 [facility] Comment on above: Performed By: #### C BC #### [facility] [address] [place] [address] Dr. Miguel Ferrara Monocytes/100 WBC (Bld) 8.4 % Normal 1.7-12.0 [facility] Comment on above: Performed By: #### C BC #### [facility] [address] [place] [address] Dr. Miguel Ferrara NEUT # 3.7 103/ul Normal 1.4-6.5 [facility] Comment on above: Performed By: #### C BC #### [facility] [address] [place] [address] Dr. Miguel Ferrara Neutrophils/100 WBC (Bld) 50.3 % Normal 43.0-75.0 [facility] Comment on above: Performed By: #### C BC #### [facility] [address] [place] [address] Dr. Miguel Ferrara Platelet mean volume (Bld) [Entitic vol] 8.6 fL Critically low 9.5-13.5 [facility] Comment on above: Performed By: #### C BC #### [facility] [address] [place] [address] Dr. Miguel Ferrara PLT 358 103/ul Normal 150-450 [facility] Comment on above: Performed By: #### C BC #### [facility] [address] [place], [place] [address] Dr. Miguel Ferrara RBC 4.25 106/ul Critically low 4.70-6.10 [facility] Comment on above: Performed By: #### C BC #### [facility] [address] [place], [place] [address] Dr. Miguel Ferrara WBC 7.3 103/ul Normal 4.0-11.0 [facility] Comment on above: Performed By: #### C BC #### [facility] [address] [place], [place] [address] Dr. Miguel Ferrara Covid-19 PCR (CVDTBH)on SARS-CoV-2 (COVID-19) RNA NESSA+probe Ql (Unsp spec) Not detected Normal NOT DETECTED [facility] Comment on above: Result Comment: When diagnostic [...] for this test is supported by the [place] of Health and Human Service's declaration that [...] used). Performed By: #### C VDTBH #### [facility] [address] [place], [place] [address] Dr. Miguel Ferrara ETHANOL (BLD ALC)on 12-08-19 22 ALC NOTE NOTE: 80 mg/dl is the legal limit for a blood alcohol level Normal [facility] Comment on above: Performed By: #### E TH #### [facility] [address] [place] [address] Dr. Miguel Ferrara Ethanol [Mass/Vol] mg/dL Normal [facility] Comment on above: Performed By: #### E TH #### [facility] [address] [place] [address] Dr. Miguel Ferrara POINT OF CARE GLUCOSEon 06- Glucose [Mass/Vol] 311 mg/dL Critically high 74-106 [facility] Comment on above: Performed By: #### P OCGLUC #### [facility] [address] [place] [address] Dr. Miguel Ferrara PROF 14(COMP METB)on 022 Albumin [Mass/Vol] 3.5 g/dL Normal 3.4-5.0 [facility] Comment on above: Performed By: #### C MP #### [facility] [address] [place] [address] Dr. Miguel Ferrara Albumin/Globulin [Mass ratio] 0.9 {ratio} Normal [facility] Comment on above: Performed By: #### C MP #### [facility] [address] [place] [address] Dr. Miguel Ferrara ALP [Catalytic activity/Vol] 82 U/L Normal 46-116 [facility] Comment on above: Performed By: #### C MP #### [facility] [address] [place] [address] Dr. Miguel Ferrara ALT [Catalytic activity/Vol] 24 U/L Normal 16-63 [facility] Comment on above: Performed By: #### C MP #### [facility] [address] [place] [address] Dr. Miguel Ferrara Anion gap [Moles/Vol] 11.2 mmol/L Normal [facility] Comment on above: Performed By: #### C MP #### [facility] [address] [place] [address] Dr. Miguel Ferrara AST [Catalytic activity/Vol] 17 U/L Normal 15-37 [facility] Comment on above: Performed By: #### C MP #### [facility] [address] [place] [address] Dr. Miguel Ferrara Bilirubin [Mass/Vol] 0.6 mg/dL Normal 0.2-1.0 [facility] Comment on above: Performed By: #### C MP #### [facility] [address] [address] [address] Miguel Ferrara Calcium [Mass/Vol] 8.9 mg/dL Normal 8.5-10.1 [facility] Comment on above: Performed By: #### C MP #### [facility] [address] [address] [address] Miguel Ferrara Chloride [Moles/Vol] 100 mmol/L Normal 98-107 [facility] Comment on above: Performed By: #### C MP #### [facility] [address] [place] [address] Dr. Miguel Ferrara CO2 [Moles/Vol] 28.4 mmol/L Normal 21.0-32.0 [facility] Comment on above: Performed By: #### C MP #### [facility] [address] [place] [address] Dr. Miguel Ferrara Creatinine [Mass/Vol] 1.30 mg/dL Normal 0.70-1.30 [facility] Comment on above: Performed By: #### C MP #### [facility] [address] [place] [address] Dr. Miguel Ferrara EGFR-AF WALLISIAN >60 Normal >=60 [facility] Comment on above: Performed By: #### C MP #### [facility] [address] [place] [address] Dr. Miguel Ferrara EGFR-NON AF WALLISIAN >60 Normal >=60 [facility] Comment on above: Performed By: #### C MP #### [facility] [address] [place] [address] Dr. Miguel Ferrara Globulin (S) [Mass/Vol] 4.0 g/dL Normal [facility] Comment on above: Performed By: #### C MP #### [facility] [address] [place] [address] Dr. Miguel Ferrara Glucose [Mass/Vol] 339 mg/dL Critically high 74-106 [facility] Comment on above: Performed By: #### C MP #### [facility] [address] [address] [address] Miguel Ferrara Potassium [Moles/Vol] 3.6 mmol/L Normal 3.5-5.1 [facility] Comment on above: Performed By: #### C MP #### [facility] [address] [address] [address] Miguel Ferrara Protein [Mass/Vol] 7.5 g/dL Normal 6.4-8.2 [facility] Comment on above: Performed By: #### C MP #### [facility] [address] [address] [address] Miguel Ferrara Sodium [Moles/Vol] 136 mmol/L Normal 136-145 [facility] Comment on above: Performed By: #### C MP #### [facility] [address] [address] [address] Miguel Ferrara Urea nitrogen [Mass/Vol] 15.0 mg/dL Normal 7.0-18.0 [facility] Comment on above: Performed By: #### C MP #### [facility] [address] [address] [address] Miguel Ferrara Urea nitrogen/Creatinine [Mass ratio] 11.5 mg/mg Normal [facility] Comment on above: Performed By: #### C MP #### [facility] [address] [address] [address] Miguel Ferrara SALICYLATEon 12-07-2021 SALICYLATE <2.8 Normal <=19.9 [facility] Comment on above: Performed By: #### S ALYC #### [facility] [address] [address] [address] Miguel Ferrara FREE T4on 03-23-2020 Free T4 [Mass/Vol] 0.73 ng/dL Normal 0.61-1.60 [facility] Comment on above: Result Comment: Perf ormed at [facility] [address] [facility] [address] [facility] [address] [place] [address] CLIA No. [id number] CAP Accreditation No. [id number] Neurology Manager: Jacob Corbin M.D. Performed By: #### 1 6203, 79326, 222 #### [facility] Unless Otherwise Noted [address] [place] [address] / COLA #4724/CLIA # [id number] LIPID PANEL WITH REFLEX TO D IRECT LDLon 03-23-2020 Cholesterol [Mass/Vol] 168 mg/dL Normal 150-200 [facility] Comment on above: Performed By: #### 1 4403, 71934, 222 #### [facility] Unless Otherwise Noted [address] [place] [address] / [facility] #4724/CLIA # [id number] Cholesterol in LDL/Cholesterol in HDL [Mass ratio] 1.4 Normal <3.5 [facility] Comment on above: Performed By: #### 1 9153, 79974, 222 #### [facility] Unless Otherwise Noted [address] [place] [address] / COL[facility] #4724/CLIA # [id number] Cholesterol.total/Choles terol in HDL [Mass ratio] 2.8 {ratio} Normal 1.0-5.0 [facility] Comment on above: Result Comment: Test performed at [facility] [address] [place] [address] CLIA Number [id number] -------- Performed By: #### 1 458, 32959, 222 #### [facility] Unless Otherwise Noted [address] [address] / [facility]A #4724/CLIA # [id number] HDL-CHOL 59 mg/dL Normal >39 [facility] Comment on above: Result Comment: HDL <40 mg/dL - High Risk HDL > or = 40mg/dL- Desirable HDL >60 mg/dL - Negative Risk Performed By: #### 1 4745, 06684, 222 #### [facility] Unless Otherwise Noted [address] [address] / [facility] #6724/CLIA # [id number] LDL-CHOL, CALCULATED 81 mg/dL Normal <130 [facility] Comment on above: Result Comment: LDL <100 mg/dL - Desirable LDL >160 mg/dL - High Risk Performed By: #### 1 2819, 57314, 222 #### [facility] Unless Otherwise Noted [address] [address] / [facility] #9624/CLIA # [id number] Triglyceride [Mass/Vol] 141 mg/dL Normal 27-150 [facility] Comment on above: Performed By: #### 1 5493, 45952, 222 #### [facility] Unless Otherwise Noted [address] [address] / [facility] #4724/CLIA # [id number] VLDL-CHOL, CALCULATED 28 mg/dL Normal 0-30 [facility] Comment on above: Performed By: #### 1 6203, 17254, 222 #### [facility] Unless Otherwise Noted [address] [facility] [address] [place] [address] / COLA #4724/CLIA # [id number] TSHon 03-23-2020 TSH Qn 1.51 uIU/mL Normal 0.49-4.67 [facility] Comment on above: Result Comment: Perf ormed at [facility] [address] [facility] [address] Performed By: #### 1 6203, 99329, 222 #### [facility] Unless Otherwise Noted [address] [facility] [address] [place] [address] / [facility] #4724/CLIA # [id number] POC Glucose Fingerstickon Glucose [Mass/Vol] 192 mg/dL High 75 - 110 mg/dL [place] Interpretation and review of laboratory results Abnormal [place] CBC auto differentialon Basophils (Bld) [#/Vol] 0.00 10*3/uL [place] Basophils/100 WBC (Bld) 1 % 0 - 2 % [place] Differential Type NOT REPORTED [place] Eosinophils (Bld) [#/Vol] 0.10 10*3/uL [place] Eosinophils/100 WBC (Bld) 3 % 0 - 4 % [place] Erythrocyte distribution width (RBC) [Ratio] 13.8 % 11.5 - 14.9 % [place] Hematocrit (Bld) [Volume fraction] 42.9 % 41 - 53 % [place] Hemoglobin (Bld) [Mass/Vol] 14.5 g/dL 13.5 - 17.5 g/dL [place] Lymphocytes (Bld) [#/Vol] 1.80 10*3/uL [place] Lymphocytes/100 WBC (Bld) 38 % 25 - 45 % [place] MCH (RBC) [Entitic mass] 32.1 pg 25 - 35 pg [place] MCHC (RBC) [Mass/Vol] 33.9 g/dL 31 - 37 g/dL [place] MCV (RBC) [Entitic vol] 94.6 fL 78 - 102 fL [place] Monocytes (Bld) [#/Vol] 0.30 10*3/uL [place] Monocytes/100 WBC (Bld) 7 % 2 - 8 % [place] Platelet mean volume (Bld) [Entitic vol] 7.0 fL 6 - 12 fL [place] Platelets (Bld) [#/Vol] NOT REPORTED [place] Platelets (Bld) [#/Vol] 292 10*3/uL [place] RBC (Bld) [#/Vol] 4.54 10*6/uL 4.5 - 5.9 m/uL [place] RBC morphology finding Nom (Bld) NOT REPORTED [place] Segmented neutrophils/100 WBC (Bld) 51 % 34 - 64 % [place] Segs Absolute 2.50 [place] WBC (Bld) [#/Vol] NOT REPORTED per 100 WBC [place] WBC (Bld) [#/Vol] 4.8 10*3/uL [place] WBC Morphology NOT REPORTED [place] CBC with Diffon 04-04-2019 Abs. Basophil 0.00 k/uL Normal 0.0-0.2 [facility] Comment on above: Performed By: #### C DP, CMPX, FT4, LIPR, TSH #### [facility] [address] [place], [place] [id number] Layboy Operator: French Martínez DO #### GLYHGB #### [facility] [employer] [address] [place] [address] Layboy Operator: Archie Erickson MD Abs.Neutrophil (Seg) 2.50 k/uL Normal 1.3-9.1 [facility] Comment on above: Performed By: #### C DP, CMPX, FT4, LIPR, TSH #### [facility] [place] [address] Layboy Operator: French Martínez DO #### GLYHGB #### [address] [address] Layboy Operator: Archie Erickson MD Basophils/100 WBC (Bld) 1 % Normal 0-2 [facility] Comment on above: Performed By: #### C DP, CMPX, FT4, LIPR, TSH #### [facility] [address] [place] [address] Layboy Operator: French Martínez DO #### GLYHGB #### [address] [address] Layboy Operator: Archie Erickson MD Eosinophils (Bld) [#/Vol] 0.10 10*3/uL Normal 0.0-0.4 [facility] Comment on above: Performed By: #### C DP, CMPX, FT4, LIPR, TSH #### [facility] [address] [place] [address] Layboy Operator: French Martínez DO #### GLYHGB #### [address] [address] Layboy Operator: Archie Erickson MD Eosinophils/100 WBC (Bld) 3 % Normal 0-4 [facility] Comment on above: Performed By: #### C DP, CMPX, FT4, LIPR, TSH #### [facility] [address] [place] [address] Layboy Operator: French Martínez DO #### GLYHGB #### [address] [address] Layboy Operator: Archie Erickson MD Erythrocyte distribution width (RBC) [Ratio] 13.8 % Normal 11.5-14.9 [facility] Comment on above: Performed By: #### C DP, CMPX, FT4, LIPR, TSH #### [facility] [address] [place] [address] Layboy Operator: French Martínez DO #### GLYHGB #### [address] [address] Layboy Operator: Archie Erickson MD Hematocrit (Bld) [Volume fraction] 42.9 % Normal 41-53 [facility] Comment on above: Performed By: #### C DP, CMPX, FT4, LIPR, TSH #### [facility] [address] [place] [address] Layboy Operator: French Martínez DO #### GLYHGB #### [address] [address] Layboy Operator: Archie Erickson MD Hemoglobin (Bld) [Mass/Vol] 14.5 g/dL Normal 13.5-17.5 [facility] Comment on above: Performed By: #### C DP, CMPX, FT4, LIPR, TSH #### [facility] [address] [place] [address] Layboy Operator: French Martínez DO #### GLYHGB #### [address] [address] Layboy Operator: Archie Erickson MD Lymphocytes (Bld) [#/Vol] 1.80 10*3/uL Normal 1.2-5.2 [facility] Comment on above: Performed By: #### C DP, CMPX, FT4, LIPR, TSH #### [facility] [address] [place] [address] Layboy Operator: French Martínez DO #### GLYHGB #### [address] [address] Layboy Operator: Archie Erickson MD Lymphocytes/100 WBC (Bld) 38 % Normal 25-45 [facility] Comment on above: Performed By: #### C DP, CMPX, FT4, LIPR, TSH #### [facility] [address] [place] [address] Layboy Operator: French Martínez DO #### GLYHGB #### [address] [address] Layboy Operator: Archie Erickson MD MCH (RBC) [Entitic mass] 32.1 pg Normal 25-35 [facility] Comment on above: Performed By: #### C DP, CMPX, FT4, LIPR, TSH #### [facility] [place] [address] Layboy Operator: French Martínez DO #### GLYHGB #### [address] [address] Layboy Operator: Archie Erickson MD MCHC (RBC) [Mass/Vol] 33.9 g/dL Normal 31-37 [facility] Comment on above: Performed By: #### C DP, CMPX, FT4, LIPR, TSH #### [facility] [address] [place] [address] Layboy Operator: French Martínez DO #### GLYHGB #### [address] [address] Layboy Operator: Archie Erickson MD MCV (RBC) [Entitic vol] 94.6 fL Normal 78-102 M [facility] Comment on above: Performed By: #### C DP, CMPX, FT4, LIPR, TSH #### [facility] [address] [place] [address] Layboy Operator: French Martínez DO #### GLYHGB #### [address] [address] Layboy Operator: Archie Erickson MD Monocytes (Bld) [#/Vol] 0.30 10*3/uL Normal 0.1-1.3 [facility] Comment on above: Performed By: #### C DP, CMPX, FT4, LIPR, TSH #### [facility] [place] [address] Layboy Operator: French Martínez DO #### GLYHGB #### [address] [address] Layboy Operator: Archie Erickson MD Monocytes/100 WBC (Bld) 7 % Normal 2-8 M [facility] Comment on above: Performed By: #### C DP, CMPX, FT4, LIPR, TSH #### [facility] [place] [address] Layboy Operator: French Martínez DO #### GLYHGB #### [address] [address] Layboy Operator: Archie Erickson MD Neutrophil (Seg) 51 % Normal 34-64 [facility] Comment on above: Performed By: #### C DP, CMPX, FT4, LIPR, TSH #### [facility] [address] [place] [address] Layboy Operator: French Martínez DO #### GLYHGB #### [address] [address] Layboy Operator: Archie Erickson MD Platelet mean volume (Bld) [Entitic vol] 7.0 fL Normal 6.0-12.0 [facility] Comment on above: Performed By: #### C DP, CMPX, FT4, LIPR, TSH #### [facility] [place] [address] Layboy Operator: French Martínez DO #### GLYHGB #### [address] [address] Layboy Operator: Archie Erickson MD Platelets (Bld) [#/Vol] 292 10*3/uL Normal 150-450 [facility] Comment on above: Performed By: #### C DP, CMPX, FT4, LIPR, TSH #### [facility] [address] [place] [address] Layboy Operator: French Martínez DO #### GLYHGB #### [address] [address] Layboy Operator: Archie Erickson MD RBC (Bld) [#/Vol] 4.54 10*6/uL Normal 4.5-5.9 [facility] Comment on above: Performed By: #### C DP, CMPX, FT4, LIPR, TSH #### [facility] [place] [address] Layboy Operator: French Martínez DO #### GLYHGB #### [address] [address] Layboy Operator: Archie Erickson MD WBC (Bld) [#/Vol] 4.8 10*3/uL Normal 4.5-13.5 [facility] Comment on above: Performed By: #### C DP, CMPX, FT4, LIPR, TSH #### [facility] [address] [place] [address] Layboy Operator: French Martínez DO #### GLYHGB #### [address] [address] Layboy Operator: Archie Erickson MD Abs.Imm.Granulocyte NOT REPORTED Normal 0.00-0.30 [facility] Comment on above: Performed By: #### C DP, CMPX, FT4, LIPR, TSH #### [facility] [address] [place] [address] Layboy Operator: French Martínez DO #### GLYHGB #### [address] [address] Layboy Operator: Archie Erickson MD Auto Diff Performed NOT REPORTED Normal [facility] Comment on above: Performed By: #### C DP, CMPX, FT4, LIPR, TSH #### [facility] [address] [place] [address] Layboy Operator: French Martínez DO #### GLYHGB #### [address] [address] Layboy Operator: Archie Erickson MD Immature granulocytes (Bld) [#/Vol] NOT REPORTED Normal 0 [facility] Comment on above: Performed By: #### C DP, CMPX, FT4, LIPR, TSH #### [facility] [address] [place] [address] Layboy Operator: French Martínez DO #### GLYHGB #### [address] [address] Layboy Operator: Archie Erickson MD NRBC Automated NOT REPORTED Normal [facility] Comment on above: Performed By: #### C DP, CMPX, FT4, LIPR, TSH #### [facility] [address] [place] [address] Layboy Operator: French Martínez DO #### GLYHGB #### [address] [address] Layboy Operator: Archie Erickson MD Platelets (Bld) [#/Vol] NOT REPORTED Normal [facility] Comment on above: Performed By: #### C DP, CMPX, FT4, LIPR, TSH #### [facility] [address] [place] [address] Layboy Operator: French Martínez DO #### GLYHGB #### [address] [address] Layboy Operator: Archie Erickson MD RBC morphology finding Nom (Bld) NOT REPORTED Normal [facility] Comment on above: Performed By: #### C DP, CMPX, FT4, LIPR, TSH #### [facility] [address] [place] [address] Layboy Operator: French Martínez DO #### GLYHGB #### [address] [address] Layboy Operator: Archie Erickson MD WBC Morphology NOT REPORTED Normal [facility] Comment on above: Performed By: #### C DP, CMPX, FT4, LIPR, TSH #### [facility] [address] [place] [address] Layboy Operator: French Martínez DO #### GLYHGB #### [address] [address] Layboy Operator: Archie Erickson MD Comp Metabolic Pr/rfx MGon 1 (cont.) Normal [facility] Comment on above: Result Comment: Aver age GFR for <20 years old not available. Chronic Kidney Disease: <60 mL/min/1.73sq m Kidney failure: <15 mL/min/1.73sq m eGFR calculated using average adult body mass. Additional eGFR calculator available at: http://www.[employer].com/multiple_crcl_2012.htm Performed By: #### C DP, CMPX, FT4, LIPR, TSH #### [facility] [address] [place] [address] Layboy Operator: French Martínez DO #### GLYHGB #### [address] [address] Layboy Operator: Archie Erickson MD Albumin [Mass/Vol] 3.6 g/dL Normal 3.5-5.2 [facility] Comment on above: Performed By: #### C DP, CMPX, FT4, LIPR, TSH #### [facility] [address] [place] [address] Layboy Operator: French Martínez DO #### GLYHGB #### [address] [address] Layboy Operator: Archie Erickson MD Alkaline Phos 72 U/L Normal 40-129 [facility] Comment on above: Performed By: #### C DP, CMPX, FT4, LIPR, TSH #### [facility] [address] [place] [address] Layboy Operator: French Martínez DO #### GLYHGB #### [address] [address] Layboy Operator: Archie Erickson MD ALT [Catalytic activity/Vol] 18 U/L Normal 5-41 [facility] Comment on above: Performed By: #### C DP, CMPX, FT4, LIPR, TSH #### [facility] [address] [place] [address] Layboy Operator: French Martínez DO #### GLYHGB #### [address] [address] Layboy Operator: Archie Erickson MD Anion gap [Moles/Vol] 12 mmol/L Normal 9-17 [facility] Comment on above: Performed By: #### C DP, CMPX, FT4, LIPR, TSH #### [facility] [address] [place] [address] Layboy Operator: French Martínez DO #### GLYHGB #### [address] [address] Layboy Operator: Archie Erickson MD AST [Catalytic activity/Vol] 19 U/L Normal <40 [facility] Comment on above: Performed By: #### C DP, CMPX, FT4, LIPR, TSH #### [facility] [address] [place] [address] Layboy Operator: French Martínez DO #### GLYHGB #### [address] [address] Layboy Operator: Archie Erickson MD Bilirubin Ql (U) 0.64 mg/dL Normal 0.3-1.2 [facility] Comment on above: Performed By: #### C DP, CMPX, FT4, LIPR, TSH #### [facility] [address] [place] [address] Layboy Operator: French Martínez DO #### GLYHGB #### [address] [address] Layboy Operator: Archie Erickson MD Calcium [Mass/Vol] 9.0 mg/dL Normal 8.6-10.4 [facility] Comment on above: Performed By: #### C DP, CMPX, FT4, LIPR, TSH #### [facility] [address] [place] [address] Layboy Operator: French Martínez DO #### GLYHGB #### [address] [address] Layboy Operator: Archie Erickson MD Chloride [Moles/Vol] 101 mmol/L Normal 98-107 [facility] Comment on above: Performed By: #### C DP, CMPX, FT4, LIPR, TSH #### [facility] [address] [place] [address] Layboy Operator: French Martínez DO #### GLYHGB #### [address] [address] Layboy Operator: Archie Erickson MD CO2 [Moles/Vol] 23 mmol/L Normal 20-31 [facility] Comment on above: Performed By: #### C DP, CMPX, FT4, LIPR, TSH #### [facility] [address] [place] [address] Layboy Operator: French Martínez DO #### GLYHGB #### [address] [address] Layboy Operator: Archie Erickson MD Creatinine [Mass/Vol] 0.80 mg/dL Normal 0.70-1.20 [facility] Comment on above: Performed By: #### C DP, CMPX, FT4, LIPR, TSH #### [facility] [address] [place] [address] Layboy Operator: French Martínez DO #### GLYHGB #### [address] [address] Layboy Operator: Archie Erickson MD GFR,non Amer Pediatric GFR requires additional information. Refer to NKDEP website for Normal >60 [facility] Comment on above: Result Comment: calc ulator. Performed By: #### C DP, CMPX, FT4, LIPR, TSH #### [facility] [address] [place] [address] Layboy Operator: French Martínez DO #### GLYHGB #### [address] [address] Layboy Operator: Archie Erickson MD Glucose [Mass/Vol] 367 mg/dL High 70-99 [facility] Comment on above: Performed By: #### C DP, CMPX, FT4, LIPR, TSH #### [facility] [address] [place] [address] Layboy Operator: French Martínez DO #### GLYHGB #### [address] [address] Layboy Operator: Archie Erickson MD Potassium [Moles/Vol] 4.3 mmol/L Normal 3.7-5.3 [facility] Comment on above: Performed By: #### C DP, CMPX, FT4, LIPR, TSH #### [facility] [address] [place] [address] Layboy Operator: French Mratínez DO #### GLYHGB #### [address] [address] Layboy Operator: rAchie Erickson MD Protein [Mass/Vol] 6.7 g/dL Normal 6.4-8.3 [facility] Comment on above: Performed By: #### C DP, CMPX, FT4, LIPR, TSH #### [facility] [address] [place] [address] Layboy Operator: French Martínez DO #### GLYHGB #### [place] [id number] [place] [address] Layboy Operator: Archie Erickson MD Sodium [Moles/Vol] 136 mmol/L Normal 135-144 [facility] Comment on above: Performed By: #### C DP, CMPX, FT4, LIPR, TSH #### [facility] [address] [place] [address] Layboy Operator: French Martínez DO #### GLYHGB #### [address] [address] Layboy Operator: Archie Erickson MD Urea nitrogen [Mass/Vol] 12 mg/dL Normal - [facility] Comment on above: Performed By: #### C DP, CMPX, FT4, LIPR, TSH #### [facility] [address] [place] [address] Layboy Operator: French Martínez DO #### GLYHGB #### [address] [address] Layboy Operator: Archie Erickson MD Albumin/Globulin [Mass ratio] NOT REPORTED Normal 1.0-2.5 [facility] Comment on above: Performed By: #### C DP, CMPX, FT4, LIPR, TSH #### [facility] [address] [place] [address] Layboy Operator: French Martínez DO #### GLYHGB #### [address] [address] Layboy Operator: Archie Erickson MD BUN/CRE Ratio NOT REPORTED Normal -20 [facility] Comment on above: Performed By: #### C DP, CMPX, FT4, LIPR, TSH #### [facility] [address] [place] [address] Layboy Operator: French Martínez DO #### GLYHGB #### [facility] [employer] [address] [place], [place] [id number] Layboy Operator: Archie Erickson MD GFR, Amer NOT REPORTED Normal >60 [facility] Comment on above: Performed By: #### C DP, CMPX, FT4, LIPR, TSH #### [facility] [address] [place] [address] Layboy Operator: French Martínez DO #### GLYHGB #### [facility] [employer] [address] [place], [place] [id number] Layboy Operator: Archie Erickson MD Staging: NOT REPORTED Normal [facility] Comment on above: Performed By: #### C DP, CMPX, FT4, LIPR, TSH #### [facility] [address] [place] [address] Layboy Operator: French Martínez DO #### GLYHGB #### [facility] [address] [place], [place] [id number] Layboy Operator: Archie Erickson MD Comprehensive Metabolic Pane l w/ Reflex to MGon 04-04-2019 Albumin [Mass/Vol] 3.6 g/dL 3.5 - 5.2 g/dL [place] Albumin/Globulin [Mass ratio] NOT REPORTED [place] ALP [Catalytic activity/Vol] 72 U/L 40 - 129 U/L [place] ALT [Catalytic activity/Vol] 18 U/L 5 - 41 U/L [place] Anion gap [Moles/Vol] 12 mmol/L 9 - 17 mmol/L [place] AST [Catalytic activity/Vol] 19 U/L <40 [place] Bilirubin Ql (U) 0.64 mg/dL 0.3 - 1.2 mg/dL [place] Bun/Cre Ratio NOT REPORTED [place] Calcium [Mass/Vol] 9.0 mg/dL 8.6 - 10. 4 mg/dL [place] Chloride [Moles/Vol] 101 mmol/L 98 - 10 7 mmol/L [place] CO2 [Moles/Vol] 23 mmol/L 20 - 31 mmol/L [place] Creatinine [Mass/Vol] 0.8 mg/dL 0.7 - 1.2 mg/dL [place] GFR NOT REPORTED >60 mL/min [place] GFR Non- Pediatric GFR requires additional information. Refer to NKDEP website for calculator. >60 mL/min [place] GFR/1.73 sq M predicted among non-blacks MDRD (S/P/Bld) [Vol rate/Area] NOT REPORTED [place] GFR/1.73 sq M predicted among non-blacks MDRD (S/P/Bld) [Vol rate/Area] [place] Comment on above: Average GFR for <20 years old not available. Chronic Kidney Disease: <60 mL/min/1.73sq m Kidney failure: <15 mL/min/1.73sq m eGFR calculated using average adult body mass. Additional eGFR calculator available at: http://www.[employer]/multiple_crcl_2011.htm Glucose [Mass/Vol] 367 mg/dL High 70 - 99 mg/dL [place] Potassium [Moles/Vol] 4.3 mmol/L 3.7 - 5.3 mmol/L [place] Protein [Mass/Vol] 6.7 g/dL 6.4 - 8.3 g/dL [place] Sodium [Moles/Vol] 136 mmol/L 135 - 144 mmol/L [place] Urea nitrogen [Mass/Vol] 12 mg/dL 6 - 20 mg/d L [place] Hemoglobin A1Con 04-04-2019 HbA1c (Bld) [Mass fraction] 11.6 % High 4.0-6.0 [facility] Comment on above: Performed By: #### C DP, CMPX, FT4, LIPR, TSH #### [facility] [address] [facility] [place] [address] Layboy Operator: French Martínez DO #### GLYHGB #### [address] [address] Layboy Operator: Archie Erickson MD HbA1c (Bld) [Mass fraction] 286 mg/dL Normal [facility] Comment on above: Result Comment: The ADA and AACC recommend providing the estimated average glucose result to permit better patient understanding of their HBA1c result. Performed By: #### C DP, CMPX, FT4, LIPR, TSH #### [facility] [address] [place] [address] Layboy Operator: French Martínez DO #### GLYHGB #### [address] [address] Layboy Operator: Archie Erickson MD Hemoglobin A1con 04-04-2019 Glucose [Mass/Vol] 286 mg/dL [place] Comment on above: The ADA and AACC rec ommend providing the estimated average glucose result to permit better patient understanding of their HBA1c result. HbA1c (Bld) [Mass fraction] 11.6 % High 4 - 6 % [place] Interpretation and review of laboratory results Abnormal [place] Lipid Profileon 04-04-2019 Cholesterol [Mass/Vol] 178 mg/dL Normal <200 [facility] Comment on above: Result Comment: Cholesterol Guidelines: <200 Desirable 200-240 Borderline >240 Undesirable Performed By: #### C DP, CMPX, FT4, LIPR, TSH #### [facility] [address] [place] [address] Layboy Operator: French Martínez DO #### GLYHGB #### [address] [address] Layboy Operator: Archie Erickson MD Cholesterol in HDL [Mass/Vol] 42 mg/dL Normal >40 [facility] Comment on above: Result Comment: HDL Guidelines: <40 Undesirable 40-59 Borderline >59 Desirable Performed By: #### C DP, CMPX, FT4, LIPR, TSH #### [facility] [address] [place] [address] Layboy Operator: French Martínez DO #### GLYHGB #### [address] [phone] Layboy Operator: Archie Erickson MD Cholesterol in LDL [Mass/Vol] 85 mg/dL Normal 0-130 [facility] Comment on above: Result Comment: LDL Guidelines: <100 Desirable 100-129 Near to/above Desirable 130-159 Borderline >159 Undesirable Direct (measured) LDL and calculated LDL are not interchangeable tests. Performed By: #### C DP, CMPX, FT4, LIPR, TSH #### [facility] [place] [address] Layboy Operator: French Martínez DO #### GLYHGB #### [address] [address] Layboy Operator: Archie Erickson MD Cholesterol.total/Choles terol in HDL [Mass ratio] 4.2 {ratio} Normal <5 [facility] Comment on above: Performed By: #### C DP, CMPX, FT4, LIPR, TSH #### [facility] [address] [place] [address] Layboy Operator: French Martínez DO #### GLYHGB #### [address] [address] Layboy Operator: Archie Erickson MD Triglyceride [Mass/Vol] 254 mg/dL High <150 M [facility] Comment on above: Result Comment: Triglyceride Guidelines: <150 Desirable 150-199 Borderline 200-499 High >499 Very high Based on AHA Guidelines for fasting triglyceride, April 2012. Performed By: #### C DP, CMPX, FT4, LIPR, TSH #### [facility] [address] [facility] [place] [address] Layboy Operator: French Martínez DO #### GLYHGB #### [facility] [address] [place] [address] Layboy Operator: Archie Erickson MD Cholesterol in VLDL [Mass/Vol] NOT REPORTED Normal 1-30 [facility] Comment on above: Performed By: #### C DP, CMPX, FT4, LIPR, TSH #### [facility] [address] [facility] [place] [address] Layboy Operator: French Martínez DO #### GLYHGB #### [facility] [address] [place] [address] Layboy Operator: Archie Erickson MD Lipid panel - fastingon Cholesterol [Mass/Vol] 178 mg/dL <200 [place] Comment on above: Cholesterol Guidelines: <200 Desirable 200-240 Borderline >240 Undesirable Cholesterol in HDL [Mass/Vol] 42 mg/dL >40 [place] Comment on above: HDL Guidelines: <40 Undesirable 40-59 Borderline >59 Desirable Cholesterol in LDL [Mass/Vol] 85 mg/dL 0 - 130 mg/dL [place] Comment on above: LDL Guidelines: <100 Desirable 100-129 Near to/above Desirable 130-159 Borderline >159 Undesirable Direct (measured) LDL and calculated LDL are not interchangeable tests. Cholesterol in VLDL [Mass/Vol] NOT REPORTED High 1 - 30 mg/dL [place] Cholesterol.total/Choles terol in HDL [Mass ratio] 4.2 {ratio} <5 [place] Triglyceride [Mass/Vol] 254 mg/dL High <150 [place] Comment on above: Triglyceride Guidelines: <150 Desirable 150-199 Borderline 200-499 High >499 Very high Based on AHA Guidelines for fasting triglyceride, April 2012. Otheron 04-04-2019 Interpretation and review of laboratory results Abnormal [place] Immature granulocytes (Bld) [#/Vol] NOT REPORTED 0 % [place] T4, freeon 04-04-2019 Thyroxine, Free 1.00 ng/dL 0.93 - 1.7 ng/dL [place] TSH without Reflexon 019 TSH Qn 0.99 m[IU]/L [place] Thyroid Stim. Horm.on 2018 TSH Qn 0.99 m[IU]/L Normal 0.30-5.00 [facility] Comment on above: Performed By: #### C DP, CMPX, FT4, LIPR, TSH #### [facility] [address] [place] [address] Layboy Operator: French Martínez DO #### GLYHGB #### [facility] [employer] [address] [place] [address] [id number] Layboy Operator: Archie Erickson MD Thyroxine, Freeon 04-04-2019 Thyroxine, Free 1.00 ng/dL Normal 0.93-1.70 [facility] Comment on above: Performed By: #### C DP, CMPX, FT4, LIPR, TSH #### [facility] [address] [place] [address] Layboy Operator: French Martínez DO #### GLYHGB #### [address] [id number] Layboy Operator: Archie Erickson MD Vital Signs Date Time Vital Sign Value Performing Clinician Marthai litnorma 04-07-2019 07:30-0400 Body Temperature 97.59 [degF] [facility] [place] [place] 04-07-2019 07:30-0400 BP Diastolic 88 mm[Hg] [place], [place] 04-07-2019 07:30-0400 BP Systolic 135 mm[Hg] [place] 04-07-2019 07:30-0400 Pulse (Heart Rate) 61 /min [place] 04-07-2019 07:30-0400 Pulse Oximetry 100 % [facility] , [place] 04-07-2019 07:30-0400 Respiratory Rate 14 /min Jinny Walls [facility], [place] 04-03-2019 21:30-0400 BMI (Body Mass Index) 20.92 kg/m2 Jinny Walls [facility] [place], [place] 04-03-2019 21:30-0400 Body weight 68.04 kg Jinny Walls [facility] , [place] 04-03-2019 21:30-0400 Height 180.3 cm Jinny Sheets [place], [place] Encounters Encounter Date Encounter Type Care Provider Facility Start: 02-02-2025 End: 02-02-2025 Emergency department patient visit [facility] Start: 03-23-2024 End: 03-24-2024 Emergency department patient visit [facility] Start: 03-13-2024 End: 03-14-2024 [facility] Start: 03-13-2024 End: 03-13-2024 Emergency department patient visit [facility] Start: 11-20-2023 End: 11-20-2023 ambulatory [facility] Start: 10-09-2023 End: 10-09-2023 ambulatory [facility] Start: 12-07-2021 End: 12-07-[address] [facility] Facility: Start: 04-03-2019 End: 04-07-2019 Evaluation and management of 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 [facility]PER [facility] Start: 04-04-2019 DIET [...] - Td) DTaP/Tdap/Td vaccine (7 - Td) [place], [place] Start: 04-04-2020 Lipid screen Lipid screen [place] Start: 07-05-2019 A1C test (Diabetic or Prediabetic) A1C test (Diabetic or Prediabetic) [place] Start: 03-02-2019 Influenza vaccination Flu vaccine (#1) [place] Start: 2018 Diabetic microalbuminuria test Diabetic microalbuminuria test [place] Start: 05-15-2017 [object Object] Diabetic foot exam [place] Start: 2016 Meningococcal (ACWY) Vaccine (2 - 2-dose series) Meningococcal (ACWY) Vaccine (2 - 2-dose series) [place] Start: 2015 HIV screen HIV screen [place] Start: 08-01-2014 HPV vaccine (3 - Male 2-dose series) HPV vaccine (3 - Male 2-dose series) [place] Start: 2010 Diabetic retinal exam Diabetic retinal exam [place] Immunizations Immunization Date Immunization Notes Care Provider Fa kayyty 04-30-2014 human papilloma viru s vaccine, quadrivalent [facility], [place] 01-29-2014 human papilloma viru s vaccine, quadrivalent [facility], [place] 01-29-2014 meningococcal polysaccharide (groups A, C, Y and W-135) diphtheria toxoid conjugate vaccine (MCV4P) [place] 01-29-2014 tetanus toxoid, redu margo diphtheria toxoid, and acellular pertussis vaccine, adsorbed [facility], [place] 01-29-2014 meningococcal vaccin e of unknown formulation and unknown serogroups [place] 12-21-2009 hepatitis A vaccine, unspecified formulation [place] 04-13-2008 hepatitis A vaccine, unspecified formulation [place] 04-13-2008 varicella virus [place] 02-20-2006 diphtheria, tetanus toxoids and acellular pertussis vaccine [place] 02-20-2006 measles, mumps and r ubella virus vaccine [place] 02-20-2006 poliovirus vaccine, inactivated [place] 12-11-2001 diphtheria, tetanus toxoids and acellular pertussis vaccine [place] 12-11-2001 haemophilus influenz ae type b vaccine, PRP-OMP conjugate [place] 12-11-2001 measles, mumps and r ubella virus vaccine [place] 12-11-2001 varicella virus vaccine [facility], [place] 01-10-2001 diphtheria, tetanus toxoids and acellular pertussis vaccine [facility], [place] 01-10-2001 haemophilus influenz ae type b vaccine, PRP-OMP conjugate [facility], [place] 01-10-2001 hepatitis B vaccine, unspecified formulation [facility] , [place] 01-10-2001 poliovirus vaccine, inactivated [facility], [place] 2000 diphtheria, tetanus toxoids and acellular pertussis vaccine [facility], [place] 2000 haemophilus influenz ae type b vaccine, PRP-OMP conjugate [facility], [place] 2000 poliovirus vaccine, inactivated [facility], [place] 2000 diphtheria, tetanus toxoids and acellular pertussis vaccine [facility], [place] 2000 haemophilus influenz ae type b vaccine, PRP-OMP conjugate [facility], [place] 2000 hepatitis B vaccine, unspecified formulation [facility] , [place] 2000 poliovirus vaccine, inactivated [facility], [place] 2000 hepatitis B vaccine, unspecified formulation [facility] , [place] Payers Date Payer Category Payer Unknown [id number] 2020 Unknown [id number] 2019 Unknown [id number] 2016 Unknown [facility] xxxxxxxxxxxx 2016-Present [phone] [place] [address] xxxxxxxxxxxx [id number] 2000 Unknown [id number] 2000 Unknown [id number] 2000 Unknown [id number] 2000 Unknown [id number] 2000 Unknown [id number] 6 1999 Medicaid 1959 Unknown [id number] Social History Date Type Detail Facility Start: 04-05-2019 Tobacco smoking status NHIS Never sm oker [facility] [place], [employer] Start: 04-05-2019 [facility] [place] [facility] Procedure Code Equipment Code Equipment Origin al Text Equipment Identifier Dates Test daily prn f or ketones [id number] Start: 07-09-2014 For blood glucos e testing 6-8 x/day [id number] Start: 07-09-2014 Disp: #200 For 4 -5 inejctions/day [id number] Start: 09-02-2014 Use tid [id number] Start: 07-09-2014 Family History No Family History Records Found Medical History Relation Name Comments Bipolar Disorder Father Schizophrenia Father Heart Attack Mother Heart Disease Mother Diabetes Paternal Grandmother Relation Name Status Comments Father Mother Paternal Grandmother Advance Directives No Advanced Directives Records FoundDocuments on File Type Date Recorded Patient Bridge Opener Expl anation Advance Directives and Living Will Power of Registered Nurse Fetal Latest Code Status on File Code Status Date Activated Date Inactivated Comments Full Code 04/03/2019 10:14 PM Summary Purpose Additional Source Comments (unrecognized sect ion and content) No Status Records FoundNo Status Records FoundNo Status Records FoundNo Status Records FoundNo Status Records Found INFORMATION SOURCE (unrecogn ized section and content) DATE CREATED AUTHOR 04/07/2019 [facility] DATE CREATED AUTHOR AUTHOR'S ORGANIZ ATION 03/24/2020 [facility] DATE CREATED AUTHOR AUTHOR'S ORGANIZ ATION 12/11/2021 [facility] DATE CREATED AUTHOR AUTHOR'S ORGANIZ ATION 11/22/2023 [facility] DATE CREATED AUTHOR AUTHOR'S ORGANIZ ATION 02/04/2025 [facility] FOR RECORDS PERTAINING TO PATIENTS WHO [...] BE BASED ON THE PRIMARY CLINICAL RECORDS. [employer] [facility]. provides no warranty or guarantee of the accuracy or completeness of information in this document.
[2025-03-07 01:16] LABS: Hematocrit 39.2 % (42.0-54.0); Hemoglobin 13.6 g/dL (14.0-18.0); Immature Granulocytes Abs Auto 0.03 10^3/uL (0.00-0.03); Immature Granulocytes Pct Auto 0.3 % (0.0-0.5); Lymphocytes Absolute Auto 1.7 10^3/uL (1.2-3.8); Mean Corpuscular HGB Conc 34.7 g/dL (29.9-35.2); Mean Corpuscular Hemoglobin 31.4 pg (25.9-34.0); Mean Corpuscular Volume 90.5 fL (80.0-94.0); Platelet Count 334 10^3/uL (150-450); Red Blood Count 4.33 10^6/uL (4.70-6.10); White Blood Count 10.8 10^3/uL (4.0-11.0)
[2025-03-07 01:32] LABS: Alanine Aminotransferase 26 U/L (16-63); Albumin Globulin Ratio 0.8; Albumin Level 3.3 g/dL (3.4-5.0); Alkaline Phosphatase 131 U/L (46-116); Anion Gap 15.4; Aspartate Amino Transferase 16 U/L (15-37); Blood Urea Nitrogen 20.0 mg/dL (7.0-18.0); Calcium 8.8 mg/dL (8.5-10.1); Carbon Dioxide 24.7 mmol/L (21.0-32.0); Chloride 101 mmol/L (98-107); Estimated GFR (African America >60 (>=60 mL/min/1.73m^2); Estimated GFR (Non-African Ame >60 (>=60 mL/min/1.73m^2); Globulin 4.1 g/dL; Potassium 4.1 mmol/L (3.5-5.1); Sodium 137 mmol/L (136-145); Total Protein 7.4 g/dL (6.4-8.2)
[2025-03-07 01:36] LABS: Glucose 565 mg/dL (74-106)
[2025-03-07] MEDS: 0.9 % SODIUM CHLORIDE 1,000 ML 999 ML IV (01:37)
== END 2025-03-07 02:18 ==
PROVIDERS: Emergency Provider Internal Medicine
DX: E10.65 Type 1 diabetes mellitus with hyperglycemia (principal); Z79.4 Long term (current) use of insulin
CPT/HCPCS: 36415; 80053; 82009; 85025; 99284